=== PATIENT | female | born 1985 | race Caucasian/White ===

== ENCOUNTER 2017-04-23 15:32 | Emergency (ER) | payer MEDICAID, SELFPAY ==
[2017-04-23 15:42] VITALS: BMI 55.1
[2017-04-23 15:54] VITALS: BP 132/75; PULSE 82; RESP 18; TEMP 36.8; O2SAT 98; BMI 75.5
--- NOTE | 2017-04-23 15:54 | CT_ITS ---
CT abdomen pelvis wo con COMPARISON: CT scan abdomen pelvis 12/03/2016 HISTORY: Right lower quadrant pain with nausea TECHNIQUE: Multiaxial scans obtained from hemidiaphragms the pelvic floor and were performed without IV or oral contrast. Sagittal and coronal reformats were evaluated as well. FINDINGS: The lower lung weber are clear. The liver spleen and pancreas appear normal. There is fluid and some particles seen within the stomach. There has been a previous cholecystectomy. The adrenal glands are normal. The kidneys are normal size and there are no calculi and is no obstructive uropathy. There is a small umbilical hernia containing fat only measuring 2.6 cm in diameter and showing interval increase in size from the previous study November 2016. The small bowel appears normal. I do not definitely identify the appendix but there are no pericecal inflammatory changes. There is moderate scattered stool throughout the colon. The uterus is normal size and in the midline, the urinary bladder is partially decompressed. There is no free fluid in the pelvis. IMPRESSION: Interval increase in size of the umbilical hernia but still containing fat only otherwise grossly unremarkable CT scan abdomen pelvis, I agree with the [facility] report
--- NOTE | 2017-04-23 15:54 | HMH.EDABDPAI ---
ED Disposition Clinical Impression: Abdominal pain, right lower quadrant, Abdominal pain Disposition: Hospice - Medical Facility Condition on Discharge: Good Instructions: DI for Acute Abdomen Prescriptions: Dicyclomine HCl [Bentyl 10mg capsule] 10 mg PO BIDP PRN #10 cap PRN Reason: abdominal cramping - Critical Care Critical Care Time: No Attestation: On , the high probability of a clinically significant, sudden or life threatening deterioration of the following system(s) required my full and direct attention, intervention and personal management. The time I documented below is in addition to time spent performing reported procedures but includes the following listed in this critical care notation. Medical Decision Making Vital Signs: 04/23/17 15:54 Temperature 98.3 F Temperature Source Oral Pulse Rate [Right Brachial] 82 Respiratory Rate 18 Blood Pressure [Right Arm] 132/75 Blood Pressure Mean [Right Arm] 94 Blood Pressure Source [Right Arm] Automatic Cuff Blood Pressure Position [Right Arm] Sitting 02 Sat by Pulse Oximetry 98 Oxygen Delivery Method Room Air - Lab Data Lab results reviewed: Yes: I reviewed the patient's lab results. Lab Results 04/23/17 15:50: WBC 13.2 H, RBC 4.66, Hgb 12.8, Hct 40.9, MCV 87.7, MCH 27.5, MCHC 31.3 L, RDW 14.3, Plt Count 306, MPV 7.1 L, Neut % (Auto) 73.1, Lymph % (Auto) 20.3, [place]uckolls % (Auto) 3.1, Eos % (Auto) 3.2, Baso % (Auto) 0.2, Neut # (Auto) 9.7 H, Lymph # (Auto) 2.7, [place] # (Auto) 0.4, Eos # (Auto) 0.4, Baso # (Auto) 0.0 04/23/17 15:50: Sodium 141, Potassium 4.2, Chloride 103, Carbon Dioxide 31, Anion Gap 11.2, BUN 11, Creatinine 1.09 H, Estimated Creat Clear 55, Estimated GFR 58 L, Est GFR ( Amer) 70, Glucose 106, Calcium 8.9, Total Bilirubin 0.3, AST 11 L, ALT 33, Alkaline Phosphatase 99, Total Protein 8.4 H, Albumin 3.9, Globulin 4.5 H, Albumin/Globulin Ratio 0.9 L, Amylase 37, Lipase 161 04/23/17 16:30: Urine Color Yellow, Urine Appearance Sl cloudy, Urine pH 6.0, Ur Specific [place] 1.010, Urine Protein Negative, Urine Glucose (UA) Negative, Urine Ketones Negative, Urine Blood 3+, Urine Nitrate Negative, Urine Bilirubin Negative, Urine Urobilinogen 0.2, Ur Leukocyte Esterase Negative, Urine RBC 5-10, Urine WBC 5-10, Ur Squamous Epith Cells 5-10, Urine Bacteria 3+ 04/23/17 16:30: Urine HCG, Qual Negative Result diagrams: 04/23/17 15:50 04/23/17 15:50 Orders (Tests/Meds): ED MEDICATIONS Discontinued Medications Generic Name Dose Route Start Last Admin Trade Name Freq PRN Reason Stop Dose Admin Morphine Sulfate 4 mg 04/23/17 16:41 04/23/17 16:51 Morphine 4mg/Ml Syringe IV 04/23/17 16:42 4 mg ONCE ONE Administration Ondansetron HCl 4 mg 04/23/17 16:41 04/23/17 16:50 Zofran 4mg/2ml Vial IV 04/23/17 16:42 4 mg ONCE ONE Administration ORDERS Category Date Time Status CT abdomen pelvis wo con Stat Cat Scan 04/23/17 15:54 Taken Urine Culture Stat Micro 04/23/17 16:30 Received - Genaro Inquiry Pt receiving controlled substance: No Abdominal Pain HPI - General Chief Complaint: Abdominal Pain Stated Complaint: r side and back pain, nausea Time Seen by Provider: 04/23/17 16:00 Mode of Arrival: Ambulatory Source of Information: Patient - History of Present Illness MD complaint: abdominal pain, flank pain Onset (ago): day(s) Consistency: constant Location: RLQ, R flank Severity: moderate Quality: dull Radiation: R flank Relieving factors: nothing Exacerbating factors: eating Associated symptoms: denies other symptoms - Related Data Previous Rx's Medication Instructions Recorded Dicyclomine HCl [Bentyl 10mg 10 mg PO BIDP PRN #10 cap 04/23/17 capsule] Allergies Allergy/AdvReac Type Severity Reaction Status Date / Time amoxicillin [AMOXICILLIN] Allergy Unknown Verified 04/23/17 16:50 codeine [CODEINE] Allergy Unknown Verified 04/23/17 16:50 erythromycin base Allergy Unknown Verified
[2017-04-23 16:04] LABS: Basophils % 0.2 % (0.1-2.0); Eosinophils # 0.4 K/mm3 (0.0-0.4); Eosinophils % 3.2 % (0.1-12.0); Hematocrit 40.9 % (37.0-47.0); Hemoglobin 12.8 g/dL (12.2-16.2); Lymphocytes # 2.7 K/mm3 (0.7-4.5); Lymphocytes % 20.3 K/mm3 (10-50); Mean Corpuscular HGB Conc 31.3 g/dL (31.8-35.4); Mean Corpuscular Hemoglobin 27.5 pg (27.0-31.2); Mean Corpuscular Volume 87.7 fl (81-99); Mean Platelet Volume 7.1 fl (7.4-10.4); Monocytes # 0.4 K/mm3 (0.1-1.0); Monocytes % 3.1 % (1.7-9.3); Neutrophils # 9.7 K/mm3 (1.8-7.8); Neutrophils % 73.1 % (37.0-80.0); Platelet Count 306 K/mm3 (142-424); Red Blood Count 4.66 M/mm3 (4.20-5.40); Red Cell Distribution Width 14.3 % (11.5-17.5); White Blood Count 13.2 K/mm3 (4.8-10.8)
[2017-04-23 16:12] LABS: Alanine Aminotransferase 33 U/L (12-78); Albumin Level 3.9 gm/dL (3.4-5.0); Albumin/Globulin Ratio 0.9 (1.1-1.8); Alkaline Phosphatase 99 U/L (46-116); Amylase 37 U/L (25-125); Anion Gap 11.2 mEq/L (5-15); Aspartate Amino Transferase 11 U/L (15-37); Bilirubin,Total 0.3 mg/dL (0.2-1.0); Blood Urea Nitrogen 11 mg/dL (7-18); Calcium 8.9 mg/dL (8.5-10.1); Carbon Dioxide 31 mmol/L (21.0-32.0); Chloride 103 mmol/L (98-107); Creatinine Clearance Estimated 55 mL/min (0-300); Creatinine,Serum 1.09 mg/dL (0.55-1.02); Estimated Glomerular Filt Rate 58 ml/min (>60); GFR (African American) 70 ML/MIN (>60); Globulin 4.5 gm/dl (1.3-3.2); Glucose 106 mg/dL (74-106); Lipase 161 u/L (73-393); Potassium 4.2 mmoL/L (3.5-5.1); Sodium 141 mmol/L (136-145); Total Protein,Serum 8.4 gm/dL (6.4-8.2)
[2017-04-23 16:48] LABS: Appearance,Urine SL CLOUDY (Clear); Bilirubin,Urine Negative (Negative); Blood, Urine 3+ (Negative); Color,Urine YELLOW (Yellow); Glucose,Urine (UA) Negative (Negative); Ketones,Urine Negative (Negative); Leukocyte Esterase,Urine Negative (Negative); Microscopic, Urine URINE MICROSCOPIC (MICROSCOPIC); Nitrate,Urine Negative (Negative); Protein,Urine Negative (Negative); Urobilinogen,Urine 0.2 EU/dl (0.2)
[2017-04-23 16:52] LABS: Urine Pregnancy, HCG Qual. Negative (Negative)
[2017-04-23 16:56] LABS: Bacteria,Urine 3+ /lpf
[2017-04-23 18:11] VITALS: BP 110/57; PULSE 72; RESP 20; TEMP 37.3; O2SAT 98
== END 2017-04-23 18:21 | disposition home or self-care (01) ==
PROVIDERS: Emergency Provider Emergency Medicine; Family Provider Family Medicine
DX: R10.31 Right lower quadrant pain (principal)
CPT/HCPCS: 74176; 80053; 81001; 81025; 82150; 83690; 85025; 87086; 96374; 96375; 99282; J2405

== ENCOUNTER → 2017-10-07 11:03 | Outpatient (CLI) | payer MEDICAID, SELFPAY | PROVIDERS: PCP Family Medicine; Visit Provider Physician Assistant | DX: R07.9 Chest pain, unspecified (principal) | CPT/HCPCS: 93005 ==

== ENCOUNTER → 2017-10-12 10:39 | Outpatient (CLI) | payer MEDICAID, SELFPAY ==
--- NOTE | 2017-10-12 10:51 | CA_ITS ---
PROCEDURE: 2-D M-mode and color Doppler study INDICATIONS FOR THE TEST: Chest pain+ COPD Heart Murmur Tobacco Smoking+ Palpitations Fatigue Syncope Edema+ Hypertension Diabetes Mellitus Rheumatic Fever SOB LEAVITT Obesity+Hyperlipidemia Family History HD Additional History PATIENT INFORMATION HEIGHT: 62 WEIGHT:320 GENDER: Female B/P: 2-D/M-MODE INTERPRETATION: 2-D MEASUREMENTS OBSERVED VALUES IN CMS Right Ventricular Dimension (RVDd) 2.3 Interventricular Septum (Thickness)(IVsd) 1.1 Left Ventricular Internal Dimensions(LVIDd) 5.0 Left Ventricular Posterior Wall (Thickness)(LVPWd) 1.1 Aortic Root 3.0 Aortic Cusp Separation 2.0 Left Atrial Dimensions (LAD) 4.0 2D 1. Left atrium is normal size, left ventricle is normal size, there is no concentric left ventricular hypertrophy, visually estimated ejection fraction 55% with no obvious regional wall motion abnormality. 2. The right atrium and right ventricle are normal size and contractility. 3. The aortic, mitral and tricuspid valve are grossly normal. 4. The pulmonic valve is poorly visualized. 5. No significant pericardial effusion noted. DOPPLER INTERROGATION: Doppler interrogation of the aortic, mitral and tricuspid valvular presence of mild mitral and tricuspid regurgitation, tricuspid and jet velocity is insufficient for calculation of the right ventricular systolic pressure, diastolic parameters are within normal range. CONCLUSION: 1. Normal left ventricular size, preserved left ventricular systolic function, visually estimated ejection fraction 55% with no obvious regional wall motion abnormality, diastolic parameters are within normal range. 2. Mild mitral and tricuspid regurgitation 3. No significant pericardial effusion noted.
== END ==
PROVIDERS: Family Provider Family Medicine; PCP Family Medicine; Visit Provider Family Medicine
DX: R07.9 Chest pain, unspecified (principal)
CPT/HCPCS: 93306

== ENCOUNTER → 2017-11-07 11:48 | Outpatient (CLI) | payer MEDICAID, SELFPAY ==
[2017-11-07 12:12] LABS: Basophils % 0.4 % (0.1-2.0); Eosinophils # 0.4 K/mm3 (0.0-0.4); Eosinophils % 3.7 % (0.1-12.0); Hematocrit 37.2 % (37.0-47.0); Hemoglobin 11.9 g/dL (12.2-16.2); Lymphocytes # 2.3 K/mm3 (0.7-4.5); Lymphocytes % 21.2 K/mm3 (10-50); Mean Corpuscular Hemoglobin 28.4 pg (27.0-31.2); Mean Corpuscular Volume 88.6 fl (81-99); Monocytes # 0.3 K/mm3 (0.1-1.0); Monocytes % 3.1 % (1.7-9.3); Neutrophils # 7.8 K/mm3 (1.8-7.8); Neutrophils % 71.5 % (37.0-80.0); Platelet Count 255 K/mm3 (142-424); Red Cell Distribution Width 15.8 % (11.5-17.5)
[2017-11-07 13:49] LABS: Creatine Kinase MB < 0.5 ng/ml (0.0-3.6); Troponin I < 0.02 ng/ml (0.00-0.06)
[2017-11-07 14:01] LABS: Anion Gap 12.7 mEq/L (5-15); Blood Urea Nitrogen 9 mg/dL (7-18); CKMB Relative Index 0.7 U/L (0-4.0); Calcium 8.5 mg/dL (8.5-10.1); Carbon Dioxide 28 mmol/L (21.0-32.0); Chloride 106 mmol/L (98-107); Creatine Kinase 74 U/L (26-192); Estimated Glomerular Filt Rate 83 ml/min (>60); GFR (African American) 100 ML/MIN (>60); Glucose 115 mg/dL (74-106); Potassium 4.7 mmoL/L (3.5-5.1); Sodium 142 mmol/L (136-145)
== END ==
PROVIDERS: Family Provider Family Medicine; PCP Family Medicine; Visit Provider Physician Assistant
DX: E66.01 Morbid (severe) obesity due to excess calories (principal); F17.200 Nicotine dependence, unspecified, uncomplicated; R06.09 Other forms of dyspnea; R07.9 Chest pain, unspecified; R60.9 Edema, unspecified; Z68.43 Body mass index [BMI] 50.0-59.9, adult
CPT/HCPCS: 36415; 80048; 82550; 82553; 83880; 84484; 85025

== ENCOUNTER → 2017-11-11 11:45 | Outpatient (CLI) | payer MEDICAID, SELFPAY ==
--- NOTE | 2017-11-11 11:46 | CT_ITS ---
CT angio chest COMPARISON: CT angiogram of the chest 03/10/2013 HISTORY: Chest pain and bilateral arm tingling TECHNIQUE: Multiple axial scans obtained from the thoracic inlet the hemidiaphragms and were performed after rapid injection of IV contrast. Sagittal and coronary reformats were evaluated as well. FINDINGS: This is a very large patient and this is a fairly good inspiration and there is excellent vascular opacification. There is no CT evidence of pulmonary emboli. The lung weber are clear of active infiltrate. There is abundant fat in the superior mediastinum.. There are couple normal-sized nodes in the AP window. There is no abnormal hilar lymphadenopathy. There is mild to moderate generalized cardiomegaly however the is no vascular congestion. There is no pleural fluid. There is a [id number] sized sliding hiatal hernia. Scans in the upper abdomen show both adrenal glands appear normal. IMPRESSION: Generalized cardio megaly, no PE and no acute infiltrate seen
--- NOTE | 2017-11-11 12:35 | HMH.ITSHM ---
CHLORPOMAZINE 25 MG DICLOFENAC SODEC 75 MG CETIRAZINE HCL 10 MG FERROUS SULFATE 325 MG CVS VITAMIN D3 BENZTROPINE DULOYETINE ESOMEPRAZOLE ARIPIPRAZOLE CYCLOBENZAPRINE MECLIZINE ACETAMINOPHEN
--- NOTE | 2017-11-11 13:41 | HMH.ITSHM ---
DICLOFENAC,CHLORPOMAZINE,FERROUS SULFATE,BENZTROPINE,DULOETINE,ESOMEPRAZE,ARIPPRAZOLE,CYCLOBENDAPRINE,MECLIZINE,
== END ==
PROVIDERS: PCP Family Medicine; Visit Provider Internal Medicine Cardiovascular Disease
DX: R07.9 Chest pain, unspecified (principal); R06.00 Dyspnea, unspecified; R60.9 Edema, unspecified; R53.1 Weakness; E66.9 Obesity, unspecified
CPT/HCPCS: 71275; Q9967

== ENCOUNTER → 2017-11-18 14:14 | Outpatient (CLI) | payer MEDICAID, SELFPAY ==
--- NOTE | 2017-11-18 14:22 | XR_ITS ---
XR hip RT 2-3V w/pelvis HISTORY: ITS.REASON: RT HIP PAIN ORDERING PHYSICIAN: FRANCISCO JAVIER Mahmood PATIENT AGE: 32 years COMPARISON: None FINDINGS: No fracture or dislocation is evident. No significant degenerative change. No lytic or blastic change. Unremarkable soft tissues. There is an old avulsion fracture versus ligamentous calcification of the lesser trochanter superiorly. Similar finding is noted on the left. IMPRESSION: No acute finding, old bilateral avulsion fractures versus ligaments calcification along the superior aspect of the lesser trochanter
== END ==
PROVIDERS: PCP Family Medicine; Visit Provider Physician Assistant
DX: M25.551 Pain in right hip (principal)
CPT/HCPCS: 73502

== ENCOUNTER 2018-01-12 08:30 | Outpatient (RCR) | payer MEDICAID, SELFPAY ==
--- NOTE | 2017-12-27 15:21 | HMH.PTOPWND ---
Rehab Outpt Wound Evaluation Rehab OP Wound Evaluation Start: 12/27/17 14:59 Freq: Status: Active Protocol: Document 12/27/17 15:14 ALBERTINA (Rec: 12/27/17 15:21 PHORNE [id number]) Electronically Signed By Carlos Smith, PT 12/27/17 15:14 Subjective/History History History Pt is 32 yowf who presents with c/o bianca LE edema with open, weeping sores x ~ 2 mos. She presents today with ni open sores currently, but several areas of healing skin. She reports no c/o pain or tenderness to palpation now, but states My legs just burn and itch. SHe reports she has been taking oral antibiotics as prescribed which have helped her symptoms. She has hx of obesity. Subjective Subjective Only c/o burning and itching in bianca LE. Lymphedema Eval Classification of Lymphedema Secondary Lymphedema Yes Stage of Lymphedema Lymphedema stages Stage 0 (subjective c/o heaviness and aching) Skin Changes Dry Skin Yes Redness Yes Blisters Yes Wounds Yes Pain Scale Pain Scale (0-10) 0 Affected Extremities Areas Affected by Lymphedema/Edema Right Lower Extremity Left Lower Extremity Manual Lymphatic Drainage Treatment Area MLD Treatment Area Right Lower Extremity Left Lower Extremity Wound Problems/Impairments Impairments Problems/Impairmments Increased Edema Wound Care Needs Impaired Self Care/Self Management Prognosis Rehab Potential Good Clinical Impression Consistent with Diagnosis Yes Short Term Goals Number of Weeks 4 Patient to Understand Lymphedema Yes Treatment and Exercises Decrease Girth Measurments by (cm) Yes: by 5 cm Heel Seam Rubber Goals Number of Weeks 8 Patient to be Ind w/ HEP Yes Patient to Adhere Lymphedema Precautions Yes Decrease Girth Measurments by (cm) Yes: by 15 cm Outpatient Therapy Plan of Care Treatment Plan May Include Therapeutic Exercise Including Home Yes Exercise Program Manual Therapy Techniques Yes Neuromuscular Re-education Yes Orthotics/Bracing/Splinting Yes Massage Yes Lisa
== END 2018-01-12 08:35 | disposition home or self-care (01) ==
LOC: PT 08:30
PROVIDERS: Visit Provider Family Medicine
DX: L03.115 Cellulitis of right lower limb (principal); L03.116 Cellulitis of left lower limb
CPT/HCPCS: 97140; 97162; 97760

== ENCOUNTER → 2018-02-15 11:31 | Outpatient (CLI) | payer MEDICAID, SELFPAY ==
--- NOTE | 2018-02-15 11:32 | NM_ITS ---
CARDIOLITE SPECT MYOCARDIAL PERFUSION SCAN, REST AND STRESS: EXERCISE STRESS [facility] REVIEW QGS EF AND WALL MOTION EVALUATION: QPS - PERFUSION EVALUATION HISTORY: Chest pain, SOB, Tobacco use DOSE: 10.40 mCi technetium 99m mibi intravenously at rest followed by 31.4 mCi technetium 99m mibi following the intravenous ministration of 0.4 mg of Lexiscan. Resting blood pressure is 126/59. Stress blood pressure 137/66. FINDINGS: Ejection fraction is calculated to be 69%. Stress images reveal left ventricular dictation decreased activity in the anterior wall and inferior wall. Rest images reveal worsening activity in the anterior wall with little inferior wall change area and gated images calculated ejection fraction 60% with normal wall motion IMPRESSION: Left ventricular dilatation with anterior ischemia and fixed defect in the inferior wall. Normal ejection fraction just as
--- NOTE | 2018-02-15 12:01 | HMH.ITSHM ---
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 []CHLORPOMAZINE DICLOFENAC CETIRAZINE FERROUS SULFATE VITAMINS D3 BENZTROPINE DULOYETINE ESOMEPRAZOLE ARIPIPRAZOLE CYCLOBENZAPRINE MECLIZINE
== END ==
PROVIDERS: PCP Family Medicine; Visit Provider Internal Medicine
DX: R07.9 Chest pain, unspecified (principal); R06.09 Other forms of dyspnea; E66.01 Morbid (severe) obesity due to excess calories; F17.200 Nicotine dependence, unspecified, uncomplicated; K21.9 Gastro-esophageal reflux disease without esophagitis; K44.9 Diaphragmatic hernia without obstruction or gangrene; R20.0 Anesthesia of skin; R53.1 Weakness; R60.9 Edema, unspecified; Z68.43 Body mass index [BMI] 50.0-59.9, adult
CPT/HCPCS: 78452; 93017; A9502; J2785

== ENCOUNTER → 2018-03-30 11:14 | Outpatient (CLI) | payer MEDICAID, SELFPAY ==
[2018-03-30 13:39] LABS: Anion Gap 16.9 mEq/L (5-15); Blood Urea Nitrogen 20 mg/dL (7-18); Calcium 8.9 mg/dL (8.5-10.1); Carbon Dioxide 26 mmol/L (21.0-32.0); Chloride 100 mmol/L (98-107); Creatinine,Serum 1.18 mg/dL (0.55-1.02); Estimated Glomerular Filt Rate 52 ml/min (>60); GFR (African American) 63 ML/MIN (>60); Glucose 147 mg/dL (74-106); Potassium 4.9 mmoL/L (3.5-5.1); Sodium 138 mmol/L (136-145)
== END ==
PROVIDERS: Visit Provider Internal Medicine Cardiovascular Disease
DX: I10 Essential (primary) hypertension (principal); I20.9 Angina pectoris, unspecified; I51.9 Heart disease, unspecified; R00.2 Palpitations; R06.02 Shortness of breath
CPT/HCPCS: 36415; 80048; 83880

== ENCOUNTER → 2018-04-10 09:39 | Outpatient (CLI) | payer MEDICAID, SELFPAY ==
--- NOTE | 2018-04-10 09:41 | CA_ITS ---
PROCEDURE: 2-D M-mode and color Doppler study INDICATIONS FOR THE TEST: Chest pain+ COPD Heart Murmur Tobacco Smoking+ Palpitations+ Fatigue Syncope Edema Hypertension Diabetes Mellitus Rheumatic Fever SOB+LEAVITT Obesity+Hyperlipidemia Family History HD Additional History cad,rosibel PATIENT INFORMATION HEIGHT: 65 WEIGHT:354 54 GENDER: Female B/P:147/76 Limited windows r/t pt size 2-D/M-MODE INTERPRETATION: 2-D MEASUREMENTS OBSERVED VALUES IN CMS Right Ventricular Dimension (RVDd) 1.5 Interventricular Septum (Thickness)(IVsd) 1.0 Left Ventricular Internal Dimensions(LVIDd) 5.5 Left Ventricular Posterior Wall (Thickness)(LVPWd) 0.8 Aortic Root 2.2 Aortic Cusp Separation Left Atrial Dimensions (LAD) 4.1 2D 1. Technically difficult and very poor study, repeat study with definitely contrast is recommended, valvular structures are poorly visualized. 2. The left atrium is mildly enlarged, there is probably preserved left ventricular systolic function, visually estimated ejection fraction is probably 55% with no regional wall motion abnormality, endocardial surfaces are poorly visualized, a repeat study with definitely contrast is recommended. 3. The right-sided chambers are grossly normal size and contractility. 4. The aortic, mitral and tricuspid valve are poorly visualized. 5. The pulmonic valve is poorly visualized. 6. No significant pericardial effusion noted. DOPPLER INTERROGATION: Doppler interrogation of the aortic, mitral and tricuspid valvular presence of mild mitral and tricuspid regurgitation, tricuspid regurgitation jet velocity is inadequate for calculation of the right ventricular systolic pressure. Diastolic parameters are inconclusive. CONCLUSION: 1. Technically difficult and poor study, repeat study with Definity contrast is recommended. 2. Probably preserved left ventricular systolic function, visually estimated ejection fraction of 55%, repeat study with Definity contrast is recommended. 3. Mild mitral and tricuspid regurgitation 4. No significant pericardial effusion noted.
== END ==
PROVIDERS: PCP Family Medicine; Visit Provider Internal Medicine Cardiovascular Disease
DX: R06.02 Shortness of breath (principal); I25.118 Atherosclerotic heart disease of native coronary artery with other forms of angina pectoris; R07.89 Other chest pain; I51.9 Heart disease, unspecified; E66.01 Morbid (severe) obesity due to excess calories; G47.33 Obstructive sleep apnea (adult) (pediatric); Z68.43 Body mass index [BMI] 50.0-59.9, adult
CPT/HCPCS: 93306

== ENCOUNTER → 2018-04-20 12:25 | Outpatient (CLI) | payer MEDICAID, SELFPAY ==
--- NOTE | 2018-04-20 12:27 | CA_ITS ---
PROCEDURE: Limited definitely contrast study INDICATIONS FOR THE TEST: Chest pain+ COPD Heart Murmur Tobacco Smoking Palpitations Fatigue Syncope Edema Hypertension Diabetes Mellitus Rheumatic Fever SOB LEAVITT Obesity+Hyperlipidemia Family History HD Additional History DEFINITY PATIENT INFORMATION HEIGHT: 65 WEIGHT:350 GENDER: Female B/P:107/54 2-D/M-MODE INTERPRETATION: 2-D MEASUREMENTS OBSERVED VALUES IN CMS Right Ventricular Dimension (RVDd) Interventricular Septum (Thickness)(IVsd) Left Ventricular Internal Dimensions(LVIDd) Left Ventricular Posterior Wall (Thickness)(LVPWd) Aortic Root Aortic Cusp Separation Left Atrial Dimensions (LAD) 2D DOPPLER INTERROGATION: CONCLUSION: 1. Limited contrast study shows preserved left ventricular systolic function, with no regional wall motion abnormality.
== END ==
PROVIDERS: PCP Family Medicine; Visit Provider Nurse Practitioner Family
DX: I25.10 Atherosclerotic heart disease of native coronary artery without angina pectoris (principal); R06.02 Shortness of breath; R07.9 Chest pain, unspecified; R94.39 Abnormal result of other cardiovascular function study
CPT/HCPCS: 93306

== ENCOUNTER → 2018-07-07 10:53 | Outpatient (CLI) | payer MEDICAID, SELFPAY ==
[2018-07-07 11:09] LABS: Basophils % 0.3 % (0.1-2.0); Eosinophils # 0.3 K/mm3 (0.0-0.4); Eosinophils % 2.7 % (0.1-12.0); Hemoglobin 12.8 g/dL (12.2-16.2); Lymphocytes # 2.6 K/mm3 (0.7-4.5); Lymphocytes % 21.2 % (10-50); Mean Corpuscular HGB Conc 32.7 g/dL (31.8-35.4); Mean Corpuscular Hemoglobin 30.9 pg (27.0-31.2); Mean Corpuscular Volume 94.5 fl (81-99); Mean Platelet Volume 7.3 fl (7.4-10.4); Monocytes # 0.5 K/mm3 (0.1-1.0); Monocytes % 3.8 % (1.7-9.3); Neutrophils # 8.7 K/mm3 (1.8-7.8); Neutrophils % 71.9 % (37.0-80.0); Platelet Count 271 K/mm3 (142-424); Red Blood Count 4.13 M/mm3 (4.20-5.40); Red Cell Distribution Width 15.5 % (11.5-17.5); White Blood Count 12.2 K/mm3 (4.8-10.8)
[2018-07-07 12:03] LABS: Alanine Aminotransferase 29 U/L (12-78); Albumin Level 3.7 gm/dL (3.4-5.0); Albumin/Globulin Ratio 0.9 (1.1-1.8); Alkaline Phosphatase 121 U/L (46-116); Anion Gap 12.1 mEq/L (5-15); Aspartate Amino Transferase 12 U/L (15-37); Bilirubin,Total 0.3 mg/dL (0.2-1.0); Blood Urea Nitrogen 17 mg/dL (7-18); Carbon Dioxide 30 mmol/L (21.0-32.0); Chloride 103 mmol/L (98-107); Creatinine,Serum 1.37 mg/dL (0.55-1.02); Estimated Glomerular Filt Rate 44 ml/min (>60); GFR (African American) 53 ML/MIN (>60); Globulin 3.9 gm/dl (1.3-3.2); Glucose 138 mg/dL (74-106); Potassium 5.1 mmoL/L (3.5-5.1); Sodium 140 mmol/L (136-145); Total Protein,Serum 7.6 gm/dL (6.4-8.2)
== END ==
PROVIDERS: PCP Family Medicine; Visit Provider Nurse Practitioner
DX: R55 Syncope and collapse (principal)
CPT/HCPCS: 36415; 80053; 85025; 93225; 93226

== ENCOUNTER → 2018-09-21 09:41 | Outpatient (CLI) | payer MEDICAID, SELFPAY ==
--- NOTE | 2018-09-21 09:50 | MR_ITS ---
MR head/brain wo/w con HISTORY: ITS.REASON: SYNCOPE AND COLLAPSE ORDERING PHYSICIAN: FRANCISCO JAVIER Mahmood PATIENT AGE: 33 years Comparison: 07/10/2013 TECHNIQUE: Standard multiplanar multiecho sequences are performed without contrast. FINDINGS: There are no areas of restricted diffusion. There is no mass, hemorrhage or extra-axial fluid collection. Ventricles, sulci and cortical areas appear normal. There are a few punctate foci of increased FLAIR signal within the frontal and parietal superior deep white matter areas. Brain stem structures appear normal. Visualized portions of the optic pathway structures are normal. Visualized vessels are patent and area of the foramen magnum is normal. IMPRESSION: No acute intracranial process. White matter findings are mild and nonspecific although could be from mild chronic microvascular ischemic changes or could be related to migraine headaches.
--- NOTE | 2018-09-21 10:43 | HMH.ITSHM ---
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 []DICLOFENAC CHLORPOMAZINE CETIRAZINE FERROUS SULFATE BENZTROPINE DULOYETINE ESOMEPRAZOLE ARIPIPRAZOLE CYCLOBENZAPRINE MECLIZINE ACETAMINOPHEN
== END ==
PROVIDERS: PCP Physician Assistant; Visit Provider Physician Assistant
DX: R55 Syncope and collapse (principal)
CPT/HCPCS: 70553; A9576

== ENCOUNTER → 2019-04-20 11:55 | Outpatient (CLI) | payer OTHER, SELFPAY ==
--- NOTE | 2019-04-20 12:02 | XR_ITS ---
PROCEDURE: XR ABDOMEN MIN 2V CLINICAL INDICATION: RUQ PAIN COMPARISON: No exams were available for comparison FINDINGS: There are surgical clips in the right upper quadrant. Bilateral tubal ligation clips are present. There is a mild amount of retained colonic feces. No intestinal obstruction or free air. No abnormal calcifications or acute bony anomalies. IMPRESSION: No acute findings. Dictated by: Byron Jaimes MD 04/23/2019 16:04 Electronically signed by Byron Jaimes MD in [place] 04/23/2019 16:04
== END ==
PROVIDERS: PCP Nurse Practitioner; Visit Provider Physician Assistant
DX: R10.11 Right upper quadrant pain (principal)
CPT/HCPCS: 74019

== ENCOUNTER 2019-10-16 14:00 | Outpatient (RCR) | payer OTHER, SELFPAY ==
--- NOTE | 2019-08-22 10:43 | HMH.PTOPWND ---
Rehab Outpt Wound Evaluation Rehab OP Wound Evaluation Start: 08/22/19 10:33 Freq: Status: Active Protocol: Document 08/22/19 10:35 ALBERTINA (Rec: 08/22/19 10:42 PHOARCHIE [id number]) Electronically Signed By Carlos Smith, PT 08/22/19 10:35 Subjective/History History History Pt is 34 yowf who presents with c/o B LE edema and R LE cellulitis x ~ 2-3 mos with insidious onset of symptoms. She reports palpation tenderness to the R lower leg, worse in the zahraa-wound area. She reports increased drainage from anterior lower leg wounds. She has hx of Depression and morbid obesity. Subjective Subjective Pt reports pain 8/10 on anterior R lower leg. Wound Eval Wound Right Anterior Dillard Wound Type Stasis Ulcer Wound Length (cm) 4.0 Wound Width (cm) 3.0 Wound Bed Appearance Beefy Red Percentage Granulated (%) 100 Wound Margins Description Well Defined Surrounding Tissue Appearance [place],Dark Red Edema Type Pitting Edema Degree 3+ Query Text:1+ Trace, Barely Detectable, Rebound 15-30 seconds 2+ Moderate, Slight Indentation, Rebound 10-20 seconds 3+ Deep, Deeper Indentation, Rebound > 30 seconds 4+ Very Deep, Rebound > 60 seconds Edema Appearance Weeping Drainage Description Serous Drainage Amount Large Primary Dressing Unna Boot Wound Secondary Dressing Type Gauze Roll/Wrap,Adhering Gauze Roll Wound Debridement Method Gauze Wound Debridement Amount of Tissue None Removed Dressing Change Patient Tolerance Tolerated Well Lymphedema Eval Classification of Lymphedema Secondary Lymphedema Yes Stemmer's sign Stemmer's Sign no Stage of Lymphedema Lymphedema stages Stage II (Pitting edema, increased fibrosis w/ decreased pitting) Skin Changes Dry Skin Yes Skin Folds Yes Redness Yes Blisters Yes Wounds Yes Discoloration of Skin Yes Other Changes Yes Pain Scale Pain Scale (0-10) 8 Affected Extremities Areas Affected by Lymphedema/Edema Right Lower Extremity,Left
== END 2019-10-16 14:47 | disposition home or self-care (01) ==
LOC: PT 14:00
PROVIDERS: PCP Nurse Practitioner; Visit Provider Physician Assistant
DX: L03.115 Cellulitis of right lower limb (principal)
CPT/HCPCS: 97162; 97597

== ENCOUNTER 2020-01-04 13:08 | Emergency (ER) | payer OTHER, SELFPAY ==
[2020-01-04 13:25] VITALS: BP 115/62; PULSE 78; RESP 20; TEMP 36.8; O2SAT 96; BMI 57.0
--- NOTE | 2020-01-04 14:10 | HMH.EDUTC ---
[facility] [place] Disposition Clinical Impression: Viral syndrome Pharyngitis Qualifiers: Pharyngitis/tonsillitis etiology: unspecified etiology Qualified Code(s): J02.9 - Acute pharyngitis, unspecified Disposition: Home, Self-Care Condition on Discharge: Good Instructions: Sore Throat, DI for Pharyngitis/Tonsillopharyngitis -- Adult, Preventing the Spread of Coronavirus Discharge Instructions Additional Instructions: Drink plenty of fluids. Take tylenol for pain or fever. Take the medications as directed. Follow up with your regular doctor. GO TO THE ER FOR ANY WORSENING SYMPTOMS Prescriptions: Cefdinir [Omnicef 300mg Capsule] 300 mg PO BID #20 cap Transmission Status: Received by [facility]/pharmacy #[id number] Referrals: Severiano Lemus MD [Primary Care Provider] - Time of Disposition: 14:14 Medical Decision Making - Medical Records Medical records reviewed: No: I reviewed the patient's medical records. - Genaro Inquiry Pt receiving controlled substance: No Vital Signs: 01/04/20 13:25 01/04/20 14:12 Temperature 98.3 F 98.3 F Temperature Source Oral Oral Pulse Rate 78 Pulse Rate [Right Brachial] 78 Respiratory Rate 20 20 Blood Pressure 115/62 Blood Pressure [Right Arm] 115/62 Blood Pressure Mean [Right Arm] 79 Blood Pressure Source [Right Arm] Automatic Cuff Blood Pressure Position [Right Arm] Sitting 02 Sat by Pulse Oximetry 96 Oxygen Delivery Method Room Air - Lab Data Lab results reviewed: Yes: I reviewed the patient's lab results. Lab Results 01/04/20 13:57: Influenza Type A Ag Negative, Influenza Type B Ag Negative 01/04/20 13:57: Strep Scn Rapid Clinic Negative 01/04/20 13:57: Urine Color Yellow, Urine Appearance Cloudy, Urine pH 6.0, Ur Specific [place] 1.015, Urine Protein Negative, Urine Glucose (UA) 500, Urine Ketones Negative, Urine Blood Negative, Urine Nitrate Negative, Urine Bilirubin Negative, Urine Urobilinogen 0.2, Ur Leukocyte Esterase 1+ A Orders (Tests/Meds): ORDERS Category Date Time Status Covid-19 Nasal PCR Sendout [facility] Routine Lab 01/04/20 14:00 Received Covid-19 Nasal PCR Sendout [facility] Stat Lab 01/04/20 14:00 Received Strep Screen Confirmation Stat Micro 01/04/20 13:57 Received [facility] [place] HPI - General Stated complaint: fever, body aches, diarrhea, rt side pain Time Seen by Provider: 01/04/20 14:10 Mode of Arrival: Ambulatory Source of Information: Patient Limitations: No Limitations Description of Symptoms (Recalled from Triage Doc. by RN): PATIENT C/O RIGHT SIDE PAIN, FEVER, SORE THROAT, AND BODY ACHES X 4 DAYS. NO KNOWN SICK CONTACTS HEENT Symptoms (Recalled from RN notes): Yes Resp Symptoms (Recalled from RN notes): No Skin Symptoms (Recalled from RN notes): No MS Symptoms (Recalled from RN notes): No Functional Status (Recalled from RN notes): WNL - History of Present Illness Provider Complaint: She c/o sore throat, chilling, cough, and some intermitent lower abdomen pain for the past 3 days. - Related Data Home Medications Medication Instructions Recorded Confirmed acetaminophen 325 mg capsule 325 mg PO Q6H PRN 11/07/17 11/07/19 aripiprazole 5 mg tablet 5 mg PO DAILY 11/07/17 11/07/19 benztropine 1 mg tablet 1 mg PO DAILY 11/07/17 11/07/19 cetirizine 10 mg tablet 10 mg PO DAILY 11/07/17 11/07/19 cholecalciferol (vitamin D3) 125 5,000 unit PO DAILY 11/07/17 11/07/19 mcg (5,000 unit) capsule cyclobenzaprine 10 mg tablet 10 mg PO TID PRN 11/07/17 11/07/19 diclofenac sodium 75 mg 75 mg PO BID 11/07/17 11/07/19 tablet,delayed release ferrous sulfate 325 mg (65 mg 325 mg PO DAILY tab 11/07/17 11/07/19 iron) tablet levothyroxine 25 mcg tablet 25 mcg PO DAILY 11/07/17 11/07/19 meclizine 25 mg tablet 25 mg PO DAILY 11/07/17 11/07/19 aspirin 81 mg tablet,delayed 81 mg PO DAILY 03/14/18 11/07/19 release megestrol 40 mg tablet 40 mg PO BID tab 03/29/19 11/07/19 metformin 850 mg tablet 850 mg PO BID tab 11/07/19 11/07/19 silver
[2020-01-04 14:12] VITALS: BP 115/62; PULSE 78; RESP 20; TEMP 36.8; O2SAT 96
[2020-01-04 14:47] LABS: UTC Strep Screen (Rapid) Negative (Negative)
[2020-01-04 14:48] LABS: UTC Influenza A Antigen Negative (Negative); UTC Influenza B Antigen Negative (Negative)
[2020-01-04 14:49] LABS: Apearance,Urine Cloudy (Clear); Bilirubin,Urine Negative (Negative); Blood, Urine Negative (Negative); Color,Urine Yellow (Yellow); Glucose,Urine (UA) 500 (Negative); Ketones,Urine Negative (Negative); Protein,Urine Negative (Negative); Specific Gravity, Urine 1.015 (1.005-1.030); UTC Leukocyte Esterase,Urine 1+ (Negative); UTC Nitrate,Urine Negative (Negative); Urobilinogen,Urine 0.2 EU/dl (0.2)
[2020-01-05 16:26] LABS: Covid-19 Nasal PCR Sendout Lex Not Detected
--- NOTE | 2020-01-06 14:49 | PC.NURSE ---
01/06/20 0937 patient notified of neg COVID results
== END 2020-01-04 14:15 | disposition home or self-care (01) ==
PROVIDERS: Emergency Provider Nurse Practitioner Family; PCP Family Medicine
DX: J02.9 Acute pharyngitis, unspecified (principal); E11.9 Type 2 diabetes mellitus without complications; I10 Essential (primary) hypertension; K21.9 Gastro-esophageal reflux disease without esophagitis; F32.9 Major depressive disorder, single episode, unspecified; Z72.0 Tobacco use; Z88.6 Allergy status to analgesic agent; Z88.1 Allergy status to other antibiotic agents; Z88.2 Allergy status to sulfonamides; Z79.82 Long term (current) use of aspirin; Z79.84 Long term (current) use of oral hypoglycemic drugs; Z79.899 Other long term (current) drug therapy
CPT/HCPCS: 81003; 87804; 87880; 99202; U0004

== ENCOUNTER → 2020-03-03 15:35 | Outpatient (CLI) | payer OTHER, SELFPAY | PROVIDERS: PCP Family Medicine; Visit Provider Obstetrics & Gynecology Gynecology | DX: Z01.812 Encounter for preprocedural laboratory examination (principal); Z11.52 Encounter for screening for COVID-19 | CPT/HCPCS: U0003 ==

== ENCOUNTER → 2020-03-11 21:10 | Outpatient (CLI) | payer OTHER, SELFPAY ==
[2020-03-11 21:57] LABS: Basophils # 0.1 K/mm3 (0-0.2); Eosinophils # 0.2 K/mm3 (0.0-0.4); Eosinophils % 1.8 % (0.1-12.0); Hematocrit 45.7 % (37.0-47.0); Hemoglobin 15.2 g/dL (12.2-16.2); Lymphocytes # 1.9 K/mm3 (0.7-4.5); Lymphocytes % 23.1 % (10-50); Mean Corpuscular HGB Conc 33.3 g/dL (31.8-35.4); Mean Corpuscular Hemoglobin 31.8 pg (27.0-31.2); Mean Corpuscular Volume 95.6 fl (81-99); Mean Platelet Volume 7.4 fl (7.4-10.4); Monocytes # 0.3 K/mm3 (0.1-1.0); Neutrophils # 5.9 K/mm3 (1.8-7.8); Neutrophils % 71.1 % (37.0-80.0); Platelet Count 201 K/mm3 (142-424); Red Blood Count 4.78 M/mm3 (4.20-5.40); Red Cell Distribution Width 15.3 % (11.5-17.5); White Blood Count 8.3 K/mm3 (4.8-10.8)
[2020-03-11 22:51] LABS: Strep Scrn Group A (Rapid) Negative (Negative)
[2020-03-13 10:34] LABS: Covid-19 Nasal PCR Sendout P&C POSITIVE
== END ==
PROVIDERS: PCP Physician Assistant; Visit Provider Physician Assistant
DX: Z20.822 Contact with and (suspected) exposure to COVID-19 (principal); U07.1 COVID-19
CPT/HCPCS: 36415; 85025; 87430; U0004

== ENCOUNTER 2020-03-12 21:04 | Inpatient (IN) | payer OTHER, SELFPAY ==
[2020-03-12 21:23] VITALS: BP 160/85; PULSE 132; RESP 16; TEMP 37.7; O2SAT 94; BMI 54.9
[2020-03-12 21:26] VITALS: BMI 54.9
[2020-03-12 21:28] VITALS: BP 154/80; PULSE 118; RESP 22; O2SAT 95
--- NOTE | 2020-03-12 21:28 | CT_ITS ---
PROCEDURE: CT HEAD/BRAIN WO CON CLINICAL INDICATION: fall Head injury with headache/pain, contusion, abrasion or hematoma, vomiting, headache COMPARISON: CT HDWO CT HEAD W/O CONTRAST from 07/10/2013 TECHNIQUE: Axial images obtained. All CT scans at the facility use one or more dose reduction, viz: automated exposure control, ma/kV adjustment per patient size (including targeted exams where dose is matched to indication, i.e. head), or iterative reconstruction technique. FINDINGS: No midline shift, mass effect, intracranial hemorrhage, hydrocephalus, or extra-axial fluid collection is evident. The calvarium has an unremarkable appearance. No mastoid effusion. No sinus air-fluid level. IMPRESSION: No acute intracranial finding Dictated by: Byron Jaimes MD 03/13/2020 06:07 Byron Jaimes MD in [place] 03/13/2020 06:07
--- NOTE | 2020-03-12 21:28 | CT_ITS ---
PROCEDURE: CT CERVICAL SPINE WO CON CLINICAL INDICATION: fall Neck injury with pain, contusion/abrasion or hematoma, cervical sprain/strain the COMPARISON: No exams were available for comparison TECHNIQUE: Axial images obtained with sagittal and coronal reformats. All CT scans at the facility use one or more dose reduction, viz: automated exposure control, ma/kV adjustment per patient size (including targeted exams where dose is matched to indication, i.e. head), or iterative reconstruction technique. Axial spiral CT scanning performed of the cervical spine beginning at the base of the skull and continuing to the upper T-spine. 3-D multiplanar reconstruction with 3-D manipulation of volumetric data set in image rendering was completed by the radiologist and/or technologist with the supervision of the radiologist on independent workstation. FINDINGS: No fracture nor subluxation is evident. Normal prevertebral soft tissues. Facets, neural foramen and vertebral bodies intact and unremarkable. Normal C1/C2 relationships. Apices of lungs are clear with no acute findings. There is an azygos fissure. Mediastinal lipomatosis. Ill-defined opacities noted in the lung apices. Scattered small nodes are present in the IMPRESSION: 1. No acute fracture. 2. Biapical pneumonia. Please see chest CT report further description Dictated by: Byron Jaimes MD 03/13/2020 06:13 Byron Jaimes MD in [facility] 03/13/2020 06:13
--- NOTE | 2020-03-12 21:28 | XR_ITS ---
PROCEDURE: XR CHEST PORTABLE CLINICAL HISTORY: fall Posttraumatic pain COMPARISON: CR CXR CHEST(2 VIEWS-NOT PORTABLE) from 03/10/[address] angio chest from 11/11/2017 CR CXR2V XR chest 2V from 03/17/2018 FINDINGS: There is cardiomegaly. There is prominence of the mediastinum which may be due to mediastinal lipomatosis. There is an azygos fissure as a normal variant. There is increased fullness of the right paratracheal soft tissues possibly related to the portable technique. Upright PA and lateral chest or chest CT may confirm. There is mild pulmonary venous congestion suggesting mild CHF. There is some patchy density in the left perihilar region and may be due to an area of atelectasis or infiltrate. No acute bony abnormalities. IMPRESSION: Cardiomegaly with pulmonary venous congestion suggesting CHF. Increasing prominence of the mediastinum which may be due to progressive mediastinal lipomatosis and may be confirmed with CT. Possible left perihilar infiltrate. Consider follow-up for confirmation Dictated by: Byron Jaimes MD 03/13/2020 05:13 Byron Jaimes MD in [facility] 03/13/2020 05:13
--- NOTE | 2020-03-12 21:28 | XR_ITS ---
PROCEDURE: XR PELVIS 1-2V CLINICAL INDICATION: fall Posttraumatic pain COMPARISON: CR HIPCMRT XR hip RT 2-3V w/pelvis from 11/18/2017 TECHNIQUE: XR Pelvis AP View FINDINGS: No fracture or dislocation is evident. Tubal ligation clips are Old avulsion injuries versus ununited ossification center noted at the lesser trochanter on both sides not significantly changed IMPRESSION: No acute findings. Dictated by: Byron Jaimes MD 03/13/2020 05:09 Byron Jaimes MD in [facility] 03/13/2020 05:09
[2020-03-12 21:37] VITALS: BP 151/70; PULSE 105; RESP 21; O2SAT 95
[2020-03-12 21:45] LABS: Basophils # 0.1 K/mm3 (0-0.2); Basophils % 0.7 % (0.1-2.0); Chloride 102 mmol/L (98-107); Hematocrit 47.3 % (37.0-47.0); Hemoglobin 15.5 g/dL (12.2-16.2); Lymphocytes # 1.1 K/mm3 (0.7-4.5); Lymphocytes % 15.2 % (10-50); Mean Corpuscular HGB Conc 32.7 g/dL (31.8-35.4); Mean Corpuscular Hemoglobin 30.1 pg (27.0-31.2); Mean Corpuscular Volume 92.3 fl (81-99); Mean Platelet Volume 7.7 fl (7.4-10.4); Monocytes # 0.1 K/mm3 (0.1-1.0); Neutrophils # 5.8 K/mm3 (1.8-7.8); Neutrophils % 82.1 % (37.0-80.0); Platelet Count 228 K/mm3 (142-424); Red Blood Count 5.13 M/mm3 (4.20-5.40); Sodium 138 mmol/L (136-145); White Blood Count 7.1 K/mm3 (4.8-10.8)
[2020-03-12 21:46] LABS: Potassium 4.3 mmoL/L (3.5-5.1)
[2020-03-12 21:48] LABS: Alanine Aminotransferase 65 U/L (12-78); Albumin Level 4.9 g/dl (3.5-5.0); Albumin/Globulin Ratio 1.2 (1.1-1.8); Alkaline Phosphatase 126 U/L (38-126); Anion Gap 20.3 mEq/L (5-15); Aspartate Amino Transferase 61 U/L (14-36); Bilirubin,Total 0.6 mg/dl (0.2-1.3); Blood Urea Nitrogen 13 mg/dl (7-17); Calcium 9.4 mg/dl (8.4-10.2); Carbon Dioxide 20 mmol/L (22.0-30.0); Creatine Kinase 41 U/L (30-135); Creatinine Clearance Estimated 70 mL/min (50-200); Estimated Glomerular Filt Rate 63 ml/min (>60); GFR (African American) 76 ML/MIN (>60); Globulin 4.2 g/dL (1.3-3.2); Glucose 356 mg/dl (74-100); Total Protein,Serum 9.1 g/dl (6.3-8.2)
[2020-03-12 21:50] LABS: HCG Qualitative, Serum Negative (Negative)
[2020-03-12 21:54] LABS: C-Reactive Protein 120.3 mg/L (0-4)
[2020-03-12 22:07] VITALS: BP 153/79; PULSE 103; RESP 22; O2SAT 94
[2020-03-12 22:25] LABS: Erythrocyte Sedimentation Rate 12 mm/hr (0-20)
[2020-03-12 22:37] VITALS: BP 161/83; PULSE 101; RESP 19; O2SAT 95
[2020-03-12 22:57] LABS: Procalcitonin 0.206 ng/mL (0.0-2.0)
--- NOTE | 2020-03-12 23:03 | CT_ITS ---
PROCEDURE: CT ANGIO CHEST CLINCIAL INDICATION: fall soa Shortness of breath, Covid19, fall with injury and pain COMPARISON: CT [facility] CT angio chest from 11/11/2017 TECHNIQUE: IV Contrast: 70ML Isovue 370 Axial images obtained with sagittal and coronal reformats. All CT scans at the facility use one or more dose reduction, viz: automated exposure control, ma/kV adjustment per patient size (including targeted exams where dose is matched to indication, i.e. head), or iterative reconstruction technique. FINDINGS: There is mediastinal lipomatosis with scattered small lymph nodes in the mediastinum. No evidence of aortic aneurysm or dissection. No central pulmonary embolus. Peripheral pulmonary arteries are not well delineated due to respiratory motion. There is cardiomegaly. Multifocal small areas of consolidation are present throughout both lungs consistent with Covid19 pneumonia. No effusions. No acute bony findings. Degenerative changes are present in thoracic spine. Upper abdominal images show fatty liver. Small amount air is present in the distal esophagus nonspecific. IMPRESSION: 1. No evidence of pulmonary embolus. 2. Multifocal small areas of consolidation present consistent with Covid19 pneumonia 3. Mediastinal lipomatosis with mild mediastinal adenopathy Dictated by: Byron Jaimes MD 03/13/2020 05:53 Byron Jaimes MD in [facility] 03/13/2020 05:53
--- NOTE | 2020-03-12 23:11 | HMH.EDFALL ---
ED Disposition Clinical Impression: COVID-19 virus detected, Pneumonia due to COVID-19 virus Obesity Qualifiers: Obesity type: due to excess calories Obesity classification: adult class 3 (BMI >= 40) Serious obesity comorbidity presence: with serious comorbidity Body mass index: BMI 50.0-59.9 Qualified Code(s): E66.01 - Morbid (severe) obesity due to excess calories; Z68.43 - Body mass index [BMI] 50.0-59.9, adult Diabetes mellitus Qualifiers: Diabetes mellitus type: type 2 Diabetes mellitus production tester insulin use: unspecified production tester insulin use status Diabetes mellitus complication status: with other specified complication Qualified Code(s): E11.69 - Type 2 diabetes mellitus with other specified complication Disposition: Admitted As Inpatient Condition on Discharge: Good - Critical Care Critical Care Time: No Attestation: On 03/12/20, the high probability of a clinically significant, sudden or life threatening deterioration of the following system(s) required my full and direct attention, intervention and personal management. The time I documented below is in addition to time spent performing reported procedures but includes the following listed in this critical care notation. Medical Decision Making - Medical Records Medical records reviewed: Yes: I reviewed the patient's medical records. - [place] Inquiry Pt receiving controlled substance: No Vital Signs: 03/12/20 21:23 03/12/20 21:28 03/12/20 21:37 Temperature 99.8 F H Temperature Source Oral Pulse Rate [Right Brachial] 132 H 118 H 105 H Respiratory Rate 16 22 21 Blood Pressure [Right Arm] 160/85 H 154/80 H 151/70 H Blood Pressure Mean [Right Arm] 110 104 97 Blood Pressure Source [Right Arm] Automatic Cuff Automatic Cuff Automatic Cuff Blood Pressure Position [Right Arm] Sitting Sitting 02 Sat by Pulse Oximetry 94 L 95 95 Oxygen Delivery Method Room Air Room Air Room Air 03/12/20 22:07 03/12/20 22:37 03/13/20 00:04 Temperature Temperature Source Pulse Rate [Right Brachial] 103 H 101 H 111 H Respiratory Rate 22 19 22 Blood Pressure [Right Arm] 153/79 H 161/83 H 142/84 H Blood Pressure Mean [Right Arm] 103 109 103 Blood Pressure Source [Right Arm] Automatic Cuff Automatic Cuff Automatic Cuff Blood Pressure Position [Right Arm] Sitting Sitting 02 Sat by Pulse Oximetry 94 L 95 94 L Oxygen Delivery Method Room Air Room Air - Lab Data Lab results reviewed: Yes: I reviewed the patient's lab results. Lab Results 03/12/20 21:25: WBC 7.1, RBC 5.13, Hgb 15.5, Hct 47.3 H, MCV 92.3, MCH 30.1, MCHC 32.7, RDW 15.0, Plt Count 228, MPV 7.7, Neut % (Auto) 82.1 H, Lymph % (Auto) 15.2, Major % (Auto) 2.0, Eos % (Auto) 0.0 L, Baso % (Auto) 0.7, Neut # (Auto) 5.8, Lymph # (Auto) 1.1, Major # (Auto) 0.1, Eos # (Auto) 0.0, Baso # (Auto) 0.1, ESR 12 03/12/20 21:25: Sodium 138, Potassium 4.3, Chloride 102, Carbon Dioxide 20 L, Anion Gap 20.3 H, BUN 13, Creatinine 1.00, Estimated Creat Clear 70, Estimated GFR 63, Est GFR ( Amer) 76, Glucose 356 H, Calcium 9.4, Total Bilirubin 0.6, AST 61 H, ALT 65, Alkaline Phosphatase 126, Total Creatine Kinase 41, C-Reactive Protein 120.3 H, Total Protein 9.1 H, Albumin 4.9, Globulin 4.2 H, Albumin/Globulin Ratio 1.2, Procalcitonin 0.206 03/12/20 21:25: Serum HCG, Qual Negative 03/13/20 00:00: Urine Color Yellow, Urine Appearance Clear, Urine pH 6.0, Ur Specific Offerman >= 1.030, Urine Protein 2+, Urine Glucose (UA) 3+, Urine Ketones 2+, Urine Blood Negative, Urine Nitrate Negative, Urine Bilirubin Negative, Urine Urobilinogen 0.2, Ur Leukocyte Esterase Negative, Urine RBC 3-5, Urine WBC 3-5, Amorphous Sediment 1+, Urine Bacteria 1+, Urine Mucus 1+ 03/13/20 00:00: SARS-CoV-2 IgG Ab (Rapid) Negative, SARS-CoV-2 IgM Ab (Rapid) Negative 03/13/20 01:15: Chlamy pneumoniae PCR Not detected, Adenovirus (PCR) Not detected, B. pertussis DNA (PCR) Not detected, Coronavirus OC43 (PCR) Not detected, Coronavirus HKU1 (PCR) Not detected, Coronav
--- NOTE | 2020-03-12 23:49 | PC.NURSE ---
RETURN FROM CT. HORTA CATH 16 FR ANCHORED TO BSD USING STERILE TECHNIQUE.
[2020-03-13 00:04] VITALS: BP 142/84; PULSE 111; RESP 22; O2SAT 94
[2020-03-13 00:35] LABS: Microscopic, Urine URINE MICROSCOPIC (MICROSCOPIC)
[2020-03-13 00:42] LABS: Appearance,Urine CLEAR (Clear); Blood, Urine Negative (Negative); Color,Urine YELLOW (Yellow); Glucose,Urine (UA) 3+ (Negative); Ketones,Urine 2+ (Negative); Leukocyte Esterase,Urine Negative (Negative); Nitrate,Urine Negative (Negative); Protein,Urine 2+ (Negative); Specific Gravity, Urine >= 1.030 (1.005-1.030); Urobilinogen,Urine 0.2 EU/dl (0.2)
[2020-03-13 00:47] LABS: Bilirubin,Urine Negative (Negative)
[2020-03-13 00:54] LABS: Amorphous Sediment,Urine 1+ /lpf; Bacteria,Urine 1+ /lpf; Mucus,Urine 1+ /lpf
[2020-03-13 01:40] LABS: Coronavirus 19 IgG Antibody Negative (Negative); Coronavirus 19 IgM Antibody Negative (Negative)
[2020-03-13 02:50] LABS: Adenovirus,PCR Not Detected (NotDetected); Bordetella Pertussis Not Detected (NotDetected); Chlamydophila Pneumoniae, PCR Not Detected (NotDetected); Coronavirus 19, PCR Detected (NotDetected); Coronavirus 229E Not Detected (NotDetected); Coronavirus NL63 Not Detected (NotDetected); Coronavirus OC43 Not Detected (NotDetected); Coronovirus HKU1,PCR Not Detected (NotDetected); Human Metapneumovirus Not Detected (NotDetected); Influenza A, PCR Not Detected (NotDetected); Influenza AH1, 2009 Not Detected (NotDetected); Influenza AH1, PCR Not Detected (NotDetected); Influenza AH3,PCR Not Detected (NotDetected); Influenza B, PCR Not Detected (NotDetected); Mycoplasma Pneumoniae, PCR Not Detected (NotDetected); Parainfluenza 1, PCR Not Detected (NotDetected); Parainfluenza 2, PCR Not Detected (NotDetected); Parainfluenza 3, PCR Not Detected (NotDetected); Parainfluenza 4, PCR Not Detected (NotDetected); Respiratory Syncytial Virus Not Detected (NotDetected); Rhinovirus/Enterovirus Not Detected (NotDetected)
[2020-03-13 04:09] VITALS: BP 142/82; PULSE 111; RESP 20; TEMP 37.7; O2SAT 95
[2020-03-13 04:10] VITALS: BMI 56.5
--- NOTE | 2020-03-13 04:27 | PC.NURSE ---
patient up to floor via wheelchair.
[2020-03-13 06:04] LABS: POC Glucose,Bedside 358 (70-110)
--- NOTE | 2020-03-13 07:29 | P.CONPHA_ITS ---
[facility] Pharmacy VTE Monitoring - Patient Demographics Allergies/Adverse Reactions: Patient Allergies naproxen Allergy (Mild, Verified 03/13/20 04:30) amoxicillin [AMOXICILLIN] Allergy (Unknown, Verified 03/13/20 04:30) codeine [CODEINE] Allergy (Unknown, Verified 03/13/20 04:30) erythromycin base [ERYTHROMYCIN BASE] Allergy (Unknown, Verified 03/13/20 04:30) hydrocodone [HYDROCODONE] Allergy (Unknown, Verified 03/13/20 04:30) oxycodone [OXYCODONE] Allergy (Unknown, Verified 03/13/20 04:30) Sulfa (Sulfonamide Antibiotics) [SULFA (SULFONAMIDE ANTIBIOTICS)] Allergy (Unknown, Verified 03/13/20 04:30) Height: 1.65 m Weight: 153.768 kg Patient Problems: Current Active Problems COVID-19 virus detected (Acute) Pneumonia due to COVID-19 virus (Acute) Obesity (Acute) Diabetes mellitus (Acute) - VTE Risk Labs: VTE Related Lab Results Hgb 15.5 g/dL (12.2-16.2) 03/12/20 21:25 Hct 47.3 % (37.0-47.0) H 03/12/20 21:25 Plt Count 228 K/mm3 (142-424) 03/12/20 21:25 BUN 13 mg/dl (7-17) 03/12/20 21:25 Creatinine 1.00 mg/dl (0.52-1.04) 03/12/20 21:25 Estimated Creat Clear 70 mL/min (50-200) 03/12/20 21:25 Was VTE Risk Assessment Performed: Yes VTE Score: 2 VTE Risk Level: Very Low Risk Clinical Trial Participant: No - Prophylaxis VTE Prophylaxis Ordered?: Yes Types of VTE Prophylaxis: TEDS Knee High, Pharmacological Pharmacologic Type: Enoxaparin
[2020-03-13 07:35] VITALS: BP 123/73; PULSE 97; RESP 20; TEMP 36.9; O2SAT 91
--- NOTE | 2020-03-13 07:48 | HMH.PHAINT ---
clarified home med list using list from home pharmacy
--- NOTE | 2020-03-13 08:21 | HMH.HP ---
*Admission Date: 03/13/20 <JackChetna - 03/13/20 08:57> *Chief complaint: fell, weakness, cough <DiegoobieChetna - 03/13/20 08:57> *History of present illness: Yumiko is a 35-year-old female with a history of mental retardation, seizure disorder, diabetes, depression/anxiety, and anemia who began feeling poorly around 03/03/2020. She completed a telehealth on 03/05/2020 with complaints of a sore throat, headache, body aches, and fatigue. At that time she did not know if she had been exposed to anyone with Covid. A CBC, strep screen, and Covid test were all ordered. The patient did not have these completed until just recently as her whole family is now positive for Covid including her mother who has been hospitalized. Yesterday the patient began having shortness of breath along with some chest pain and a cough. She was notified of her positive Covid test. She had a fall at home and hit the back of her head. She was brought to the ER for evaluation. Her CBC was relatively unremarkable. Her C-reactive protein and glucose were both elevated. She had an upper respiratory panel with Covid and her Covid test was positive. Antibodies were both negative. She had a cervical spine CT showing no acute fracture but biapical pneumonia. She had a chest x-ray showing cardiomegaly with pulmonary venous congestion suggesting CHF along with a possible left perihilar infiltrate. She had a head CT showing no intracranial findings. She had a pelvic x-ray showing nothing acute. She had a chest CTA showing no evidence of PE but there was multifocal small areas of consolidation consistent with COVID-19 pneumonia. She was admitted and started on Covid protocol along with Zithromax and Rocephin. This a.m. she states she feels terrible. She states aching all over and feels short of breath. She states her chest hurts and she has a cough. She also complains of a headache and some abdominal pain along with vomiting and diarrhea. <Chetna Santiago - 03/13/20 08:57> [facility] History I have reviewed the patient's past medical history: Yes <Chetna Santiago 03/13/20 08:57> Medical History: Reports:: Anxiety, Depression, Diabetes Mellitus Type 2, Gastroesophageal Reflux Disease(GERD), Hypertension, Seizures Denies:: Cancer, Diabetes Mellitus Type 1, Internal Pacemaker, MRSA <Chetna Santiago 03/13/20 08:57> *Have you ever received a pneumonia vaccine?: No <Chetna Santiago 03/13/20 08:57> *Have you received a flu vaccine this season?: No <Chetna Santiago 03/13/20 08:57> Other Medical History: Reports: Thyroid Disease, Other (Mental retardation) <Chetna Santiago 03/13/20 08:57> Other Surgeries: Yes: Cardiac Catheterization, Cholecystectomy, Colonoscopy, Hernia Repair. No: Pacemaker <Chetna Santiago 03/13/20 08:57> Amputation: No <Chetna Santiago 03/13/20 08:57> Fractures: No <Chetna Santiago 03/13/20 08:57> - *Social History Last grade of school completed: High school graduate <Chetna Santiago 03/13/20 08:57> Smoking Status: Current every day smoker <Chetna Santiago 03/13/20 08:57> Tobacco Type: cigarettes <Chetna Santiago 03/13/20 08:57> # Packs/Day (cigarettes): 1 <Chetna Santiago 03/13/20 08:57> #Yrs smoked (if former smoker): 15 <Chetna Santiago 03/13/20 08:57> Alcohol Intake: never <Chetna Santiago 03/13/20 08:57> Alcohol Intake Frequency:: other <Chetna Santiago 03/13/20 08:57> Substance Use Type: denies use <Chetna Santiago 03/13/20 08:57> *Occupational Status:: disabled <Chetna Santiago 03/13/20 08:57> Housing: house <Chetna Santiago 03/13/20 08:57> Household Members: family <Chetna Santiago 03/13/20 08:57> *Travel in the last 8 weeks: None <Chetna Santiago 03/13/20 08:57> - Psychiatric History Pschychiatric History:: Reports:: Depression <Cehtna Santiago 03/13/20 08:57> Family Hx:: Coronary Artery Disease, Diabetes <Chetna Santiago - 03/13/20 08:57> Review of Systems - Constitutional Reports chills, Reports fever(s), Reports weakness
--- NOTE | 2020-03-13 08:34 | CA_ITS ---
APPROVED REPORT EXAM: Comprehensive 2D, Doppler, and color-flow Echocardiogram Technical Report Writer: Dalia Cottrell CRT Ht: 5 ft 4 in Wt: 339lbs BSA: 2.45 BP: 123/73 mmHg Indications: Shortness of Breath, Diabetes, Hypertension/HDD, Pneumonia, Covid +, GERD Echo Enhancing Agent Indication: Endocardial border delineation Agent(s) / Amount(s) Used: Definity 2 cc 2D Dimensions LVOT 2.10 cm (M/F) 1.5-2.5 M-Mode Dimensions RVDd 1.77 cm (0.9-2.6) LA Diam 3.28 cm (1.9-4.0) LVDd 5.96 cm (3.5-5.7) Ao Diam 3.84 cm (2.0-3.7) LVDs 3.78 cm (3.5-5.7) IVSd 1.33 cm (0.6-1.1) PWd 0.80 cm (0.6-1.1) EF (Teich) 65.50% FS 36.60% EDV (Teich) 177.30 mL ESV (Teich) 61.20 mL LV Diastology E Decel Time 150.00 (160-240 msec) E/A Ratio 1.18 Mitral Valve MV E Max Pablo. 88.00 (40-130 cm/s) MV A Velocity 75.00 (40-130 cm/s) E/A Ratio 1.18 MV Decel. Time 150.00 (160-240 ms) MV PHT 44.00 ms Pulmonary Valve PV Peak Velocity 72.00 (50-150 cm/s) Tricuspid Valve TR P. Velocity 129.00 cm/s RAP Estimate 10.00 mmHg RVSP 16.60 mmHg Left Ventricle Technically very difficult study, Definity contrast was utilized to delineate the endocardial surfaces. Left atrium is mildly enlarged, left ventricle is normal size, preserved left ventricular systolic function visually estimated ejection fraction 55% with no obvious regional wall motion abnormality. Diastolic parameters are inconclusive. Despite Definity contrast use endocardial surfaces are poorly visualized. Right Ventricle Right atrium and right ventricle appears to be normal size and contractility. Aortic Valve Aortic valve is grossly normal, there is no aortic stenosis or aortic insufficiency. Mitral Valve Mitral valve is grossly normal, there is trace mitral regurgitation. Tricuspid Valve Tricuspid valve is poorly visualized, there is no significant tricuspid regurgitation seen. Pulmonic Valve Pulmonic valve is poorly visualized. Great Vessels Aortic root is normal size. Pericardium No significant pericardial effusion noted. Conclusion 1. Technically extremely difficult study because of the patient factors and poor acoustic windows. Probably preserved left ventricular systolic function with no obvious regional wall motion abnormality, Definity contrast was utilized to delineate the endocardial surfaces. Diastolic parameters are inconclusive. 2. No significant pericardial effusion noted. Electronically signed by : Jonny Miller, 03/13/2020 16:03:41
[2020-03-13 09:39] LABS: Basophils % 0.4 % (0.1-2.0); Eosinophils % 0.1 % (0.1-12.0); Hematocrit 41.5 % (37.0-47.0); Lymphocytes # 1.3 K/mm3 (0.7-4.5); Mean Corpuscular HGB Conc 32.9 g/dL (31.8-35.4); Mean Corpuscular Hemoglobin 30.7 pg (27.0-31.2); Mean Corpuscular Volume 93.2 fl (81-99); Mean Platelet Volume 8.2 fl (7.4-10.4); Monocytes # 0.2 K/mm3 (0.1-1.0); Monocytes % 3.5 % (1.7-9.3); Neutrophils # 4.8 K/mm3 (1.8-7.8); Neutrophils % 74.9 % (37.0-80.0); Platelet Count 205 K/mm3 (142-424); Red Blood Count 4.45 M/mm3 (4.20-5.40); Red Cell Distribution Width 14.8 % (11.5-17.5); White Blood Count 6.4 K/mm3 (4.8-10.8)
[2020-03-13 09:40] LABS: Hemoglobin 13.6 g/dL (12.2-16.2)
[2020-03-13 09:59] LABS: Chloride 104 mmol/L (98-107); Sodium 137 mmol/L (136-145)
[2020-03-13 10:00] LABS: Potassium 4.4 mmoL/L (3.5-5.1)
[2020-03-13 10:03] LABS: Anion Gap 17.4 mEq/L (5-15); Calcium 8.5 mg/dl (8.4-10.2); Carbon Dioxide 20 mmol/L (22.0-30.0); Glucose 346 mg/dl (74-100); Magnesium 1.3 mg/dl (1.6-2.3)
[2020-03-13 10:08] LABS: Blood Urea Nitrogen 19 mg/dl (7-17); Creatinine Clearance Estimated 75 mL/min (50-200); Estimated Glomerular Filt Rate 71 ml/min (>60); GFR (African American) 86 ML/MIN (>60)
[2020-03-13 12:34] LABS: POC Glucose,Bedside 329 (70-110)
[2020-03-13 15:50] VITALS: BP 134/76; PULSE 92; RESP 22; TEMP 36.7; O2SAT 92
[2020-03-13 17:17] LABS: POC Glucose,Bedside 296 (70-110)
[2020-03-13 20:00] VITALS: BP 129/69; PULSE 84; RESP 20; TEMP 36.9; O2SAT 92
[2020-03-13 20:33] LABS: POC Glucose,Bedside 276 (70-110)
--- NOTE | 2020-03-13 21:37 | PC.NURSE ---
PATIENT IS A&O X4, LUNGS ARE CLEAR, PULSES ARE EQUAL. PATIENT HAS +2 PITTING EDEMA IN BLE. PATIENT HAS CALLED FOR THIS RN SEVERAL TIMES DURING THIS RN SHIFT. WITH EACH ASSESSMENT, THIS RN FOUND PATIENT CRYING COMPLAINING OF A HEADACHE, LUNGS HURTING, CATHETER HURTING OR SOMETHING DOESN'T FEEL RIGHT. THIS RN PHONED MD OFFICE. REPORTED INFORMATION TO MARCELINA MCINTYRE, MARCELINA HAYES ORDERED PATIENT'S ANXIETY MEDICATION AND STATED THAT SHE WOULD INFORM DR. MCLEAN OF REPORT. MD ORDERED 1X DOSE OF HALDOL. HALDOL DID NOT EFFECT PATIENT'S BEHAVIOR OR FEELING OF DOOM. THIS RN WOULD CONTINUE TO EDUCATED PATIENT ON BREATHING EXERCISES TO HELP RELAX HER. PATIENT WOULD COMPLY AND WOULD STATE THAT SHE FELT BETTER. THIS RN CONTINUED TO REASSURE PATIENT THAT SHE IS FINE AND WE ARE TAKING GOOD CARE OF HER. PATIENT VERBALIZED AN UNDERSTANDING EACH TIME.
--- NOTE | 2020-03-13 21:57 | PC.WOUNDNOTE ---
Wound Location: RIGHT LATERAL PERALTA Length:3.5 IN Width:2.5 IN Depth: Undermining Y/N: N Inflammation/swelling Y/N:Y Pain and/or tenderness Y/N:Y Color: Humble Red Brown Consistency: Thick Amount: None Odor Y/N:N LARGE SCABBED AREA WITH RED TISSUE SURROUNDING.
[2020-03-14] VITALS: BP 131/86; PULSE 97; RESP 20; TEMP 37.2; O2SAT 92
[2020-03-14 04:00] VITALS: BP 136/73; PULSE 100; RESP 20; TEMP 37.2; O2SAT 91
--- NOTE | 2020-03-14 04:42 | PC.NURSE ---
Pt has been pleasant and cooperative this shift, although extremely anxious. A&O X4. Pt requires frequent reassurance that she is not alone and cries because she is scared . Pt has complained of a headache and nausea, both of which were treated per MAR with favorable results. Pt is on room air with sats. >90%. Lungs CTA. Skin is C/D/I. No edema noted. Pt ambulates with stand-by assistance. F/C is patent and draining clear, yellow urine without issue. No BM thus far this shift. FSBS result at 2100 noted to be 276 and required 6 units of insulin per sliding scale. 18 G peripheral IV in the LT AC is patent and infusing NS @ 100 ML/HR. VSS. Call light within reach. Will continue to monitor.
[2020-03-14 05:24] VITALS: BMI 55.3
[2020-03-14 06:57] LABS: POC Glucose,Bedside 222 (70-110)
[2020-03-14 07:09] LABS: Alanine Aminotransferase 43 U/L (12-78); Albumin/Globulin Ratio 1.1 (1.1-1.8); Alkaline Phosphatase 90 U/L (38-126); Anion Gap 14.2 mEq/L (5-15); Aspartate Amino Transferase 44 U/L (14-36); Bilirubin,Total 0.4 mg/dl (0.2-1.3); Blood Urea Nitrogen 20 mg/dl (7-17); Calcium 8.3 mg/dl (8.4-10.2); Carbon Dioxide 26 mmol/L (22.0-30.0); Chloride 104 mmol/L (98-107); Creatinine Clearance Estimated 67 mL/min (50-200); Estimated Glomerular Filt Rate 63 ml/min (>60); GFR (African American) 76 ML/MIN (>60); Globulin 3.7 g/dL (1.3-3.2); Glucose 249 mg/dl (74-100); Potassium 4.2 mmoL/L (3.5-5.1); Sodium 140 mmol/L (136-145); Total Protein,Serum 7.7 g/dl (6.3-8.2)
[2020-03-14 07:48] VITALS: BP 132/77; PULSE 108; RESP 20; TEMP 37.3; O2SAT 91
--- NOTE | 2020-03-14 08:22 | HMH.ACPN2 ---
<Chetna Santiago - Last Filed: 03/14/20 08:22> Internal Medicine - PN: Subj *Date: 03/14/20 *Time: 08:22 Interval history: Patient states she is scared today. She states she has chest pain or shortness of breath and feels like she cannot get a deep breath. She does have a cough. She has body aches. She complains of nausea today and requesting nausea medication. She does not feel like eating. According to her nurse, she has had Haldol but it has not seemed to calm her down. Exam Vital signs and Labs for Last 24 Hours: Temp Pulse Resp BP Pulse Ox 99.2 F 108 H 20 132/77 91 L 03/14/20 07:48 03/14/20 07:48 03/14/20 07:48 03/14/20 07:48 03/14/20 07:48 Laboratory Results - last 24 hr 03/13/20 09:22: WBC 6.4, RBC 4.45, Hgb 13.6 D, Hct 41.5, MCV 93.2, MCH 30.7, MCHC 32.9, RDW 14.8, Plt Count 205, MPV 8.2, Neut % (Auto) 74.9, Lymph % (Auto) 21.0, [place] % (Auto) 3.5, Eos % (Auto) 0.1, Baso % (Auto) 0.4, Neut # (Auto) 4.8, Lymph # (Auto) 1.3, [place] # (Auto) 0.2, Eos # (Auto) 0.0, Baso # (Auto) 0.0 03/13/20 09:22: Sodium 137, Potassium 4.4, Chloride 104, Carbon Dioxide 20 L, Anion Gap 17.4 H, BUN 19 H D, Creatinine 0.90, Estimated Creat Clear 75, Estimated GFR 71, Est GFR ( Amer) 86, Glucose 346 H, Calcium 8.5, Magnesium 1.3 L 03/13/20 09:22: Hemoglobin A1c 10.0 H 03/13/20 12:17: POC Glucose 329 H* 03/13/20 16:28: POC Glucose 296 H 03/13/20 20:20: POC Glucose 276 H 03/14/20 06:28: POC Glucose 222 H 03/14/20 06:40: Sodium 140, Potassium 4.2, Chloride 104, Carbon Dioxide 26 D, Anion Gap 14.2, BUN 20 H, Creatinine 1.00, Estimated Creat Clear 67, Estimated GFR 63, Est GFR ( Amer) 76, Glucose 249 H D, Calcium 8.3 L, Total Bilirubin 0.4, AST 44 H D, ALT 43 D, Alkaline Phosphatase 90, Total Protein 7.7, Albumin 4.0 D, Globulin 3.7 H, Albumin/Globulin Ratio 1.1 I & O for Last 24 hours: Intake & Output 03/11/20 03/12/20 03/13/20 03/14/20 11:59 11:59 11:59 11:59 Intake Total 1420 / 1420 2775 / 2775 Output Total 1250 / 1250 Balance 1420 / 1420 1525 / 1525 Weight 339 lb 332 lb - Constitutional no acute distress, agitated - *Routine Respiratory Exam Present: decreased breath sounds - *Routine Cardiovascular Exam Present: RRR - *Routine Abdominal Exam Present: soft, normoactive bowel sounds, tenderness (diffuse) - *Routine Extremities Exam Present: edema (1+ pretibial). Absent: cyanosis, clubbing - *Routine Skin Exam Present: warm. Absent: rash - *Routine Neurological Exam Present: alert, oriented X3 Assessment and Plan (1) Pneumonia due to COVID-19 virus Status: Acute Category: Medical Code(s): U07.1 - COVID-19; J12.82 - Pneumonia due to coronavirus disease 2019 (2) COVID-19 virus detected Status: Acute Category: Medical Code(s): U07.1 - COVID-19 (3) Nausea vomiting and diarrhea Status: Acute Category: Medical Code(s): R11.2 - Nausea with vomiting, unspecified; R19.7 - Diarrhea, unspecified (4) Abdominal pain Status: Acute Category: Medical Code(s): R10.9 - Unspecified abdominal pain (5) HTN (hypertension) Status: Chronic Qualifiers: Hypertension type: essential hypertension Qualified Code(s): I10 - Essential (primary) hypertension Category: Medical Code(s): I10 - Essential (primary) hypertension (6) Morbid obesity with body mass index (BMI) of 50.0 to 59.9 in adult Status: Chronic Category: Medical Code(s): E66.01 - Morbid (severe) obesity due to excess calories; Z68.43 - Body mass index [BMI] 50.0-59.9, adult (7) SANG (obstructive sleep apnea) Status: Chronic Category: Medical Code(s): G47.33 - Obstructive sleep apnea (adult) (pediatric) (8) Seizure disorder Problem details: Resolved. Status: Inactive Category: Medical Code(s): G40.909 - Epilepsy, unspecified, not intractable, without status epilepticus (9) Diabetes mellitus Status: Chronic Qualifiers: Diabetes mellitus type: type 2 Diabetes mellitu
[2020-03-14 10:54] LABS: POC Glucose,Bedside 263 (70-110)
[2020-03-14 12:00] VITALS: BP 136/70; PULSE 100; RESP 18; TEMP 36.9; O2SAT 95
[2020-03-14 13:46] VITALS: BMI 55.4
--- NOTE | 2020-03-14 14:59 | PC.NURSE ---
pt given cup and instructed to if she coughs up sputum to put it cup and call out.
[2020-03-14 16:00] VITALS: BP 128/67; PULSE 78; RESP 17; TEMP 36.7; O2SAT 93
[2020-03-14 16:48] LABS: POC Glucose,Bedside 317 (70-110)
[2020-03-14 20:00] VITALS: BP 126/73; PULSE 18; PULSE 78; RESP 18; RESP 20; TEMP 37.2; O2SAT 92; O2SAT 94
[2020-03-14 22:22] LABS: POC Glucose,Bedside 254 (70-110)
[2020-03-15] VITALS: BP 140/83; PULSE 73; RESP 18; TEMP 37.4; O2SAT 94
[2020-03-15 04:00] VITALS: BP 115/65; PULSE 82; RESP 20; TEMP 36.9; O2SAT 95
--- NOTE | 2020-03-15 04:22 | PC.NURSE ---
Pt has been pleasant and cooperative this shift. A&O X4. Pt has slept the majority of the shift. Pt has complained of a headache and nausea, both of which were treated per MAR with favorable results. Pt is receiving O2 via NC @ 2 LPM with sats. >90%. Lungs CTA. Skin is C/D/I. No edema noted. Pt ambulates with stand-by assistance. F/C is patent and draining cloudy, yellow urine without issue. No BM thus far this shift. FSBS result at 2100 noted to be 254 and required 6 units of insulin per sliding scale. 18 G peripheral IV in the LT AC is patent and infusing NS @ 100 ML/HR. VSS. Call light within reach. Will continue to monitor.
[2020-03-15 05:00] VITALS: BMI 54.3
[2020-03-15 05:11] LABS: POC Glucose,Bedside 210 (70-110)
[2020-03-15 05:17] LABS: Chloride 103 mmol/L (98-107); Sodium 139 mmol/L (136-145)
[2020-03-15 05:18] LABS: Potassium 3.9 mmoL/L (3.5-5.1)
[2020-03-15 05:20] LABS: Alanine Aminotransferase 33 U/L (12-78); Alkaline Phosphatase 76 U/L (38-126); Anion Gap 12.9 mEq/L (5-15); Aspartate Amino Transferase 33 U/L (14-36); Bilirubin,Total 0.3 mg/dl (0.2-1.3); Blood Urea Nitrogen 20 mg/dl (7-17); Carbon Dioxide 27 mmol/L (22.0-30.0); Creatinine Clearance Estimated 75 mL/min (50-200); Estimated Glomerular Filt Rate 71 ml/min (>60); GFR (African American) 86 ML/MIN (>60); Glucose 220 mg/dl (74-100)
[2020-03-15 05:21] LABS: Albumin Level 3.9 g/dl (3.5-5.0); Albumin/Globulin Ratio 1.1 (1.1-1.8); Globulin 3.6 g/dL (1.3-3.2); Total Protein,Serum 7.5 g/dl (6.3-8.2)
[2020-03-15 08:00] VITALS: BP 149/74; PULSE 77; RESP 20; TEMP 36.8; O2SAT 91
--- NOTE | 2020-03-15 09:13 | HMH.ACPN2 ---
Internal Medicine - PN: Subj *Date: 03/15/20 *Time: 09:19 Interval history: No respiratory problems overnight. She rested well through the night and seems more calm this morning. Still feels nauseated and appetite is diminished. Still feels achy all over. Exam Vital signs and Labs for Last 24 Hours: Temp Pulse Resp BP Pulse Ox 98.2 F 77 20 149/74 H 91 L 03/15/20 08:00 03/15/20 08:00 03/15/20 08:00 03/15/20 08:00 03/15/20 08:00 Laboratory Results - last 24 hr 03/14/20 10:47: POC Glucose 263 H 03/14/20 16:36: POC Glucose 317 H* 03/14/20 21:16: POC Glucose 254 H 03/15/20 05:00: Sodium 139, Potassium 3.9, Chloride 103, Carbon Dioxide 27, Anion Gap 12.9, BUN 20 H, Creatinine 0.90, Estimated Creat Clear 75, Estimated GFR 71, Est GFR ( Amer) 86, Glucose 220 H, Calcium 8.0 L, Total Bilirubin 0.3, AST 33, ALT 33, Alkaline Phosphatase 76, Total Protein 7.5, Albumin 3.9, Globulin 3.6 H, Albumin/Globulin Ratio 1.1 03/15/20 05:00: POC Glucose 210 H I & O for Last 24 hours: Intake & Output 03/12/20 03/13/20 03/14/20 03/15/20 11:59 11:59 11:59 11:59 Intake Total 1420 / 1420 2775 / 2775 2521 / 2521 Output Total 1250 / 1250 2850 / 2850 Balance 1420 / 1420 1525 / 1525 -329 / -329 Weight 339 lb 332 lb 326 lb 6 oz Narrative: She is resting comfortably this morning. No respiratory distress. Color is normal. Lungs are clear anteriorly. Heart is distant but regular. Extremities with trace edema. Assessment and Plan (1) Pneumonia due to COVID-19 virus Status: Acute Category: Medical Code(s): U07.1 - COVID-19; J12.82 - Pneumonia due to coronavirus disease 2019 (2) COVID-19 virus detected Status: Acute Category: Medical Code(s): U07.1 - COVID-19 (3) Nausea vomiting and diarrhea Status: Acute Category: Medical Code(s): R11.2 - Nausea with vomiting, unspecified; R19.7 - Diarrhea, unspecified (4) Abdominal pain Status: Acute Category: Medical Code(s): R10.9 - Unspecified abdominal pain (5) HTN (hypertension) Status: Chronic Qualifiers: Hypertension type: essential hypertension Qualified Code(s): I10 - Essential (primary) hypertension Category: Medical Code(s): I10 - Essential (primary) hypertension (6) Morbid obesity with body mass index (BMI) of 50.0 to 59.9 in adult Status: Chronic Category: Medical Code(s): E66.01 - Morbid (severe) obesity due to excess calories; Z68.43 - Body mass index [BMI] 50.0-59.9, adult (7) SANG (obstructive sleep apnea) Status: Chronic Category: Medical Code(s): G47.33 - Obstructive sleep apnea (adult) (pediatric) (8) Diabetes mellitus Status: Chronic Qualifiers: Diabetes mellitus type: type 2 Diabetes 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 insulin use: unspecified senior living insulin use status Diabetes mellitus complication status: with other specified complication Qualified Code(s): E11.69 - Type 2 diabetes mellitus with other specified complication Category: Medical Code(s): E11.9 - Type 2 diabetes mellitus without complications (9) Psychogenic nonepileptic seizure Status: Acute Category: Medical Code(s): 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 O2 sats are ranging in the mid 90s on 2 L of nasal oxygen. Affect is more calm. She only required 2 doses of Ativan yesterday. We will discontinue [place] catheter. Encourage out of bed activity.
[2020-03-15 11:57] LABS: POC Glucose,Bedside 196 (70-110)
[2020-03-15 12:00] VITALS: BP 134/83; PULSE 77; RESP 20; TEMP 36.9; O2SAT 94
[2020-03-15 17:13] LABS: POC Glucose,Bedside 341 (70-110)
--- NOTE | 2020-03-15 19:59 | PC.NURSE ---
Addendum entered by Edmond Amaral RN 03/15/20 20:03: chair Original Note: Pt alert and oriented and able to make needs known. RR even and unlabored. CB in reach. Has been on RA intermittently and did ok, with sats being 90%. 2 L reapplied, prn ativan given r/t pt being upset in re to mom being in hosp in [place], as she was told by her family. Pt did sit up in chaite this shift and ambulate with assist to bathroom. Bs x 4. VSS at this time. Report given.
[2020-03-15 20:00] VITALS: BP 133/78; PULSE 74; RESP 19; TEMP 36.6; O2SAT 94
[2020-03-15 21:07] VITALS: RESP 19
[2020-03-15 23:36] LABS: POC Glucose,Bedside 268 (70-110)
[2020-03-16] VITALS (7 sets, daily range): BP systolic 123–162; BP diastolic 77–93; PULSE 62–85; RESP 18–20; TEMP 36.4–36.8; O2SAT 90–94; BMI 55.1
--- NOTE | 2020-03-16 05:49 | PC.NURSE ---
Pt A&O x4 and slept well through the night. Pt had one episode of nausea, phernergan was administered per APR and pt has no other c/o of pain or discomfort. Pt on 2L NC with sats low 90s. Lungs were clear on auscultation. Pt was able to have a BM. pt ambulated to the bathroom and tolerated well. No c/o of diffculty breathing. VSS, call light in reach, no concerns at this time.
[2020-03-16 07:56] LABS: POC Glucose,Bedside 199 (70-110)
[2020-03-16 08:03] LABS: Alanine Aminotransferase 28 U/L (12-78); Albumin Level 3.7 g/dl (3.5-5.0); Albumin/Globulin Ratio 1.1 (1.1-1.8); Alkaline Phosphatase 76 U/L (38-126); Anion Gap 12.6 mEq/L (5-15); Aspartate Amino Transferase 37 U/L (14-36); Bilirubin,Total 0.4 mg/dl (0.2-1.3); Blood Urea Nitrogen 20 mg/dl (7-17); Calcium 8.1 mg/dl (8.4-10.2); Carbon Dioxide 25 mmol/L (22.0-30.0); Chloride 105 mmol/L (98-107); Creatinine Clearance Estimated 84 mL/min (50-200); Estimated Glomerular Filt Rate 81 ml/min (>60); GFR (African American) 98 ML/MIN (>60); Globulin 3.4 g/dL (1.3-3.2); Glucose 203 mg/dl (74-100); Potassium 3.6 mmoL/L (3.5-5.1); Sodium 139 mmol/L (136-145); Total Protein,Serum 7.1 g/dl (6.3-8.2)
--- NOTE | 2020-03-16 08:49 | XR_ITS ---
PROCEDURE: XR CHEST PORTABLE Referring Doctor: Severiano Lemus Patient Age:35Y CLINICAL HISTORY: COVID infection Pneumonia COMPARISON: CR CXR CHEST(2 VIEWS-NOT PORTABLE) from 03/10/2013 CR CXR2V XR chest 2V from 03/17/2018 CR XR CHEST PORTABLE from 03/12/[address] ANGIO CHEST from 03/12/2020 FINDINGS: AP portable upright chest.. Less optimal technique but there does appear to be progression of disease bilaterally when compared to 03/12/2020.. Bilateral infiltrates with slight progression since 03/12/2020 Right lung.: Patchy low-density infiltrate is seen at the right upper lobe and right suprahilar region slightly more evident More evident patchy infiltrate at the right lung base seen today; and question of subtle patchy infiltrate right mid lung today. Left chest: Patchy infiltrate at the left suprahilar region present before but perhaps slightly more evident today. Left perihilar infiltrate again seen also very slightly more evident. Only scant if any infiltrate at the left infrahilar region towards left base No pleural effusion but no pneumothorax Generous cardiac silhouette suggesting mild cardiomegaly-however heart size may be exaggerated on this AP portable study with today's less than optimal inspiration in this of generous sized patient also noting generous pericardial adipose seen on recent CT IMPRESSION: Bilateral infiltrates with slight progression since 03/12/2020 P CXR. . Generous slightly more prominent cardiac silhouette most likely reflecting technique and features described above Dictated by: Rell Streeter MD 03/16/2020 11:27 Rell Streeter MD in [facility] 03/16/2020 11:27
--- NOTE | 2020-03-16 09:02 | HMH.ACPN2 ---
Internal Medicine - PN: Subj *Date: 03/16/20 *Time: 09:02 Interval history: She feels a little better this morning. She denies shortness of breath. Cough has improved. Nausea is a little better but still has no appetite. She is taking liquids well. No chest pain. She tolerated light activity in the room yesterday. She would like to go home. She is concerned about her mother who is on a ventilator at with Covid pneumonia. Exam Vital signs and Labs for Last 24 Hours: Temp Pulse Resp BP Pulse Ox 97.6 F 78 20 135/78 90 L 03/16/20 04:00 03/16/20 04:00 03/16/20 04:00 03/16/20 04:00 03/16/20 04:00 Laboratory Results - last 24 hr 03/15/20 11:44: POC Glucose 196 H 03/15/20 17:03: POC Glucose 341 H* 03/15/20 20:55: POC Glucose 268 H 03/16/20 06:46: POC Glucose 199 H 03/16/20 07:30: Sodium 139, Potassium 3.6, Chloride 105, Carbon Dioxide 25, Anion Gap 12.6, BUN 20 H, Creatinine 0.80, Estimated Creat Clear 84, Estimated GFR 81, Est GFR ( Amer) 98, Glucose 203 H, Calcium 8.1 L, Total Bilirubin 0.4, AST 37 H, ALT 28, Alkaline Phosphatase 76, Total Protein 7.1, Albumin 3.7, Globulin 3.4 H, Albumin/Globulin Ratio 1.1 I & O for Last 24 hours: Intake & Output 03/13/20 03/14/20 03/15/20 03/16/20 11:59 11:59 11:59 11:59 Intake Total 1420 / 1420 2775 / 2775 2641 / 2641 1520 / 1520 Output Total 1250 / 1250 3150 / 3150 Balance 1420 / 1420 1525 / 1525 -509 / -509 1520 / 1520 Weight 339 lb 332 lb 326 lb 6 oz 331 lb 2 oz Microbiology Reports for the Last 24 Hours: Microbiology 03/15/20 Unknown Sputum - Expectorated Sputum Gram Stain - Final 03/15/20 Unknown Sputum - Expectorated Sputum Sputum Culture - Preliminary Narrative: Affect is calm this morning. She appears in no distress. Lungs are clear. Heart is distant but regular. Extremities with trace edema. Assessment and Plan (1) Pneumonia due to COVID-19 virus Status: Acute Category: Medical Code(s): U07.1 - COVID-19; J12.82 - Pneumonia due to coronavirus disease 2019 (2) COVID-19 virus detected Status: Acute Category: Medical Code(s): U07.1 - COVID-19 (3) Nausea vomiting and diarrhea Status: Acute Category: Medical Code(s): R11.2 - Nausea with vomiting, unspecified; R19.7 - Diarrhea, unspecified (4) Abdominal pain Status: Acute Category: Medical Code(s): R10.9 - Unspecified abdominal pain (5) HTN (hypertension) Status: Chronic Qualifiers: Hypertension type: essential hypertension Qualified Code(s): I10 - Essential (primary) hypertension Category: Medical Code(s): I10 - Essential (primary) hypertension (6) Morbid obesity with body mass index (BMI) of 50.0 to 59.9 in adult Status: Chronic Category: Medical Code(s): E66.01 - Morbid (severe) obesity due to excess calories; Z68.43 - Body mass index [BMI] 50.0-59.9, adult (7) SANG (obstructive sleep apnea) Status: Chronic Category: Medical Code(s): G47.33 - Obstructive sleep apnea (adult) (pediatric) (8) Diabetes mellitus Status: Chronic Qualifiers: Diabetes mellitus type: type 2 Diabetes mellitus care home insulin use: unspecified care home insulin use status Diabetes mellitus complication status: with other specified complication Qualified Code(s): E11.69 - Type 2 diabetes mellitus with other specified complication Category: Medical Code(s): E11.9 - Type 2 diabetes mellitus without complications (9) Psychogenic nonepileptic seizure Status: Acute Category: Medical Code(s): 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 Weaned to room air as tolerated. If her chest x-ray is clear and O2 sats are stable on room air, she could possibly discharge later today.
[2020-03-16 11:36] LABS: POC Glucose,Bedside 213 (70-110)
--- NOTE | 2020-03-16 15:08 | PC.NURSE ---
Pt alert and oriented x 4. RR even and unlabored. Remains on RA at this time. Dr. Lemus wants 02 90% or greater. Will cont to mx. Lungs cta/diminished. Has had BM this shift and loose. Has been incont of B&B. NAD. BS x4. Pharm VTE. VSS. S1,S2 heart sounds.
--- NOTE | 2020-03-16 15:26 | HMH.ACPN ---
Internal Medicine - PN: Subj *Date: 03/16/20 *Time: 15:26 Exam Vital signs and Labs for Last 24 Hours: Temp Pulse Resp BP Pulse Ox 98.2 F 80 18 123/79 91 L 03/16/20 15:04 03/16/20 15:04 03/16/20 15:04 03/16/20 15:04 03/16/20 15:04 Laboratory Results - last 24 hr 03/15/20 17:03: POC Glucose 341 H* 03/15/20 20:55: POC Glucose 268 H 03/16/20 06:46: POC Glucose 199 H 03/16/20 07:30: Sodium 139, Potassium 3.6, Chloride 105, Carbon Dioxide 25, Anion Gap 12.6, BUN 20 H, Creatinine 0.80, Estimated Creat Clear 84, Estimated GFR 81, Est GFR ( Amer) 98, Glucose 203 H, Calcium 8.1 L, Total Bilirubin 0.4, AST 37 H, ALT 28, Alkaline Phosphatase 76, Total Protein 7.1, Albumin 3.7, Globulin 3.4 H, Albumin/Globulin Ratio 1.1 03/16/20 11:14: POC Glucose 213 H I & O for Last 24 hours: Intake & Output 03/13/20 03/14/20 03/15/20 03/16/20 23:59 23:59 23:59 23:59 Intake Total 2019 2415 / 2415 3601 / 3921 320 / 320 Output Total 850 / 850 2700 / 3250 850 / 850 Balance 1170 / 1170 -285 / -835 2751 / 3071 320 / 320 Weight 153.768 kg 151 kg 148.041 kg 150.196 kg Microbiology Reports for the Last 24 Hours: Microbiology 03/15/20 Unknown Sputum - Expectorated Sputum Gram Stain - Final 03/15/20 Unknown Sputum - Expectorated Sputum Sputum Culture - Preliminary Assessment and Plan (1) Pneumonia due to COVID-19 virus Status: Acute Category: Medical Code(s): U07.1 - COVID-19; J12.82 - Pneumonia due to coronavirus disease 2019 (2) COVID-19 virus detected Status: Acute Category: Medical Code(s): U07.1 - COVID-19 (3) Nausea vomiting and diarrhea Status: Acute Category: Medical Code(s): R11.2 - Nausea with vomiting, unspecified; R19.7 - Diarrhea, unspecified (4) Abdominal pain Status: Acute Category: Medical Code(s): R10.9 - Unspecified abdominal pain (5) HTN (hypertension) Status: Chronic Qualifiers: Hypertension type: essential hypertension Qualified Code(s): I10 - Essential (primary) hypertension Category: Medical Code(s): I10 - Essential (primary) hypertension (6) Morbid obesity with body mass index (BMI) of 50.0 to 59.9 in adult Status: Chronic Category: Medical Code(s): E66.01 - Morbid (severe) obesity due to excess calories; Z68.43 - Body mass index [BMI] 50.0-59.9, adult (7) SANG (obstructive sleep apnea) Status: Chronic Category: Medical Code(s): G47.33 - Obstructive sleep apnea (adult) (pediatric) (8) Diabetes mellitus Status: Chronic Qualifiers: Diabetes mellitus type: type 2 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 insulin use: unspecified [place] insulin use status Diabetes mellitus complication status: with other specified complication Qualified Code(s): E11.69 - Type 2 diabetes mellitus with other specified complication Category: Medical Code(s): E11.9 - Type 2 diabetes mellitus without complications (9) Psychogenic nonepileptic seizure Status: Acute Category: Medical Code(s): 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
[2020-03-16 15:29] LABS: POC Glucose,Bedside 292 (70-110)
--- NOTE | 2020-03-16 16:28 | PC.NURSE ---
Pt continues to be incont of urine. Did notice very scant amt of bleeding from vaginal area upon changing brief.
[2020-03-17] VITALS: BP 129/84; PULSE 64; RESP 20; TEMP 36.8; O2SAT 93
[2020-03-17 00:18] LABS: POC Glucose,Bedside 210 (70-110)
[2020-03-17 04:00] VITALS: BP 129/83; PULSE 65; RESP 18; TEMP 36.8; O2SAT 92
[2020-03-17 05:00] VITALS: BMI 54.7
--- NOTE | 2020-03-17 05:10 | PC.NURSE ---
pt has remained on RA throughout the night with no issues. pt did report nausea and prn med given with relief. iv patent and infusing per order. pt has been incontinent all night. vss. call light in reach. will continue to monitor pt condition
[2020-03-17 06:37] LABS: Alanine Aminotransferase 27 U/L (12-78); Albumin Level 3.7 g/dl (3.5-5.0); Albumin/Globulin Ratio 1.1 (1.1-1.8); Alkaline Phosphatase 69 U/L (38-126); Anion Gap 11.4 mEq/L (5-15); Aspartate Amino Transferase 35 U/L (14-36); Bilirubin,Total 0.4 mg/dl (0.2-1.3); Blood Urea Nitrogen 21 mg/dl (7-17); Calcium 8.4 mg/dl (8.4-10.2); Carbon Dioxide 26 mmol/L (22.0-30.0); Chloride 106 mmol/L (98-107); Creatinine Clearance Estimated 84 mL/min (50-200); Estimated Glomerular Filt Rate 81 ml/min (>60); GFR (African American) 98 ML/MIN (>60); Globulin 3.3 g/dL (1.3-3.2); Glucose 165 mg/dl (74-100); Potassium 3.4 mmoL/L (3.5-5.1); Sodium 140 mmol/L (136-145)
[2020-03-17 07:12] LABS: POC Glucose,Bedside 140 (70-110)
[2020-03-17 08:00] VITALS: BP 158/84; PULSE 65; RESP 18; TEMP 36.7; O2SAT 93; O2SAT 96
--- NOTE | 2020-03-17 08:42 | HMH.ACPN2 ---
<Digna Meyer - Last Filed: 03/17/20 08:54> Internal Medicine - PN: Subj *Date: 03/17/20 *Time: 08:54 Interval history: Patient feels better today. She states her breathing is better. She denies cough and chest pain. O2 sats have been satisfactory without oxygen throughout the night. She thinks she might go home today. Her sister may be able to help her at home. She has not been eating. She states she just does not feel like eating. She does deny nausea, abdominal pain but has had diarrhea. She states she is constantly incontinent of urine which started a few months ago. Laboratory data show a sodium of 141 potassium 3.4. BUN is 21 and creatinine is 0.8. Blood sugars are better controlled. Liver function studies are normal. Chest x-ray yesterday showed bilateral infiltrates with slight progression with a generous slightly more prominent cardiac silhouette most likely reflecting technique. Exam Vital signs and Labs for Last 24 Hours: Temp Pulse Resp BP Pulse Ox 98.3 F 65 18 129/83 92 L 03/17/20 04:00 03/17/20 04:00 03/17/20 04:00 03/17/20 04:00 03/17/20 04:00 Laboratory Results - last 24 hr 03/16/20 11:14: POC Glucose 213 H 03/16/20 15:04: POC Glucose 292 H 03/16/20 21:13: POC Glucose 210 H 03/17/20 06:10: Sodium 140, Potassium 3.4 L, Chloride 106, Carbon Dioxide 26, Anion Gap 11.4, BUN 21 H, Creatinine 0.80, Estimated Creat Clear 84, Estimated GFR 81, Est GFR ( Amer) 98, Glucose 165 H, Calcium 8.4, Total Bilirubin 0.4, AST 35, ALT 27, Alkaline Phosphatase 69, Total Protein 7.0, Albumin 3.7, Globulin 3.3 H, Albumin/Globulin Ratio 1.1 03/17/20 06:43: POC Glucose 140 H I & O for Last 24 hours: Intake & Output 03/14/20 03/15/20 03/16/20 03/17/20 11:59 11:59 11:59 11:59 Intake Total 2775 / 2775 2641 / 2641 1520 / 1520 2560 / 2560 Output Total 1250 / 1250 3150 / 3150 Balance 1525 / 1525 -509 / -509 1520 / 1520 2560 / 2560 Weight 332 lb 326 lb 6 oz 331 lb 2 oz 328 lb 5 oz Microbiology Reports for the Last 24 Hours: Microbiology 03/15/20 Unknown Sputum - Expectorated Sputum Gram Stain - Final 03/15/20 Unknown Sputum - Expectorated Sputum Sputum Culture - Preliminary - Constitutional no acute distress Comments: Sitting up in the bed and appears comfortable. - *Routine Respiratory Exam Present: wheezes (Few scattered wheezes bilaterally) - *Routine Cardiovascular Exam Present: RRR - *Routine Extremities Exam Absent: edema, calf tenderness - *Routine Neurological Exam Present: alert, oriented X3 - Routine Psychiatric Exam Present: anxious Assessment and Plan (1) Pneumonia due to COVID-19 virus Status: Acute Category: Medical Code(s): U07.1 - COVID-19; J12.82 - Pneumonia due to coronavirus disease 2019 (2) COVID-19 virus detected Status: Acute Category: Medical Code(s): U07.1 - COVID-19 (3) Nausea vomiting and diarrhea Status: Acute Category: Medical Code(s): R11.2 - Nausea with vomiting, unspecified; R19.7 - Diarrhea, unspecified (4) Abdominal pain Status: Acute Category: Medical Code(s): R10.9 - Unspecified abdominal pain (5) HTN (hypertension) Status: Chronic Qualifiers: Hypertension type: essential hypertension Qualified Code(s): I10 - Essential (primary) hypertension Category: Medical Code(s): I10 - Essential (primary) hypertension (6) Morbid obesity with body mass index (BMI) of 50.0 to 59.9 in adult Status: Chronic Category: Medical Code(s): E66.01 - Morbid (severe) obesity due to excess calories; Z68.43 - Body mass index [BMI] 50.0-59.9, adult (7) SANG (obstructive sleep apnea) Status: Chronic Category: Medical Code(s): G47.33 - Obstructive sleep apnea (adult) (pediatric) (8) Diabetes mellitus Status: Chronic Qualifiers: Diabetes mellitus type: type 2 Diabetes mellitus fdc insulin use: 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
--- NOTE | 2020-03-17 10:01 | SW/DCPLANNER ---
This patient will discharge home today: patient has no needs per MD prior to discharge. Patient will not need home O2 at this time.
[2020-03-17 11:48] LABS: POC Glucose,Bedside 255 (70-110)
[2020-03-17 12:00] VITALS: BP 130/76; PULSE 78; RESP 20; TEMP 36.6; O2SAT 96
--- NOTE | 2020-03-17 15:08 | HMH.DCSUM ---
General - General Admission date:: 03/13/20 <Severiano Lemus - 03/31/20 16:28> 03/13/20 <MeyerDigna mendoza - 03/17/20 15:44> Discharge date: 03/17/20 <Meyer,Digna - 03/17/20 15:44> HPI HPI: Yumiko is a 35-year-old female with a history of mental retardation, seizure disorder, diabetes, depression/anxiety, and anemia who began feeling poorly around 03/03/2020. She completed a telehealth on 03/05/2020 with complaints of a sore throat, headache, body aches, and fatigue. At that time she did not know if she had been exposed to anyone with Covid. A CBC, strep screen, and Covid test were all ordered. The patient did not initially have these completed until her whole family was positive for Covid including her mother who had been hospitalized. The day prior to admission the patient began having shortness of breath along with some chest pain and a cough. She was notified of her positive Covid test. She had a fall at home and hit the back of her head. She was brought to the ER for evaluation. Her CBC was relatively unremarkable. Her C-reactive protein and glucose were both elevated. She had an upper respiratory panel with Covid and her Covid test was positive. Antibodies were both negative. She had a cervical spine CT which showed no acute fracture but biapical pneumonia. She had a chest x-ray showing cardiomegaly with pulmonary venous congestion suggesting CHF along with a possible left perihilar infiltrate. She had a head CT showing no intracranial findings. She had a pelvic x-ray showing nothing acute. She had a chest CTA showing no evidence of PE but there were multifocal small areas of consolidation consistent with COVID-19 pneumonia. She was admitted and started on Covid protocol along with Zithromax and Rocephin. AM after admission she stated she felt terrible. She was aching all over and felt short of breath. She stated her chest hurt and she had a cough. She also complained of a headache and some abdominal pain along with vomiting and diarrhea. <BetsyMaryDigna - 03/17/20 15:44> Hospital Course Hospital Course: Patient was started on Covid protocol along with Zithromax and Rocephin antibiotics. She was also started on sliding scale insulin along with Lasix. She had some anxiety issues and was given Haldol and then changed to Ativan which did help.. Her symptoms did gradually improve. She received Zofran and Phenergan for nausea. She never did eat very well and stated that her appetite was just not there. She had no vomiting although she did have periodic diarrhea stools. On 03/17/2020 patient continued to feel better with no respiratory problems. O2 sats were satisfactory on room air. She continued not to eat but was drinking fluids. She denied nausea although she continued with periodic diarrhea. Patient was also noted to be concerned about her mother who had been transferred to the [facility] with Covid pneumonia and ventilator support. On this date she was felt to be stable to be discharged home. She was discharged home in stable condition. Meds as per medication reconciliation sheet. She was to follow-up with Dr. Lemus on 03/24/2020. <Digna Meyer - 03/17/20 15:44> Objective Vital signs: Temp Pulse Resp BP Pulse Ox 97.9 F 78 20 130/76 96 03/17/20 12:00 03/17/20 12:00 03/17/20 12:00 03/17/20 12:00 03/17/20 12:00 <Severiano Lemus - 03/31/20 16:28> Temp Pulse Resp BP Pulse Ox 97.9 F 78 20 130/76 96 03/17/20 12:00 03/17/20 12:00 03/17/20 12:00 03/17/20 12:00 03/17/20 12:00 <Digna Meyer - 03/17/20 15:44> Narrative: Exam Vital signs and Labs for Last 24 Hours: Temp Pulse Resp BP Pulse Ox 98.3 F 65 18 129/83 92 L 03/17/20 04:00 03/17/20 04:00 03/17/20 04:00 03/17/20 04:00 03/17/20 04:00 Laboratory Results - last 24 hr 03/16/20 11:14: POC Glucose 213 H 03/16/20 15:04: POC Glucose 292 H 03/16/20 2
== END 2020-03-17 12:28 | disposition home or self-care (01) | DRG 177 ==
LOC: ER 21:44 → 2ND 03-13 03:18
PROVIDERS: Physician Assistant; Admitting Provider Family Medicine; Emergency Provider Emergency Medicine; PCP Family Medicine; Visit Provider Family Medicine
DX: U07.1 COVID-19 (principal); J12.82 Pneumonia due to coronavirus disease 2019; Z68.43 Body mass index [BMI] 50.0-59.9, adult; E66.01 Morbid (severe) obesity due to excess calories; I10 Essential (primary) hypertension; E11.9 Type 2 diabetes mellitus without complications; F44.5 Conversion disorder with seizures or convulsions; D64.9 Anemia, unspecified; Z88.0 Allergy status to penicillin; Z88.5 Allergy status to narcotic agent; Z88.2 Allergy status to sulfonamides; Z88.1 Allergy status to other antibiotic agents; Z72.0 Tobacco use; Z79.84 Long term (current) use of oral hypoglycemic drugs; Z79.82 Long term (current) use of aspirin; Z79.899 Other long term (current) drug therapy; F79 Unspecified intellectual disabilities
CPT/HCPCS: 36415; 70450; 71045; 71275; 72125; 72170; 80048; 80053; 81001; 82550; 82962; 83036; 83735; 84145; 84703; 85025; 85651; 86140; 86328; 87070; 87077; 87186; 87205; 87581; 87633; 87798; 93306; 96365; 96367; 96375; 99285; J0456; J2405; Q9957; Q9967; U0003

== ENCOUNTER → 2020-05-08 10:20 | Outpatient (CLI) | payer OTHER, SELFPAY ==
--- NOTE | 2020-05-08 10:25 | XR_ITS ---
PROCEDURE: XR CHEST PORTABLE CLINICAL HISTORY: COVID OUTPATIENT Cough COMPARISON: CR CXR2V XR chest 2V from 03/17/2018 CR XR CHEST PORTABLE from 03/12/[address] ANGIO CHEST from 03/12/2020 CR XR CHEST PORTABLE from 03/16/2020 FINDINGS: Mild cardiomegaly with mild prominence of the mediastinum similar to previous exams. Azygos fissure is present as a normal variant. Previously noted pneumonia has cleared in the upper lobes. There may be some residual infiltrate in the right lower lobe. No acute bony abnormalities. IMPRESSION: Improvement in upper lobe pneumonia with minimal residual atelectasis or infiltrate in the right lower lobe Dictated by: Byron Jaimes MD 05/08/2020 12:08 Byron Jaimes MD in [facility] 05/08/2020 12:08
[2020-05-08 11:33] LABS: Basophils # 0.1 K/mm3 (0-0.2); Basophils % 0.7 % (0.1-2.0); Eosinophils # 0.3 K/mm3 (0.0-0.4); Eosinophils % 3.7 % (0.1-12.0); Hematocrit 44.2 % (37.0-47.0); Hemoglobin 13.7 g/dL (12.2-16.2); Lymphocytes # 2.6 K/mm3 (0.7-4.5); Lymphocytes % 28.1 % (10-50); Mean Corpuscular HGB Conc 31.1 g/dL (31.8-35.4); Mean Corpuscular Hemoglobin 29.9 pg (27.0-31.2); Mean Platelet Volume 7.7 fl (7.4-10.4); Monocytes # 0.4 K/mm3 (0.1-1.0); Monocytes % 3.9 % (1.7-9.3); Neutrophils # 5.9 K/mm3 (1.8-7.8); Neutrophils % 63.6 % (37.0-80.0); Platelet Count 278 K/mm3 (142-424); Red Cell Distribution Width 14.1 % (11.5-17.5); White Blood Count 9.3 K/mm3 (4.8-10.8)
[2020-05-08 13:30] LABS: Strep Scrn Group A (Rapid) Negative (Negative)
== END ==
PROVIDERS: PCP Family Medicine; Visit Provider Physician Assistant
DX: Z20.822 Contact with and (suspected) exposure to COVID-19 (principal)
CPT/HCPCS: 36415; 71045; 85025; 87430; U0003

== ENCOUNTER 2020-11-17 21:14 | Emergency (ER) | payer OTHER, SELFPAY ==
[2020-11-17 21:15] VITALS: BP 119/72; PULSE 110; RESP 20; TEMP 36.9; O2SAT 97; BMI 40.4
[2020-11-17 21:24] VITALS: BP 119/72; PULSE 109; O2SAT 95
[2020-11-17 21:27] VITALS: BMI 40.4
[2020-11-17 21:30] VITALS: BP 115/57; PULSE 93; O2SAT 93
--- NOTE | 2020-11-17 21:51 | HMH.EDNVD ---
ED Disposition Clinical Impression: SIRS (systemic inflammatory response syndrome) UTI (urinary tract infection) Qualifiers: Urinary tract infection type: site unspecified Hematuria presence: without hematuria Qualified Code(s): N39.0 - Urinary tract infection, site not specified Disposition: Home, Self-Care Condition on Discharge: Good Instructions: DI for Urinary Tract Infection (UTI) Additional Instructions: fluids and see pcp for follow up and urine culture results Prescriptions: levoFLOXacin [Levaquin 500mg tab] 500 mg PO DAILY #7 tab Transmission Status: Pending to [id number] Phenazopyridine HCl [Pyridium 200mg Tablet] 200 pow PO TID #6 tab Transmission Status: Pending to [id number] Referrals: Severiano Lemus MD [Primary Care Provider] - - Critical Care Critical Care Time: No Attestation: On 11/17/20, the high probability of a clinically significant, sudden or life threatening deterioration of the following system(s) required my full and direct attention, intervention and personal management. The time I documented below is in addition to time spent performing reported procedures but includes the following listed in this critical care notation. Medical Decision Making - Medical Records Medical records reviewed: Yes: I reviewed the patient's medical records. - Genaro Inquiry Pt receiving controlled substance: No Vital Signs: 11/17/20 21:15 11/17/20 21:24 11/17/20 21:30 Temperature 98.5 F Temperature Source Oral Pulse Rate 109 H 93 H Pulse Rate [Right Radial] 110 H Respiratory Rate 20 Blood Pressure 119/72 115/57 L Blood Pressure [Right Arm] 119/72 Blood Pressure Mean [Right Arm] 87 Blood Pressure Source [Right Arm] Automatic Cuff Blood Pressure Position [Right Arm] Sitting 02 Sat by Pulse Oximetry 97 95 93 L Oxygen Delivery Method Room Air 11/17/20 22:23 11/17/20 23:00 11/17/20 23:30 Temperature Temperature Source Pulse Rate 84 78 75 Pulse Rate [Right Radial] Respiratory Rate Blood Pressure 113/56 L 113/53 L 109/51 L Blood Pressure [Right Arm] Blood Pressure Mean [Right Arm] Blood Pressure Source [Right Arm] Blood Pressure Position [Right Arm] 02 Sat by Pulse Oximetry 93 L 96 96 Oxygen Delivery Method - Lab Data Lab results reviewed: Yes: I reviewed the patient's lab results. Lab Results 11/17/20 21:54: WBC 12.2 H, RBC 4.51, Hgb 12.9, Hct 39.0, MCV 86.4, MCH 28.6, MCHC 33.1, RDW 14.4, Plt Count 240, MPV 8.8, Neut % (Auto) 76.1, Lymph % (Auto) 17.4, [place] % (Auto) 6.0, Eos % (Auto) 0.1, Baso % (Auto) 0.5, Neut # (Auto) 9.3 H, Lymph # (Auto) 2.1, [place] # (Auto) 0.7, Eos # (Auto) 0.0, Baso # (Auto) 0.1 11/17/20 21:54: Sodium 138, Potassium 3.5, Chloride 100, Carbon Dioxide 25, Anion Gap 16.5 H, BUN 12, Creatinine 1.00, Estimated Creat Clear 135, Estimated GFR 63, Est GFR ( Amer) 76, Glucose 122 H, Calcium 8.8, Total Bilirubin 1.2, AST 24, ALT 15, Alkaline Phosphatase 116, Total Protein 7.9, Albumin 4.2, Globulin 3.7 H, Albumin/Globulin Ratio 1.1 11/17/20 21:54: C-Reactive Protein 189.9 H, Lipase 56 11/17/20 21:54: ESR 64 H 11/17/20 21:54: Amylase 43, Procalcitonin 0.284 11/18/20 00:05: SARS-CoV-2 (PCR) Not detected, Influenza A Untype (PCR) Not detected, Influenza Type B (PCR) Not detected 11/18/20 00:40: Urine Color Dark yellow, Urine Appearance Cloudy, Urine pH 6.0, Ur Specific [place] 1.020, Urine Protein 2+, Urine Glucose (UA) Negative, Urine Ketones 1+, Urine Blood 3+, Urine Nitrate Positive, Urine Bilirubin Negative, Urine Urobilinogen 0.2, Ur Leukocyte Esterase 2+ A, Urine RBC 5-10, Urine WBC 20-50, Ur Squamous Epith Cells 3-5, Urine Bacteria 1+, Urine Mucus 1+ 11/18/20 00:40: Urine HCG, Qual Negative Result diagrams: 11/17/20 21:54 11/17/20 21:54 Orders (Tests/Meds): ED MEDICATIONS Generic Name Dose Route Start Last Admin Trade Name Freq PRN Reason Stop Dose Admin Sodium Chloride 1,0
[2020-11-17 22:11] LABS: Basophils # 0.1 K/mm3 (0-0.2); Basophils % 0.5 % (0.1-2.0); Eosinophils % 0.1 % (0.1-12.0); Hemoglobin 12.9 g/dL (12.2-16.2); Lymphocytes # 2.1 K/mm3 (0.7-4.5); Lymphocytes % 17.4 % (10-50); Mean Corpuscular HGB Conc 33.1 g/dL (31.8-35.4); Mean Corpuscular Hemoglobin 28.6 pg (27.0-31.2); Mean Corpuscular Volume 86.4 fl (81-99); Mean Platelet Volume 8.8 fl (7.4-10.4); Monocytes # 0.7 K/mm3 (0.1-1.0); Neutrophils # 9.3 K/mm3 (1.8-7.8); Neutrophils % 76.1 % (37.0-80.0); Platelet Count 240 K/mm3 (142-424); Red Blood Count 4.51 M/mm3 (4.20-5.40); Red Cell Distribution Width 14.4 % (11.5-17.5); White Blood Count 12.2 K/mm3 (4.8-10.8)
[2020-11-17 22:12] LABS: Chloride 100 mmol/L (98-107); Potassium 3.5 mmoL/L (3.5-5.1); Sodium 138 mmol/L (136-145)
[2020-11-17 22:14] LABS: Blood Urea Nitrogen 12 mg/dl (7-17); Creatinine Clearance Estimated 135 mL/min (50-200); Estimated Glomerular Filt Rate 63 ml/min (>60); GFR (African American) 76 ML/MIN (>60); Lipase 56 U/L (23-300)
[2020-11-17 22:15] LABS: Alanine Aminotransferase 15 U/L (12-78); Albumin Level 4.2 g/dl (3.5-5.0); Albumin/Globulin Ratio 1.1 (1.1-1.8); Alkaline Phosphatase 116 U/L (38-126); Anion Gap 16.5 mEq/L (5-15); Aspartate Amino Transferase 24 U/L (14-36); Bilirubin,Total 1.2 mg/dl (0.2-1.3); Calcium 8.8 mg/dl (8.4-10.2); Carbon Dioxide 25 mmol/L (22.0-30.0); Globulin 3.7 g/dL (1.3-3.2); Glucose 122 mg/dl (74-100); Total Protein,Serum 7.9 g/dl (6.3-8.2)
[2020-11-17 22:20] LABS: C-Reactive Protein 189.9 mg/L (0-4)
[2020-11-17 22:23] VITALS: BP 113/56; PULSE 84; O2SAT 93
[2020-11-17 22:27] LABS: Amylase 43 U/L (30-110)
[2020-11-17 22:45] LABS: Procalcitonin 0.284 ng/mL (0.0-2.0)
[2020-11-17 22:47] LABS: Erythrocyte Sedimentation Rate 64 mm/hr (0-20)
[2020-11-17 23:00] VITALS: BP 113/53; PULSE 78; O2SAT 96
[2020-11-17 23:30] VITALS: BP 109/51; PULSE 75; O2SAT 96
[2020-11-18 00:10] LABS: Coronavirus 19, PCR Not Detected (NotDetected); Influenza A, PCR Not Detected (NotDetected); Influenza B, PCR Not Detected (NotDetected)
[2020-11-18 00:44] LABS: Microscopic, Urine URINE MICROSCOPIC (MICROSCOPIC)
[2020-11-18 00:48] LABS: Urine Pregnancy, HCG Qual. Negative (Negative)
[2020-11-18 00:49] LABS: Bilirubin,Urine Negative (Negative); Blood, Urine 3+ (Negative); Glucose,Urine (UA) Negative (Negative); Ketones,Urine 1+ (Negative); Leukocyte Esterase,Urine 2+ (Negative); Nitrate,Urine POSITIVE (Negative); Protein,Urine 2+ (Negative); Urobilinogen,Urine 0.2 EU/dl (0.2)
[2020-11-18 01:04] LABS: Appearance,Urine Cloudy (Clear); Color,Urine Dark Yellow (Yellow); WBC,Urine 20-50 #/hpf (0-3)
[2020-11-18 01:05] LABS: Bacteria,Urine 1+ /lpf; Mucus,Urine 1+ /lpf
[2020-11-18 01:40] VITALS: BP 116/71; PULSE 79; RESP 16; TEMP 36.9; O2SAT 96
== END 2020-11-18 01:42 | disposition home or self-care (01) ==
PROVIDERS: Emergency Provider Emergency Medicine; PCP Family Medicine
DX: N39.0 Urinary tract infection, site not specified (principal); Z20.822 Contact with and (suspected) exposure to COVID-19; F41.8 Other specified anxiety disorders; E11.9 Type 2 diabetes mellitus without complications; K21.9 Gastro-esophageal reflux disease without esophagitis; I10 Essential (primary) hypertension; R65.10 Systemic inflammatory response syndrome (SIRS) of non-infectious origin without acute organ dysfunction; F17.210 Nicotine dependence, cigarettes, uncomplicated
CPT/HCPCS: 80053; 81001; 81025; 82150; 83690; 84145; 85025; 85651; 86140; 87086; 87088; 87186; 96365; 96366; 96375; 99283; C9803; J2405; U0003; U0005

== ENCOUNTER → 2021-02-18 14:28 | Outpatient (CLI) | payer OTHER, SELFPAY ==
[2021-02-18 15:00] LABS: Chloride 104 mmol/L (98-107); Potassium 4.4 mmoL/L (3.5-5.1); Sodium 142 mmol/L (136-145)
[2021-02-18 15:02] LABS: Alanine Aminotransferase 17 U/L (12-78); Alkaline Phosphatase 112 U/L (38-126); Aspartate Amino Transferase 31 U/L (14-36); Bilirubin,Total 0.6 mg/dl (0.2-1.3); Blood Urea Nitrogen 7 mg/dl (7-17); Estimated Glomerular Filt Rate 81 ml/min (>60); GFR (African American) 98 ML/MIN (>60)
[2021-02-18 15:03] LABS: Albumin Level 4.7 g/dl (3.5-5.0); Albumin/Globulin Ratio 1.3 (1.1-1.8); Anion Gap 11.4 mEq/L (5-15); Calcium 9.6 mg/dl (8.4-10.2); Carbon Dioxide 31 mmol/L (22.0-30.0); Creatine Kinase 52 U/L (30-135); Globulin 3.5 g/dL (1.3-3.2); Glucose 98 mg/dl (74-100); Iron 65 ug/dL (37-170); Total Protein,Serum 8.2 g/dl (6.3-8.2)
--- NOTE | 2021-02-18 15:09 | ECG_ITS ---
APPROVED REPORT Exam: Resting ECG HR:59 bpm ECG Measurements Heart Rate 59 AXES CA 146 P 0 QRSd 88 QRS -7 QT 428 T -2 QTc 423 Conclusion Sinus bradycardia Otherwise normal ECG Electronically signed by : Tigre Tariq MD 02/18/2021 20:31:40
[2021-02-18 15:12] LABS: CKMB Relative Index 0.6 U/L (0-4.0); Creatine Kinase MB 0.3 ng/ml (0.0-2.03); Total Iron Binding Capacity 296 ug/dL (265-497)
[2021-02-18 15:36] LABS: Thyroid Stimulating Hormone 2.53 uIU/mL (0.465-4.68)
[2021-02-18 15:38] LABS: Ferritin 158 ng/ml (6.24-137)
[2021-02-18 15:47] LABS: 25-OH Vitamin D, Total 45.7 ng/mL (30-100); Free T4 (Free Thyroxine) 0.93 ng/dl (0.78-2.19)
[2021-02-18 15:54] LABS: Troponin I < 0.01 ng/ml (0.00-0.034)
[2021-02-18 16:35] LABS: Vitamin B12 412 pg/mL (239-931)
== END ==
PROVIDERS: PCP Physician Assistant; Visit Provider Physician Assistant
DX: R07.9 Chest pain, unspecified (principal); E11.9 Type 2 diabetes mellitus without complications; D50.9 Iron deficiency anemia, unspecified; R20.2 Paresthesia of skin; E53.8 Deficiency of other specified B group vitamins; E55.9 Vitamin D deficiency, unspecified; E03.9 Hypothyroidism, unspecified; Z79.4 Long term (current) use of insulin
CPT/HCPCS: 36415; 80053; 82306; 82550; 82553; 82607; 82728; 82746; 83036; 83540; 83550; 84439; 84443; 84484; 93005

== ENCOUNTER → 2021-04-21 10:12 | Outpatient (CLI) | payer OTHER, SELFPAY ==
--- NOTE | 2021-04-21 10:20 | MM_ITS ---
PROCEDURE INFORMATION: Exam: US Left Breast, Complete MG Bilateral Screening 3D Mammography Exam date and time: 04/21/2021 10:20 AM Age: 36 years old Clinical indication: Breast pain; Left; Encounter for screening mammogram for malignant neoplasm of breast; Additional info: Screening, pain lt breast TECHNIQUE: Imaging protocol: Complete ultrasound of all four quadrants of the Left breast and the retroareolar regions, including ultrasound of the axilla when performed. Bilateral Screening tomosynthesis and 2D mammography including computer-aided detection (CAD) when performed. COMPARISON: No relevant prior studies available. FINDINGS: MAMMOGRAPHY: Breast density: There are scattered areas of fibroglandular density. Mass: No suspicious masses. Architectural distortion: No suspicious distortion. Calcifications: No suspicious calcifications. Asymmetric density: None. Skin thickening: None. Axillary adenopathy: None. Benign-appearing reniform shaped lymph node with fatty hilum in the right axilla. ULTRASOUND: Left solid masses: None. Left cystic masses: None. Left architectural distortion: None. Left acoustical shadowing: None. Left skin thickening: None. Left axillary adenopathy: None. Benign-appearing axillary lymph nodes with prominent fatty sinan noted, largest measuring up to 1.6 cm in length. IMPRESSION: No mammographic or sonographic evidence of malignancy in the left breast. No suspicious findings to correlate with the patient's left breast pain. Suggest close clinical follow-up clinical breast exam if symptoms persist. No mammographic evidence of malignancy in the right breast. Annual screening is recommended starting at age 40 unless otherwise clinically indicated. ASSESSMENT: BI-RADS Category 2: Benign
== END ==
PROVIDERS: PCP Physician Assistant; Visit Provider Nurse Practitioner Family
DX: N64.4 Mastodynia (principal); Z12.31 Encounter for screening mammogram for malignant neoplasm of breast
CPT/HCPCS: 76641; 77063; 77067

== ENCOUNTER 2021-09-30 10:51 | Outpatient (CLI) | payer OTHER, SELFPAY ==
[2021-09-30 11:48] LABS: Basophils # 0.2 K/mm3 (0-0.2); Basophils % 1.5 % (0.1-2.0); Eosinophils # 0.4 K/mm3 (0.0-0.4); Eosinophils % 3.3 % (0.1-12.0); Hematocrit 42.7 % (37.0-47.0); Lymphocytes # 3.1 K/mm3 (0.7-4.5); Lymphocytes % 24.4 % (10-50); Mean Corpuscular HGB Conc 32.8 g/dL (31.8-35.4); Mean Corpuscular Hemoglobin 29.7 pg (27.0-31.2); Mean Corpuscular Volume 90.6 fl (81-99); Mean Platelet Volume 7.7 fl (7.4-10.4); Monocytes # 0.6 K/mm3 (0.1-1.0); Monocytes % 4.3 % (1.7-9.3); Neutrophils # 8.5 K/mm3 (1.8-7.8); Neutrophils % 66.5 % (37.0-80.0); Platelet Count 342 K/mm3 (142-424); Red Blood Count 4.71 M/mm3 (4.20-5.40); Red Cell Distribution Width 13.9 % (11.5-17.5); White Blood Count 12.8 K/mm3 (4.8-10.8)
[2021-09-30 12:44] LABS: Erythrocyte Sedimentation Rate 39 mm/hr (0-20)
[2021-09-30 12:48] LABS: Chloride 104 mmol/L (98-107); Potassium 4.5 mmoL/L (3.5-5.1); Sodium 140 mmol/L (136-145)
[2021-09-30 12:51] LABS: Alanine Aminotransferase 25 U/L (12-78); Albumin Level 4.5 g/dl (3.5-5.0); Albumin/Globulin Ratio 1.5 (1.1-1.8); Alkaline Phosphatase 160 U/L (38-126); Anion Gap 13.5 mEq/L (5-15); Aspartate Amino Transferase 29 U/L (14-36); Blood Urea Nitrogen 17 mg/dl (7-17); Carbon Dioxide 27 mmol/L (22.0-30.0); Estimated Glomerular Filt Rate 81 ml/min (>60); GFR (African American) 98 ML/MIN (>60); Total Protein,Serum 7.5 g/dl (6.3-8.2)
[2021-09-30 12:52] LABS: Calcium 9.1 mg/dl (8.4-10.2); Glucose 140 mg/dl (74-100)
[2021-09-30 13:03] LABS: Bilirubin,Total < 0.1 mg/dl (0.2-1.3)
[2021-09-30 13:20] VITALS: BP 124/67; PULSE 76; RESP 18; TEMP 36.3; O2SAT 98
[2021-09-30 13:22] LABS: Thyroid Stimulating Hormone 3.39 uIU/mL (0.465-4.68)
[2021-09-30 13:55] VITALS: BP 122/62; PULSE 71; RESP 18; O2SAT 98
[2021-10-01 11:32] LABS: Rapid Plasma Reagin Ab Titer Non Reactive (NonRea<1:1)
[2021-10-01 14:11] LABS: Anti-Centromere B Antibodies <0.2 AI (0.0-0.9); Anti-DNA (DS) Ab Qn <1 IU/mL (0-9); Anti-Jo-1 <0.2 AI (0.0-0.9); Antichromatin Antibodies <0.2 AI (0.0-0.9); Antiscleroderma-70 Antibodies 0.3 AI (0.0-0.9); RNP Antibodies 1.3 AI (0.0-0.9); Sjogren's Anti-SS-A 2.3 AI (0.0-0.9); Sjogren's Anti-SS-B <0.2 AI (0.0-0.9)
[2021-10-02 22:57] LABS: Anti-Centromere B Abs Charge YES; Anti-DNA (DS) Ab Charge YES; Anti-Jo-1 Charge YES; Antichromatin Abs Charge YES; Antinuclear Antibodies (ANA) Positive; Antiscleroderma-70 Abs Charge YES; RNP Antibodies Charge YES; Sjogren's Anti-SS-A Ab Charge YES; Sjogren's Anti-SS-B Ab Charge YES; Smith Antibodies Charge YES
== END 2021-09-30 14:00 | disposition home or self-care (01) ==
PROVIDERS: PCP Family Medicine; Visit Provider Specialist
DX: H46.9 Unspecified optic neuritis (principal); H47.10 Unspecified papilledema; R51.9 Headache, unspecified; G31.84 Mild cognitive impairment of uncertain or unknown etiology; F44.5 Conversion disorder with seizures or convulsions
CPT/HCPCS: 36415; 80053; 84443; 85025; 85651; 86038; 86225; 86235; 86592; 96365

== ENCOUNTER 2021-10-01 12:56 | Outpatient (CLI) | payer OTHER, SELFPAY ==
[2021-10-01 13:19] VITALS: BP 143/81; PULSE 100; RESP 18; TEMP 36.7; O2SAT 98
[2021-10-01 14:05] VITALS: BP 120/66; PULSE 105; RESP 18; O2SAT 97
== END 2021-10-01 14:10 | disposition home or self-care (01) ==
LOC: INF 12:57
PROVIDERS: PCP Family Medicine; Visit Provider Specialist
DX: H46.9 Unspecified optic neuritis (principal); H47.10 Unspecified papilledema
CPT/HCPCS: 96365

== ENCOUNTER 2021-10-02 13:04 | Outpatient (CLI) | payer OTHER, SELFPAY ==
[2021-10-02 13:33] VITALS: BP 138/72; PULSE 78; RESP 18; O2SAT 100
[2021-10-02 14:10] VITALS: BP 141/65; PULSE 82; RESP 18; O2SAT 100
== END 2021-10-02 14:10 | disposition home or self-care (01) ==
LOC: INF 13:05
PROVIDERS: PCP Family Medicine; Visit Provider Specialist
DX: H46.9 Unspecified optic neuritis (principal); R51.9 Headache, unspecified; H47.10 Unspecified papilledema
CPT/HCPCS: 96365

== ENCOUNTER → 2021-10-07 09:29 | Outpatient (CLI) | payer OTHER, SELFPAY ==
--- NOTE | 2021-10-07 09:29 | MR_ITS ---
FINAL REPORT CLINICAL HISTORY: optic neuritis 20 ml prohance given COMPARISON: 09/21/2018 FINDINGS: Multiplanar MR imaging of the orbits was performed without and with contrast. There are multiple foci of increased T2 signal in the cerebral white matter which have progressed somewhat since previous. The appearance is worrisome for demyelination. The globes are intact without evidence of hemorrhage or mass. The extraocular muscles are intact. The optic nerves have an unremarkable appearance. There is no evidence of intraorbital mass or abnormal fluid collection. No abnormal contrast enhancement is identified. The optic chiasm has an unremarkable appearance. IMPRESSION: Findings worrisome for demyelination. Reviewed, Interpreted and Dictated by Murray Smallwood III, MD Transcribed by Digna Barksdale Authenticated and [facility]
== END ==
PROVIDERS: PCP Family Medicine; Visit Provider Specialist
DX: H46.9 Unspecified optic neuritis (principal); H47.10 Unspecified papilledema
CPT/HCPCS: 70543; 70553; A9576

== ENCOUNTER → 2021-10-08 15:03 | Outpatient (CLI) | payer OTHER, SELFPAY ==
[2021-10-08 16:57] LABS: C-Reactive Protein 8.3 mg/L (0-4)
[2021-10-08 19:03] LABS: Erythrocyte Sedimentation Rate 7 mm/hr (0-20)
== END ==
PROVIDERS: PCP Family Medicine; Visit Provider Specialist
DX: H46.9 Unspecified optic neuritis (principal); H47.10 Unspecified papilledema; G89.29 Other chronic pain; R51.9 Headache, unspecified
CPT/HCPCS: 36415; 85651; 86140

== ENCOUNTER → 2021-10-15 13:06 | Outpatient (CLI) | payer OTHER, SELFPAY ==
--- NOTE | 2021-10-15 13:06 | MR_ITS ---
FINAL REPORT CLINICAL HISTORY: Headache, optic neuritis FINDINGS: Multiple projection images of the brain arterial vasculature were obtained without contrast. The raw data images were also reviewed. The distal internal carotid, distal vertebral and basilar arteries have an unremarkable appearance without evidence of significant stenosis or occlusion. The proximal anterior, middle and posterior cerebral arteries have an unremarkable appearance. There is no evidence of significant stenosis or major branch occlusion. No aneurysm or vascular malformation is identified. IMPRESSION: Unremarkable MR angiogram of the head. Reviewed, Interpreted and Dictated by Murray Smallwood III, MD Transcribed by Rob Lewis Authenticated and [facility][1]
== END ==
PROVIDERS: PCP Family Medicine; Visit Provider Specialist
DX: R51.9 Headache, unspecified (principal); G89.29 Other chronic pain; H46.9 Unspecified optic neuritis; H47.10 Unspecified papilledema
CPT/HCPCS: 70544

== ENCOUNTER 2021-10-20 10:33 | Day surgery (SDC) | payer OTHER, SELFPAY ==
[2021-10-20 10:45] VITALS: BP 146/80; PULSE 88; RESP 20; TEMP 36.5; O2SAT 95; BMI 41.5
--- NOTE | 2021-10-20 11:25 | P.PCN_ITS ---
- Procedure Date: 10/20/21 Time: 11:25 Anesthesiologist:: Edgardo Gamino MD Complications:: None Pre-procedure Diagnosis:: Visual disturbances with suspected optic neuritis status post history of herpes encephalitis and previous atypical seizures Post-procedure Diagnosis:: Same Indications for Procedure:: This patient is a pleasant 36-year-old white female who was referred to us by Dr. Trejo to obtain spinal fluid to get opening and closing pressures and send for indicated studies. She has a history of herpes encephalitis with atypical seizures. She does have visual disturbances with suspected optic neuritis. Procedure Details:: Lumbar puncture diagnostic under fluoroscopy Informed consent was obtained and the risk and benefits of the procedure were e xplained to the patient. Patient was taken the procedure room. The patient was placed in left lateral decubitus position. The back was prepped using ChloraPrep. The skin and subcutaneous tissues were anesthetized using lidocaine. A 20-gauge spinal needle was inserted and advanced into the L4-L5 interspace until clear CSF was obtained. After this opening pressures were taken and found to be 10 cm of water. We then obtained approximately 3 mL of clear CSF placed into each of 4 tubes. We withdrew approximately 12 to 15 mL in total. Closing pressures were found to be 8 cm of water. The needle was withdrawn a Band-Aid was placed. The patient was taken recovery in stable condition. Plan and Disposition:: This patient will follow-up with Dr. Trejo. Again opening pressures were 10 cm of water. Closing pressures were 8 cm of water. We did obtain approximately 15 mL of clear CSF placed into a total of 4 tubes and sent for indicated studies. We will follow-up with this patient as needed. We did give her conservative recommendations in case she does start to have a post dural puncture headache.
[2021-10-20 11:26] VITALS: BP 119/74; PULSE 82; RESP 18; O2SAT 97
[2021-10-20 12:43] LABS: Appearance,CSF Clear (Clear); White Blood Cell,CSF 3 cells/uL (0-5)
[2021-10-20 12:44] LABS: Appearance,CSF Clear (Clear); Red Blood Cell,CSF 393 cells/uL (0)
[2021-10-20 12:45] LABS: Red Blood Cell,CSF 159 cells/uL (0); White Blood Cell,CSF 3 cells/uL (0-5)
[2021-10-20 12:46] LABS: Volume,CSF 2.5 mL
[2021-10-20 12:47] LABS: Glucose,CSF 84 mg/dl (40-70); Volume,CSF 3 mL
[2021-10-20 14:31] LABS: Mononuclear WBCs,CSF 90 %; Polynuclear WBCs,CSF 10 %
[2021-10-20 14:51] LABS: Mononuclear WBCs,CSF 80 %; Polynuclear WBCs,CSF 20 %
[2021-10-23 17:20] LABS: Albumin 4.2 g/dL (3.8-4.8); Albumin, CSF 24 mg/dL (7-29); CSF IgG Index 1.3 (0.0-0.7); CSF/Serum Alb. Index 6 (0-8); IgG, Quant, CSF 5.6 mg/dL (0.0-6.7); IgG, Syn Rate, CSF 15.9 mg/day (-9.9 TO +3.3); IgG/Albumin Ratio, CSF 0.23 (0.00-0.25); Immunoglobulin G, Qn, Serum 731 mg/dL (586-1602)
[2021-11-28 18:43] LABS: Cryptococcus Antigen, CSF Negative
[2021-11-28 18:44] LABS: CSF Lyme (B. burgdorferi) PCR Negative; VDRL, Cerebrospinal Fluid Non Reactive
== END 2021-10-20 11:37 | disposition home or self-care (01) ==
LOC: SC.PAINP 10:34
PROVIDERS: Specialist; PCP Family Medicine; Visit Provider Anesthesiology
DX: H53.9 Unspecified visual disturbance (principal); Z86.61 Personal history of infections of the central nervous system; R56.9 Unspecified convulsions
CPT/HCPCS: 36415; 62328; 82040; 82042; 82784; 82945; 83916; 84155; 86592; 87070; 87102; 87116; 87186; 87205; 87206; 87476; 87899; 89051

== ENCOUNTER → 2021-10-26 12:48 | Outpatient (POV) | payer OTHER, SELFPAY ==
[2021-10-26 13:16] VITALS: BP 136/84; PULSE 91; RESP 20; TEMP 36.7; O2SAT 96; BMI 41.3
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
== END | disposition home or self-care (01) ==
PROVIDERS: PCP Family Medicine; Visit Provider Nurse Practitioner Family
DX: M54.50 Low back pain, unspecified (principal); M79.605 Pain in left leg; M79.604 Pain in right leg
CPT/HCPCS: 99212; G0463

== ENCOUNTER 2021-10-28 11:12 | Day surgery (SDC) | payer OTHER, SELFPAY ==
[2021-10-28 11:25] VITALS: BMI 41.3
[2021-10-28 11:26] VITALS: BP 135/78; PULSE 91; RESP 18; TEMP 36.4; O2SAT 95
--- NOTE | 2021-10-28 11:33 | P.PN_ITS ---
[facility] Medical History Abnormal stress test Angina, class III HTN (hypertension) Palpitations SOB (shortness of breath) Surgical History (Updated 10/28/21 @ 11:35 by Betsey Engle RN) History of cholecystectomy History of hernia surgery History of hysterectomy Social History (Updated 10/26/21 @ 13:54 by Nicole Fernandez APRN) Smoking Status: Former smoker pack-years: 15 second hand exposure: No alcohol intake: never substance use type: denies use current occupational status: other household members: none housing: apartment current occupational exposures/hazards: No caffeine: Yes [facility] Anesthesia Checklist Patient Identification Patient Identification: Arm Band and Verbal (Name & ) Structural Data Admitted From: Home Planned Operative Procedure/s: Epidural blood patch Consent for Planned Operative Procedure(s) Verified: Yes NPO Status Verified Time NPO: 10:00 Airway Assessment C-Spine Mobility Assessed: Yes TMJ Mobility Assessed: Yes Dentition: Poor Dentition Neurological Assessment Level of Consciousness: Awake Hx Seizures: Yes Numbness or tingling in extremities: No Anesthesia Plan Anesthesia Risk discussed: Yes Anesthesia Plan: Verified ASA Class: III Anesthesia Type: Epidural (Epidural blood patch)
[2021-10-28 11:50] LABS: POC Glucose,Bedside 121 (70-110)
[2021-10-28 12:28] VITALS: BP 125/78; PULSE 81; RESP 20; O2SAT 95
--- NOTE | 2021-10-28 12:28 | PC.NURSE ---
Pt very anxious, crying out. [employer] BALLET DANCER, Vick Collins BALLET DANCER, Gwen Rhodes BALLET DANCER at bedside assisting and calming pt to supine position. Lower back puncture with no bleeding at this time. Pt C/O back pain 12/07. Retrieved family to bedside and sweet tea per pt request. 125/78, 81, 95% RA.
[2021-10-28 12:43] VITALS: BP 120/67; PULSE 89; RESP 18; O2SAT 95
--- NOTE | 2021-10-28 12:46 | PC.NURSE ---
Pt's pain is improving- 10/07. Still lying supine. Gwen Dickeys SENIOR APPLICATIONS DEVELOPER at bedside. Pt talking to friend on phone, pleasant without any distress. VSS.
--- NOTE | 2021-10-28 12:55 | PC.NURSE ---
Pt without distress. CURTIS 09/06, back pain 10/07. Supine.
[2021-10-28 12:56] VITALS: BP 132/76; PULSE 91; RESP 18; O2SAT 96
--- NOTE | 2021-10-28 13:09 | PC.NURSE ---
Pt stable, VSS.
[2021-10-28 13:10] VITALS: BP 123/69; PULSE 93; RESP 18; O2SAT 93
[2021-10-28 13:27] VITALS: BP 110/61; PULSE 82; RESP 18; O2SAT 95
--- NOTE | 2021-10-28 13:28 | PC.NURSE ---
Pt sat up in bed per order from Gwen Collins CRNA for 10 minutes and then stood and is walking in room without difficulty. pt smiling and talkative. Says pain is 5/10. stable. discharge instructions reviewed and copies provided.
== END 2021-10-28 13:32 | disposition home or self-care (01) ==
PROVIDERS: PCP Family Medicine; Visit Provider Anesthesiology
DX: H46.9 Unspecified optic neuritis (principal)
CPT/HCPCS: 82962

== ENCOUNTER 2021-10-28 22:01 | Emergency (ER) | payer OTHER, SELFPAY ==
[2021-10-28 22:01] VITALS: BP 131/75; PULSE 98; RESP 18; TEMP 36.6; O2SAT 97; BMI 41.3
--- NOTE | 2021-10-28 22:12 | CT_ITS ---
PROCEDURE INFORMATION: Exam: CT Thoracic Spine With Contrast Exam date and time: 10/28/2021 10:56 PM Age: 36 years old Clinical indication: Injury or trauma; Fall; Blunt trauma (contusions or hematomas); Prior surgery; Surgery date: Post-operative (0-2 days); Surgery type: Lumbar spine TECHNIQUE: Imaging protocol: Computed tomography of the thoracic spine with contrast. Radiation optimization: All CT scans at this facility use at least one of these dose optimization techniques: automated exposure control; mA and/or kV adjustment per patient size (includes targeted exams where dose is matched to clinical indication); or iterative reconstruction. Contrast material: ISOVUE; Contrast volume: 75 ml; Contrast route: IV; COMPARISON: CT CERVICAL SPINE WO CON 10/28/2021 10:53 PM FINDINGS: Bones/joints: Mild levoconvex curvature. Vertebral body height and AP alignment is preserved. Mild degenerative endplate irregularity. Mild prevertebral osteophytosis. There are low-level facet joint degenerative changes. No acute thoracic spine fracture. No osseous destruction. No definite significant central canal stenosis within limitations of technique. Soft tissues: See Bones/joints finding. Pleural spaces: No visible pneumothorax. IMPRESSION: No acute thoracic spine fracture.
--- NOTE | 2021-10-28 22:12 | CT_ITS ---
PROCEDURE INFORMATION: Exam: CT Lumbar Spine With Contrast Exam date and time: 10/28/2021 11:01 PM Age: 36 years old Clinical indication: Injury or trauma; Fall; Blunt trauma (contusions or hematomas); Prior surgery; Surgery date: Post-operative (0-2 days); Patient HX: Surgery to lumbar spine 10/28/21 TECHNIQUE: Imaging protocol: Computed tomography of the lumbar spine with contrast. Radiation optimization: All CT scans at this facility use at least one of these dose optimization techniques: automated exposure control; mA and/or kV adjustment per patient size (includes targeted exams where dose is matched to clinical indication); or iterative reconstruction. Contrast material: ISOVUE; Contrast volume: 75 ml; Contrast route: IV; COMPARISON: [facility]/O MRI-L-SPINE W/O 04/20/2016 2:13 PM FINDINGS: Bones/joints: Mild dextroconvex curvature. Grade 1 anterolisthesis of L5 on S1 secondary to bilateral L5 spondylolysis. Mild prevertebral osteophytosis. No acute lumbar spine fracture. Central canal is poorly evaluated secondary to technique. Small amount of gas within the central canal is likely postoperative. Gallbladder and bile ducts: Previous cholecystectomy. Soft tissues: There is posterior soft tissue gas, presumed postoperative. IMPRESSION: No acute lumbar spine fracture.
--- NOTE | 2021-10-28 22:12 | XR_ITS ---
PROCEDURE INFORMATION: Exam: XR Pelvis Exam date and time: 10/28/2021 11:22 PM Age: 36 years old Clinical indication: Injury or trauma; Fall; Blunt trauma (contusions or hematomas); Bilateral; Pelvic region; Prior surgery; Surgery date: Post-operative (0-2 days); Surgery type: Blood patch 10/28/21; Patient HX: C/O numbness TECHNIQUE: Imaging protocol: Radiologic exam of the pelvis. Views: 1 or 2 view. COMPARISON: CR XR PELVIS 1-2V 03/12/2020 9:50 PM FINDINGS: Bones/joints: No definite acute fracture or dislocation. Soft tissues: Unremarkable. Gastrointestinal tract: Gaseous distention of the stomach. Organs: Contrast material within both ureters and the urinary bladder. IMPRESSION: No definite acute osseous abnormality.
--- NOTE | 2021-10-28 22:16 | CT_ITS ---
PROCEDURE INFORMATION: Exam: CT Cervical Spine Without Contrast Exam date and time: 10/28/2021 10:53 PM Age: 36 years old Clinical indication: Injury or trauma; Fall; Blunt trauma TECHNIQUE: Imaging protocol: Computed tomography of the cervical spine without contrast. Radiation optimization: All CT scans at this facility use at least one of these dose optimization techniques: automated exposure control; mA and/or kV adjustment per patient size (includes targeted exams where dose is matched to clinical indication); or iterative reconstruction. COMPARISON: CT CERVICAL SPINE WO CON 03/12/2020 9:39 PM FINDINGS: Bones/joints: Nonspecific straightening. Vertebral body height and AP alignment is preserved. No acute cervical spine fracture. No significant central canal stenosis within limitations of technique. Lungs: Lung apices are normal. Pleural spaces: No visible pneumothorax. Soft tissues: Unremarkable. IMPRESSION: No acute cervical spine fracture.
[2021-10-28 22:29] LABS: Basophils # 0.2 K/mm3 (0-0.2); Basophils % 1.2 % (0.1-2.0); Eosinophils # 0.3 K/mm3 (0.0-0.4); Eosinophils % 2.4 % (0.1-12.0); Hematocrit 41.7 % (37.0-47.0); Hemoglobin 13.4 g/dL (12.2-16.2); Lymphocytes # 4.6 K/mm3 (0.7-4.5); Lymphocytes % 34.1 % (10-50); Mean Corpuscular HGB Conc 32.2 g/dL (31.8-35.4); Mean Corpuscular Hemoglobin 29.2 pg (27.0-31.2); Mean Corpuscular Volume 90.9 fl (81-99); Mean Platelet Volume 7.1 fl (7.4-10.4); Monocytes # 0.7 K/mm3 (0.1-1.0); Neutrophils # 7.7 K/mm3 (1.8-7.8); Neutrophils % 57.3 % (37.0-80.0); Platelet Count 287 K/mm3 (142-424); Red Blood Count 4.59 M/mm3 (4.20-5.40); Red Cell Distribution Width 14.7 % (11.5-17.5); White Blood Count 13.5 K/mm3 (4.8-10.8)
[2021-10-28 22:37] LABS: Alanine Aminotransferase 33 U/L (12-78); Albumin Level 4.2 g/dl (3.5-5.0); Albumin/Globulin Ratio 1.4 (1.1-1.8); Alkaline Phosphatase 141 U/L (38-126); Anion Gap 10.7 mEq/L (5-15); Aspartate Amino Transferase 32 U/L (14-36); Blood Urea Nitrogen 6 mg/dl (7-17); Calcium 8.8 mg/dl (8.4-10.2); Carbon Dioxide 28 mmol/L (22.0-30.0); Chloride 105 mmol/L (98-107); Creatinine Clearance Estimated 76 mL/min (50-200); Estimated Glomerular Filt Rate 81 ml/min (>60); GFR (African American) 98 ML/MIN (>60); Globulin 2.9 g/dL (1.3-3.2); Glucose 116 mg/dl (74-100); Potassium 3.7 mmoL/L (3.5-5.1); Sodium 140 mmol/L (136-145); Total Protein,Serum 7.1 g/dl (6.3-8.2)
[2021-10-28 22:39] LABS: Bilirubin,Total < 0.1 mg/dl (0.2-1.3)
[2021-10-28 22:42] LABS: C-Reactive Protein 17.5 mg/L (0-4)
--- NOTE | 2021-10-28 22:45 | HMH.EDFALL ---
Discharge Plan Disposition Patient Disposition: [facility]fer [facility] Chief Complaint: Fall Prescriptions Prescriptions: No Action aripiprazole 10 mg tablet 10 mg PO DAILY cyclobenzaprine 10 mg tablet 10 mg PO TID PRN (Reason: MUSCLE SPASMS) cetirizine [Zyrtec] 10 mg tablet 10 mg PO DAILY acetaminophen [Tylenol] 325 mg capsule 325 - 650 mg PO Q6H PRN (Reason: pain) meclizine 25 mg tablet 25 mg PO BID PRN (Reason: dizziness) cyanocobalamin (vitamin B-12) [B-12 DOTS] 500 mcg tablet 1,000 mcg PO DAILY levothyroxine 25 mcg tablet 25 mcg PO DAILY cholecalciferol (vitamin D3) 50 mcg (2,000 unit) tablet 2,000 unit PO DAILY metformin 500 mg tablet extended release 24 hr 500 mg PO DAILY pantoprazole 40 mg tablet,delayed release (DR/EC) 40 mg PO DAILY Qty: 30 3RF venlafaxine 75 MG tablet 75 mg PO BID Label Comments: TAKE 1 TABLET BY MOUTH TWICE A DAY lidocaine 5 % adhesive patch,medicated 1 patch topical DAILY Rx Instructions: leave on most painful area for up to 12 hrs Referrals Follow up/Referrals: Severiano Lemus MD [Primary Care Provider] - See instructions Clinical Impressions Clinical Impression: SCIWORA (spinal cord injury without radiographic abnormality), Bilateral leg paresthesia Discharge ED Provider: Miguelito Almodovar Fall HPI General Chief Complaint: Fall Stated Complaint: Fall Time Seen by Provider: 10/28/21 22:45 Mode of Arrival: EMS Source of Information: Patient Limitations: No Limitations Description of Symptoms (Recalled from ER Triage Doc. by RN): Pt states she had a spinal procedure this morning at [facility] and was discharged home. Pt states that when she got home she was washing her hands and got dizzy and fell in her bathroom, hitting her back on her bathtub. States that this happened at 1500, and afterwards she took a nap and when she woke up both of her legs were numb. Denies losing consciousness, denies any vomiting. C/O pain at the site of her procedure. 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 - was seen by opth for rt eye sx and concern for optic neuritis and seen by neuro and has neg mra of brain but abn mri of orbits and face and neck - possible demyelination - optic n ok and on 10/20 had lp for fluid with nl opening and closing pressures -pt denied sev pain to back and no stool or urinary incont -no neck pain and no weakness or numbness to upper ext MD complaint: fall Onset (ago): hour(s) Fall from: standing Fall witnessed: no Place fall occurred: home Loss of consciousness: none Prolonged down time: no Symptoms prior to fall: lightheadedness Location of injury: other Severity: moderate Associated symptoms (after fall): numbness, weakness and unable to walk Related Data Home Medications Medication Instructions Recorded Confirmed acetaminophen 325 mg capsule 325 - 650 mg PO Q6H PRN pain 11/07/17 10/28/21 (Tylenol) cetirizine 10 mg tablet (Zyrtec) 10 mg PO DAILY allergies 11/07/17 10/28/21 cyclobenzaprine 10 mg tablet 10 mg PO TID PRN MUSCLE SPASMS 11/07/17 10/28/21 venlafaxine 75 mg tablet 75 mg PO BID Depression 03/13/20 10/28/21 aripiprazole 10 mg tablet 10 mg PO DAILY mood 03/30/21 10/28/21 cholecalciferol (vitamin D3) 50 2,000 unit PO DAILY Supplement 10/08/21 10/28/21 mcg (2,000 unit) tablet cyanocobalamin (vitamin B-12) 500 1,000 mcg PO DAILY Supplement 10/08/21 10/28/21 mcg tablet (B-12 DOTS) levothyroxine 25 mcg tablet 25 mcg PO DAILY Thyroid 10/08/21 10/28/21 meclizine 25 mg tablet 25 mg PO BID PRN dizziness 10/08/21 10/28/21 metformin 500 mg tablet,extended 500 mg PO DAILY Di
--- NOTE | 2021-10-28 22:50 | PC.NURSE ---
Patient is currently resting in bed with sister at bedside. Pt is c/o headache. Notified MD. Toradol 30mg IV given. 4mg ondansetron IV ordered and given. Pt tolerated both well
[2021-10-28 22:55] LABS: Procalcitonin 0.116 ng/mL (0.0-2.0)
[2021-10-28 23:03] LABS: Erythrocyte Sedimentation Rate 23 mm/hr (0-20)
[2021-10-28 23:53] VITALS: BP 120/71; PULSE 101; O2SAT 94
[2021-10-29] VITALS: BP 124/71; PULSE 104; O2SAT 95
[2021-10-29 00:31] VITALS: BP 134/78; PULSE 111; O2SAT 97
[2021-10-29 00:47] LABS: Microscopic, Urine URINE MICROSCOPIC (MICROSCOPIC)
[2021-10-29 00:51] LABS: Appearance,Urine CLEAR (Clear); Blood, Urine Negative (Negative); Color,Urine YELLOW (Yellow); Glucose,Urine (UA) Negative (Negative); Ketones,Urine Negative (Negative); Leukocyte Esterase,Urine Negative (Negative); Nitrate,Urine Negative (Negative); PH,Urine 5.5 (5.0-8.5); Protein,Urine Negative (Negative); Specific Gravity, Urine >= 1.030 (1.005-1.030); Urobilinogen,Urine 0.2 EU/dl (0.2)
[2021-10-29 01:00] VITALS: BP 115/69; PULSE 93; O2SAT 95
[2021-10-29 01:13] LABS: Bilirubin,Urine Negative (Negative)
[2021-10-29 01:14] LABS: Bacteria,Urine 2+ /lpf
--- NOTE | 2021-10-29 01:40 | PC.NURSE ---
Dr. Almodovar s/w [facility] but they are on divert. Dr. Almodovar s/w family and pt regarding transfer and admission.
--- NOTE | 2021-10-29 01:50 | PC.NURSE ---
Dr. Almodovar s/w [facility] regarding pt
--- NOTE | 2021-10-29 01:50 | PC.NURSE ---
Patient is resting in bed. Pt is awake and speaking with her sister is at the bedside. Pt states that she feels about the same as she did a little while ago. Reports that her pain is better and that it is only severe whenever she moves.
--- NOTE | 2021-10-29 02:07 | PC.NURSE ---
Called [facility] for possible transfer, Neurology- Dr. Bruno will call back
[2021-10-29 02:11] LABS: Coronavirus 19, PCR Not Detected (NotDetected); Influenza A, PCR Not Detected (NotDetected); Influenza B, PCR Not Detected (NotDetected)
--- NOTE | 2021-10-29 02:16 | PC.NURSE ---
is currently speaking with at [facility]
[2021-10-29 02:54] LABS: Urine Pregnancy, HCG Qual. Negative (Negative)
--- NOTE | 2021-10-29 03:40 | PC.NURSE ---
Dr. Almodovar s/w [facility]
--- NOTE | 2021-10-29 03:55 | PC.NURSE ---
[id number] on phone with [facility], Dr. Cordero who agrees to accept the patient .
--- NOTE | 2021-10-29 03:59 | PC.NURSE ---
Called [facility] informing she is being transferred to [facility]
--- NOTE | 2021-10-29 04:03 | PC.NURSE ---
Spoke with [employer] who states that due to predicted fog forecasted for later this morning, they will not be able to fly the patient to the [facility].
--- NOTE | 2021-10-29 04:13 | PC.NURSE ---
[facility] is here for patient transport to [facility]. Updated patient on transfer. Patient is willing to go. Family updated.
[2021-10-29 04:39] VITALS: BP 138/78; PULSE 99; RESP 18; TEMP 36.6; O2SAT 99
== END 2021-10-29 04:42 | disposition critical access hospital (66) ==
PROVIDERS: Emergency Provider Emergency Medicine; PCP Family Medicine
DX: R20.2 Paresthesia of skin (principal); M54.9 Dorsalgia, unspecified; R42 Dizziness and giddiness; Z98.890 Other specified postprocedural states; W01.198A Fall on same level from slipping, tripping and stumbling with subsequent striking against other object, initial encounter; Y92.012 Bathroom of single-family (private) house as the place of occurrence of the external cause
CPT/HCPCS: 51702; 72125; 72129; 72132; 72170; 80053; 81001; 81025; 84145; 85025; 85651; 86140; 87086; 96361; 96374; 96375; 99291; C9803; J2405; Q9967; U0003; U0005

== ENCOUNTER → 2022-07-08 10:29 | Outpatient (CLI) | payer MEDICAID, SELFPAY ==
--- NOTE | 2022-07-08 10:32 | MM_ITS ---
PROCEDURE INFORMATION: Exam: MG Right Diagnostic Breast Tomosynthesis Exam date and time: 07/08/2022 10:29 AM Age: 37 years old Clinical indication: Palpable RT breast thickness with pain TECHNIQUE: Imaging protocol: Right Diagnostic tomosynthesis and 2D mammography including computer-aided detection (CAD) when performed. Unilateral or bilateral exam. COMPARISON: MG MM DIG SCREENING MAMM BI W/CAD 04/21/2021 10:20 AM FINDINGS: MAMMOGRAPHY: The breast tissue is composed of scattered areas of fibroglandular density. There is no stellate mass, architectural distortion or suspicious microcalcifications in either breast to suggest malignancy. Additional spot compression views of the right breast do not demonstrate any suspicious findings. No skin thickening or axillary adenopathy. IMPRESSION: Patient to return for right breast ultrasound for full evaluation of the patient's complaint of a palpable abnormality and pain ASSESSMENT: BI-RADS Category 0: Incomplete- Need Additional Imaging Evaluation and/or Prior Mammograms for Comparison
== END ==
PROVIDERS: PCP Family Medicine; Visit Provider Family Medicine
DX: Z12.31 Encounter for screening mammogram for malignant neoplasm of breast (principal)
CPT/HCPCS: 77062; 77066; G0279

== ENCOUNTER 2022-07-19 15:17 | Emergency (ER) | payer MEDICAID, SELFPAY ==
[2022-07-19 15:25] VITALS: BP 140/70; PULSE 91; RESP 18; TEMP 37.1; O2SAT 98; BMI 53.2
--- NOTE | 2022-07-19 16:11 | EXP.UTC ---
Discharge Plan Disposition Patient Disposition: Home, Self-Care Condition: Good Prescriptions Prescriptions: New azithromycin [Zithromax Z-Jhon] 250 mg tablet See Rx Instructions .ROUTE .COMPLEX 5 Days Qty: 6 0RF Rx Instructions: For 250 mg dose pack: take 500 mg today (day 1), then 250 mg for 4 days (days 2-5) guaifenesin [Mucinex] 600 mg tablet extended release 12hr 600 mg PO BID PRN (Reason: cough) Qty: 20 0RF No Action estradiol 0.01 % (0.1 mg/gram) cream 1 g vaginal .COMPLEX PRN Label Comments: Insert 1 gram into the vagina 3x/week Rx Instructions: 1 g vaginally 3x week PRN; cyclobenzaprine 10 mg tablet 10 mg PO TID PRN (Reason: MUSCLE SPASMS) cetirizine [Zyrtec] 10 mg tablet 10 mg PO DAILY acetaminophen [Tylenol] 325 mg capsule 325 - 650 mg PO Q6H PRN (Reason: pain) meclizine 25 mg tablet 25 mg PO BID PRN (Reason: dizziness) levothyroxine 25 mcg tablet 25 mcg PO DAILY cholecalciferol (vitamin D3) 50 mcg (2,000 unit) tablet 2,000 unit PO DAILY metformin 500 mg tablet extended release 24 hr 500 mg PO DAILY cyanocobalamin (vitamin B-12) 1,000 mcg tablet 1,000 mcg PO DAILY atorvastatin 10 mg tablet 10 mg PO HS Label Comments: TAKE ONE TABLET BY MOUTH ONCE DAILY ondansetron 4 mg tablet,disintegrating 4 mg PO PRN Label Comments: DISSOLVE ONE TABLET ON THE TONGUE THREE TIMES DAILY NEEDED Kesimpta Pen 20 mg/0.4 mL pen injector 20 mg SQ QMONTH Rx Instructions: begin at Week 4 of therapy Nurtec ODT 75 mg tablet,disintegrating 75 mg PO .COMPLEX PRN Rx Instructions: 75 mg orally PRN; Ajovy Autoinjector 225 mg/1.5 mL auto-injector 225 mg SQ QMONTH Qty: 1.5 4RF Rx Instructions: Inject monthly as prescribed desvenlafaxine succinate [Pristiq] 25 mg tablet extended release 24 hr 25 mg PO DAILY Qty: 30 2RF pantoprazole 40 mg tablet,delayed release (DR/EC) 40 mg PO DAILY Qty: 30 3RF lidocaine 5 % adhesive patch,medicated 1 patch topical DAILY PRN (Reason: Pain) Rx Instructions: leave on most painful area for up to 12 hrs Referrals Follow up/Referrals: Severiano Lemus MD [Primary Care Provider] - See instructions Activity Restrictions/Add. Instructions Additional Instructions/Restrictions: *Monitor Temp, Over the counter Motrin or Tylenol as directed/as needed Tylenol every 4 hours and Motrin every 6 hours (as long as your family doctor has told you that you can take it) for fever or pain. and straight to ER if unable to lower temp less than 101.0 after medication given *Warm salt water gargles may help to soothe the throat *Throat Lozenges? *Warm fluids like tea with honey may help to soothe the throat? *Sleep elevated *Humidifier/Vaporizer Follow up IMMEDIATELY for new or worsening symptoms or no Noticeable improvement over the next 48-72 hours. 911 for difficulty breathing or swallowing Clinical Impressions Clinical Impression: Sinusitis Qualifiers: Sinusitis location: unspecified location Chronicity: unspecified Qualified Code(s): J32.9 - Chronic sinusitis, unspecified Instructions Patient Instructions: Sinusitis, DI for Sinusitis Discharge ED Provider: Vashti Vazquez [facility] [place] General Stated complaint: SOA, Covid+ last tuesday Mode of Arrival: Ambulatory Source of Information: Patient Limitations: No Limitations Time Seen by Provider: 07/19/22 16:11 Description of Symptoms (Recalled from Triage Doc. by RN): PATIENT C/O LUNG PAIN, REPORTS TESTING POSITIVE FOR COVID LAST TUESDAY HEENT Symptoms (Recalled from RN notes): No Resp Symptoms (Recalled from RN notes): Yes Skin Symptoms (Recalled from RN notes): No MS Symptoms (Recalled from RN notes): No Functional Status (Recalled from RN notes): WNL History of Present Illness Provider Complaint: Patient states that she had COVID last week States th
[2022-07-19 16:28] VITALS: BP 140/70; PULSE 91; RESP 18; TEMP 37.1; O2SAT 98
== END 2022-07-19 16:30 | disposition home or self-care (01) ==
PROVIDERS: Emergency Provider Nurse Practitioner; PCP Family Medicine
DX: J01.90 Acute sinusitis, unspecified (principal); R07.1 Chest pain on breathing; E11.9 Type 2 diabetes mellitus without complications; I10 Essential (primary) hypertension; F41.9 Anxiety disorder, unspecified; F32.9 Major depressive disorder, single episode, unspecified; Z79.84 Long term (current) use of oral hypoglycemic drugs; Z86.16 Personal history of COVID-19
CPT/HCPCS: 99212; 99214; G0463

== ENCOUNTER → 2022-08-09 12:47 | Outpatient (CLI) | payer MEDICAID, SELFPAY ==
--- NOTE | 2022-08-09 12:54 | US_ITS ---
PROCEDURE INFORMATION: Exam: US Right Breast, Complete Exam date and time: 08/09/2022 1:13 PM Age: 37 years old Clinical indication: Breast pain; Right TECHNIQUE: Imaging protocol: Complete ultrasound of all four quadrants of the right breast and the retroareolar regions, including ultrasound of the axilla when performed. COMPARISON: MG MM DIG MAMM BI DX W/CAD 07/08/2022 10:29 AM FINDINGS: Breast: Sonographic images of the right breast including the retroareolar region, all 4 quadrants and the axilla do not demonstrate any solid or cystic masses. No architectural distortion or acoustical shadowing. No skin thickening or axillary adenopathy. IMPRESSION: No sonographic evidence of malignancy. Annual bilateral mammographic screening is recommended to commence at the age of 40 unless otherwise clinically indicated. ASSESSMENT: BI-RADS Category 1: Negative
== END ==
PROVIDERS: PCP Family Medicine; Visit Provider Physician Assistant
DX: R92.8 Other abnormal and inconclusive findings on diagnostic imaging of breast (principal)
CPT/HCPCS: 76641

== ENCOUNTER 2022-09-16 12:31 | Emergency (ER) | payer MEDICAID, SELFPAY ==
[2022-09-16] VITALS (11 sets, daily range): BP systolic 110–137; BP diastolic 46–78; PULSE 60–77; RESP 16–18; TEMP 36.6–36.7; O2SAT 94–99; BMI 34.7
--- NOTE | 2022-09-16 13:09 | HMH.EDGENADL ---
Discharge Plan Disposition Chief Complaint: Headache Prescriptions Prescriptions: No Action estradiol 0.01 % (0.1 mg/gram) cream 1 g vaginal .COMPLEX PRN Patient Comments: Insert 1 gram into the vagina 3x/week Rx Instructions: 1 g vaginally 3x week PRN; Ajovy Autoinjector 225 mg/1.5 mL auto-injector 225 mg SQ QMONTH Qty: 1.5 4RF Rx Instructions: Inject monthly as prescribed promethazine 25 mg tablet 25 mg PO BID PRN (Reason: nausea and vomiting, migraine) Qty: 30 3RF Rx Instructions: 1 tab po bid as needed for headache, nausea cyclobenzaprine 10 mg tablet 10 mg PO TID PRN (Reason: MUSCLE SPASMS) cetirizine [Zyrtec] 10 mg tablet 10 mg PO DAILY acetaminophen [Tylenol] 325 mg capsule 325 - 650 mg PO Q6H PRN (Reason: pain) meclizine 25 mg tablet 25 mg PO BID PRN (Reason: dizziness) levothyroxine 25 mcg tablet 25 mcg PO DAILY cholecalciferol (vitamin D3) 50 mcg (2,000 unit) tablet 2,000 unit PO DAILY metformin 500 mg tablet extended release 24 hr 500 mg PO DAILY cyanocobalamin (vitamin B-12) 1,000 mcg tablet 1,000 mcg PO DAILY atorvastatin 10 mg tablet 10 mg PO HS Patient Comments: TAKE ONE TABLET BY MOUTH ONCE DAILY ondansetron 4 mg tablet,disintegrating 4 mg PO PRN Patient Comments: DISSOLVE ONE TABLET ON THE TONGUE THREE TIMES DAILY NEEDED Kesimpta Pen 20 mg/0.4 mL pen injector 20 mg SQ QMONTH Rx Instructions: begin at Week 4 of therapy Nurtec ODT 75 mg tablet,disintegrating 75 mg PO .COMPLEX PRN Rx Instructions: 75 mg orally PRN; pantoprazole 40 mg tablet,delayed release (DR/EC) 40 mg PO DAILY Qty: 30 3RF desvenlafaxine succinate [Pristiq] 25 mg tablet extended release 24 hr 25 mg PO DAILY Qty: 30 2RF azithromycin [Zithromax Z-Jhon] 250 mg tablet See Rx Instructions .ROUTE .COMPLEX 5 Days Qty: 6 0RF Rx Instructions: For 250 mg dose pack: take 500 mg today (day 1), then 250 mg for 4 days (days 2-5) guaifenesin [Mucinex] 600 mg tablet extended release 12hr 600 mg PO BID PRN (Reason: cough) Qty: 20 0RF lidocaine 5 % adhesive patch,medicated 1 patch topical DAILY PRN (Reason: Pain) Rx Instructions: leave on most painful area for up to 12 hrs Referrals Follow up/Referrals: Severiano Lemus MD [Primary Care Provider] - See instructions Clinical Impressions Clinical Impression: Headache Discharge ED Provider: Piter Alejandro General Adult HPI General Chief complaint: Headache Stated complaint: Persistant headache, RT arm pain, vomiting Time Seen by Provider: 09/16/22 12:50 Mode of Arrival: Ambulatory Source of Information: Patient and Relative Limitations: No Limitations Description of Symptoms (Recalled from ER Triage Doc. by RN): 37 yo F presents to ED with c/o migraine ongoing for 4-5 months. pt reports that she does follow with a neurologist @ and here at [facility]. pt reports that she was seen by dr christianson on 09/13 and given an injection but did not have any relief. pt reports migraine occurs everyday and otc medications have not been helping. History of Present Illness HPI narrative: Patient is a 37-year-old female with a complicated neurologic history who presents emergency department for evaluation of headache. 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 It is left-sided, retro-ocular, daily, persistent, unrelenting, unchanged in quality over the last 5 months. Due to its persistence she presents here for continued evaluation. She also states that she has right forearm pain, unknown trauma for the last 24 hours. Denies other acute complaints at this time and is at her neurologic baseline. Related Data Home Medications Medication Instructions Recorded Confirmed acetaminop
--- NOTE | 2022-09-16 13:10 | XR_ITS ---
FINAL REPORT CLINICAL HISTORY: pain FINDINGS: AP and lateral views of the right forearm are obtained. There is no prior exam for comparison. There is no acute osseous abnormality of the right forearm. The wrist and elbow are intact. The soft tissues appear normal. IMPRESSION: No acute osseous abnormality of the right forearm. Reviewed, Interpreted and Dictated by Kary Asher MD Transcribed by Digna Barksdale Authenticated and . [facility]
--- NOTE | 2022-09-16 13:14 | PC.NURSE ---
XR AT BEDSIDE
--- NOTE | 2022-09-16 13:57 | ECG_ITS ---
APPROVED REPORT Exam: Resting ECG HR:65 bpm ECG Measurements Heart Rate 65 AXES FL 148 P 68 QRSd 93 QRS -10 QT 416 T 19 QTc 427 Conclusion SINUS RHYTHM LOW QRS VOLTAGE IN PRECORDIAL LEADS [QRS DEFLECTION < 1.0 mV IN CHEST LEADS] BORDERLINE ECG UNCONFIRMED REPORT Electronically signed by : Tigre Tariq MD 09/16/2022 21:22:10
--- NOTE | 2022-09-16 14:09 | PC.NURSE ---
patient moved to room 2, given pillow and blanket visitor at bedside, call light within reach
--- NOTE | 2022-09-16 17:08 | CT_ITS ---
PROCEDURE INFORMATION: Exam: CT Head Without Contrast Exam date and time: 09/16/2022 5:44 PM Age: 37 years old Clinical indication: Headache, persistent TECHNIQUE: Imaging protocol: Computed tomography of the head without contrast. Radiation optimization: All CT scans at this facility use at least one of these dose optimization techniques: automated exposure control; mA and/or kV adjustment per patient size (includes targeted exams where dose is matched to clinical indication); or iterative reconstruction. REPORTING DATA: Count of CT and Cardiac NM exams in prior 12 months: This patient has received 3 known CTs and 0 known cardiac nuclear medicine studies in the 12 months prior to the current study. COMPARISON: MR ANGIO HEAD WO CON 10/15/2021 1:41 PM FINDINGS: Brain: No evidence for acute transcortical infarct. No mass effect or midline shift. No extra-axial collection. No acute intracranial hemorrhage. Basal cisterns are patent. Cerebral ventricles: No ventriculomegaly. Paranasal sinuses: Visualized sinuses are unremarkable. No fluid levels. Mastoid air cells: Visualized mastoid air cells are well aerated. Bones/joints: Unremarkable. No acute fracture. Soft tissues: Unremarkable. IMPRESSION: No hydrocephalus, acute intracranial hemorrhage, or mass effect.
[2022-09-16 17:23] LABS: Anion Gap 11.2 mEq/L (5-15); Blood Urea Nitrogen 9 mg/dl (7-17); Calcium 8.9 mg/dl (8.4-10.2); Carbon Dioxide 27 mmol/L (22.0-30.0); Chloride 105 mmol/L (98-107); Creatinine Clearance Estimated 183 mL/min (50-200); Estimated Glomerular Filt Rate 94 ml/min (>60); GFR (African American) 113 ML/MIN (>60); Glucose 100 mg/dl (74-100); Potassium 4.2 mmoL/L (3.5-5.1); Sodium 139 mmol/L (136-145)
--- NOTE | 2022-09-17 13:51 | PC.NURSE ---
pt requesting information on what medicine was given for her migraine.
== END 2022-09-16 18:52 | disposition home or self-care (01) ==
PROVIDERS: Emergency Provider Emergency Medicine; PCP Family Medicine
DX: G43.919 Migraine, unspecified, intractable, without status migrainosus (principal); M79.631 Pain in right forearm; R11.10 Vomiting, unspecified; G35 Multiple sclerosis; E10.9 Type 1 diabetes mellitus without complications; I20.9 Angina pectoris, unspecified; F41.1 Generalized anxiety disorder; I10 Essential (primary) hypertension; F32.9 Major depressive disorder, single episode, unspecified
CPT/HCPCS: 70450; 73090; 80048; 93005; 96361; 96374; 96375; 99285; J1790; J3475

== ENCOUNTER → 2022-09-23 10:16 | Outpatient (CLI) | payer MEDICAID, SELFPAY ==
[2022-09-23 10:31] LABS: MANUAL DIFFERENTIAL MANUAL DIFFERENTIAL (MANUAL DIFF)
--- NOTE | 2022-09-23 10:39 | MR_ITS ---
FINAL REPORT TECHNIQUE: Multiplanar MR, without and with gadolinium enhancement CLINICAL HISTORY: MS, severe headache pain behind eyes 21ml prohance given COMPARISON: 10/07/2021 FINDINGS: Diffusion sequences show no signal abnormality to indicate acute infarct. There are patchy periventricular white matter signal changes which are stable. These are relatively symmetric within the hemispheres. There is no brainstem or cerebellar involvement. No mass, hemorrhage or edema is seen. Ventricles are normal. Major vascular flow voids are intact. Following contrast administration, no mass or abnormal enhancement is seen. IMPRESSION: Stable white matter disease presumably related to reported history of multiple sclerosis. Reviewed, Interpreted and Dictated by Ruthie Waterman MD Transcribed by Shahnaz Aggarwal Authenticated and [facility]
[2022-09-23 10:51] LABS: Basophils % 0.3 % (0.1-2.0); Eosinophils # 0.6 K/mm3 (0.0-0.4); Eosinophils % 4.7 % (0.1-12.0); Hematocrit 39.2 % (37.0-47.0); Hemoglobin 12.7 g/dL (12.2-16.2); Lymphocytes # 2.3 K/mm3 (0.7-4.5); Lymphocytes % 19.6 % (10-50); Mean Corpuscular HGB Conc 32.4 g/dL (31.8-35.4); Mean Corpuscular Hemoglobin 27.9 pg (27.0-31.2); Mean Corpuscular Volume 85.9 fl (81-99); Mean Platelet Volume 7.2 fl (7.4-10.4); Monocytes # 0.4 K/mm3 (0.1-1.0); Monocytes % 3.1 % (1.7-9.3); Neutrophils # 8.6 K/mm3 (1.8-7.8); Neutrophils % 72.4 % (37.0-80.0); Platelet Count 257 K/mm3 (142-424); Red Blood Count 4.56 M/mm3 (4.20-5.40); Red Cell Distribution Width 15.3 % (11.5-17.5); White Blood Count 11.9 K/mm3 (4.8-10.8)
[2022-09-23 12:41] LABS: Eosinophils % 5 % (0-3); Hypochromasia 1+; Lymphocytes % 19 % (10-50); Monocytes % 5 % (2-9); Neutrophils % 71 % (42-76); Platelet Estimate Normal; Total Cells Counted 100
== END ==
PROVIDERS: PCP Family Medicine; Visit Provider Specialist
DX: G35 Multiple sclerosis (principal); R51.9 Headache, unspecified
CPT/HCPCS: 36415; 70553; 85007; 85014; 85018; 85048; 85049; A9576

== ENCOUNTER → 2022-10-08 10:03 | Outpatient (CLI) | payer MEDICAID, SELFPAY ==
[2022-10-08 10:41] LABS: Coronavirus 19, PCR Not Detected (NotDetected); Influenza A, PCR Not Detected (NotDetected); Influenza B, PCR Not Detected (NotDetected)
[2022-10-08 11:05] LABS: Basophils # 0.1 K/mm3 (0-0.2); Basophils % 0.5 % (0.1-2.0); Eosinophils # 0.5 K/mm3 (0.0-0.4); Eosinophils % 5.3 % (0.1-12.0); Hematocrit 39.9 % (37.0-47.0); Hemoglobin 12.9 g/dL (12.2-16.2); Lymphocytes # 2.1 K/mm3 (0.7-4.5); Lymphocytes % 20.2 % (10-50); Mean Corpuscular HGB Conc 32.2 g/dL (31.8-35.4); Mean Corpuscular Volume 86.9 fl (81-99); Monocytes # 0.5 K/mm3 (0.1-1.0); Monocytes % 4.4 % (1.7-9.3); Neutrophils # 7.1 K/mm3 (1.8-7.8); Neutrophils % 69.7 % (37.0-80.0); Platelet Count 389 K/mm3 (142-424); Red Blood Count 4.59 M/mm3 (4.20-5.40); Red Cell Distribution Width 15.4 % (11.5-17.5); White Blood Count 10.2 K/mm3 (4.8-10.8)
[2022-10-08 12:01] LABS: Strep Scrn Group A (Rapid) Negative (Negative)
== END ==
PROVIDERS: PCP Family Medicine; Visit Provider Physician Assistant
DX: Z20.822 Contact with and (suspected) exposure to COVID-19 (principal); J02.9 Acute pharyngitis, unspecified
CPT/HCPCS: 36415; 85025; 87430; 87636

== ENCOUNTER → 2023-02-15 11:45 | Outpatient (CLI) | payer MEDICAID, SELFPAY ==
--- OUTSIDE RECORDS SUMMARY | 2023-02-15 11:50 | XMS_ITS | Patient Health Record ---
Author Name Unknown Organization [facility] Address [address] [place] [address] Care Team Providers Care Meat Manager Name Role Phone Rosa Hutchison Unavailable [phone] Lashell Caba Unavailable [phone] Allergies Allergen (clinical drug ingredient) Drug/Non Drug Allergy documented on EMR Reaction Allergy Type Onset Date Status erythromycin Erythromycin Unknown Drug Allergy A ctive naproxen Naproxen Unknown Drug Allergy Active amoxicillin Amoxicillin Unknown Drug Allergy Act reagan Substance with sulfonamide structure and antibacterial mechanism of action (substance) Sulfa Antibiotics Unknown Drug Allergy Active Results Component Value Reference Range Notes Marie/Bacterial Vaginosis, ELISABETH (Aptima) Reviewed date:10/28/2022 05:30:18 PM Interpretation:Negative Performing Lab:[facility] - [facility] CLIA ID [id number], [address], [address], [place] [address], Director - Fernanda Martinez MD Notes/Report: Bacterial Vaginosis Negative Negative The Aptima BV assay is a real time NAAT TMA assay developed for use on the automated [place] system that detects and discriminates RNA markers from the Lactobacillus species group (L. gasseri, L. crispatus and L. jensenii), Gardnerella vaginalis, and Atopobium vaginae. The Aptima BV assay uses an algorithm for bacterial vaginosis based on detection of target organisms. Marie species Negative Negative The CV Assay is a real time TMA assay developed for use on the automated [place] system that detects following Marie species organisms (C. albicans, C. tropicalis, C. paraps
--- NOTE | 2023-02-15 11:56 | XR_ITS ---
FINAL REPORT CLINICAL HISTORY: RIGHT ELBOW PAIN COMPARISON: None FINDINGS: AP, oblique, and lateral views of the right elbow were obtained. There is no prior exam for comparison. There is no acute fracture or dislocation. Joint space is preserved. There is no joint effusion or other soft tissue abnormality. IMPRESSION: No acute osseous abnormality of the right elbow. Reviewed, Interpreted and Dictated by Gino Cleary MD Transcribed by Cat Lornezo Authenticated and [facility]
== END ==
PROVIDERS: PCP Family Medicine; Visit Provider Nurse Practitioner Family
DX: M25.521 Pain in right elbow (principal)
CPT/HCPCS: 73080

== ENCOUNTER 2023-05-27 10:50 | Outpatient (CLI) | payer MEDICAID, SELFPAY ==
--- NOTE | 2023-05-27 10:56 | XR_ITS ---
FINAL REPORT TECHNIQUE: 5 views CLINICAL HISTORY: Acute back pain, recent FALL --- H/O ms COMPARISON: None FINDINGS: CERVICAL SPINE: 5 views of the cervical spine were obtained. There is no fracture present. There is no malalignment. There are no significant degenerative changes. THORACIC SPINE: 3 views of the thoracic spine were obtained. There is no acute fracture. There is kyphosis of the lower thoracic spine. There is minimal S-shaped scoliosis. Levocurvature measures 11 degrees. LUMBAR SPINE: 5 views of the lumbar spine were obtained. There is minimal endplate spurring. There is scoliosis at the thoracolumbar junction. There is no acute fracture. IMPRESSION: Scoliosis as above. No acute bony abnormality. Reviewed, Interpreted and Dictated by Ruthie Waterman MD Transcribed by FRANCISCO JAVIER Oropeza Authenticated and [facility]
== END 2023-05-27 23:59 ==
LOC: RAD 10:51
PROVIDERS: PCP Family Medicine; Visit Provider Physician Assistant
DX: M54.2 Cervicalgia (principal); M54.50 Low back pain, unspecified; M54.9 Dorsalgia, unspecified
CPT/HCPCS: 72084

== ENCOUNTER 2023-07-14 09:59 | Outpatient (CLI) | payer MEDICAID, SELFPAY ==
--- OUTSIDE RECORDS SUMMARY | 2023-07-14 10:02 | XMS_ITS | Patient Health Record ---
Author Name Unknown Organization [facility] ([facility] Address [address] [address] [place] [address] Care Team Providers Care Triage Technician Name Role Phone Rosa Hutchison Unavailable [phone] Lashell Caba Unavailable [phone] Allergies Allergen (clinical drug ingredient) Drug/Non Drug [...] date:10/28/2022 05:30:18 PM Interpretation:Negative Performing Lab:[facility] - [place] CLIA ID [id number], [address], [address], [place] [address], Director - Fernanda Martinez MD Notes/Report: Bacterial Vaginosis Negative Negative The Aptima BV assay is a real time NAAT TMA assay developed for use on the automated Rosenberg system that detects and discriminates RNA markers from the Lactobacillus species group (L. gasseri, L. crispatus and L. jensenii), Gardnerella vaginalis, and Atopobium vaginae. The Aptima BV assay uses an algorithm for bacterial vaginosis based on detection of target organisms. Marie species Negative Negative The CV Assay is a real time TMA assay developed for use on the automated Rosenberg system that detects following Marie species organisms (C. albicans, C. tropicalis, C. parapsilosis, C. dubliniensis), but the assay does not differentiate among C spp. Nucleic acid amplification testing performed on the [employer] Rosenberg. Marie glabrata Negative Negative Reason For Referral Reason Pelvic PT Diagnosis 1 Vaginal pain (R10.2) Referral Organization [facility] Referring Provider First Name Lashell Referring Provider Last Name Rosalse Referring Provider Speciality OB - Gynec ology General Notes Amanda Hawk 11/02 10:11:32 AM >Faxed order to [facility] pt - once received they will call pt to scheduled, faxed ot [phone] Referral Priority Routine Medications Medication SIG (Take, Route, Frequency, Duration) Notes Start Date End Date Status Ondansetron HCl 4 MG 1 tablet Orally Onc e a day Active metFORMIN HCl ER 500 MG TAKE ONE TABLET BY MOUTH ONCE DAILY Oral for 30 Days Active Meclizine HCl 25 MG 1 tablet as needed Orally every 12 hrs Active Fluconazole 150 MG 1 tablet Orally ever y 3 day for 3 days 10/27/2022 Active Levothyroxine Sodium 25 MCG take 1 tab(s ) by mouth once a day 30 day(s) Oral for 30 Days Active Vitamin D3 50 MCG (2000 UT) take 1 tab(s ) by mouth once a day 30 day(s) Oral for 30 Days Active Senna 8.6 MG 2 tablets at bedtime as needed Orally Once a day Active Pantoprazole Sodium 40 MG Oral for 30 Days Active B-12 1000 MCG 1 tablet Orally Once a day Active Fluconazole 150 MG 1 tablet Orally once , may repeat in 24-48 hours if needed for 10 days 09/06/2022 Active Cetirizine HCl 10 MG take 1 tab(s) by mo uth once a day Oral for 30 Days Active Social History Tobacco Use: Social History Observation Description Date Details (start date - stop date) Never Smoker NA - NA Sex Assigned At : Social History Observation Description Sex Assigned At Female Tobacco Use/Smoking Question Answer Notes Are you a nonsmoker Alcohol Screen Question Answer Notes Did you have a drink containing alcohol in the p ast year? No Points 0 Interpretation Negative Vital Signs Blood pressure diastolic 82 mm Hg 10/27/2022 Height 62 in 10/27/2022 Blood pressure systolic 124 mm Hg 10/27/2022 Weight 287 lbs 10/27/2022 BMI 52.49 kg/m2 10/27/2022 Encounters Encounter Location Date Provider Diagnosis [facility] [address] [place] [address] 09/04/2022 Rosa Hutchison [facility] [address] [place] [address] 10/27/2022 Lashell Rosales Yeast vaginitis B37.31 and Vaginal pain R10.2 [facility] [address] [facility] [place] [address] 09/06/2022 Rosa Aaronrosalie 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 Likely related to used infection. Will empirically treat based on appearance. Prescription for Diflucan sent. Significantly better tenderness to palpation, recommend physical therapy. Will place referral. 10/27/2022 Yeast vaginitis (ICD-10 - B37.31) Plan Of Treatment Next Appt Details Provider Name:Nina Desir , 09/09/2023 09:00:00 AM, [address], [place], [address], Insurance Providers Payer Name Payer Address Payer Phone Subscriber Number Group Number Insured Name Patient Relationship to Insured Coverage Start Date Coverage End Date Medicaid [place] [address] [place] [address] [id number] Yumiko Bravo Self - patient is the insured Medical (General) History Medical History History ICD Code MS Gerd Diabetes Anxiety/ Depression Blind in left eye Surgical History Surgery Date(Month/Year) Hysterectomy robotic Cholecystectomy Oral Lap BTL Endometrial Ablation Hospitalization History Reason Date(Month/Year) For MS
--- NOTE | 2023-07-14 10:14 | XR_ITS ---
FINAL REPORT CLINICAL HISTORY: NECK PAIN; states she is having neck pain that does not radiate COMPARISON: None FINDINGS: AP, lateral and odontoid views of the cervical spine were obtained. There is straightening of the normal curvature of the cervical spine. There is no prior exam for comparison. There is no acute fracture or malalignment. Vertebral body height is preserved. The precervical soft tissues are normal. IMPRESSION: Straightening of the normal curvature of the cervical spine, which may be due to positioning or muscle spasm. No acute bony abnormality identified. Reviewed, Interpreted and Dictated by Murray Smallwood III, MD Transcribed by Cat Lorenzo Authenticated and [facility]
== END 2023-07-14 23:59 | disposition home or self-care (01) ==
LOC: RAD 10:00
PROVIDERS: PCP Family Medicine; Visit Provider Physician Assistant
DX: M54.2 Cervicalgia (principal)
CPT/HCPCS: 72040

== ENCOUNTER 2023-08-19 10:25 | Outpatient (CLI) | payer MEDICAID, SELFPAY ==
--- NOTE | 2023-08-19 10:28 | MM_ITS ---
PROCEDURE INFORMATION: Exam: MG Bilateral Screening 3D Mammography Exam date and time: 08/19/2023 10:13 AM Age: 38 years old Clinical indication: Screening examination TECHNIQUE: Imaging protocol: Bilateral Screening tomosynthesis and 2D mammography including computer-aided detection (CAD) when performed. COMPARISON: 1. MG MM DIG MAMM BI DX W/CAD 07/08/2022 10:29 AM 2. MG MM DIG SCREENING MAMM BI W/CAD 04/21/2021 10:20 AM FINDINGS: MAMMOGRAPHY: Breast composition: There are scattered areas of fibroglandular density. Mass: None. Architectural distortion: None. Calcifications: No suspicious calcifications. Asymmetric density: None. Skin thickening: None. Axillary adenopathy: Limited evaluation due to the patient's inability to fully cooperate with the examination. IMPRESSION: Patient to return for targeted right breast ultrasound for full evaluation of a persistent palpable abnormality in the right medial breast. ASSESSMENT: BI-RADS Category 0: Incomplete- Need Additional Imaging Evaluation and/or Prior Mammograms for Comparison.
== END 2023-08-19 23:59 | disposition home or self-care (01) ==
LOC: RAD 10:25
PROVIDERS: PCP Physician Assistant; Visit Provider Physician Assistant
DX: Z12.31 Encounter for screening mammogram for malignant neoplasm of breast (principal)
CPT/HCPCS: 77063; 77067

== ENCOUNTER 2023-08-31 10:16 | Outpatient (CLI) | payer MEDICAID, SELFPAY ==
--- NOTE | 2023-08-31 10:19 | US_ITS ---
PROCEDURE INFORMATION: Exam: US Right Breast, Complete Exam date and time: 08/31/2023 10:36 AM Age: 38 years old Clinical indication: Breast pain; Right TECHNIQUE: Imaging protocol: Complete ultrasound of all four quadrants of the right breast and the retroareolar regions, including ultrasound of the axilla when performed. COMPARISON: US BREAST RT COMPLETE 08/09/2022 1:13 PM FINDINGS: ULTRASOUND: Breast ultrasound findings: Sonographic images of the right breast including the retroareolar region, all 4 quadrants and the axilla do not demonstrate any solid or cystic masses. No architectural distortion or acoustical shadowing. No skin thickening or axillary adenopathy. IMPRESSION: No sonographic evidence of malignancy. Annual mammographic screening is recommended unless otherwise clinically indicated. ASSESSMENT: BI-RADS Category 1: Negative.
== END 2023-08-31 23:59 | disposition home or self-care (01) ==
LOC: RAD 10:17
PROVIDERS: PCP Family Medicine; Visit Provider Physician Assistant
DX: R92.8 Other abnormal and inconclusive findings on diagnostic imaging of breast (principal)
CPT/HCPCS: 76641

== ENCOUNTER 2023-10-14 10:56 | Outpatient (CLI) | payer MEDICAID, SELFPAY ==
[2023-10-14 11:41] LABS: Basophils # 0.1 K/mm3 (0-0.2); Basophils % 0.7 % (0.1-2.0); Eosinophils # 0.3 K/mm3 (0.0-0.4); Eosinophils % 3.2 % (0.1-12.0); Hematocrit 40.9 % (37.0-47.0); Hemoglobin 12.7 g/dL (12.2-16.2); Lymphocytes # 2.6 K/mm3 (0.7-4.5); Lymphocytes % 24.2 % (10-50); Mean Corpuscular HGB Conc 31.1 g/dL (31.8-35.4); Mean Corpuscular Hemoglobin 29.5 pg (27.0-31.2); Mean Corpuscular Volume 94.8 fl (81-99); Mean Platelet Volume 7.6 fl (7.4-10.4); Monocytes # 0.4 K/mm3 (0.1-1.0); Monocytes % 3.9 % (1.7-9.3); Neutrophils # 7.4 K/mm3 (1.8-7.8); Neutrophils % 68.1 % (37.0-80.0); Platelet Count 309 K/mm3 (142-424); Red Blood Count 4.31 M/mm3 (4.20-5.40); Red Cell Distribution Width 15.1 % (11.5-17.5); White Blood Count 10.9 K/mm3 (4.8-10.8)
[2023-10-14 12:26] LABS: Alanine Aminotransferase 24 U/L (12-78); Albumin Level 4.1 g/dl (3.5-5.0); Albumin/Globulin Ratio 1.5 (1.1-1.8); Alkaline Phosphatase 100 U/L (38-126); Anion Gap 11.3 mEq/L (5-15); Aspartate Amino Transferase 30 U/L (14-36); Bilirubin,Total 0.5 mg/dl (0.2-1.3); Blood Urea Nitrogen 12 mg/dl (7-17); Calcium 8.8 mg/dl (8.4-10.2); Carbon Dioxide 27 mmol/L (22.0-30.0); Chloride 106 mmol/L (98-107); Estimated Glomerular Filt Rate 93 ml/min (>60); GFR (African American) 113 ML/MIN (>60); Globulin 2.7 g/dL (1.3-3.2); Glucose 108 mg/dl (74-100); Potassium 4.3 mmoL/L (3.5-5.1); Sodium 140 mmol/L (136-145); Total Protein,Serum 6.8 g/dl (6.3-8.2)
[2023-10-14 12:44] LABS: Free T4 (Free Thyroxine) 0.97 ng/dl (0.78-2.19)
[2023-10-14 12:47] LABS: 25-OH Vitamin D, Total 38.6 ng/mL (30-100)
[2023-10-14 13:38] LABS: Folate > 20.00 ng/mL; Vitamin B12 > 1000 pg/mL (239-931)
[2023-10-14 13:41] LABS: Ferritin 81.7 ng/ml (6.24-137)
[2023-10-14 14:42] LABS: Iron 58 ug/dL (37-170)
== END 2023-10-14 23:59 | disposition home or self-care (01) ==
LOC: LAB 10:57
PROVIDERS: PCP Family Medicine; Visit Provider Physician Assistant
DX: E55.9 Vitamin D deficiency, unspecified (principal); R42 Dizziness and giddiness; R55 Syncope and collapse; E61.1 Iron deficiency; E53.8 Deficiency of other specified B group vitamins; E03.9 Hypothyroidism, unspecified; Z68.41 Body mass index [BMI] 40.0-44.9, adult
CPT/HCPCS: 36415; 80050; 80053; 82306; 82607; 82728; 82746; 83540; 84439; 84443; 85025

== ENCOUNTER 2023-10-20 12:50 | Outpatient (CLI) | payer MEDICAID, SELFPAY ==
--- NOTE | 2023-10-20 12:55 | CT_ITS ---
FINAL REPORT TECHNIQUE: Axial CT images were performed through the head. Coronal reformatted images were submitted. This study was performed with techniques to keep radiation doses as low as reasonably achievable (ALARA). Individualized dose reduction techniques using automated exposure control or adjustment of mA and/or kV according to the patient's size were employed. CLINICAL HISTORY: CONCUSSION COMPARISON: 09/16/2022 FINDINGS: The ventricles are normal in size. There is no evidence of hemorrhage. There is no mass or edema identified. There is hyperostosis frontalis interna which is slightly greater than expected for age. There is no abnormal extra-axial fluid seen. The sinuses are well aerated. IMPRESSION: No acute intracranial process. Reviewed, Interpreted and Dictated by Gino Cleary MD Transcribed by Digna Barksdale Authenticated and [facility]
== END 2023-10-20 23:59 | disposition home or self-care (01) ==
LOC: RAD 12:51
PROVIDERS: PCP Physician Assistant; Visit Provider Physician Assistant
DX: S06.0X0A Concussion without loss of consciousness, initial encounter (principal)
CPT/HCPCS: 70450

== ENCOUNTER 2023-11-03 10:34 | Outpatient (CLI) | payer MEDICAID, SELFPAY ==
--- NOTE | 2023-11-03 10:39 | XR_ITS ---
FINAL REPORT CLINICAL HISTORY: Pain in right shoulder COMPARISON: None FINDINGS: RIGHT SHOULDER 3 views demonstrate no acute fracture or dislocation. There are mild acromioclavicular joint degenerative changes. The visualized bony structures are well aligned. No soft tissue abnormality is seen. IMPRESSION: Degenerative changes without acute process. Reviewed, Interpreted and Dictated by Murray Smallwood III, MD Transcribed by Argelia Carrion Authenticated and [facility]
== END 2023-11-03 23:59 | disposition home or self-care (01) ==
PROVIDERS: PCP Family Medicine; Visit Provider Physician Assistant
DX: M25.511 Pain in right shoulder (principal)
CPT/HCPCS: 73030

== ENCOUNTER 2023-12-15 14:32 | Outpatient (CLI) | payer MEDICAID, SELFPAY ==
--- NOTE | 2023-12-15 14:37 | XR_ITS ---
FINAL REPORT CLINICAL HISTORY: FATIGUE COMPARISON: 03/16/2020 FINDINGS: 2 views of the chest were obtained . The heart is normal in size. The mediastinum is within normal limits. The lungs are underinflated but clear. There is no pneumothorax. Osseous structures are unremarkable. IMPRESSION: No acute cardiopulmonary process. Reviewed, Interpreted and Dictated by Gino Cleary MD Transcribed by Shahnaz Aggarwal Authenticated and [facility]
== END 2023-12-15 23:59 | disposition home or self-care (01) ==
LOC: RAD 14:33
PROVIDERS: PCP Family Medicine; Visit Provider Physician Assistant
DX: R53.83 Other fatigue (principal)
CPT/HCPCS: 71046

== ENCOUNTER 2024-06-07 10:00 | Outpatient (CLI) | payer MEDICAID, SELFPAY ==
--- NOTE | 2024-06-07 10:03 | MM_ITS ---
PROCEDURE INFORMATION: Exam: US Right Breast, Complete MG Right Diagnostic Breast Tomosynthesis Exam date and time: 06/07/2024 10:05 AM Age: 39 years old Clinical indication: Pain in the right breast. TECHNIQUE: Imaging protocol: Complete ultrasound of all four quadrants of the right breast and the retroareolar regions, including ultrasound of the axilla when performed. Right Diagnostic tomosynthesis and 2D mammography including computer-aided detection (CAD) when performed. Unilateral or bilateral exam. COMPARISON: 1. US BREAST RT COMPLETE 08/31/2023 10:36 AM 2. MG MM DIG SCREENING MAMM BI W/CAD 08/19/2023 10:13 AM 3. MG MM DIG MAMM BI DX W/CAD 07/08/2022 10:29 AM FINDINGS: MAMMOGRAPHY: Breast composition: There are scattered areas of fibroglandular density. Breast mammogram findings: There is no mammographic mass, distortion, calcifications, or other abnormality visualized in the right breast. ULTRASOUND: Breast ultrasound findings: Ultrasound the right breast is performed. In the painful area of concern, 1 o'clock axis, 11 cm from the nipple, there is an underlying complicated cyst that may represent fat necrosis measuring 0.2 x 0.2 x 0.2 cm. There is no shadowing or distortion. A similar appearing cyst is seen at the 12 o'clock axis, 9 cm from the nipple measuring 0.2 x 0.2 x 0.3 cm. A hyperechoic region within the right breast lower inner quadrant, 3 o'clock axis, 8 cm from the nipple measures 0.9 x 0.5 x 0.8 cm and may represent a small lipoma. A similar finding in the right breast 11 o'clock axis, 7 cm from the nipple measures 0.3 x 0.4 x 0.6 cm. No suspicious masses seen. No axillary adenopathy. IMPRESSION: Probably benign findings in the right breast on ultrasound, at the 12 o'clock, 1 o'clock, 3 o'clock, and 11 o'clock axes, as above. Six-month follow-up ultrasound is recommended. ASSESSMENT: BI-RADS Category 3: Probably benign.
--- OUTSIDE RECORDS SUMMARY | 2024-06-07 23:09 | XMS_ITS | Data Portability ---
Author Organization [place] - [facility] - [facility] ADMIN Address [address] [place] [id number] Care Team Providers Care Clinical Laboratory Director Name Role Phone [place] Primary Care Provider Assessment Encounter Date Assessment Date Assessment LastModified by Organization Details LastModified Time 06/23/2023 06/23/2023 38-year-old female with daily nausea/vomiting/ diarrhea/and abdominal pain that radiates to the RLQ. EGD/colonoscopy on 11/29/22 normal, gastric biopsy showed reactive gastropathy, duodenal and RCB negative. Stool studies negative. CT in the ED 12/20/22 negative. Colestipol and Xifaxan did not improve her diarrhea. She did not tolerate amitriptyline due to dyspepsia. Bentyl provides mild relief, but her symptoms are worsening. GES was normal. KUB indicated moderate stool load but miralax did not help much. -Will order CT abdomen and pelvis for further evaluation -Continue Dicyclomine. I have asked the she hold the colestipol and avoid Imodium for now. Unclear if overflow is contributing as she did not benefit much from the miralax. -Start Creon per below. If not helpful, will need to consider bowel purge plus a prescription laxative. f/u 4 weeks [email or web address] Not available 06/23/2023 17:12:27 07/05/2023 07/05/2023 38-year-old female with daily nausea/vomiting/ diarrhea/and abdominal pain that radiates to the RLQ. EGD/colonoscopy on 11/29/22 normal, gastric biopsy showed reactive gastropathy, duodenal and RCB negative. Stool studies negative. CT in the ED 12/20/22 negative. Colestipol, Xifaxan and Creon did not improve her diarrhea. She did not tolerate amitriptyline due to dyspepsia. Bentyl provides mild relief, but her symptoms are worsening. GES was normal. KUB indicated moderate stool load but miralax did not help much. - CT abdomen pelvis with contrast revealed small umbilical hernia. No other acute process found. - Will refer back to gynecology for for further evaluation given extensive history and partial hysterectomy. - Will refer back to General surgery who previously did her hernia repairs with mesh for further evaluation. New small umbilical hernia present on CT scan. Patient could also have lysis and adhesions due to multiple abdominal surgeries. - Continue Dicyclomine - Imodium as needed F/u with Jacob already scheduled [email or web address] Not available 07/05/2023 11:08:29 07/21/2023 07/21/2023 38-year-old female withfrequent nausea/vomiting/ diarrhea/and abdominal pain that radiates to the RLQ. EGD/colonoscopy on 11/29/22 normal, gastric biopsy showed reactive gastropathy, duodenal and RCB negative. Stool studies negative. CT in the ED 12/20/22 negative. Colestipol, Xifaxan and Creon did not improve her diarrhea. She did not tolerate amitriptyline due to dyspepsia. Bentyl provides mild relief, but her symptoms are worsening. GES was normal. KUB indicated moderate stool load but miralax made diarrhea worse. - CT abdomen pelvis with contrast revealed small umbilical hernia. No other acute process found. She is requesting general surgeon referral for concern over possible abdominal adhesions due to history of multiple prior surgeries. Her prior hernia surgeon is no longer practicing in the area. Will refer to general surgery here in [place] to see if they share her concerns. - She was previously referred back to gynecology for for further evaluation given extensive history and partial hysterectomy and pain in the lower abdomen possible from trust administrator source. - Continue Dicyclomine - Start Lomotil as needed for diarrhea, discussed with Dr. Almonte, he will prescribe. [email or web address] Not available 07/22/2023 14:14:50 08/22/2023 08/22/2023 38-year-old female with frequent nausea/vomiting/ diarrhea/and abdominal pain/distension that radiates to the RLQ. EGD/colonoscopy on 11/29/22 normal, gastric biopsy showed reactive gastropathy, duodenal and RCB negative. Stool studies negative. CT in the ED 12/20/22 negative. Colestipol, Xifaxan and Creon did not improve her diarrhea. She did not tolerate amitriptyline due to dyspepsia. Bentyl provides mild relief. Lomotil was ineffective. GES was normal. KUB indicated moderate stool load but miralax made diarrhea worse. - CT abdomen pelvis with contrast revealed small umbilical hernia. No other acute process found. She has consultation with General Surgery on 09/06/23 due to concern over possible abdominal adhesions due to history of multiple prior surgeries. - She was previously referred back to gynecology for for further evaluation given extensive history and partial hysterectomy and pain in the lower abdomen possible from trust administrator source. - Continue Dicyclomine -She will f/u here as needed. [email or web address] Not available 08/22/2023 22:30:07 Plan of Treatment Reminders Order Date Submit Date Provider Last Modified By Organization Details Last Modified Time Details Appointments None recorded. Lab None recorded. Referral None recorded. Procedures None recorded. Surgeries None recorded. Imaging CT, abdomen + pelvis, w/ contrast 2023 024 [facility] (Centralized Scheduling), [address], [place], [address], 4 16:17:05 Medication Orders Creon 36,000 unit-114,0 00 unit-180,0 00 unit capsule,de layed release 2023 024 [facility], [address] [place] [address], [id number], 4 17:37:29 Patient TargetsNo targets recorded. Patient InstructionsNo instructions recorded. Reason for Referral None Reported. Problems Name Problem SNOMED Code Status Onset Date Resolution Date Notes Provider Name and Address Organization Details Recorded Time Diarrhea 99565544 Active 2022 Jacob Lorenzo PA-C [address], [place], [address] , [facility] - [place] & [place] 3 11:02:32 Upper abdominal pain 05472564 Active 2022 Jacob Lorenzo PA-C [address], [place], [address] , [place] - [facility] - [place] & [place] 3 11:03:18 Right lower quadrant pain 196140415 Active [address], [place], [address] , [place] - [facility] - [place] & [place] 3 11:03:25 Epigastric pain 41416975 Active 2022 Jacob Lorenzo PA-C [address], [place], [address] , [place] - [facility] - [place] & [place] 3 11:03:32 Nausea and vomiting 43367716 Active [address], [place], [address] , [place] - [facility] - [place] & [place] 3 11:03:37 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 Jacob Lorenzo PA-C [address], [place], [address] , [place] - [facility] - [place] & [place] 3 09:10:06 Reactive gastropathy 282645728 Active 2022 Jacob Lorenzo PA-C [address], [place], [address] , [place] - [facility] [place] & [place] 3 11:57:47 Irritable bowel syndrome 89442279 Active 2022 Jacob Lorenzo PA-C [address], [place], [address] , [place] - [facility] - [place] & [place] 3 12:00:03 Irritable bowel syndrome with diarrhea 774144387 Active 2022 Jacob Lorenzo PA-C [address], [place], [address] , [place] - [facility] - [place] & [place] 3 16:23:53 Constipation 45232055 Active 2023 Jacob Lorenzo PA-C [address] , [place], [address] [place] [address] , [facility] & [place] 11:34:47 Problem Notes None recorded. Procedures Surgical History Date Name Laterality Status Provider Name and Address Organization Details Recorded Time 08/22/19 Procedure Note completed Jacob Lorenzo PA-C [address], [place], [address] [place] [address], [facility] & [place] 08/22/2023 22:19:42 07/21/19 Procedure Note completed Jacob Lorenzo PA-C [address] , [place], [address] [place] [address], [facility] & [place] 07/21/2023 14:16:01 07/05/19 Procedure Note completed CHAYO VASQUEZ MSN, PRINT WASHER, CENTERLESS GRINDER-C [address], [place], [address] [place] [address], [facility] & [place] 07/05/2023 10:26:14 cholecystectomy completed Anali Ventura [facility] & [place] 10/20/2022 10:40:12 Imaging Results None recorded. Procedure Notes None recorded. Medical Equipment None Reported. Allergies Allergen ID Allergen Name Allergen Category Reaction Reaction Severity Criticality Documentation Date Start Date Code Code System Note Provider Name and Address Organization Details Recorded Time 87533 Substance with sulfonami de structure and antibacte rial mechanism of action (substanc e) medicatio n Not available Not available Not available 10/20/2022 71245 8003 SNOMED Anali Ventura null, [place] - [facility] & [place] 10:38:14 28944 codeine medicatio n Not available Not available Not available 10/20/2022 2670 RxNorm Anali Ventura null, [place] - [facility] & [place] 10:38:41 62362 azithromy dinh medicatio n Not available Not available Not available 10/20/2022 78610 RxNorm VINNY Sánchez [facility] & [place] 3 10:38:48 54509 hydrocodo ne Not available Not available Not available Not available 10/20/2022 5489 RxNorm VINNY Sánchez [facility] & [place] 3 10:38:56 21333 naproxen medicatio n Not available Not available Not available 10/20/2022 7258 RxNorm VINNY Sánchez [facility] & [place] 3 10:39:04 11563 oxycodone medicatio n Not available Not available Not available 10/20/2022 7804 RxNorm VINNY Sánchez [facility] & [place] 3 10:39:11 Medications Name Sig Start Date Stop Date Status Note LastModified by Organization Details LastModified Time cyclobenzap rine 10 mg tablet take 1 tablet Orally three times a day as needed 30 day(s) active Not Available Not Available No t Available Anti-Diarrh eal (loperamide ) 2 mg tablet TAKE ONE TABLET BY MOUTH ONE TIME AFTER FIRST LOOSE STOOL AND TAKE ONE TABLET AFTER EACH SUBSEQUEN T BOWEL MOVEMENT DO NOT EXCEED EIGHT TABS IN 24 HOURS 06/22 completed Not Available Not Available Not Available fluconazole 100 mg tablet Take 1 tablet (100 mg) by mouth 1 (one) time each day for 7 days. 06/22 completed Not Available Not Available Not Available promethazin e-DM 6.25 mg-15 mg/5 mL oral syrup take 5 mL by mouth as needed every 6 hrs 12/21 completed Not Available Not Available Not Available nystatin 100,000 unit/mL oral suspension SWISH AND SWALLOW FIVE ML (ONE teaspoonf ul) FOUR TIMES DAILY 12/21 completed Not Available Not Available Not Available acetaminoph en 325 mg tablet TAKE 1-2 tabs orally every 6 hours as needed 13 active Not Available Not Available No t Available venlafaxine ER 75 mg capsule,ext ended release 24 hr TAKE TWO CAPSULES BY MOUTH FOR ONE WEEK, THEN ONE CAPSULE FOR ONE WEEK THEN STOP 11/06 /2023 completed Not Available Not Available Not Available polyethylen e glycol 3350 17 gram oral powder packet Take 5 packets 3 times a day by oral route. 12/21 completed Not Available Not Available Not Available cetirizine 10 mg tablet TAKE ONE TABLET BY MOUTH ONCE DAILY active Not Available Not Available No t Available atorvastati n 10 mg tablet take 1 tab(s) orally once a day for 30 day(s) active Not Available Not Available No t Available azithromyci n 250 mg tablet TAKE 2 TABLETS BY MOUTH ON DAY 1, THEN TAKE 1 TABLET DAILY ON DAYS 2-5 12/21 completed Not Available Not Available Not Available fluconazole 150 mg tablet take 1 tablet Orally every 3 days for 3 days 12/21 completed Not Available Not Available Not Available cyanocobala min (vit B-12) 1,000 mcg tablet take 1 tab(s) by mouth once a day for 30 day(s) active Not Available Not Available No t Available diphenoxyla te-atropine 2.5 mg-0.025 mg tablet Take 1 tablet by mouth 4 times a day for 30 days. active Not Available Not Available No t Available metronidazo le 500 mg tablet Take 1 tablet (500 mg total) by mouth 1 (one) time each day for 7 days. 12/21 completed Not Available Not Available Not Available fexofenadin e 180 mg tablet take 1 tablet daily swallow whole with water; do not take with fruit juices active Not Available Not Available No t Available prochlorper azine maleate 10 mg tablet TAKE ONE TABLET BY MOUTH EVERY EIGHT HOURS NEEDED 06/22 completed Not Available Not Available Not Available doxycycline monohydrate 100 mg tablet TAKE ONE TABLET BY MOUTH TWICE DAILY FOR SEVEN DAYS active Not Available Not Available No t Available levothyroxi ne 25 mcg tablet TAKE ONE TABLET BY MOUTH ONCE DAILY active Not Available Not Available No t Available zinc sulfate 50 mg zinc (220 mg) tablet take 1 tab(s) orally once a day 30 day(s) 12/21 completed Not Available Not Available Not Available ascorbic acid (vitamin C) 500 mg tablet take 1 tablet Orally twice a day 30 days active Not Available Not Available No t Available Lidoderm 5 % topical patch apply 1 patch topically daily leave on most painful area for up to 12 hrs 12/21 completed Not Available Not Available Not Available dicyclomine 20 mg tablet Take 1 tablet 4 times a day by oral route for 30 days. active Not Available Not Available No t Available amitriptyli ne 10 mg tablet Take 1 tablet every day by oral route at bedtime for 30 days. active Not Available Not Available No t Available meclizine 25 mg tablet TAKE ONE TABLET BY MOUTH THREE TIMES DAILY active Not Available Not Available No t Available pantoprazol e 40 mg tablet,aleisha yed release TAKE ONE TABLET BY MOUTH ONCE DAILY active Not Available Not Available No t Available hyoscyamine 0.125 mg sublingual tablet take 1 tab(s) sublingua lly every 4 hours, as needed for diarrhea and abdominal cramping 12/21 completed Not Available Not Available Not Available promethazin e 25 mg tablet take 1 tablet by mouth twice a day As Needed for nausea and vomiting, migraine active Not Available Not Available No t Available lorazepam 1 mg tablet Take 2 tablets (2 mg total) by mouth 1 (one) time for 1 dose. 12/21 completed Not Available Not Available Not Available cefuroxime axetil 500 mg tablet TAKE ONE TABLET BY MOUTH EVERY 12 HOURS FOR SEVEN DAYS 06/22 completed Not Available Not Available Not Available polyethylen e glycol 3350 17 gram/dose oral powder Dissolve 1 capful in 8 oz of liquid and drink twice daily for three days, then reduce to once daily, 30 days 2023 active Not Available Not Available Not Avai lable estradiol 0.01% (0.1 mg/gram) vaginal cream Insert 1 gram into the vagina 3x/week 12/21 completed Not Available Not Available Not Available methylpredn isolone 4 mg tablets in a dose pack TAKE DIRECTED DAILY ON package FOR SIX DAYS active Not Available Not Available No t Available bromphenira mine-pseudo ephedrine-D M 2 mg-30 mg-10 mg/5 mL oral syrup take 5-10 ML (ONE TO TWO teaspoonf uls) BY MOUTH FOUR TIMES DAILY NEEDED active Not Available Not Available No t Available ondansetron 4 mg disintegrat ing tablet DISSOLVE ONE TABLET BY MOUTH EVERY 6-8 hours NEEDED active Not Available Not Available No t Available fluticasone propionate 50 mcg/actuati on nasal spray,suspe nsion use 1 spray in each nostril Once a day active Not Available Not Available No t Available metformin ER 500 mg tablet,exte nded release 24 hr TAKE ONE TABLET BY MOUTH ONCE DAILY active Not Available Not Available No t Available colestipol 1 gram tablet Take 2 tablets twice a day by oral route for 30 days. 2023 active Not Available Not Available Not Avai labphilipp metronidazo le 0.75 % topical gel Apply a thin layer to face daily. active Not Available Not Available No t Available diazepam 5 mg tablet take 1 tablet by mouth at bedtime nightly As Needed for anxiety, Max Daily Dose 5 mg 01/03 completed Not Available Not Available Not Available Ventolin HFA 90 mcg/actuati on aerosol inhaler INHALE 2 PUFFS BY MOUTH EVERY 6 HOURS NEEDED 12/21 completed Not Available Not Available Not Available azithromyci n 500 mg tablet TAKE ONE TABLET BY MOUTH DAILY FOR FIVE DAYS 06/22 completed Not Available Not Available Not Available ciprofloxac in 0.3 %-dexametha sone 0.1 % ear drops,suspe nsion PLACE 4 drops into affected ear Otic Twice a day 7 day(s) 06/22 completed Not Available Not Available Not Available zinc sulfate 50 mg zinc (220 mg) capsule TAKE ONE CAPSULE BY MOUTH ONCE DAILY active Not Available Not Available No t Available FeroSul 325 mg (65 mg iron) tablet TAKE 1 tab(s) by mouth once daily active Not Available Not Available No t Available desvenlafax ine succinate ER 50 mg tablet,exte nded release 24 hr TAKE ONE TABLET BY MOUTH ONCE DAILY active Not Available Not Available No t Available desvenlafax ine succinate ER 100 mg tablet,exte nded release 24 hr take 1 tablet(10 0 mg) orally daily active Not Available Not Available No t Available cholecalcif addison (vitamin D3) 50 mcg (2,000 unit) tablet take 1 tab(s) orally once a day for 30 days active Not Available Not Available No t Available venlafaxine ER 225 mg tablet,exte nded release 24 hr TAKE ONE TABLET BY MOUTH ONCE DAILY 01/03 completed Not Available Not Available Not Available Mucus Relief ER 600 mg tablet, extended release take 1 tablet orally twice a day As Needed for cough 12/21 completed Not Available Not Available Not Available Xifaxan 550 mg tablet Take 1 tablet 3 times a day by oral route for 14 days. 06/22 completed Not Available Not Available Not Available Cretamera 36,000 unit-114,00 0 unit-180,00 0 unit capsule,del ayed release Take 2 capsule by mouth with meals, 1 capsule by mouth with snacks (up to 8 capsules daily), 30 days active Not Available Not Available No t Available desvenlafax ine succinate ER 25 mg tablet,exte nded release 24 hr TAKE ONE TABLET BY MOUTH DAILY 12/21 completed Not Available Not Available Not Available Vraylar 1.5 mg capsule take 1 capsule by mouth once a day 12/21 completed Not Available Not Available Not Available Ajovy 225 mg/1.5 mL subcutaneou s auto-inject or INJECT 225 mg (1.5 mL) subcutane ously every month for Migraine Headache; Inject monthly as prescribe d 12/21 completed Not Available Not Available Not Available QuickVue At-Home COVID-19 Test kit USE DIRECTED active Not Available Not Available No t Available Lagevrio 200 mg capsule (EUA) TAKE 4 CAPSULES BY MOUTH EVERY 12 HOURS FOR 5 DAYS 12/21 completed Not Available Not Available Not Available Veozah 45 mg tablet Take 1 tablet(45 mg) by mouth 1 (one) time each day. active Not Available Not Available No t Available Vitals Date Recorded Body height Body mass index (BMI) Body weight Body temperature Oxygen saturation Oxygen saturation in Arterial blood by Pulse oximetry Heart rate Heart rate Systolic blood pressure Diastolic blood pressure Provider Name and Address Organization Details Last Updated DateTime 4 160.02 cm 52.8 kg/m2 397073. 53 g 97.8 [degF] 95 % 95 % 88 /min 90 /min 144 mm[Hg] 88 mm[Hg] Isabel East BRAYAN [facility] & [place] 4 09:57:09 Social History Question Answer Notes LastModified by Organizat ion Details LastModified Time Tobacco Smoking Status Never Smoker Anali rondon, VINNY MINA [facility] & [place] 10/20/2022 10:37:10 What Is Your Level Of Alcohol Consumption? None Information not available 10/20/2022 What Is Your Level Of Caffeine Consumption? Occasional Information not available 03/17/2023 Do You Use Any Illicit Or Recreational Drugs? No Information not available 10/20/2022 Do You Or Have You Ever Used Any Other Forms Of Tobacco Or Nicotine? No Information not available 03/17/2023 Sex: Unknown Functional Status None recorded. Mental Status None recorded. Family History Nothing Reported. Medical History No medical history recorded. Gynecological HistoryNo gynecological history recorded. Obstetrics History GPAL:G 0 P 0 0 0 0 Past Encounters Encounter ID Performer Location Encounter Start Date Encounter Closed Date Diagnosis/Indication Diagnosis SNOMED-CT Code Diagnosis ICD10 Code Diagnosis Note [id number] Jacob Lorenzo PA-C [facility] [place] [address] 10/20/2022 10:16:22 10/20/2022 11:31:39 Diarrhea 12299195 R19.7 Right lowe r quadrant pain 463225746 R10.31 Epigastric pain 74916072 R10.13 Nausea and vomiting 1691999 R11.2 Family his tory of Crohn's disease 737746668 Z83.79 History of splenomegaly 651502819 Z86.2 [id number] Jacob Lorenzo PA-C [facility] [place] [address] 12/21/2022 08:39:59 12/21/2022 09:24:35 Bile acid malabsorption syndrome 94286712 E78.70 Diarrhea 93358088 R19.7 Right lowe r quadrant pain 207516730 R10.31 Epigastric pain 19164162 R10.13 Nausea and vomiting 1693 1999 R11.2 Family his tory of Crohn's disease 365987638 Z83.79 History of splenomegaly 387622499 Z86.2 Reactive gastropathy 399 181903 K31.9 [id number] Jacob Lorenzo PA-C [facility] [place] [address] 01/03/2023 11:35:08 01/03/2023 12:12:13 Bile acid malabsorption syndrome 19551937 E78.70 Diarrhea 16436195 R19.7 Right lowe r quadrant pain 959941135 R10.31 Epigastric pain 30257946 R10.13 Nausea and vomiting 1693 1999 R11.2 Family his tory of Crohn's disease 235355824 Z83.79 History of splenomegaly 534091816 Z86.2 Reactive gastropathy 399 771513 K31.9 Irritable bowel syndrome 96737211 K58.0 [id number] Jacob Lorenzo PA-C [facility] [place] [id number] 2 02/14/2023 14:56:17 02/14/2023 16:30:30 Diarrhea 64086002 R19.7 Right lowe r quadrant pain 608645377 R10.31 Epigastric pain 87428886 R10.13 Nausea and vomiting 1693 1999 R11.2 Family his tory of Crohn's disease 252732675 Z83.79 History of splenomegaly 447262693 Z86.2 Reactive gastropathy 399 684966 K31.9 Irritable bowel syndrome with diarrhea 830291446 K58.0 [id number] Jacob Lorenzo PA-C [facility] [place] [id number] 03/17/2023 13:01:23 03/17/2023 13:11:55 Bile acid malabsorption syndrome 32111208 E78.70 Diarrhea 43019010 R19.7 Right lowe r quadrant pain 950032192 R10.31 Epigastric pain 56424444 R10.13 Nausea and vomiting 1693 1999 R11.2 Family his tory of Crohn's disease 082121605 Z83.79 History of splenomegaly 034224295 Z86.2 Reactive gastropathy 399 643310 K31.9 Irritable bowel syndrome 20719683 K58.0 Irritable bowel syndrome with diarrhea 514604316 K58.0 [id number] Jacob Lorenzo PA-C [facility] [place] [id number] 06/23/2023 15:33:15 06/23/2023 15:55:27 Bile acid malabsorption syndrome 02272914 E78.70 Diarrhea 57983498 R19.7 Right lowe r quadrant pain 213917357 R10.31 Epigastric pain 37846754 R10.13 Nausea and vomiting 1693 1999 R11.2 Family his tory of Crohn's disease 828970603 Z83.79 History of splenomegaly 613270857 Z86.2 Reactive gastropathy 399 054425 K31.9 Irritable bowel syndrome 89555087 K58.0 Irritable bowel syndrome with diarrhea 648923731 K58.0 [id number] CHAYO VASQUEZ MSN, PRINT WASHER, CENTERLESS GRINDER-C [facility] [address] [id number] 07/05/2023 09:44:00 07/05/2023 11:02:40 Bile acid malabsorption syndrome 30528657 E78.70 Diarrhea 36001162 R19.7 Right lowe r quadrant pain 397520163 R10.31 Epigastric pain 38683606 R10.13 Nausea and vomiting 1693 1999 R11.2 Family his tory of Crohn's disease 036028713 Z83.79 History of splenomegaly 494171657 Z86.2 Reactive gastropathy 399 597832 K31.9 Irritable bowel syndrome 36111960 K58.0 Irritable bowel syndrome with diarrhea 951054921 K58.0 [id number] Jacob Lorenzo PA-C [facility] [address] [id number] 07/21/2023 13:53:49 07/21/2023 14:28:49 Bile acid malabsorption syndrome 90829130 E78.70 Diarrhea 40751374 R19.7 Right lowe r quadrant pain 927579816 R10.31 Epigastric pain 89447705 R10.13 Nausea and vomiting 1693 1999 R11.2 Family his tory of Crohn's disease 924806846 Z83.79 History of splenomegaly 206772589 Z86.2 Reactive gastropathy 399 730711 K31.9 Irritable bowel syndrome 33572033 K58.0 Irritable bowel syndrome with diarrhea 086123445 K58.0 [id number] Jacob Lorenzo PA-C [facility] [address] [id number] 08/22/2023 13:39:58 08/22/2023 14:34:54 Bile acid malabsorption syndrome 48949302 E78.70 Diarrhea 64849502 R19.7 Right lowe r quadrant pain 245087389 R10.31 Epigastric pain 35116614 R10.13 Nausea and vomiting 1693 2000 R11.2 Family his tory of Crohn's disease 018468893 Z83.79 History of splenomegaly 764823705 Z86.2 Reactive gastropathy [id number] K31.9 Irritable bowel syndrome [id number] K58.0 Irritable bowel syndrome with diarrhea [id number] K58.0 Health Concerns Section Related Observation LastModified by Organization Detai ls LastModified Time None Recorded Concern Status LastModified by Organization Details LastModified Time None Recorded Advance Directives Directive None Recorded Payers Encounter Date Sequence Insurance Name Policy Number Policy Enciso Covered Member ID Enciso Member ID Guarantor Name 06/23/2023 1 [place] [employer] [place]IT[place] NAL [place] [id number] Yumiko [place] 07/05/2023 1 [place] [place] [id number] Yumiko [place] 07/21/2023 1 [place] [place] Y[place]iko [place] [id number] Yumiko [place] 08/22/2023 1 [place] [place]iko [place] [id number] Yumiko Lawrence Notes Date Note Type Note Provider Name and Address Organization Details Recorded Time 06/23/2023 text/html PREVIOUS ( 3): Ms. Bravo is a very pleasant 37-year-old female with history of multiple sclerosis who was referred by Chetna Santiago for evaluation of nausea, vomiting, diarrhea, and abdominal pain. Her symptoms have been present for several months. She underwent CT abdomen 06/07/22 that showed splenomegaly without acute process otherwise. She notes mid upper abdominal pain that radiates to the right lower quadrant. She is having 2-3 loose BMs daily without melena or hematochezia. She is taking Zofran as needed for nausea, which is helpful. She reports family history of Crohn's disease in her sister. She denies heartburn or dysphagia. PREVIOUS (12/21/22): Ms. Bravo returns to the office today for follow-up regarding nausea, diarrhea, and abdominal pain. She underwent EGD and colonoscopy earlier this month with no abnormal findings. Gastric biopsies showed reactive gastropathy with normal duodenal and random colon biopsies. She has continued to experience frequent symptoms. She was seen in the ED yesterday for this and underwent CT abd/pelvis that was unremarkable. Labs and stool studies have been essentially normal. PREVIOUS (01/03/23): Ms. Bravo presents via telephonic encounter today for follow-up regarding abdominal pain and suspected IBS-D. I recently prescribed Colestipol for possible bile acid diarrhea. She has not noted any improvement with diarrhea with this. She continues to experience frequent RLQ discomfort. Dicyclomine has been helpful with abdominal cramping, but has not seemed to change much with the pain she experiences in the RLQ. PREVIOUS (02/14/23): Ms. Bravo presents via telephonic encounter today for follow-up regarding right sided abdominal pain, IBS, diarrhea, and nausea. She was previously started on low dose amitriptyline at bedtime, but states this causes upset stomach and she wishes to stop it. She continues to experience frequent diarrhea, up to 8 episodes daily. She also reports continued issues with nausea. PREVIOUS (03/17/23): Ms. Bravo presents via telephonic encounter today for follow-up regarding abdominal pain, diarrhea, and nausea. She was recently prescribed Xifaxan for the diarrhea, but this did not provide relief. I ordered a KUB and gastric emptying scan, however these are not scheduled until next month on the . Her symptoms are unchanged at this time. She states she is having a lot of body pain today related to MS. CURRENT (06/23/23): Ms. Bravo presents via telephonic encounter today for follow-up regarding abdominal pain, diarrhea, and nausea. She has continued to struggle with near daily abdominal pain. She describes this as intense pain near the umbilicus that radiates to the right lower quadrant. She continues to experience intermittent diarrhea. Gastric emptying study was recently unremarkable. KUB indicated moderate colonic stool. I prescribed MiraLax following that finding, however she has not found it to be particularly helpful. She is also using the colestipol without much improvement. She is taking promethazine at bedtime and Zofran as needed during the daytime, which manages her nausea well. I spent a total of 23 minutes during this real-time clinical encounter that was initiated by the patient which started at 1537 and ended at 1600. Consent was obtained to engage in telephonic service. Greater than 50% of the time spent was devoted to counseling and coordinating care including review of patient record, patient lab data and studies as well as discussing diagnostic evaluation and workup, planned therapeutic intervention and further disposition of care. Jacob Lorenzo PA-C [address], [place], [phone], [facility] - [facility] - [place] & [place] 06/23/2023 17:12:40 07/05/2023 text/html PREVIOUS ( 3): Ms. Bravo is a very pleasant 37-year-old female with history of multiple sclerosis who was referred by Chetna Santiago for evaluation of nausea, vomiting, diarrhea, and abdominal pain. Her symptoms have been present for several months. She underwent CT abdomen 06/07/22 that showed splenomegaly without acute process otherwise. She notes mid upper abdominal pain that radiates to the right lower quadrant. She is having 2-3 loose BMs daily without melena or hematochezia. She is taking Zofran as needed for nausea, which is helpful. She reports family history of Crohn's disease in her sister. She denies heartburn or dysphagia. PREVIOUS (12/21/22): Ms. Bravo returns to the office today for follow-up regarding nausea, diarrhea, and abdominal pain. She underwent EGD and colonoscopy earlier this month with no abnormal findings. Gastric biopsies showed reactive gastropathy with normal duodenal and random colon biopsies. She has continued to experience frequent symptoms. She was seen in the ED yesterday for this and underwent CT abd/pelvis that was unremarkable. Labs and stool studies have been essentially normal. PREVIOUS (01/03/23): Ms. Bravo presents via telephonic encounter today for follow-up regarding abdominal pain and suspected IBS-D. I recently prescribed Colestipol for possible bile acid diarrhea. She has not noted any improvement with diarrhea with this. She continues to experience frequent RLQ discomfort. Dicyclomine has been helpful with abdominal cramping, but has not seemed to change much with the pain she experiences in the RLQ. PREVIOUS (02/14/23): Ms. Bravo presents via telephonic encounter today for follow-up regarding right sided abdominal pain, IBS, diarrhea, and nausea. She was previously started on low dose amitriptyline at bedtime, but states this causes upset stomach and she wishes to stop it. She continues to experience frequent diarrhea, up to 8 episodes daily. She also reports continued issues with nausea. PREVIOUS (03/17/23): Ms. Bravo presents via telephonic encounter today for follow-up regarding abdominal pain, diarrhea, and nausea. She was recently prescribed Xifaxan for the diarrhea, but this did not provide relief. I ordered a KUB and gastric emptying scan, however these are not scheduled until next month on the . Her symptoms are unchanged at this time. She states she is having a lot of body pain today related to MS. PREVIOUS (06/23/23): Ms. Bravo presents via telephonic encounter today for follow-up regarding abdominal pain, diarrhea, and nausea. She has continued to struggle with near daily abdominal pain. She describes this as intense pain near the umbilicus that radiates to the right lower quadrant. She continues to experience intermittent diarrhea. Gastric emptying study was recently unremarkable. KUB indicated moderate colonic stool. I prescribed MiraLax following that finding, however she has not found it to be particularly helpful. She is also using the colestipol without much improvement. She is taking promethazine at bedtime and Zofran as needed during the daytime, which manages her nausea well. CURRENT (07/05/23 Dallas Vasquez): Ms. Bravo presents to the clinic today for hospital follow-up. She was seen in [facility] emergency department recently with abdominal pain. CT scan revealed small umbilical hernia but was otherwise unremarkable. White count was 15. She was discharged on doxycycline and dicyclomine. She reports taking dicyclomine 4 times daily which has not been helpful. she completed her antibiotic as well with no reported improvement with pain. She continues to complain of diarrhea. She has a history of partial hysterectomy due to abnormal uterine bleeding. She also has history of hernia repair x2 with mesh at [facility]. She denies any hormone replacement therapy but is on medication for hot flashes. She denies any nausea, vomiting, early satiety, unintentional weight loss, hematemesis, hematochezia or melena. CHAYO VASQUEZ MSN, PRINT W[employer]ER, [employer]-C [address], [place], [phone], [facility] & [place] 07/05/2023 11:08:59 07/21/2023 text/html CURRENT (07/22/23 ): Ms. Bravo presents via telephonic encounter today for follow-up regarding chronic RLQ abdominal pain and diarrhea. She was previously referred back to the general surgeon who had performed her ventral hernia surgery due to concern over possible abdominal adhesions as a source of her abdominal pain. She states the surgeon no longer practices in the area. She is requesting to see a different surgeon for the issue. She has continued to experience daily abdominal discomfort and loose stools. She has trialed several treatments for this without much success, including Creon most recently. She has continue Bentyl 2-3 times daily. A trial of laxative therapy for possible overflow constipation made her diarrhea worse. She also complains of intermittent nausea and vomiting. Recent CT and gastric emptying study were performed with no source for her symptoms identified. EGD and colonoscopy in November were normal. Stool studies have been normal. She is scheduled to see her core paster on July 25. I spent a total of 13 minutes during this real-time clinical encounter that was initiated by the patient which started at 1346 and ended at 1359. Consent was obtained to engage in telephonic service. Greater than 50% of the time spent was devoted to counseling and coordinating care including review of patient record, patient lab data and studies as well as discussing diagnostic evaluation and workup, planned therapeutic intervention and further disposition of care. Jacob Lorenzo PA-C [address], [place], [phone], [facility] & [place] 07/22/2023 14:15:47 08/22/2023 text/html PREVIOUS ( 4): Ms. Bravo presents via telephonic encounter today for follow-up regarding chronic RLQ abdominal pain and diarrhea. She was previously referred back to the general surgeon who had performed her ventral hernia surgery due to concern over possible abdominal adhesions as a source of her abdominal pain. She states the surgeon no longer practices in the area. She is requesting to see a different surgeon for the issue. She has continued to experience daily abdominal discomfort and loose stools. She has trialed several treatments for this without much success, including Creon most recently. She has continue Bentyl 2-3 times daily. A trial of laxative therapy for possible overflow constipation made her diarrhea worse. She also complains of intermittent nausea and vomiting. Recent CT and gastric emptying study were performed with no source for her symptoms identified. EGD and colonoscopy in November were normal. Stool studies have been normal. She is scheduled to see her core paster on July 25. CURRENT (08/22/23): Ms. Bravo presents via telephonic encounter today for follow-up regarding abdominal pain, distension, and diarrhea. Lomotil was previously prescribed but she did not feel that it improved her symptoms so she stopped it. She has continued to experience bothersome abdominal pain and bloating. Her stools remain intermittently loose. She is scheduled to have a consultation with General Surgery regarding possible abdominal adhesions. She has a history of multiple abdominal surgeries. I spent a total of 6 minutes during this real-time clinical encounter that was initiated by the patient which started at 1413 and ended at 1419. Consent was obtained to engage in telephonic service. Greater than 50% of the time spent was devoted to counseling and coordinating care including review of patient record, patient lab data and studies as well as discussing diagnostic evaluation and workup, planned therapeutic intervention and further disposition of care. (Patient requested telephonic encounter due to difficulty making it in to the office today and limited capability for televideo conferencing) Jacob Lorenzo PA-C [address], [place], [phone], [facility] - [facility] - [place] & [place] 08/22/2023 22:30:49 OBGyn Episode No OBEpisode recorded.
--- OUTSIDE RECORDS SUMMARY | 2024-06-07 23:09 | XMS_ITS | Continuity of Care Document ---
Author Organization [facility] & [place], [facility] [address] Address [address] [place] [address] Assessment No assessment recorded. Plan of Treatment Reminders Order Date Submit Date Provider Last Modified By Organization Details Last Modified Time Details Appointments VNG 2024 09:30A M FLORES MCKEON Not available Not available Not available Establish ed Visit 30 min 2024 10:30A M VIDA GALLARDO NP Not available Not available Not available Lab None recorded. Referral None recorded. Procedures None recorded. Surgeries None recorded. Imaging None recorded. Medication Orders None recorded. Patient TargetsNo targets recorded. Patient InstructionsNo instructions recorded. Reason for Referral None Reported. Results Created Date Observation Date Name Description Value Unit Range Abnormal Flag Note LastModifiedBy Organization Detail LastModifiedTime 06/06/19 25 audio gram No observ ation record ed. [email or web address] Not Available 12:57:19 Result Notes None recorded. Problems Name Problem SNOMED Code Status Onset Date Resolution Date Notes Provider Name and Address Organization Details Recorded Time Dizziness and giddiness 394614213 Active 025 FLORES MCKEON [address], [place], [address] , [facility] & [place] 11:22:01 Problem Notes None recorded. Procedures Surgical History Date Name Laterality Status Provider Name and Address Organization Details Recorded Time 025 Cerumen removal with microscope completed VIDA GALLARDO NP [address], [place], [address], [facility] & [place] 06/05/2024 11:10:48 cholecystectomy completed Teresa CASILLAS - LPNT [facility] & [place] 06/05/2024 10:46:56 Imaging Results None recorded. Procedure Notes None recorded. Medical Equipment None Reported. Allergies Allergen ID Allergen Name Allergen Category Reaction Reaction Severity Criticality Documentation Date Start Date Code Code System Note Provider Name and Address Organization Details Recorded Time 477920 Substance with sulfonami de structure and antibacte rial mechanism of action (substanc e) medicatio n Not available Not available Not available 06/05/2024 96792 8003 SNOMED Teresa Isaaco n null, VINNY - LPNT [facility] & [place] 5 10:24:33 494671 amoxicill in medicatio n Not available Not available Not available 06/05/2024 723 RxNorm Teresarosalie Grayo n null, VINNY - LPNT [facility] & [place] 5 10:24:39 947604 erythromy dinh medicatio n Not available Not available Not available 06/05/2024 4053 RxNorm Teresa Isaaco n null, [place] - LPNT [facility] & [place] 5 10:42:19 885664 codeine medicatio n Not available Not available Not available 06/05/2024 2670 RxNorm Teresa Williamso n null, [place] - LPNT [facility] & [place] 5 10:42:23 568689 naproxen medicatio n Not available Not available Not available 06/05/2024 7258 RxNorm Teresa Williamso n null, [place] - LPNT [facility] & [place] 5 10:42:29 370489 oxycodone medicatio n Not available Not available Not available 06/05/2024 7804 RxNorm Teresa Williamso n null, [place] - LPNT [facility] & [place] 5 10:43:19 562116 hydrocodo ne Not available Not available Not available Not available 06/05/2024 5489 RxNorm Teresa Isaaco n null, [place] - LPNT [facility] & [place] 10:43:25 Medications Name Sig Start Date Stop Date Status Note LastModified by Organization Details LastModified Time cyclobenzap rine 10 mg tablet take 1 tablet Orally three times a day as needed 30 day(s) active Not Available Not Available No t Available acetaminoph en 325 mg tablet TAKE 1-2 tabs orally every 6 hours as needed 13 active Not Available Not Available No t Available cetirizine 10 mg tablet TAKE ONE TABLET BY MOUTH ONCE DAILY active Not Available Not Available No t Available atorvastati n 10 mg tablet TAKE ONE TABLET BY MOUTH ONCE DAILY active Not Available Not Available No t Available azithromyci n 250 mg tablet TAKE 2 TABLETS BY MOUTH ON DAY 1, THEN TAKE 1 TABLET DAILY ON DAYS 2-5 06/05 completed Not Available Not Available Not Available ondansetron HCl 4 mg tablet Take 1 tablet (4 mg) by mouth every 8 (eight) hours if needed for nausea or vomiting. active Not Available Not Available No t Available cyanocobala min (vit B-12) 1,000 mcg tablet take 1 tab(s) by mouth once a day for 30 day(s) 06/05 completed Not Available Not Available Not Available diphenoxyla te-atropine 2.5 mg-0.025 mg tablet Take 1 tablet by mouth 4 times a day for 30 days. 06/05 completed Not Available Not Available Not Available fexofenadin e 180 mg tablet take 1 tablet daily swallow whole with water; do not take with fruit juices 06/05 completed Not Available Not Available Not Available doxycycline monohydrate 100 mg tablet TAKE ONE TABLET BY MOUTH TWICE DAILY FOR SEVEN DAYS 06/05 completed Not Available Not Available Not Available levothyroxi ne 25 mcg tablet TAKE 1 tab(s) orally once a day 30 days active Not Available Not Available No t Available ketorolac 0.5 % eye drops PLACE ONE DROP IN THE RIGHT EYE THREE TIMES DAILY FOR ONE WEEK DIRECTED 06/05 completed Not Available Not Available Not Available methocarbam ol 750 mg tablet take 1 tablet Orally Three times a day 06/05 completed Not Available Not Available Not Available ascorbic acid (vitamin C) 500 mg tablet TAKE ONE TABLET BY MOUTH TWICE DAILY 30 06/05 completed Not Available Not Available Not Available dicyclomine 20 mg tablet TAKE ONE TABLET BY MOUTH FOUR TIMES DAILY NEEDED FOR abdominal pain 06/05 completed Not Available Not Available Not Available amitriptyli ne 10 mg tablet Take 1 tablet every day by oral route at bedtime for 30 days. active Not Available Not Available No t Available meclizine 25 mg tablet Take 1 and 1/2 tablets (37.5mg) by mouth in the morning then 1 tablet (25mg) midday then take 1 and 1/2 tablets (37.5mg) at night as needed. active Not Available Not Available No t Available pantoprazol e 40 mg tablet,aleisha yed release TAKE ONE TABLET BY MOUTH ONCE DAILY active Not Available Not Available No t Available neomycin-po lymyxin-dex ameth 3.5 mg/mL-10,00 0 unit/mL-0.1 % eye drops place 1 drop into affected eye 4x/day for 4-7 days 06/05 completed Not Available Not Available Not Available dexamethaso ne 4 mg tablet take 1 tablet ORAL route 2 times per day 06/05 completed Not Available Not Available Not Available lorazepam 1 mg tablet Take 45 min prior to MRI 06/05 completed Not Available Not Available Not Available polyethylen e glycol 3350 17 gram/dose oral powder DISSOLVE ONE capful in EIGHT ounces of liquid amd drink TWICE DAILY FOR THREE DAYS, THEN reduce TO ONCE daily 06/05 completed Not Available Not Available Not Available estradiol 0.01% (0.1 mg/gram) vaginal cream Insert 1 gram into the vagina 2 (two) times a week. 06/05 completed Not Available Not Available Not Available methylpredn isolone 4 mg tablets in a dose pack TAKE DIRECTED ON PACKAGE FOR SIX DAYS 06/05 completed Not Available Not Available Not Available bromphenira mine-pseudo ephedrine-D M 2 mg-30 mg-10 mg/5 mL oral syrup take 5-10 mls BY MOUTH FOUR TIMES DAILY NEEDED 06/05 completed Not Available Not Available Not Available ondansetron 4 mg disintegrat ing tablet DISSOLVE ONE TABLET BY MOUTH EVERY 6-8 hours NEEDED 06/05 completed Not Available Not Available Not Available cefdinir 300 mg capsule TAKE ONE CAPSULE BY MOUTH TWICE DAILY FOR SEVEN DAYS 06/05 completed Not Available Not Available Not Available fluticasone propionate 50 mcg/actuati on nasal spray,suspe nsion use 1 spray in each nostril Once a day 30 active Not Available Not Available No t Available metformin ER 500 mg tablet,exte nded release 24 hr TAKE ONE TABLET BY MOUTH ONCE DAILY 30 days active Not Available Not Available No t Available colestipol 1 gram tablet Take 2 tablets twice a day by oral route for 30 days. 06/05 completed Not Available Not Available Not Available metronidazo le 0.75 % topical gel Apply a thin layer to face daily. 06/05 completed Not Available Not Available Not Available zinc sulfate 50 mg zinc (220 mg) capsule TAKE ONE CAPSULE BY MOUTH ONCE DAILY 30 active Not Available Not Available No t Available FeroSul 325 mg (65 mg iron) tablet TAKE 1 tab(s) by mouth once daily active Not Available Not Available No t Available desvenlafax ine succinate ER 50 mg tablet,exte nded release 24 hr TAKE ONE TABLET BY MOUTH ONCE DAILY 06/05 completed Not Available Not Available Not Available desvenlafax ine succinate ER 100 mg tablet,exte nded release 24 hr TAKE 1 TABLET(10 0 mg) orally daily active Not Available Not Available No t Available cholecalcif addison (vitamin D3) 50 mcg (2,000 unit) tablet take 1 tab(s) orally once a day for 30 days 06/05 completed Not Available Not Available Not Available Creon 36,000 unit-114,00 0 unit-180,00 0 unit capsule,del ayed release Take 2 capsule by mouth with meals, 1 capsule by mouth with snacks (up to 8 capsules daily), 30 days 06/05 completed Not Available Not Available Not Available Nurtec ODT 75 mg disintegrat ing tablet take 1 tablet on the tongue and allow to dissolve Orally once daily, NEEDED for migraine active Not Available Not Available No t Available vitamin D3 1,250 mcg (50,000 unit)-vitam in K2 200 mcg capsule Take by oral route. active Not Available Not Available No t Available Veozah 45 mg tablet Take 1 tab by mouth daily. active Not Available Not Available No t Available Vitals Date Recorded Body weight Body temperature Systolic blood pressure Diastolic blood pressure Provider Name and Address Organization Details Last Updated DateTime 06/05/2024 805084.5 3 g 97.8 [degF] 132 mm[Hg] 89 mm[Hg] Teresa Bartlett [place] - LPNT [facility] & [place] 10:41:10 Social History None recorded. Functional Status None recorded. Mental Status None recorded. Family History Nothing Reported. Medical History Condition Response Allergies/Hayfever Y Heart Problems N None N Heart Conditions N Emphysema N Migraines N Thyroid Problems Y Glaucoma N Depression N Developmental Delay N Anemia N Immune System Disorder Y Anesthesia Complications N Heart Attack ([place]) N Anxiety Disorder N Diabetes N Bleeding Disorder N Arthritis N Hearing Loss N Tuberculosis N Acid Reflux (GERD) N Hyperlipidemia N Cancer N Stroke N Asthma N Sleep Disorder N GERD/Reflux N Heart Disease N Headaches N Fibromyalgia N Hypertension N Speech Delay N Kidney Disease N Gynecological HistoryNo gynecological history recorded. Obstetrics History GPAL:G 0 P 0 0 0 0 Past Encounters Encounter ID Performer Location Encounter Start Date Encounter Closed Date Diagnosis/Indication Diagnosis SNOMED-CT Code Diagnosis ICD10 Code Diagnosis Note [id number] VIDA GALLARDO NP [facility] [address] [address] 06/05/2024 10:14:47 06/05/2024 11:22:58 Impacted cerumen in right ear 5854178923 332716 H61.21 Removed obstructiv e cerumen using curettage. Patient tolerated well. Spontaneous nystagmus 27 6220936 H55.09 Constant vertigo 7787344 06 R42 Audiometri c testing revealed normal hearing thresholds with good word rec scores bilaterall y. Will work her up with VNG here in the office which she can schedule at her [facility]. She will need to stop taking meclizine at least 24 hours prior to this test and bring a uke driver with her. Her neurologis t at ordered a MRI of the brain w/ and w/o contrast which is scheduled for 06/12 in [place]. Will be on the lookout for the results of this. Multiple sclerosis 02410 007 G35 Dizziness and giddiness 536990841 R42 [id number] FLORES MCKEON [facility] [address] [address] 06/05/2024 11:05:29 06/05/2024 11:17:49 Dizziness and giddiness 020149185 R42 Health Concerns Section Related Observation LastModified by Organization Detai ls LastModified Time None Recorded Concern Status LastModified by Organization Details LastModified Time None Recorded Payers Encounter Date Sequence Insurance Name Policy Number Policy Enciso Covered Member ID Enciso Member ID Guarantor Name 06/05/2024 1 [place] [employer] [place] FFS/TRADITIO NAL Yumiko Bravo [id number] Yumiko Bravo Notes Date Note Type Note Provider Name and Address Organization Details Recorded Time 06/05/2024 text/html 06/05/24 - 39 year old female in office for dizziness. Patient says she started having dizzy spells in 2006 and has gotten worse in the last few months. Patient says she can get dizzy at any time nothing seems to trigger this. Patient does take meclizine as needed and is unsure if this helps. Patient does have nystagmus. Patient does have a neurologist that she sees for multiple sclerosis. Patient says she is scheduled for an MRI of the brain soon. Patient denies aural pain, fullness, and drainage. Patient describes her dizziness as the room spinning or as if she was on a roller coaster. Patient does have a lot of nausea with these episodes. VIDA GALLARDO, LUZ MARIA [address] [facility] [facility], [place], [address], [facility] & [place] 06/06/2024 11:18:56 06/05/2024 text/html Ms. Bravo was seen today for an audiologic evaluation due to long-standing dizziness/vertigo per Vida Gallardo APRN. 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 She reports that her dizziness and nystagmus have been ongoing since 2006. Her medical hx includes a multiple sclerosis diagnosis. She denies hearing loss, tinnitus, aural fullness/pressure, and excessive noise exposure. Otoscopic inspection was unremarkable bilaterally. Audiometric testing revealed normal hearing thresholds with good word rec scores bilaterally. 1-Discussed findings with Ms. Bravo and Vida Gallardo APRN. 2-F/u with Vida this date. 3-F/u for VNG as planned. FLORES MCKEON [address] [facility], [place], [address], [facility] [place] & [place] 06/05/2024 11:22:16 OBGyn Episode No OBEpisode recorded.
--- OUTSIDE RECORDS SUMMARY | 2024-06-07 23:09 | XMS_ITS | Continuity of Care Document ---
Author Organization [facility] & [place], [facility] [place] Address [address] [place] [address] Assessment No assessment recorded. Plan of Treatment [...] audio gram No observ ation record ed. [email or web address] Not Available 12:57:19 Result Notes None recorded. Problems Name Problem SNOMED Code Status Onset Date Resolution Date Notes Provider Name and Address Organization Details Recorded Time Dizziness and giddiness 710483378 Active 025 FLORES MCKEON [address], [place], [address] , [facility] & [place] 11:22:01 Problem Notes None recorded. Procedures Surgical History Date Name Laterality Status Provider Name and Address Organization Details Recorded Time 025 Cerumen removal with microscope completed VIDA GALLARDO NP [address], [place], [address], [facility] & [place] 06/05/2024 11:10:48 cholecystectomy completed Teresa CASILLAS - LPNT [facility] & [place] 06/05/2024 10:46:56 Imaging Results None recorded. Procedure Notes None recorded. Medical Equipment None Reported. Allergies Allergen ID Allergen Name Allergen Category Reaction Reaction Severity Criticality Documentation Date Start Date Code Code System Note Provider Name and Address Organization Details Recorded Time 892705 Substance with sulfonami de structure and antibacte rial mechanism of action (substanc e) medicatio n Not available Not available Not available 06/05/2024 29840 8003 SNOMED Teresa Isaaco n null, VINNY - LPNT [facility] & [place] 5 10:24:33 161354 amoxicill in medicatio n Not available Not available Not available 06/05/2024 723 RxNorm Teresarosalie Grayo n null, VINNY - LPNT [facility] & [place] 5 10:24:39 908944 erythromy dinh medicatio n Not available Not available Not available 06/05/2024 4053 RxNorm Teresa Isaaco n null, [place] - LPNT [facility] & [place] 5 10:42:19 812317 codeine medicatio n Not available Not available Not available 06/05/2024 2670 RxNorm Teresa Williamso n null, [place] - LPNT [facility] & [place] 5 10:42:23 140710 naproxen medicatio n Not available Not available Not available 06/05/2024 7258 RxNorm Teresa Williamso n null, [place] - LPNT [facility] & [place] 5 10:42:29 126737 oxycodone medicatio n Not available Not available Not available 06/05/2024 7804 RxNorm Teresa Williamso n null, [place] - LPNT [facility] & [place] 5 10:43:19 972863 hydrocodo ne Not available Not available Not available Not available 06/05/2024 5489 RxNorm Teresa Isaaco n null, [place] - LPNT [facility] & [place] 10:43:25 Medications Name Sig Start Date Stop [...] Address Organization Details Last Updated DateTime 06/05/2024 898336.5 3 g 97.8 [degF] 132 mm[Hg] 89 mm[Hg] Teresa Bartlett [place] - LPNT [facility] & [place] 10:41:10 Social History None recorded. Functional Status None recorded. Mental Status None recorded. Family History Nothing Reported. Medical History Condition Response Allergies/Hayfever Y Heart Problems N None N Heart Conditions N Emphysema N Migraines N Thyroid Problems Y Glaucoma N Developmental Delay N Depression N Anemia N Immune System Disorder Y Anesthesia Complications N Heart Attack ([place]) N Diabetes N Anxiety Disorder N Bleeding Disorder N Hearing Loss N Arthritis N Tuberculosis N Hyperlipidemia N Acid Reflux (GERD) N Cancer N Stroke N Asthma N Sleep Disorder N GERD/Reflux N Heart Disease N Headaches N Fibromyalgia N Hypertension N Speech Delay N Kidney Disease N Gynecological HistoryNo gynecological history recorded. Obstetrics History GPAL:G 0 P 0 0 0 0 Past Encounters Encounter ID Performer Location Encounter Start Date Encounter Closed Date Diagnosis/Indication Diagnosis SNOMED-CT Code Diagnosis ICD10 Code Diagnosis Note [id number] VIDA GALLARDO NP [facility] [address] [address] 06/05/2024 10:14:47 06/05/2024 11:22:58 Impacted cerumen in right ear 5904599432 082176 H61.21 Removed obstructiv e cerumen using curettage. Patient tolerated well. Spontaneous nystagmus 27 3879484 H55.09 Constant vertigo 1619156 06 R42 Audiometri c testing revealed normal hearing thresholds with good word rec scores bilaterall y. Will work her up with VNG here in the office which she can schedule at her [facility]. She will need to stop taking meclizine at least 24 hours prior to this test and bring a electric truck driver with her. Her neurologis t at ordered a MRI of the brain w/ and w/o contrast which is scheduled for 06/12 in [place]. Will be on the lookout for the results of this. Multiple sclerosis 41277 007 G35 Dizziness and giddiness 049160397 R42 [id number] FLORES MCKEON [facility] [address] [address] 06/05/2024 11:05:29 06/05/2024 11:17:49 Dizziness and giddiness 966754679 R42 Health Concerns Section Related Observation LastModified by Organization Detai ls LastModified Time None Recorded Concern Status LastModified by Organization Details LastModified Time None Recorded Payers Encounter Date Sequence Insurance Name Policy Number Policy Enciso Covered Member ID Enciso Member ID Guarantor Name 06/05/2024 1 [place] [employer] F[place]/TRADITIO NAL Yumiko Bravo [id number] Yumiko Bravo Notes Date Note Type Note [...] with these episodes. VIDA GALLARDO, LUZ MARIA [address] [facility], [place], [address], [facility] & [place] 06/06/2024 11:18:56 06/05/2024 text/html Ms. Bravo was [...] for VNG as planned. FLORES MCKEON [address] [facility], [place], [address], [facility] [place] & [place] 06/05/2024 11:22:16 OBGyn Episode No OBEpisode recorded.
--- OUTSIDE RECORDS SUMMARY | 2024-06-07 23:09 | XMS_ITS | Data Portability ---
Author Organization [facility] & [facility] ADMIN Address [address] [place] [address] Assessment No assessment recorded. Plan of Treatment [...] audio gram No observ ation record ed. [email or web address] Not Available 12:57:19 Result Notes None recorded. Problems Name Problem SNOMED Code Status Onset Date Resolution Date Notes Provider Name and Address Organization Details Recorded Time Dizziness and giddiness 705802130 Active 025 FLORES MCKEON [address], [place], [address] , [facility] - NT [facility] & [place] 11:22:01 Problem Notes None recorded. Procedures Surgical History Date Name Laterality Status Provider Name and Address Organization Details Recorded Time 025 Cerumen removal with microscope completed VIDA GALLARDO NP [address], [place], [address], [facility] - LPNT [facility] & [place] 06/05/2024 11:10:48 cholecystectomy completed Teresa Bartlett [place] - LPNT [facility] & [place] 06/05/2024 10:46:56 Imaging Results Imaging Date Name Status LastModified by Organiz ation Details LastModified Time 06/05/2024 audiogram completed sonia Information not available 06/05/2024 12:57:19 Procedure Notes None recorded. Medical Equipment None Reported. Allergies Allergen ID Allergen Name Allergen Category Reaction Reaction Severity Criticality Documentation Date Start Date Code Code System Note Provider Name and Address Organization Details Recorded Time 992630 Substance with sulfonami de structure and antibacte rial mechanism of action (substanc e) medicatio n Not available Not available Not available 06/05/2024 10619 8003 SNOMED Teresa Isaaco n null, [place] - [place] [facility] & [place] 5 10:24:33 018092 amoxicill in medicatio n Not available Not available Not available 06/05/2024 723 RxNorm Teresa Isaaco n [place], [place] - LPNT [facility] & [place] 5 10:24:39 748440 erythromy dinh medicatio n Not available Not available Not available 06/05/2024 4053 RxNorm Teresa Isaaco n [place] - [place] [facility] & [place] 5 10:42:19 238349 codeine medicatio n Not available Not available Not available 06/05/2024 2670 RxNorm Teresa Williamso n null, [place] - [facility] & [place] 5 10:42:23 400713 naproxen medicatio n Not available Not available Not available 06/05/2024 7258 RxNorm Teresa Williamso n null, [place] - LPNT [facility] & [place] 5 10:42:29 346625 oxycodone medicatio n Not available Not available Not available 06/05/2024 7804 RxNorm Teresa Williamso n null, [place] - LPNT [facility] & [place] 5 10:43:19 710026 hydrocodo ne Not available Not available Not available Not available 06/05/2024 5489 RxNorm Teresa Williamso n [facility], [place] - LPNT - [place] & [place] 10:43:25 Medications Name Sig Start Date Stop [...] Address Organization Details Last Updated DateTime 06/05/2024 733450.5 3 g 97.8 [degF] 132 mm[Hg] 89 mm[Hg] Teresa Bartlett [place] - LPNT [facility] & [place] 10:41:10 Social History None recorded. Functional Status None recorded. Mental Status None recorded. Family History Nothing Reported. Medical History Condition Response Allergies/Hayfever Y Heart Problems N None N Heart Conditions N Emphysema N Migraines N Thyroid Problems Y Developmental Delay N Depression N Glaucoma N Anemia N Immune System Disorder Y Anesthesia Complications N Heart Attack ([place]) N Diabetes N Anxiety Disorder N Bleeding [...] SNOMED-CT Code Diagnosis ICD10 Code Diagnosis Note [id number] VIDA GALLARDO NP [facility] [address] [place] [address] 06/05/2024 10:14:47 06/05/2024 11:22:58 Impacted cerumen in right ear 4710637054 078271 H61.21 Removed obstructiv e cerumen using curettage. Patient tolerated well. Spontaneous nystagmus 27 1225627 H55.09 Constant vertigo 0037781 06 R42 Audiometri c testing revealed normal hearing thresholds with good word rec scores bilaterall y. Will work her up with VNG here in the office which she can schedule [facility]. She will need to stop taking meclizine at least 24 hours prior to this test and bring a local flatbed driver with her. Her neurologis t at ordered a MRI of the brain w/ and w/o contrast which is scheduled for 06/12 in [place]. Will be on the lookout for the results of this. Multiple sclerosis 14261 007 G35 Dizziness and giddiness 100752151 R42 [id number] FLORES MCKEON [facility] [address] [place] [address] 06/05/2024 11:05:29 06/05/2024 11:17:49 Dizziness and giddiness 501319567 R42 Health Concerns Section Related Observation LastModified by Organization Detai ls LastModified Time None Recorded Concern Status LastModified by Organization Details LastModified Time None Recorded Advance Directives Directive None Recorded Payers Encounter Date Sequence Insurance Name Policy Number Policy Enciso Covered Member ID Enciso Member ID Guarantor Name 06/05/2024 1 MEDICAID-[facility] HEALTH CHOICES - FFS/TRADITIO NAL Yumiko Rubio [place] [id number] Yumikoanjelica Norrischie 06/05/2024 1 MEDICAID-[facility] HEALTH CHOICES - FFS/TRADITIO NAL Yumiko Ramiro [place] [id number] Yumiko Norrischie Notes Date Note Type Note Provider Name [...] with these episodes. VIDA GALLARDO, LUZ MARIA [address] [facility], [place], [address], [place] - LPNT - [place] & [place] 06/06/2024 11:18:56 06/05/2024 text/html Ms. Bravo was [...] 1-Discussed findings with Ms. Bravo and Vida Gallardo, [employer] DOWEL MACHINE OPERATOR. 2-F/u with Vida this date. 3-F/u for VNG as planned. MADISYN MO, AUD [address] [facility], [place], [address], [facility] - [place] & [place] 06/05/2024 11:22:16 OBGyn Episode No OBEpisode recorded.
== END 2024-06-07 23:59 | disposition home or self-care (01) ==
LOC: RAD 10:01
PROVIDERS: PCP Family Medicine; Visit Provider Nurse Practitioner Family
DX: Q83.9 Congenital malformation of breast, unspecified (principal)
CPT/HCPCS: 76641; 77061; 77065; G0279

== ENCOUNTER 2024-07-10 10:37 | Outpatient (CLI) | payer MEDICAID, SELFPAY ==
--- OUTSIDE RECORDS SUMMARY | 2024-07-10 10:39 | XMS_ITS | Data Portability ---
Author Organization [facility] & [facility] ADMIN Address [address] [place] [address] Assessment No assessment recorded. Plan of Treatment Reminders Order Date Submit Date Provider Last Modified By Organization Details Last Modified Time Details Appointments None recorded. Lab None recorded. Referral otolaryngo logist referral - referring for second opinion. 2024 [employer], [address], [place], [address], 14:23:57 Procedures None recorded. Surgeries None recorded. Imaging None recorded. Medication Orders None recorded. Patient TargetsNo targets recorded. Patient InstructionsNo instructions recorded. Reason for Referral Retort Operator Referral fo r Constant vertigo referring for second opinion. Referring Physician: Vida Gallardo Otolaryngology, Encounter Date: 07/03/2024 Results Created Date Observation Date Name Description Value Unit Range Abnormal Flag Note LastModifiedBy Organization Detail LastModifiedTime 06/06/19 25 audio gram No observ ation record ed. [email or web address] Not Available 12:57:19 Result Notes None recorded. Problems Name Problem SNOMED Code Status Onset Date Resolution Date Notes Provider Name and Address Organization Details Recorded Time Dizziness and giddiness 658994984 Active 025 FLORES MCKEON [address] , [place], [address] , [facility] & [place] 11:22:01 Problem Notes None recorded. Procedures Surgical History Date Name Laterality Status Provider Name and Address Organization Details Recorded Time 025 Cerumen removal with microscope completed VIDA GALLARDO, LUZ MARIA [address] [facility], [place], [address], [place] - [facility] - [place] & [place] 06/05/2024 11:10:48 cholecystectomy completed Teresa Bartlett [place] - LPNT - [place] & [place] 06/05/2024 10:46:56 Imaging Results Imaging Date Name Status LastModified by Organiz ation Details LastModified Time 06/05/2024 audiogram completed [email or web address] Information not available 06/05/2024 12:57:19 Procedure Notes None recorded. Medical Equipment None Reported. Allergies Allergen ID Allergen Name Allergen Category Reaction Reaction Severity Criticality Documentation Date Start Date Code Code System Note Provider Name and Address Organization Details Recorded Time 848962 Substance with sulfonami de structure and antibacte rial mechanism of action (substanc e) medicatio n Not available Not available Not available 06/05/2024 28383 8003 SNOMED Myriam Richardso n null, [place] - LPNT [facility] & [place] 5 10:38:35 925484 amoxicill in medicatio n Not available Not available Not available 06/05/2024 723 RxNorm Myriam Richardso n null, [place] - LPNT [facility] & [place] 5 10:38:51 916640 erythromy dinh medicatio n Not available Not available Not available 06/05/2024 4053 RxNorm Myriam Richardso n null, [place] - LP[facility] & [place] 5 10:37:05 031218 codeine medicatio n Not available Not available Not available 06/05/2024 2670 RxNorm Myriam Richardso n null, [place] - LP[facility] & [place] 5 10:38:20 246860 naproxen medicatio n Not available Not available Not available 06/05/2024 7258 RxNorm Myriam Richardso n null, [place] - [facility] & [place] 5 10:37:57 550233 oxycodone medicatio n Not available Not available Not available 06/05/2024 7804 RxNorm Myriam Richardso n null, [place] - [facility] & [place] 5 10:33:58 454533 hydrocodo ne Not available Not available Not available Not available 06/05/2024 5489 RxNorm VINNY Abel [facility] & [place] 5 10:33:44 488460 meclizine medicatio n Not available Not available Not available 07/03/2024 6676 RxNorm Myriam Bautista n VINNY rondon [facility] & [place] 5 10:34:57 Medications Name Sig Start Date Stop Date [...] No t Available cetirizine 10 mg tablet take 1 tablet Orally Once a day 30 days active Not Available [...] Not Available methocarbam ol 750 mg tablet TAKE ONE TABLET BY MOUTH THREE TIMES DAILY active Not Available Not Available No t Available ascorbic acid (vitamin C) 500 mg tablet TAKE ONE TABLET BY MOUTH TWICE DAILY 30 active Not Available Not Available No t Available dicyclomine 20 mg tablet TAKE ONE [...] Not Available promethazin e 25 mg tablet TAKE ONE TABLET BY MOUTH NEEDED EVERY 6 HOURS active Not Available Not Available No t Available lorazepam 1 mg tablet Take 45 min prior to MRI 06/05 completed Not Available Not Available Not Available polyethylen e glycol 3350 17 gram/dose oral powder DISSOLVE ONE capful in EIGHT ounces of liquid amd drink TWICE DAILY FOR THREE DAYS, THEN reduce TO ONCE daily active Not Available Not Available No t Available estradiol 0.01% (0.1 mg/gram) vaginal cream [...] Not Available Not Available No t Available Creon 36,000 unit-114,00 0 unit-180,00 0 [...] Address Organization Details Last Updated DateTime 06/05/2024 764932.5 3 g 97.8 [degF] 132 mm[Hg] 89 mm[Hg] Teresa Bartlett [facility] & [place] 10:41:10 Date Recorded Body temperature Body weight Systolic blood pressure Diastolic blood pressure Provider Name and Address Organization Details Last Updated DateTime 07/03/2024 97.9 [degF] 520101.7 9 g 124 mm[Hg] 63 mm[Hg] Myriam Cowan [facility] & [place] 10:32:58 Social History None recorded. Functional Status None recorded. Mental Status None recorded. Family History Nothing Reported. Medical History Condition Response Allergies/Hayfever Y Heart Problems N None N Heart Conditions N Emphysema N Migraines N Thyroid Problems Y Developmental Delay N Depression N Glaucoma N Anemia N Immune System Disorder Y Anesthesia Complications N Heart Attack ([place]) N Anxiety Disorder N Diabetes N Bleeding Disorder N Arthritis N Hearing Loss N Tuberculosis N Acid Reflux (GERD) N Hyperlipidemia N Cancer N Stroke N Asthma N Sleep Disorder N GERD/Reflux N Heart Disease N Fibromyalgia N Headaches N Hypertension N Speech Delay N Kidney Disease N Gynecological HistoryNo gynecological history recorded. Obstetrics History GPAL:G 0 P 0 0 0 0 Past Encounters Encounter ID Performer Location Encounter Start Date Encounter Closed Date Diagnosis/Indication Diagnosis SNOMED-CT Code Diagnosis ICD10 Code Diagnosis Note [id number] VIDA GALLARDO NP [facility] [place] [address] [place] [address] 06/05/2024 10:14:47 06/05/2024 11:22:58 Impacted cerumen in right ear 4831241940 251269 H61.21 Removed obstructiv e cerumen using curettage. Patient tolerated well. Spontaneous nystagmus 27 1454408 H55.09 Constant vertigo 5176896 06 R42 Audiometri c testing revealed normal hearing thresholds with good word rec scores bilaterall y. Will work her up with VNG here in the office which she can schedule at her [facility]. She will need to stop taking meclizine at least 24 hours prior to this test and bring a clark driver with her. Her neurologis t at ordered a MRI of the brain w/ and w/o contrast which is scheduled for 06/12 in [place]. Will be on the lookout for the results of this. Multiple sclerosis 35488 007 G35 Dizziness and giddiness 652219959 R42 [id number] FLORES MCKEON [facility] [place] [address] 06/05/2024 11:05:29 06/05/2024 11:17:49 Dizziness and giddiness 334418798 R42 [id number] VIDA GALLARDO NP [facility] [place] [id number] 07/03/2024 09:58:22 07/03/2024 10:52:37 Constant vertigo 515773441 R42 Audiometri c testing revealed normal hearing thresholds with good word rec scores bilaterall y. VNG testing today otherwise normal, our audiologis t was able to calibrate it to accommodat e baseline spontaneou s nystagmus. Caloric responses were noted to be negative (he uses hot and cold air to test calorics). Her neurologis t at ordered a MRI of the brain w/ and w/o contrast which is scheduled for 08/14 in [place]. Will be on the lookout for the results of this. In the meantime I recommende d to patient we refer her to [facility] for second opinion- evelio is agreeable to this. Spontaneous nystagmus 27 4842789 H55.09 Multiple sclerosis 11044 007 G35 Dizziness and giddiness 043807613 R42 [id number] FLORES MCKEON [facility] [address] [address] 07/03/2024 10:03:39 07/03/2024 10:31:51 Dizziness and giddiness 114759214 R42 Health Concerns Section Related Observation LastModified by Organization Detai ls LastModified Time None Recorded Concern Status LastModified by Organization Details LastModified Time None Recorded Advance Directives Directive None Recorded Payers Insurance Date Sequence Insurance Name Policy Number Policy Enciso Covered Member ID Enciso Member ID Guarantor Name 03/12/2019 1 [employer] (MEDICAID REPLACEMENT - HMO) [id number] Yumiko Norrischie [id number] Yumiko Norrischie 07/09/2024 1 [facility] Yumiko Norrischie [id number] Yumiko Norrischie 07/09/2024 1 [facility]ICA[facility] HEALTH CHOICES - FFS/TRADITIONA L Yumiko Norrischie [id number] Yumiko Norrischie Notes Date Note Type Note [...] these episodes. VIDA GALLARDO, LUZ MARIA [address] [facility], [place], [address], [facility] - [place] & [place] 06/06/2024 11:18:56 06/05/2024 text/html Ms. Bravo was [...] 1-Discussed findings with Ms. Bravo and Vida VALENTINA Gallardo. 2-F/u with Vida this date. 3-F/u for VNG as planned. MADISYN CHELY, AUD [address] [facility], [place], [address], [facility] & [place] 06/05/2024 11:22:16 07/03/2024 text/html Ms. Bravo was seen today for a vestibular evaluation due to long-standing dizziness/vertigo per Vida Gallardo APRN. 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 She reports that her dizziness and nystagmus have been ongoing since 2006. Her medical hx includes a multiple sclerosis diagnosis. She denies hearing loss, tinnitus, aural fullness/pressure, and excessive noise exposure. Otoscopic inspection was unremarkable bilaterally. Audiometric testing revealed normal hearing thresholds with good word rec scores bilaterally. Vestibular Exam: Spontaneous nystagmus throughout Cerebellar Signs: No signs of cerebellar deficits. Gait: Normal gait, without assistance from a walker/wheel chair. Tremors: No present tremors. Head Shake: Normal responses to vertical and horizontal headshake testing. Hallpike: Negative Hallpike for Benign Positional Paroxysmal Vertigo bilaterally. Eyes: Normal OPK (Optokinetics), Normal saccades, Normal smooth pursuit; no evident visual deficits at this time. Positionals: No nystagmus present during positionals head R/L, body R/L. Gaze: No nystagmus present during gaze.. Fixation: Fixation was present 1-Discussed findings with Ms. Bravo and Vida VALENTINA Gallardo. 2-F/u with Vida this . 3-F/u balance and audiologic testing as directed. MADISYNDeangelo MO, AUD [address] [facility], [place], [address], [facility] & [place] 07/03/2024 10:39:09 07/03/2024 text/html 4/8/25 - 39 year old female in office [...] a lot of nausea with these episodes. 07/03/24-Patient is here for a F/U for vertigo. Is scheduled August 14 for MRI. Still feeling real dizzy when she walks. Also is getting VNG testing today. VIDA GALLARDO, PICCOLOIST [address] [facility], [place], [address], [facility] - NT - [place] & [place] 07/09/2024 14:08:48 OBGyn Episode No OBEpisode recorded.
--- OUTSIDE RECORDS SUMMARY | 2024-07-10 10:39 | XMS_ITS | Data Portability ---
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 f/u 4 weeks [email or web address] Not available 06/23/2023 17:12:27 07/05/2023 07/05/2023 38-year-old [...] as needed F/u with Jacob already scheduled Not available 07/05/2023 11:08:29 07/21/2023 07/21/2023 38-year-old [...] Will refer to general surgery here in [place] to see if they share her concerns. 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 - Continue Dicyclomine - Start Lomotil as needed for diarrhea, discussed with Dr. Almonte, he will prescribe. 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 - Continue Dicyclomine -She will f/u here as needed. [email or web address] Not available 08/22/2023 22:30:07 Plan of Treatment Reminders Order Date Submit Date Provider Last Modified By Organization Details Last Modified Time Details Appointments None recorded. Lab None recorded. Referral None recorded. Procedures None recorded. Surgeries None recorded. Imaging CT, abdomen + pelvis, w/ contrast 2023 024 formerly [facility] (Centralized Scheduling), [address], [place], [address], 4 16:17:05 Medication Orders Creon 36,000 unit-114,0 00 unit-180,0 00 unit capsule,de layed release 2023 024 [facility], [address] [place] [address], [id number], 4 17:37:29 Patient TargetsNo targets recorded. Patient InstructionsNo instructions recorded. Reason for Referral None Reported. Problems Name Problem SNOMED Code Status Onset Date Resolution Date Notes Provider Name and Address Organization Details Recorded Time Diarrhea 84324352 Active 2022 Jacob Lorenzo PA-C [address], [place], [address] , [facility] - [place] - [place] & [place] 3 11:02:32 Upper abdominal pain 26602452 Active 2022 Jacob Lorenzo PA-C [address], [place], [address] , [place] - [facility] - [place] & [place] 3 11:03:18 Right lower quadrant pain 694619985 Active [address], [place], [address] , [place] - [facility] [place] 3 11:03:25 Epigastric pain 73052072 Active 2022 Jacob Lorenzo PA-C [address], [place], [address] , [place] [facility] [place] 3 11:03:32 Nausea and vomiting 17118212 Active [address], [place], [address] , [place] [facility] [place] 3 11:03:37 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 Jacob Lorenzo PA-C [address], [place], [address] , [place] [facility] [place] 3 09:10:06 Reactive gastropathy 396522926 Active 2022 Jacob Lorenzo PA-C [address], [place], [address] , [place] [facility] [place] 3 11:57:47 Irritable bowel syndrome 62033042 Active 2022 Jacob Lorenzo PA-C [address], [place], [address] , [place] [facility] [place] 3 12:00:03 Irritable bowel syndrome with diarrhea 589589289 Active 2022 Jacob Lorenzo PA-C [address], [place], [address] , [place] [facility] [place] 3 16:23:53 Constipation 49117998 Active 2023 Jacob Lorenzo PA-C [address] , [place], [address] [place] [address] , [facility] & [place] 11:34:47 Problem Notes None recorded. Procedures Surgical History Date Name Laterality Status Provider Name and Address Organization Details Recorded Time 08/22/19 Procedure Note completed Jacob Lorenzo PA-C [address], [place], [place], [address] [place] [address], [facility] & [place] 08/22/2023 22:19:42 07/21/19 Procedure Note completed Jacob Lorenzo PA-C [address] , [place], [address] [place] [address], [facility] & [place] 07/21/2023 14:16:01 07/05/19 Procedure Note completed CHAYO VASQUEZ MSN, MEDICAL LAB DIRECTOR, FUR REMODELER-C [address], [place], [address] [place] [address], [facility] & [place] 07/05/2023 10:26:14 cholecystectomy completed Anali Ventura [facility] & [place] 10/20/2022 10:40:12 Imaging Results None recorded. Procedure Notes None recorded. Medical Equipment None Reported. Allergies Allergen ID Allergen Name Allergen Category Reaction Reaction Severity Criticality Documentation Date Start Date Code Code System Note Provider Name and Address Organization Details Recorded Time 38602 Substance with sulfonami de structure and antibacte rial mechanism of action (substanc e) medicatio n Not available Not available Not available 10/20/2022 46294 8003 SNOMED Anali Ventura null, [place] [facility] & [place] 10:38:14 93807 codeine medicatio n Not available Not available Not available 10/20/2022 2670 RxNorm Anali Ventura null, [place] [facility] & [place] 10:38:41 82061 azithromy dinh medicatio n Not available Not available Not available 10/20/2022 79838 RxNorm VINNY Sánchez [facility] & [place] 3 10:38:48 10512 hydrocodo ne Not available Not available Not available Not available 10/20/2022 5489 RxNorm VINNY Sánchez [facility] & [place] 3 10:38:56 04595 naproxen medicatio n Not available Not available Not available 10/20/2022 7258 RxNorm VINNY Sánchez [facility] & [place] 3 10:39:04 70626 oxycodone medicatio n Not available Not available Not available 10/20/2022 7804 RxNorm VINNY Sánchez [facility] & [place] 3 10:39:11 Medications Name Sig Start Date [...] Updated DateTime 4 160.02 cm 52.8 kg/m2 868458. 53 g 97.8 [degF] 95 % 95 % 88 /min 90 /min 144 mm[Hg] 88 mm[Hg] Isabel MINA [facility] & [place] 4 09:57:09 Social History Question Answer Notes LastModified by Organizat ion Details LastModified Time Tobacco Smoking Status Never Smoker Anali rondon, VINNY MINA [facility] & [place] 10/20/2022 10:37:10 What Is Your Level Of Caffeine Consumption? Occasional Information not available 03/17/2023 Sex: Unknown Functional Status Question Answer Note LastModified by Organizat ion Details LastModified Time Do you use any illicit or recreational drugs? No [email or web address] Information not available 10/20/2022 Do you or have you ever used any other forms of tobacco or nicotine? No Information not available 03/17/2023 What is your level of alcohol consumption? None [email or web address] Information not available 10/20/2022 Mental Status None recorded. Family History Nothing Reported. Medical History No medical history recorded. Gynecological HistoryNo gynecological history recorded. Obstetrics History GPAL:G 0 P 0 0 0 0 Past Encounters Encounter ID Performer Location Encounter Start Date Encounter Closed Date Diagnosis/Indication Diagnosis SNOMED-CT Code Diagnosis ICD10 Code Diagnosis Note [id number] Jacob Lorenzo PA-C [facility] [place] 9236224-967 2 10/20/2022 10:16:22 10/20/2022 11:31:39 Diarrhea 37532185 R19.7 Right lowe r quadrant pain 869999039 R10.31 Epigastric pain 80113408 R10.13 Nausea and vomiting 1691999 R11.2 Family his tory of Crohn's disease 222586937 Z83.79 History of splenomegaly 664340393 Z86.2 [id number] Jacob Lorenzo PA-C [facility] [place] 9236224-967 2 12/21/2022 08:39:59 12/21/2022 09:24:35 Bile acid malabsorption syndrome 42218304 E78.70 Diarrhea 39859629 R19.7 Right lowe r quadrant pain 529451174 R10.31 Epigastric pain 66872528 R10.13 Nausea and vomiting 1693 1999 R11.2 Family his tory of Crohn's disease 890764717 Z83.79 History of splenomegaly 556101205 Z86.2 Reactive gastropathy 399 453008 K31.9 [id number] Jacob Lorenzo PA-C [facility] [place] 9236224-967 2 01/03/2023 11:35:08 01/03/2023 12:12:13 Bile acid malabsorption syndrome 58861596 E78.70 Diarrhea 98466127 R19.7 Right lowe r quadrant pain 878359305 R10.31 Epigastric pain 62453409 R10.13 Nausea and vomiting 1693 1999 R11.2 Family his tory of Crohn's disease 218704580 Z83.79 History of splenomegaly 473587860 Z86.2 Reactive gastropathy 399 069703 K31.9 Irritable bowel syndrome 63138130 K58.0 [id number] Jacob Lorenzo PA-C [facility] [place] 9236224-967 2 02/14/2023 14:56:17 02/14/2023 16:30:30 Diarrhea 20044244 R19.7 Right lowe r quadrant pain 272596489 R10.31 Epigastric pain 15932530 R10.13 Nausea and vomiting 1693 1999 R11.2 Family his tory of Crohn's disease 580836005 Z83.79 History of splenomegaly 955335451 Z86.2 Reactive gastropathy 399 352215 K31.9 Irritable bowel syndrome with diarrhea 028452282 K58.0 [id number] Jacob Lorenzo PA-C [facility] [address] [address] 03/17/2023 13:01:23 03/17/2023 13:11:55 Bile acid malabsorption syndrome 59168080 E78.70 Diarrhea 29337605 R19.7 Right lowe r quadrant pain 017317610 R10.31 Epigastric pain 85902841 R10.13 Nausea and vomiting 1693 1999 R11.2 Family his tory of Crohn's disease 565605926 Z83.79 History of splenomegaly 999174934 Z86.2 Reactive gastropathy 399 779694 K31.9 Irritable bowel syndrome 43743902 K58.0 Irritable bowel syndrome with diarrhea 101692506 K58.0 [id number] Jacob Lorenzo PA-C [facility] [address] [address] 06/23/2023 15:33:15 06/23/2023 15:55:27 Bile acid malabsorption syndrome 67247332 E78.70 Diarrhea 77424777 R19.7 Right lowe r quadrant pain 666984665 R10.31 Epigastric pain 32606041 R10.13 Nausea and vomiting 1693 1999 R11.2 Family his tory of Crohn's disease 486621120 Z83.79 History of splenomegaly 895490846 Z86.2 Reactive gastropathy 399 403615 K31.9 Irritable bowel syndrome 68923557 K58.0 Irritable bowel syndrome with diarrhea 287415197 K58.0 [id number] Satnam Almonte MD [facility] [address] [address] 07/05/2023 09:44:00 07/05/2023 11:02:40 Bile acid malabsorption syndrome 10079487 E78.70 Diarrhea 36821072 R19.7 Right lowe r quadrant pain 747815425 R10.31 Epigastric pain 30423632 R10.13 Nausea and vomiting 1693 1999 R11.2 Family his tory of Crohn's disease 812347438 Z83.79 History of splenomegaly 169298291 Z86.2 Reactive gastropathy 399 638743 K31.9 Irritable bowel syndrome 63854589 K58.0 Irritable bowel syndrome with diarrhea 709638307 K58.0 [id number] Jacob Lorenzo PA-C [facility] [address] [address] 07/21/2023 13:53:49 07/21/2023 14:28:49 Bile acid malabsorption syndrome 23948524 E78.70 Diarrhea 62451281 R19.7 Right lowe r quadrant pain 874330022 R10.31 Epigastric pain 82276498 R10.13 Nausea and vomiting 1693 1999 R11.2 Family his tory of Crohn's disease 362522472 Z83.79 History of splenomegaly 132538210 Z86.2 Reactive gastropathy 399 495570 K31.9 Irritable bowel syndrome 17058824 K58.0 Irritable bowel syndrome with diarrhea 139242476 K58.0 [id number] Jacob Lorenzo PA-C [facility] [address] [address] 08/22/2023 13:39:58 08/22/2023 14:34:54 Bile acid malabsorption syndrome 06986625 E78.70 Diarrhea 16345473 R19.7 Right lowe r quadrant pain 951551880 R10.31 Epigastric pain 30806676 R10.13 Nausea and vomiting 1693 2000 R11.2 Family his tory of Crohn's disease 389785105 Z83.79 History of splenomegaly 219159113 Z86.2 Reactive gastropathy 399 467416 K31.9 Irritable bowel syndrome 05661330 K58.0 Irritable bowel syndrome with diarrhea 954252274 K58.0 Health Concerns Section Related Observation LastModified by Organization Detai ls LastModified Time None Recorded Concern Status LastModified by Organization Details LastModified Time None Recorded Advance Directives Directive None Recorded Payers Insurance Date Sequence Insurance Name Policy Number Policy Enciso Covered Member ID Enciso Member ID Guarantor Name 10/04/2023 1 [facility]ICA[facility] - FFS/TRADITIONA L Yumiko Bravo [id number] Yumiko Bravo 09/29/2023 2 [facility] (MEDICAID HMO) Yumiko Norrischie [id number] Yumiko Lawrence 08/26/2023 3 [place]BS-[place] [facility] (MEDICAID REPLACEMENT - HMO) Yumiko Norrischie [id number] Yumiko Norrischie 09/29/2023 2 [place] Yumiko Bravo [id number] Yumiko Bravo Notes Date Note Type Note [...] experiences in the [place]. PREVIOUS (02/14/23): Ms. rBavo presents via telephonic encounter today for follow-up [...] further disposition of care. Jacob Lorenzo PA-C [address] [facility], [place], [address], [facility] - [place] - [place] & [place] 06/23/2023 17:12:40 07/05/2023 text/html PREVIOUS ( 3): [...] for hospital follow-up. She was seen in [facility] emergency department recently with abdominal pain. CT [...] of hernia repair x2 with mesh at [facility]. She denies any hormone replacement therapy but is on medication for hot flashes. She denies any nausea, vomiting, early satiety, unintentional weight loss, hematemesis, hematochezia or melena. CHAYO VASQUEZ MSN, MEDICAL LAB DIRECTOR, FUR REMODELER-C [address], [place], [address], [facility] & [place] 07/05/2023 11:08:59 07/21/2023 text/html CURRENT (07/22/23 ): [...] normal. 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 I spent a total [...] further disposition of care. Jacob Lorenzo PA-C [address], [place], [address], [facility] - [facility] & [place] 07/22/2023 14:15:47 08/22/2023 text/html PREVIOUS ( 4): [...] normal. 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 CURRENT (08/22/23): Ms. Bravo [...] capability for televideo conferencing) Jacob Lorenzo PA-C [address] , [place], [address], [facility] - [place] - [place] & [place] 08/22/2023 22:30:49 OBGyn Episode No OBEpisode recorded.
--- OUTSIDE RECORDS SUMMARY | 2024-07-10 10:39 | XMS_ITS | Continuity of Care Document ---
Author Organization [facility] & [place], [facility] [place] Address [address] [place] [address] Assessment No assessment recorded. Plan of Treatment Reminders Order Date Submit Date Provider Last Modified By Organization Details Last Modified Time Details Appointments None record ed. Lab None record ed. Referral None record ed. Procedures None record ed. Surgeries None record ed. Imaging None record ed. Medication Orders None record ed. Patient TargetsNo targets recorded. Patient InstructionsNo instructions recorded. Reason for Referral None Reported. Results Created Date Observation Date Name Description Value Unit Range Abnormal Flag Note LastModifiedBy Organization Detail LastModifiedTime 06/06/19 25 audio gram No observ ation record ed. [email or web address] Not Available 12:57:19 Result Notes None recorded. Problems Name Problem SNOMED Code Status Onset Date Resolution Date Notes Provider Name and Address Organization Details Recorded Time Dizziness and giddiness 195943042 Active 025 FLORES MCKEON [address] , [place], [address] , [facility] & [place] 11:22:01 Problem Notes None recorded. Procedures Surgical History Date Name Laterality Status Provider Name and Address Organization Details Recorded Time 025 Cerumen removal with microscope completed VIDA GALLARDO NP [address] , [place], [address], [facility] & [place] 06/05/2024 11:10:48 cholecystectomy completed Teresa Bartlett [facility] & [place] 06/05/2024 10:46:56 Imaging Results None recorded. Procedure Notes None recorded. Medical Equipment None Reported. Allergies Allergen ID Allergen Name Allergen Category Reaction Reaction Severity Criticality Documentation Date Start Date Code Code System Note Provider Name and Address Organization Details Recorded Time 677175 Substance with sulfonami de structure and antibacte rial mechanism of action (substanc e) medicatio n Not available Not available Not available 06/05/2024 53620 8003 SNOMED Myriam Richardso n null, [facility] & [place] 5 10:38:35 589062 amoxicill in medicatio n Not available Not available Not available 06/05/2024 723 RxNorm Myriam Richardso n null, [facility] & [place] 5 10:38:51 898701 erythromy dinh medicatio n Not available Not available Not available 06/05/2024 4053 RxNorm Myriam Richardso n null, [facility] & [place] 5 10:37:05 645225 codeine medicatio n Not available Not available Not available 06/05/2024 2670 RxNorm Myriam Richardso n null, [facility] & [place] 5 10:38:20 142893 naproxen medicatio n Not available Not available Not available 06/05/2024 7258 RxNorm Myriam Richardso n null, [facility] & [place] 5 10:37:57 998920 oxycodone medicatio n Not available Not available Not available 06/05/2024 7804 RxNorm Myriam Richardso n null, [facility] & [place] 5 10:33:58 328355 hydrocodo ne Not available Not available Not available Not available 06/05/2024 5489 RxNorm [facility]am Richardso n null, [facility] & [place] 5 10:33:44 426501 meclizine medicatio n Not available Not available Not available 07/03/2024 6676 RxNorm Myriam Richardso n null, [facility] & [place] 5 10:34:57 Medications Name Sig Start Date [...] completed Not Available Not Available Not Available [facility] 75 mg disintegrat ing tablet take [...] Address Organization Details Last Updated DateTime 06/05/2024 167029.5 3 g 97.8 [degF] 132 mm[Hg] 89 mm[Hg] Teresa CASILLAS - DAVEYNT [facility] & [place] 10:41:10 Social History None recorded. Functional Status None recorded. Mental Status None recorded. Family History Nothing Reported. Medical History Condition Response Allergies/Hayfever Y Heart Problems N None N Heart Conditions N Emphysema N Migraines N Thyroid Problems Y Developmental Delay N Depression N Glaucoma N Anemia N Immune System Disorder Y Anesthesia Complications N Heart Attack ([place]) N Anxiety Disorder N Diabetes N Bleeding [...] SNOMED-CT Code Diagnosis ICD10 Code Diagnosis Note [id number] VIDA GALLARDO NP [facility] [address] [address] 06/05/2024 10:14:47 06/05/2024 11:22:58 Impacted cerumen in right ear 1714458216 656904 H61.21 Removed obstructiv e cerumen using curettage. Patient tolerated well. Spontaneous nystagmus 27 5407162 H55.09 Constant vertigo 3406941 06 R42 Audiometri c testing revealed normal hearing thresholds with good word rec scores bilaterall y. Will work her up with VNG here in the office which she can schedule at her [facility]. She will need to stop taking meclizine at least 24 hours prior to this test and bring a limousine driver with her. Her neurologis t at ordered a MRI of the brain w/ and w/o contrast which is scheduled for 06/12 in [place]. Will be on the lookout for the results of this. Multiple sclerosis 26728 007 G35 Dizziness and giddiness 713194102 R42 [id number] FLORES MCKEON [facility] [address] [place] [address] 06/05/2024 11:05:29 06/05/2024 11:17:49 Dizziness and giddiness 524652244 R42 Health Concerns Section Related Observation LastModified by Organization Detai ls LastModified Time None Recorded Concern Status LastModified by Organization Details LastModified Time None Recorded Payers Encounter Date Sequence Insurance Name Policy Number Policy Enciso Covered Member ID Enciso Member ID Guarantor Name 06/05/2024 1 [place] [employer] [facility] - FFS/TRADITIO NAL Yumiko Bravo [id number] Yumiko Bravo Notes Date Note Type Note [...] these episodes. VIDA GALLARDO, LUZ MARIA [address] , [place], [address], [facility] & [place] 06/06/2024 11:18:56 06/05/2024 text/html Ms. Bravo was [...] 3-F/u for VNG as planned. MADISYN MO, FLORES [address], [place], [address], [place] - [facility] - [place] & [place] 06/05/2024 11:22:16 OBGyn Episode No OBEpisode recorded.
--- NOTE | 2024-07-10 10:40 | US_ITS ---
PROCEDURE INFORMATION: Exam: US Right Breast, Complete Exam date and time: 07/10/2024 10:57 AM Age: 39 years old Clinical indication: Right breast mass and right breast pain. TECHNIQUE: Imaging protocol: Complete ultrasound of all four quadrants of the right breast and the retroareolar regions, including ultrasound of the axilla when performed. COMPARISON: US BREAST RT COMPLETE 06/07/2024 10:10 AM FINDINGS: ULTRASOUND: Breast ultrasound findings: Probable lipomas, which present as ovoid hyperechoic masses within the subcutaneous fat, are seen in the right breast at the 3 o'clock axis, 8 cm from the nipple measuring 0.9 cm and 0.5 cm, at the 11 o'clock axis, 7 cm from the nipple measuring 1.1 cm, and at the 10 o'clock axis, 11 cm from nipple measuring 0.3 cm. There are no dominant or morphologically suspicious masses. No shadowing or distortion. Oil cysts are seen in the subcutaneous fat of the right breast at the 12 o'clock axis and upper inner quadrant region. IMPRESSION: 1. 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 Note that similar findings were seen on ultrasound dated 06/07/2024. 2. A follow-up right breast ultrasound for the findings on this study and on the 06/07/2024 study is recommended in November 2024 for short-term surveillance. 3. Further evaluation of a palpable abnormality should be based on clinical grounds regardless of radiographic findings or lack thereof. 4. A screening mammogram for screening of both breasts would be due in July of 2024 per our records. ASSESSMENT: BI-RADS Category 3: Probably benign.
--- OUTSIDE RECORDS SUMMARY | 2024-07-10 10:40 | XMS_ITS | Continuity of Care Document ---
Author Organization [facility] & [place], [facility] Address [address] [place] [address] Assessment No assessment recorded. Plan of Treatment [...] audio gram No observ ation record ed. [email or web address] Not Available 12:57:19 Result Notes None recorded. Problems Name Problem SNOMED Code Status Onset Date Resolution Date Notes Provider Name and Address Organization Details Recorded Time Dizziness and giddiness 510754243 Active 025 FLORES MCKEON [address] , [place], [address] , [facility] & [place] 11:22:01 Problem Notes None recorded. Procedures Surgical History Date Name Laterality Status Provider Name and Address Organization Details Recorded Time 025 Cerumen removal with microscope completed VIDA GALLARDO NP [address] , [place], [address], [facility] & [place] 06/05/2024 11:10:48 cholecystectomy completed Teresa Bartlett [facility] & [place] 06/05/2024 10:46:56 Imaging Results None recorded. Procedure Notes None recorded. Medical Equipment None Reported. Allergies Allergen ID Allergen Name Allergen Category Reaction Reaction Severity Criticality Documentation Date Start Date Code Code System Note Provider Name and Address Organization Details Recorded Time 754963 Substance with sulfonami de structure and antibacte rial mechanism of action (substanc e) medicatio n Not available Not available Not available 06/05/2024 45556 8003 SNOMED Myriam Richardso n null, [facility] & [place] 5 10:38:35 665076 amoxicill in medicatio n Not available Not available Not available 06/05/2024 723 RxNorm Myriam Richardso n null, [facility] & [place] 5 10:38:51 972365 erythromy dinh medicatio n Not available Not available Not available 06/05/2024 4053 RxNorm Myriam Richardso n null, [facility] & [place] 5 10:37:05 488271 codeine medicatio n Not available Not available Not available 06/05/2024 2670 RxNorm Myriam Richardso n null, [facility] & [place] 5 10:38:20 333420 naproxen medicatio n Not available Not available Not available 06/05/2024 7258 RxNorm Myriam Richardso n null, [facility] & [place] 5 10:37:57 586291 oxycodone medicatio n Not available Not available Not available 06/05/2024 7804 RxNorm Myriam Richardso n null, [facility] & [place] 5 10:33:58 337953 hydrocodo ne Not available Not available Not available Not available 06/05/2024 5489 RxNorm Myriam Richardso n null, [facility] [place] 5 10:33:44 663508 meclizine medicatio n Not available Not available Not available 07/03/2024 6676 RxNorm Myriam Richardso n null, [facility] & [place] 5 10:34:57 Medications Name Sig Start Date [...] completed Not Available Not Available Not Available [facility] 75 mg disintegrat ing tablet take [...] Address Organization Details Last Updated DateTime 06/05/2024 849297.5 3 g 97.8 [degF] 132 mm[Hg] 89 mm[Hg] Teresa CASILLAS - DAVEYNT [facility] & [place] 10:41:10 Social History None recorded. Functional Status None recorded. Mental Status None recorded. Family History Nothing Reported. Medical History Condition Response Allergies/Hayfever Y Heart Problems N None N Heart Conditions N Emphysema N Migraines N Thyroid Problems Y Developmental Delay N Depression N Glaucoma N Anemia N Immune System Disorder Y Anesthesia Complications N Heart Attack ([place]) N Anxiety Disorder N Diabetes N Bleeding [...] SNOMED-CT Code Diagnosis ICD10 Code Diagnosis Note [id number] VIDA GALLARDO NP [facility] [address] [address] 06/05/2024 10:14:47 06/05/2024 11:22:58 Impacted cerumen in right ear [id number] 137405 H61.21 Removed obstructiv e cerumen using curettage. Patient tolerated well. Spontaneous nystagmus 27 1834620 H55.09 Constant vertigo 9210901 06 R42 Audiometri c testing revealed normal hearing thresholds with good word rec scores bilaterall y. Will work her up with VNG here in the office which she can schedule at her [facility]. She will need to stop taking meclizine at least 24 hours prior to this test and bring a vending route driver with her. Her neurologis t at ordered a MRI of the brain w/ and w/o contrast which is scheduled for 06/12 in [place]. Will be on the lookout for the results of this. Multiple sclerosis 50941 007 G35 Dizziness and giddiness 528564132 R42 [id number] FLORES MCKEON [facility] [address] [place] [address] 06/05/2024 11:05:29 06/05/2024 11:17:49 Dizziness and giddiness 752938114 R42 Health Concerns Section Related Observation LastModified by Organization Detai ls LastModified Time None Recorded Concern Status LastModified by Organization Details LastModified Time None Recorded Payers Encounter Date Sequence Insurance Name Policy Number Policy Enciso Covered Member ID Enciso Member ID Guarantor Name 06/05/2024 1 [place] [employer] [place] [employer] - FFS/TRADITIO NAL Yumiko Bravo [id number] Yumiko Bravo Notes Date Note Type Note [...] VIDA GALLARDO, LUZ MARIA [address] , [place], [address], [facility] & [place] 06/06/2024 11:18:56 06/05/2024 text/html Ms. Bravo was [...] planned. MADISYN MO, FLORES [address], [place], [address], [place] - [facility] - [place] & [place] 06/05/2024 11:22:16 OBGyn Episode No OBEpisode recorded.
== END 2024-07-10 23:59 | disposition home or self-care (01) ==
LOC: RAD 10:38
PROVIDERS: PCP Family Medicine; Visit Provider Physician Assistant
DX: D17.72 Benign lipomatous neoplasm of other genitourinary organ
CPT/HCPCS: 76641

== ENCOUNTER 2024-10-10 14:50 | Outpatient (CLI) | payer MEDICAID, SELFPAY ==
--- OUTSIDE RECORDS SUMMARY | 2024-08-22 10:20 | XMS_ITS | Encounter Summary ---
Author Organization Healthcare Address [address] [place] [address] Care Team Providers Care Critical Care Rn Name Role Phone Severiano Lemus MD Primary Care Provider [phone] Rosa Hutchison MD Unavailable [phone] Tyrell Monroe MD Unavailable [phone] Reason for Visit * Reason Comments Vertigo * Consultation (Routine) - Closed Specialty Diagnoses / Procedures Referred By Bridgett otoole Referred To Contact Otolaryngology Diagnoses Dizziness and giddiness Constant vertigo Other forms of nystagmus Impacted cerumen, right ear Multiple sclerosis (CMS/HCC) Genie Lomas F, DIRECTOR OF ACADEMIC SUPPORT [address] [place] [address] Phone: tel:[phone] fax: [facility] Otolaryngology [address] [address] Phone: tel: fax: Referral ID Status Reason Start Date Expiration Date V isits Requested Visits Authorized [id number] Closed Specialty Services Required 07/12/2024 01/11/2026 1 1 Encounter Details Date Type Department Care Team (Late st Contact Info) Description 08/22/2024 10:20 AM EDT Consult [facility] Otolaryngology [address] [address] Delvis Plaza MD [address] [place] [address] MS (multiple sclerosis) ([facility]) (Primary Dx); Dizziness of unknown etiology Social History Tobacco Use Types Packs/Day Years Used Date Smoking Tobacco: Former Cigarettes 0.5 20 0 03/14/2000 - 03/14/2020 Smokeless Tobacco: Never Tobacco Cessation:Counseling Given: Not Answered Alcohol Use Standard Drinks/Week Comments No 0 (1 standard drink = 0.6 oz pur e alcohol) PHQ-2 Answer Date Recorded Patient Health Questionnaire-2 Score 0 04/17/2024 PHQ-9 Answer Date Recorded Patient Health Questionnaire-9 Score 4 02/16/2024 PHQ-2A Answer Date Recorded Patient Health Questionnaire-2 Score 3 02/01/2023 Comments No Sex and Gender Information Value Date Recorded Sex Assigned at Not on file Legal Sex Female 7:53 PM EDT Gender Identity Not on file Sexual Orientation Not on file documented as of this encounter Last Filed Vital Signs Vital Sign Reading Time Taken Comments Blood Pressure 147/70 08/22/2024 10:38 AM EDT Pulse 76 08/22/2024 10:38 AM EDT Temperature - - Respiratory Rate - - Oxygen Saturation - - Inhaled Oxygen Concentration - - Weight 134 kg (296 lb) 08/22/2024 10:38 AM EDT Height 160 cm (5' 3 ) 08/22/2024 10:38 AM EDT Body Mass Index 52.43 08/22/2024 10:38 AM EDT documented in this encounter Miscellaneous Notes * Progress Notes - Delvis Plaza MD - 08/22/2024 10:20 AM EDT This 39-year-old female is here to see me for another opinion regarding her dizziness. She has had some problems with dizziness for over 10 years but over the last 3 or 4 years it has gotten much worse. She has grinds dizziness the changes in character. Sometimes she is just feeling off balance forother times she will have a true spinning sensation and other times she feels more like she has tumbling. It occasionally associated with nausea. She has not really identified any provoking event. She has not had trouble with her hearing. She has had an extensive workup and I was able to review that today prior to the visit. She has a known diagnosis of MS. An MRI scan done here in 2021 showed findings consistent with MS but no other abnormalities were noted. She has had a hearing test done just a couple of months ago that showed completely normal hearing in both ears. She also had a VNG done and I was able to review those results. She was noted to have spontaneous nystagmus but the rest of the VNG was completely normal when thespontaneous nystagmus was accounted for. On exam today her external canals and tympanic membranes are normal. She is very overweight. Her gait is wide-based. She can not do a tandem walk. When I used the Frenzel glasses she has very interesting I am movements. She has a baseline right beating nystagmus but has some up beating component aswell as down beating components as well. I believe that her dizziness has directly related to her MS I do not think there is a peripheral vestibular problem here. She is cared for by Neurology and has an appointment coming up with her neurologist. I am wondering if her medication might be adjusted or changed to help with these symptoms. She says the other symptoms that she has with her MSR doing somewhat better since she has been on treatment but her dizziness has been bad for the past several years. If anything should change in her condition, I am happy to see her again. documented in this encounter Plan of Treatment Upcoming Encounters Date Type Department Care Team (Late st Contact Info) Description 11/14/2024 1:30 PM EDT Office Visit [place] [facility] [address] [place] [address] Tyrell Monroe MD [address] [place] [address] 12/05/2024 10:00 AM EDT Office Visit Medical Office Building Obstetrics and Gynecology [address] [facility], [address] [place] [address] Anne-Marie Spears R, DIRECTOR OF ACADEMIC SUPPORT [address] [place] [address] 04/17/2025 12:30 PM EST Ancillary Procedure [facility] [address] [place] [address] 04/17/2025 1:00 PM EST Office Visit [facility] [address] [address] Lise Charles S, DIRECTOR OF ACADEMIC SUPPORT [address] [place] [address] documented as of this encounter Visit Diagnoses Diagnosis MS (multiple sclerosis) ([facility])- Primary Multiple sclerosis Dizziness of unknown etiology documented in this encounter Additional Health Concerns Assessment Noted Time PHQ-9 Depression Total Score: 4 02/16/20 24 10:52 AM EST A fall risk assessment has been complete d for the patient 05/17/2024 11:03 AM EDT A Body Mass Index follow-up plan has been documented for the patient 08/22/2024 10:58 AM EDT documented as of this encounter Care Teams Critical Care Rn Relationship Specialty Start Date End Date Severiano Lemus MD [address] [place] [address] PCP - General 07/11/20 Rosa Hutchison MD [address] [place] [phone] Referring Physician Obstetrics and Gynecology 11/06/20 Tyrell Monroe MD [address] [place] [address] Service Attending Neurology 12/16/21 documented as of this encounter
--- OUTSIDE RECORDS SUMMARY | 2024-08-29 10:30 | XMS_ITS | Encounter Summary ---
Author Organization [facility] Address [address] [place] [address] Care Team Providers Care Customer Relations Advisor Name Role Phone Severiano Lemus MD Primary Care Provider [phone] Rosa Hutchison MD Unavailable [phone] Tyrell Monroe MD Unavailable [phone] Reason for Visit * Reason Comments Urinary Urgency Urinary Frequency Urinary Incontinence Encounter Details Date Type Department Care Team ([facility] st Contact Info) Description 08/29/2024 10:30 AM EDT Office Visit Medical Office Building Obstetrics and Gynecology [address] [facility], [address] [place] [address] Anne-Marie Spears R, WARP TYING MACHINE KNOTTER [address] [facility] [address] [place] [address] Urge incontinence (Primary Dx); MARTA (stress urinary incontinence, female); Recurrent UTI Social History Tobacco Use Types Packs/Day Years Used Date Smoking Tobacco: Former Cigarettes 0.5 20 0 03/14/2000 - 03/14/2020 Passive Smoke Exposure: Past Smokeless Tobacco: Never Tobacco Cessation:Counseling Given: Not Answered Alcohol Use Standard Drinks/Week Comments No 0 (1 standard drink = 0.6 oz pur e alcohol) PHQ-2 Answer Date Recorded Patient Health Questionnaire-2 Score 0 08/29/2024 PHQ-9 Answer Date Recorded Patient Health Questionnaire-9 Score 0 08/29/2024 PHQ-2A Answer Date Recorded Patient Health Questionnaire-2 Score 3 02/01/2023 Comments No Sex and Gender Information Value Date Recorded Sex Assigned at Not on file Legal Sex Female 7:53 PM EDT Gender Identity Not on file Sexual Orientation Not on file documented as of this encounter Last Filed Vital Signs Vital Sign Reading Time Taken Comments Blood Pressure 113/77 08/29/2024 10:33 AM EDT Pulse 80 08/29/2024 10:33 AM EDT Temperature 36.3 C (97.3 F) 08/29/2024 10:33 AM EDT Respiratory Rate 18 08/29/2024 10:33 AM EDT Oxygen Saturation - - Inhaled Oxygen Concentration - - Weight 133 kg (293 lb 3.4 oz) 08/29/2024 10:33 A M EDT Height 160 cm (5' 3 ) 08/29/2024 10:33 AM EDT Body Mass Index 51.94 08/29/2024 10:33 AM EDT documented in this encounter Functional Status * Over the past 2 weeks, how often have you been bothered by any of the following problems? Question Answer Date of Assessment Author Little interest or pleasure in doing things Not at all 08/29/2024 10:34 AM EDT Belle Paul Feeling down, depressed, or hopeless Not at all 08/29/2024 10:34 AM EDT Belle Paul Patient Health Questionnaire -2 Score 0 08/29/2024 10:34 AM EDT Belle Paul * Question Answer Date of Assessment Author Trouble falling or staying asleep, or sleeping too much Not at all 08/29/2024 10:34 AM EDT Belle Pineda Feeling tired or having cuco le energy Not at all 08/29/2024 10:34 AM EDT Belle Paul Poor appetite or overeating Not at all 08/29/2024 10 :34 AM EDT Belle Paul Feeling bad about yourself - or that you are a failure or have let yourself or your family down Not at all 08/29/2024 10:34 AM EDT Belle Paul Trouble concentrating on things, such as reading the newspaper or watching television Not at all 08/29/2024 10:34 AM EDT Belle Paul Moving or speaking so slowly that other people could have noticed? Or the opposite - being so fidgety or restless that you have been moving around a lot more than usual. Not at all 08/29/2024 10:34 AM EDT Belle Jansen Thoughts that you would be better off or hurting yourself in some way Not at all 08/29/2024 10:34 AM EDT Yuliya Paul Patient Health Questionnaire -9 Score 0 08/29/2024 10:34 AM EDT Belle Paul * If you checked off any problems on this questionnaire so far, Question Answer Date of Assessment Author How difficult have these problems made it for you to do your work, take care of things at home, or get along with other people? Not difficult at all 08/29/2024 10:34 AM EDT Yuliya Paul documented as of this encounter Miscellaneous Notes * Assessment & Plan Note - Anne-Marie Spears APRN - 08/29/2024 10:30 AM EDT Associated Problem(s): Recurrent UTI - Continue cranberry supplement * Assessment & Plan Note - Anne-Marie Spears APRN - 08/29/2024 10:30 AM EDT Associated Problem(s): Urge incontinence - - We discussed contributing factors. Reviewed all options including expectant management, behavioral modifications, bladder irritants, pelvic floor physical therapy, medications, Botox injections, PTNS, and SNM. * Progress Notes - Anne-Marie Spears APRN - 08/29/2024 10:30 AM EDT Urogynecology Note Subjective Chief Complaint Patient presents with Urinary Urgency Urinary Frequency Urinary Incontinence Yumiko Bravo is a 39 y.o. female here for a new gynecologic visit. She presents for evaluation of mixed urinary incontinence. PMH: Morbid obesity, Blindness left eye,Depression, mental handicap, DM. PSH: Lap ccy, BTL, wisdom teeth, hysteroscopy with endometrial ablation, lap umbilical hernia repair (10x15 cm mesh), Hysteroscopy/D&C/Mirena, TLH/BS performed 07/15/2021. Robotic TLH/BS performed 07/15/2021 for AUB refractory to conservative therapies, benign path. She is on Veozah for hot flashes. She is here today with her caregiver Ngozi. She has mixed urinary incontinence, previously saw Urology. Has vaginal pain likely due to pelvic floor dysfunction. Has h/o recurrent UTIs. She also reports being diagnosed with MS in 2021 after diffuse numbness per MRI, managed by Neurology. Urology recommended conservative measures for PFD, begin robaxin, CT stone, and begin vaginal estrogen cream. Today she reports urgency, frequency, and urge urinary incontinence for 4 months at least. Intermittently bothersome, worse at night. She is wearing Depends to bed, wakes wet at night, not every night. She endorses urgency and urge urinary incontinence. Has stress urinary incontinence. Denies use of pads or depends during the day. Wears one depends nightly. Denies hesitancy. Reports intermittency. Feels she empties completely. Endorses postvoid dribbling. Denies double voiding. Denies gross hematuria. Reports daytime frequency of a lot. Denies nephroilithiasis. Reports h/o recurrent UTIs, states she has been having less lately. She is using cranberry gummies. Reports a bowel movement almost every day, easy. Denies straining or digitation. Denies fecal incontinence. She is not sexually active. Has been to pelvic floor physical therapy in the past. Past Medical History She has a past medical history of Abnormal uterine and vaginal bleeding, unspecified, Adverse effect of anesthesia, Anxiety, Blindness, one eye, unspecified eye, Breathing difficulty, Depression, Dysphagia, Headache, Migraine, Morbid (severe) obesity due to excess calories (CMS/[facility]), MS (multiple sclerosis) ([facility]), Numbness, Personal history of other mental and behavioral disorders, Personal history of other mental and behavioral disorders, Shingles (I was6 years old), and Type 2 diabetes mellitus without complications. She has no past medical history of Hyperlipidemia, Hypertension, or Malignant hyperthermia. Past Surgical History She has a past surgical history that includes Tubal ligation (N/A); Endometrial ablation (N/A); oral surgery (N/A); Other surgical history (N/A); Cholecystectomy (N/A); Hernia repair (N/A); and Hysteroscopy (07/11/2020). Social History She reports that she quit smoking about 4 years ago. Her smoking use included cigarettes. She started smoking about 24 years ago. She has a 10 pack-year smoking history. She has been exposed to tobacco smoke. She has never used smokeless tobacco. She reports that she does not drink alcohol and doesnot use drugs. Family History Her family history includes Bone cancer in some other family members; Breast cancer in some other family members; Cervical cancer in an other family member; Conversions - Other in her father; Lung cancer in her maternal grandmother and another family member; Lymphoma in her father and another family member; Uterine cancer in her sister. Current Medications She has a current medication list which includes the following prescription(s): acetaminophen, ascorbic acid, atorvastatin, cetirizine, cholecalciferol, cyanocobalamin, desvenlafaxine succinate er, diphenhydramine, estradiol, ferosul, veozah, levothyroxine, lorazepam, meclizine, metformin xr, methoc arbamol, nurtec, kesimpta, ondansetron, pantoprazole, promethazine, vitamin d3, zinc sulfate, zoster vaccine-recombinant adjuvanted, and cyclobenzaprine. Allergies Allergies[1] Review of Systems Constitutional: Negative. Gastrointestinal: Negative. Genitourinary: Positive for enuresis, frequency and urgency. Musculoskeletal: Negative. Neurological: Negative. Psychiatric/Behavioral: Negative. Objective Visit Vitals BP 113/77 Pulse 80 Temp 36.3 ??C (97.3 ??F) (Tympanic) Resp 18 Body mass index is 51.94 kg/m??. Physical Exam Constitutional: Appearance: Normal appearance. Genitourinary: Genitourinary Comments: Declined today Pulmonary: Effort: Pulmonary effort is normal. Neurological: Mental Status: She is alert and oriented to person, place, and time. Skin: General: Skin is warm and dry. Psychiatric: Mood and Affect: Mood normal. Behavior: Behavior normal. Behavior is cooperative. Vitals reviewed. Post void residual volume 3 minute(s) after voiding was 0 ml via bladder scanner, obtained by Lashay Amaral MA. Assessment/Plan Assessment & Plan Urge incontinence - - We discussed contributing factors. Reviewed all options including expectant management, behavioral modifications, bladder irritants, pelvic floor physical therapy, medications, Botox injections, PTNS, and SNM. MARTA (stress urinary incontinence, female) - I discussed treatment options for stress urinary incontinence including conservative and surgicalapproaches: Behavioral modification, pessary, pelvic floor strengthening, pelvic floor PT, slings, and urethral bulking agents. - We discussed urethral bulking. I explained that urethral bulking is an outpatient procedure. I explained the benefits of urethral bulking. Urethral bulking with the current product has been found to be effective for at least 7 years. We reviewed that approximately 30% of patients require a top off procedure. We reviewed the risk for urinary retention and general risks including: UTI, discomfort, and hesitancy/intermittency. Recurrent UTI - Continue cranberry supplement At the end of our conversation she was interested in considering her options and returning for further discussion. She would like to consider examination at her next visit. All questions were answered to her indicated satisfaction. Continue to monitor. Encounter Time: A total of 33 minutes was spent on this visit reviewing the patient's history, counseling the patient, and documenting this visit. [1] Allergies Allergen Reactions Amoxicillin Hives Codeine Hives Hydrocodone Hives Oxycodone Hives Penicillins Hives Clindamycin Other - please document in the comment field Erythromycin Unknown - Patient states they do not know rxn details Hydrochlorothiazide Unknown - Patient states they do not know rxn details Naproxen Unknown - Patient states they do not know rxn details Sulfacetamide Rash documented in this encounter Plan of Treatment Upcoming Encounters Date Type Department Care Team (Late st Contact Info) Description 11/14/2024 1:30 PM EDT Office Visit [place] [facility] [address] [place] [address] Tyrell Monroe MD [address] [place] [address] 12/05/2024 10:00 AM EDT Office Visit Medical Office Building Obstetrics and Gynecology [address] [facility], [address] [place] [address] Anne-Marie Spears, WARP TYING MACHINE KNOTTER [address] [facility] [address] [place] [address] 04/17/2025 12:30 PM EST Ancillary Procedure [facility] [address] [place] [address] 04/17/2025 1:00 PM EST Office Visit [facility] [address] [facility] [address] [place] [address] Lise Charles, WARP TYING MACHINE KNOTTER [address] [facility] [address] [facility] [address] [place] [address] documented as of this encounter Visit Diagnoses Diagnosis Urge incontinence- Primary MARTA (stress urinary incontinence, female) Recurrent UTI Urinary tract infection, site not specified documented in this encounter Additional Health Concerns Assessment Noted Time PHQ-9 Depression Total Score: 0 08/30/19 25 10:34 AM EDT A fall risk assessment has been complete d for the patient 05/17/2024 11:03 AM EDT A Body Mass Index follow-up plan has been documented for the patient 08/29/2024 3:53 PM EDT documented as of this encounter Care Teams Customer Relations Advisor Relationship Specialty Start Date End Date Severiano Lemus MD [address] [place] [address] PCP - General 07/11/20 Rosa Hutchison MD [address] [place] [address] Referring Physician Obstetrics and Gynecology 11/06/20 Tyrell Monroe MD [address] [place] [address] Service Attending Neurology 12/16/21 documented as of this encounter
--- OUTSIDE RECORDS SUMMARY | 2024-09-12 10:31 | XMS_ITS | Encounter Summary ---
Author Organization [facility] Address [address] [place] [address] Care Team Providers Care Filterer Name Role Phone Severiano Lemus MD Primary Care Provider [phone] Rosa Hutchison MD Unavailable [phone] Tyrell Monroe MD Unavailable [phone] Reason for Referral * Imaging (Routine) - Closed Specialty Diagnoses / Procedures Referred By Bridgett otoole Referred To Contact Diagnoses MS (multiple sclerosis) (CMS/HCC) Procedures MR Head w and wo IV Contrast Tyrell Monroe MD [address] [address] Phone: tel: fax: [facility] Facility [address] [id number] Referral ID Status Reason Start Date Expiration Date Visits Re quested Visits Authorized [id number] Closed 05/17/2024 11/16/2025 1 1 Reason for Visit * Imaging (Routine) - Closed Specialty Diagnoses / Procedures Referred By Bridgett otoole Referred To Contact Diagnoses MS (multiple sclerosis) (CMS/HCC) Procedures MR Head w and wo IV Contrast Tyrell Monroe MD [address] [address] Phone: tel: fax: [facility] [address] [place] [address] Referral ID Status Reason Start Date Expiration Date Visits Re quested Visits Authorized [id number] Closed 05/17/2024 11/16/2025 1 1 Encounter Details Date Type Department Care Team (Latest Contact Info) Description 09/12/2024 10:31 AM EDT - 09/12/2024 11:59 PM EDT Hospital Encounter [facility] Radiology [address] [place] [address] MS (multiple sclerosis) ([facility]) Discharge Disposition: Home or Self Care Social History Tobacco Use Types Packs/Day Years Used Date Smoking Tobacco: Former Cigarettes 0.5 20 0 03/14/2000 - 03/14/2020 Passive Smoke Exposure: Past Smokeless Tobacco: Never Alcohol Use Standard Drinks/Week Comments No 0 [...] on file documented as of this encounter Medications at Time of Discharge acetaminophen (Tylenol) 325 MG tablet Take 500 mg by mouth every 6 (six) hours if needed. ascorbic acid (Vitamin C) 500 MG tablet TAKE 1 tab(s) orally twice a day FOR 30 day(s) 08/12/2022 atorvastatin (Lipitor) 10 MG tablet Take 1 tablet (10 mg) by mouth daily. 03/22/2022 cetirizine (ZyrTEC) 10 MG tablet Take 1 tablet (10 mg) by mouth daily. 04/11/2015 cholecalciferol (Vitamin D-3) 50 MCG (2000 UT) capsule Take by mouth. cyanocobalamin 1000 MCG tablet Take 1 tablet (1,000 mcg) by mouth daily. 11/05/2021 desvenlafaxine succinate er (Pristiq) 25 MG 24 hr tablet 2 tablets (50 mg). 06/08/2022 diphenhydrAMINE (Benadryl) 25 MG tablet Take 2 tablets (50 mg) by mouth. estradiol (Estrace) 0.1 MG/GM vaginal creamIndications:Vag inal pain Insert 1 g into the vagina 2 (two) times a week. 42.5 g 1 04/19/2024 FeroSul 325 (65 Fe) MG tablet Take 1 tablet (325 mg) by mouth 1 (one) time each day. 03/02/2023 Fezolinetant (Veozah) 45 MG tabletIndications:Pe rimenopausal vasomotor symptoms Take 45 mg by mouth daily. 30 tablet 11 04/17/2024 levothyroxine (Synthroid, Levoxyl) 25 MCG tablet Take 1 tablet (25 mcg) by mouth daily. 11/05/2021 LORazepam (Ativan) 1 MG tabletIndications:MS (multiple sclerosis) (CMS/HCC) Take 45 min prior to MRI 1 tablet 05/18/2024 metFORMIN XR (Glucophage-XR) 500 MG 24 hr tablet Take 1 tablet (500 mg) by mouth daily. 11/05/2021 methocarbamol (Robaxin) 750 MG tablet take 1 tablet Orally Three times a day 12/22/2023 Nurtec 75 MG orally disintegrating tablet if needed. 11/01/2023 Ofatumumab (Kesimpta) 20 MG/0.4ML solution auto-injectorIndicat ions:MS (multiple sclerosis) (CMS/HCC) Inject 1 pen. under the skin every 28 (twenty-eight ) days. 1.2 mL 05/09/2024 ondansetron (Zofran) 4 MG tablet Take 1 tablet (4 mg) by mouth every 8 hours as needed. 03/20/2021 pantoprazole (Protonix) 40 MG EC tablet Take 1 tablet (40 mg) by mouth daily. 11/05/2021 promethazine (Phenergan) 25 MG tablet if needed. 09/14/2022 Vitamin D3 50 MCG (2000 UT) tablet Take 1 tablet (2,000 Units) by mouth daily. 11/05/2021 Zinc Sulfate 220 (50 Zn) MG tablet take 1 tab(s) orally once a day 30 day(s) 07/14/2022 zoster vaccine-recombinant adjuvanted (Shingrix) 50 MCG/0.5ML vaccine Inject 0.5 mL (50 mcg) into the muscle. 1 each 1 04/14/2023 meclizine (Antivert) 25 MG tablet Take 1 and 1/2 tablets (37.5mg) by mouth in the morning then 1 tablet (25mg) midday then take 1 and 1/2 tablets (37.5mg) at night as needed. 120 tablet 5 01/09/2024 documented as of this encounter Plan of Treatment Upcoming Encounters Date Type Department Care Team (Late st Contact Info) Description 11/14/2024 1:30 PM EDT [facility] [address] [place] [address] Tyrell Monroe MD [address] [facility] [address] [place] [address] 12/05/2024 10:00 AM EDT Office Visit Medical Office Building Obstetrics and Gynecology [address] [facility], [address] [place] [address] Anne-Marie Spears, ADVERTISING MATERIAL DISTRIBUTOR [address] [facility] [address] [place] [phone] 04/17/2025 12:30 PM EST Ancillary Procedure [facility] [address] [place] [phone] 04/17/2025 1:00 PM EST Office Visit [facility] [address] [place] [address] Lise Charles, ADVERTISING MATERIAL DISTRIBUTOR [address] [facility] [address] [place] [phone] documented as of this encounter Procedures Procedure Name Priority Date/Time Associated Diagnosis Comments MR HEAD W AND WO IV CONTRAST Routine 09/12/2024 11:47 AM EDT MS (multiple sclerosis) ([facility]) documented in this encounter Results * MR Head w and wo IV Contrast (09/12/2024 11:47 AM EDT) Anatomical Region Laterality Modality Head Magnetic Resonan ce Impressions 09/13/2024 6:57 AM EDT IMPRESSION: Overall, stable exam. Periventricular and subcortical T2/FLAIR hyperintense foci throughout the supratentorial brain, similar in size and number since prior study. No new lesions. No abnormal postcontrast enhancement to suggest areas of active inflammation/demyelination. No acute intracranial process. Lei Hurd M.D. This report has been electronically signed and verified by the Radiologist whose name is printed above. This report contains privileged and confidential information and is intended solely for the use of the individual or entity to which it is addressed. If you are not the intended recipient of this report, you are hereby notified that any copying, distribution, dissemination or action taken in relation to the contents of this report is strictly prohibited and may be unlawful. If you have received this report in error, please notify the sender immediately at [phone] and permanently delete the original report and destroy any copies or printouts. Narrative 09/13/2024 6:57 AM EDT [facility] - Phone Outpatient NAME: Yumiko Bravo DATE OF EXAM: 09/12/2024 Patient No: [id number] Physician: Mabel^Ivana Date of : 1985 Past Medical/Surgical History (entered by technologist): Symptoms/Reason For Exam (entered by technologist): Multiple sclerosis (MS) Tech Notes (entered by technologist): with contrast, Gadopiclenol (Elucirem) injection 13.2 mL; She has had some problems with dizziness for over 10 years but over the last 3 or 4 years it has gotten much worse. She has grinds dizziness the changes in character. Sometimes she is just feeling off balance for other times she will have a true spinning sensation and other times she feels more like she has tumbling. It occasionally associated with nausea Indication: Multiple sclerosis. Technique: Abdominal dizziness MRI of the brain with and without administration of intravenous contrast. Comparison: Brain MRI from 12/03/2021. Findings: Periventricular and subcortical T2/FLAIR hyperintense foci throughout the supratentorial brain, similar in size and number since prior study. No new lesions. No abnormal postcontrast enhancement to suggest areas of active inflammation/demyelination. No evidence of restricted diffusion to suggest acute territory infarct. No evidence of mass effect, midline shift, lesion, hydrocephalus. No evidence of acute appearing intracranial manage. No evidence of extra-axial fluid collections. Stable ventricular size and configuration, with mild global parenchymal volume loss. Basal cisterns are patent. Major cranial flow-voids are preserved. Paranasal sinuses and mastoid air cells are clear. Stable orbits. Calvarium and overlying soft tissues appear remarkable. Procedure Note Lei Hurd MD - 09/13/2024 [facility] - Phone Outpatient NAME: Yumiko Bravo DATE OF EXAM: 09/12/2024 Patient No: [id number] Physician: Mabel^Ivana Date of : 1985 Past Medical/Surgical History (entered by technologist): Symptoms/Reason For Exam (entered by technologist): Multiple sclerosis(MS) Tech Notes (entered by technologist): with contrast, Gadopiclenol(Elucirem) injection 13.2 mL; She has had some problems with dizziness forover 10 years but over the last 3 or 4 years it has gotten much worse.She has grinds dizziness the changes in character. Sometimes she is justfeeling off balance for other times she will have a true spinningsensation and other times she feels more like she has tumbling. Itoccasionally associated with nausea Indication: Multiple sclerosis. Technique: Abdominal dizziness MRI of the brain with and withoutadministration of intravenous contrast. Comparison: Brain MRI from 12/03/2021. Findings: Periventricular and subcortical T2/FLAIR hyperintense foci throughout thesupratentorial brain, similar in size and number since prior study. Nonew lesions. No abnormal postcontrast enhancement to suggest areas ofactive inflammation/demyelination. No evidence of restricted diffusion to suggest acute territory infarct.No evidence of mass effect, midline shift, lesion, hydrocephalus. No evidence of acute appearing intracranial manage. No evidence ofextra-axial fluid collections. Stable ventricular size and configuration, with mild global parenchymalvolume loss. Basal cisterns are patent. Major cranial flow-voids arepreserved. Paranasal sinuses and mastoid air cells are clear. Stable orbits. Calvarium and overlying soft tissues appear remarkable. IMPRESSION: IMPRESSION: Overall, stable exam. Periventricular and subcortical T2/FLAIR hyperintense foci throughout thesupratentorial brain, similar in size and number since prior study. Nonew lesions. No abnormal postcontrast enhancement to suggest areas ofactive inflammation/demyelination. No acute intracranial process. Lei Hurd M.D. This report has been electronically signed and verified by the Radiologistwhose name is printed above. This report contains privileged and confidential information and isintended solely for the use of the individual or entity to which it isaddressed. If you are not the intended recipient of this report, you arehereby notified that any copying, distribution, dissemination or actiontaken in relation to the contents of this report is strictly prohibitedand may be unlawful. If you have received this report in error, pleasenotify the sender immediately at [phone] and permanently delete theoriginal report and destroy any copies or printouts. Tyrell Monroe MD IMG MRI PROCEDURES Fin al Result documented in this encounter Visit Diagnoses Diagnosis MS (multiple sclerosis) (CMS/[facility]) Multiple sclerosis documented in this encounter Administered Medications Inactive Administered Medications - up to 3 most recent administrations Medication Order MAR Action Action Date Dose Rate Site Gadopiclenol (Elucirem) injection 13.2 mL 13.2 mL (0.1 mL/kg 132 kg), Intravenous, Once in imaging, 1 dose, Starting on Tue09/12/24 at 1107, Until Tue09/12/24 at 1135, Routine, Imaging Protocol Orders Given 09/12/2024 11:35 AM EDT 13.2 mL Left Antecubital documented in this encounter Additional Health Concerns Assessment Noted Time PHQ-9 Depression Total Score: 0 08/30/19 10:34 AM EDT A fall risk assessment has been complete d for the patient 05/17/2024 11:03 AM EDT A Body Mass Index follow-up plan has been documented for the patient 08/29/2024 3:53 PM EDT documented as of this encounter Care Teams Filterer Relationship Specialty Start Date End Date Severiano Lemus MD [address] [place] [address] PCP - General 07/11/20 Rosa Hutchison MD [address] [place] [address] Referring Physician Obstetrics and Gynecology 11/06/20 Tyrell Monroe MD [address] [facility] [address] [place] [address] Service Attending Neurology 12/16/21 documented as of this encounter
--- OUTSIDE RECORDS SUMMARY | 2024-09-26 06:45 | XMS_ITS ---
Author Organization [facility] Address [address] [place], [place] [phone] Care Team Providers Care Charge Master Analyst Name Role Phone Hanna Lemus Primary Care Provider [phone] Aaron Broussard [phone] REASON FOR VISIT infected leg Encounters Encounter Location Date Provider Diagnosis [facility] [address] [place], [place] [phone] 09/26/2024 Aaron Broussard Plan Of Treatment Next Appt Details Provider Name:Chetna fischer, 10/10/2024 02:15:00 PM, [address], [address], [place], [place], [phone], Provider Name:Chetna Briggs Diegodarnell fischer, 03/27/2025 09:00:00 AM, [address], [address], [place], [place], [phone], Progress Notes * MARJORIE, JESSEDWINDOB:[birth year] (39 yo F)Acc No.[id number]:09/26/2024 Progress Notes Patient: SUSANNE GIL Provider: Tamra Broussard M.D. :1985 A ge:39 Y S ex:Female Date:09/26/2024 Address:[address] [place] JAVIER [id number] Pcp:Hanna Lemus Subjective: * Chief Complaints: * 1 . Infected leg. * Medical History: Objective: * Vitals: Assessment: Plan: * Treatment: * Images: Billing Information: * Visit Code: * Procedure Codes: * Electronic signature of Merlene Broussard MD on 10/10/2024 at 02:54 PM EDT Sign off status: Pending * Provider: Tamra Broussard M.D. Date: 0 09/26/2024 Generated for Young pruitt/Marshal/Belkis on: 0 10/10/2024 02:54 PM EDT
--- OUTSIDE RECORDS SUMMARY | 2024-10-03 07:00 | XMS_ITS ---
Author Organization [facility] Address 1210 [facility] [address] [id number] Care Team Providers Care Casing Crew Name Role Phone Hanna Lemus Primary Care Provider [phone] Chetna Santiago Unavailable [phone] Allergies Allergen (clinical drug ingredient) Drug/Non Drug [...] review and pick correct strength-formulat ion from [email or web address] options. If intended option is not shown, discontinue and re-order from Quick Search* 06/12/2020 Active Lancets 1 LANCET(S) FINGERSTICK TEST 2 TIMES A DAY; Duration: 30 DAYS *Please review and pick correct strength-formulat ion from [employer] options. If intended option is not shown, [...] day; Duration: 10 days Active Vital Signs Weight 292.2 lbs 10/03/2024 Blood pressure systolic 133 mm Hg 10/04/19 25 Blood pressure diastolic 80 mm Hg 025 Heart Rate 79 /min 10/03/2024 Height 63 in 10/03/2024 BMI 51.76 kg/m2 10/03/2024 Encounters Encounter Location Date Provider Diagnosis [facility] [address] [place] [id number] 10/03/2024 Chetna Cortezobie Wound cellulitis L03 .90 and Yeast infection [...] Follow Up: prn, Reason: Provider Name:Chetna fischer, 10/10/2024 02:15:00 PM, 1210 [facility] 36 [facility], [address], [place], [phone], Provider Name:Chetna Briggs Shawn fischer, 03/27/2025 09:00:00 AM, [address] [place] [address] [address], [place], [phone], Progress Notes * DOMINIK AMADOR:[birth year] (39 yo F)Acc No.[id number]:10/03/2024 Progress Notes Patient: SUSANNE GIL Provider: FRANCISCO JAVIER Grider :1985 A ge:39 Y S ex:Female Date:10/03/2024 Address:[address] [place], [id number] Pcp:Hanna Lemus Subjective: * Chief Complaints: * [...] [place]/ 10/05/2012, Umbilical Hernia Repair - Dr. uYsuf/ 01/2014. * Hospitalization/Major Diagno stic Procedure: E ye Problem 2001, Viral Encephalitis/Meningitis - [facility] 03/2008 - 04/2008, Seizure- [place] 01/13-, Fall- [facility] 02/01/2010, UTI- [facility] 06/23/2010, Headache- [place] [facility] 06/2010, Back Pain- [place] [facility] 08/31/2010, Neck Pain- [place] [facility] 10/19/2010, [place] Palsy- [facility] 09/30/2010, Stomach Pain- [place] [facility] 11/14/1120, Back Pain- [place] [facility] 12/24/2010, Lung Pain- [facility] 01/27/2011, Chest Pain- [facility] 02/17/2011, Seizure- [facility] 09/14/2011, UTI- [place] [facility] 08/20/2012, UTI- [facility] 08/24/2012, Stomach Pain, Vomiting- [facility] 09/17-, Pnuemonia- [place] [facility] 03/05/2013, Rib Pain- [facility] 03/11/2013, Headache- [facility] 08/06/2013, Back Pain- [facility] 06/22/2014, Kidney Infection- [facility] 10/06/2014, Stomach Pain- [facility] 01/05/2015, Hit Head, Fall- [place] [facility] 12/2016, RT Side, Intestine Infection- [facility] 04/23/2017, LT Ankle Rash- [facility] 08/09/2017, Covid- [facility] 02/2020, [facility] ER - GI Issues, RLQ Pain 06/29/2023. [...] Procedure Codes: 3 6416 CAPILLARY BLOOD DRAW, 09582 CBC WITH AUTO DIFF * Follow Up: p rn * Images: Billing Information: * Visit Code: 10628 Office Visit, Est Pt., Level 3. * Procedure Codes: 68288 CAPILLARY BLOOD DRAW. 71648 CBC WITH AUTO DIFF. * Electronic signature of FRANCISCO JAVIER Michel on 10/10/2024 at 02:56 PM EDT Sign off status: Pending * Provider: FRANCISCO JAVIER Grider Date: 10/03/2024 Generated for Printi ng/Fajose eliasg/eTransmitting on: 10/10/2024 02:56 PM EDT History and Physical Notes * HPI (History [...]
--- OUTSIDE RECORDS SUMMARY | 2024-10-10 14:53 | XMS_ITS | Clinical Summary ---
Author Organization [facility] Address [address] [place] [address] Care Team Providers Care [employer] Supervisor Name Role Phone Severiano Lemus MD Primary Care Provider [phone] Rosa Hutchison MD Unavailable [phone] Tyrell Monroe MD Unavailable [phone] Allergies Active Allergy Reactions Criticality Noted Date Comments Amoxicillin Hives Medium 10/05/2012 Clindamycin Other - please docum ent in the comment field Low 12/15/2023 Codeine Hives Medium 10/05/2012 Erythromycin Unknown - Patient st ates they do not know rxn details Low 10/05/2012 Hydrochlorothiazide Unknown - Patient st ates they do not know rxn details Low 12/19/2013 Hydrocodone Hives Medium 10/05/2012 Naproxen Unknown - Patient st ates they do not know rxn details Low 10/05/2012 Oxycodone Hives Medium 10/05/2012 Penicillins Hives Medium 01/25/2016 Sulfacetamide Rash Low 10/05/2012 Medications acetaminophen (Tylenol) 325 MG tablet Take 500 mg by mouth every 6 (six) hours if needed. Active cetirizine (ZyrTEC) 10 MG tablet Take 1 tablet (10 mg) by mouth daily. 04/11/19 16 Active ondansetron (Zofran) 4 MG tablet Take 1 tablet (4 mg) by mouth every 8 hours as needed. 01/21/20 22 Active Vitamin D3 50 MCG (2000 UT) tablet Take 1 tablet (2,000 Units) by mouth daily. 11/06/19 Active cyanocobalamin 1000 MCG tablet Take 1 tablet (1,000 mcg) by mouth daily. 11/06/19 Active levothyroxine (Synthroid, Levoxyl) 25 MCG tablet Take 1 tablet (25 mcg) by mouth daily. 11/06/19 Active metFORMIN XR (Glucophage-XR) 500 MG 24 hr tablet Take 1 tablet (500 mg) by mouth daily. 11/06/19 Active pantoprazole (Protonix) 40 MG EC tablet Take 1 tablet (40 mg) by mouth daily. 11/06/19 Active atorvastatin (Lipitor) 10 MG tablet Take 1 tablet (10 mg) by mouth daily. 03/22/19 23 Active cyclobenzaprine (Flexeril) 10 MG tablet Take 0.5 tablets (5 mg total) by mouth 3 (three) times a day. 45 tablet 11 04/26/19 23 Active Additional Information Patient not taking.Reported on 08/29/2024 desvenlafaxine succinate er (Pristiq) 25 MG 24 hr tablet 2 tablets (50 mg). 06/09/19 23 Active ascorbic acid (Vitamin C) 500 MG tablet TAKE 1 tab(s) orally twice a day FOR 30 day(s) 08/13/19 23 Active Zinc Sulfate 220 (50 Zn) MG tablet take 1 tab(s) orally once a day 30 day(s) 07/15/19 23 Active promethazine (Phenergan) 25 MG tablet if needed. 09/15/19 23 Active FeroSul 325 (65 Fe) MG tablet Take 1 tablet (325 mg) by mouth 1 (one) time each day. 03/02/19 24 Active zoster vaccine-recombinan t adjuvanted (Shingrix) 50 MCG/0.5ML vaccine Inject 0.5 mL (50 mcg) into the muscle. 1 each 1 04/14/19 24 Active methocarbamol (Robaxin) 750 MG tablet take 1 tablet Orally Three times a day 12/22/19 24 Active Nurtec 75 MG orally disintegrating tablet if needed. 11/01/19 24 Active diphenhydrAMINE (Benadryl) 25 MG tablet Take 2 tablets (50 mg) by mouth. Active estradiol (Estrace) 0.1 MG/GM vaginal creamIndications:V aginal pain Insert 1 g into the vagina 2 (two) times a week. 42.5 g 1 04/19/19 25 Active Fezolinetant (Veozah) 45 MG tabletIndications: Perimenopausal vasomotor symptoms Take 45 mg by mouth daily. 30 tablet 11 04/17/19 25 Active Ofatumumab (Kesimpta) 20 MG/0.4ML solution auto-injectorIndic ations:MS (multiple sclerosis) ([facility]) Inject 1 pen. under the skin every 28 (twenty-eight) days. 1.2 mL 05/10/19 25 Active LORazepam (Ativan) 1 MG tabletIndications: MS (multiple sclerosis) ([facility]/HCC) Take 45 min prior to MRI 1 tablet 05/19/19 25 Active cholecalciferol (Vitamin D-3) 50 MCG (1999 UT) capsule Take by mouth. Activ e meclizine (Antivert) 25 MG tablet Take 1 and 1/2 tablets (37.5mg) by mouth in the morning then 1 tablet (25mg) midday then take 1 and 1/2 tablets (37.5mg) at night as needed. 120 tablet 2 10/04/19 25 Active meclizine (Antivert) 25 MG tablet Take 1 and 1/2 tablets (37.5mg) by mouth in the morning then 1 tablet (25mg) midday then take 1 and 1/2 tablets (37.5mg) at night as needed. 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 with meningitis 024 MS (multiple sclerosis) 04/13/2023 Recurrent UTI 04/26/2022 Assessment & Plan (08/29/2024 3:53 PM EDT): - Continue cranberry supplement PFD (pelvic floor dysfunction) 04/26/2022 Post-menopausal atrophic vaginitis 04/26/2022 Depression 08/14/2021 Tonic-clonic seizures 05/03/2019 Abnormal uterine bleeding 09/01/2018 Overview (07/17/2021): AUB - Longstanding history - Previous D&C and ablation at OSH for this 07/2017 (benign path) - Initial consult [facility] 09/06/2018 - Provera started 09/06/2018 - Rapid return to clinic with persistent symptoms so switched to Megace 09/13/2018 - Long gap in follow up care until 02/18/2020 when TVUS shows still thickened endometrium to 1.9 cm despite Megace - Advised D&C/Mirena placement but further delays noted due to COVID 19 02/2020 - Hysteroscopy/D&C/Mirena placement done on 07/11/2020, path: Benign polyp, atrophic endometrium - Presented to ED 09/2020 with heavy bleeding and pain, declined US in ED - [facility] 11/16/2020: endometrium 2.6 cm, IUD not visualized - CT 11/20/2020: IUD [place] - 11/21/2020: Documented phone note asking for patient to be scheduled for follow up management but lost to follow up due to moving - Patient seen 05/08/2021 ([facility]SD) and reported that Mirena replaced (? By whom) and patient felt it fell out again spring 2021 (good description of seeing device) - [facility] [place] 05/08/2021: Endometrium 0.5 mm, IUD may be present but misplaced in myometrium (likely referring to one still present in [place] - Provera restarted 04/2021. Patient declines surgery in favor of repeat trial of conservative oral hormonal therapy - Failed conservative trial, Robotic TLH/BS performed 07/15/2021, benign path Urge incontinence 08/07/2018 Assessment & Plan (08/29/2024 3:53 PM EDT): - - We discussed contributing factors. Reviewed all options including expectant management, behavioral modifications, bladder irritants, pelvic floor physical therapy, medications, Botox injections, PTNS, and SNM. Morbid obesity with BMI of 50.0-59.9, adult Mental handicap Overview (11/29/2022): Diagnosis replaced per IMO Regulatory Update November 28, 2022 Pelvic pain Encounters Date Type Department Care Team Description 10/09/2024 Orders Only [facility] [address], [address] [place] [id number] Tyrell Monroe MD MS (multiple sclerosis) ([facility]) (Primary Dx) 10/09/2024 Telephone [facility] [address], [address] [place] [address] Tyrell Monroe MD 09/13/2024 Telephone [facility] [address], [address] [place] [address] Tyrell Monroe MD HCN - Patient Message (results) 09/12/2024 10:31 AM EDT - 09/12/2024 11:59 PM EDT Hospital Encounter [facility] [address], [address]st [place] [address] MS (multiple sclerosis) ([facility]) Discharge Disposition: Home or Self Care 09/12/2024 Travel 09/11/2024 Travel 08/29/2024 10:30 AM EDT Office Visit Medical Office Building Obstetrics and Gynecology [address], [address] [place] [address] Anne-Marie Spears APRN Urge incontinence (Primary Dx); MARTA (stress urinary incontinence, female); Recurrent UTI 08/29/2024 Travel 08/24/2024 Travel 08/22/2024 10:20 AM EDT Consult [facility] Otol[facility]ology [address] [place] [address] Delvis Plaza MD MS (multiple sclerosis) ([facility]) (Primary Dx); Dizziness of unknown etiology 08/22/2024 Travel 08/15/2024 Travel 07/30/2024 Orders Only [facility] [address], [address] [place] [phone] Tyrell Monroe MD MS (multiple sclerosis) ([facility]) (Primary Dx) 07/30/2024 [facility]phone [facility] [address], [address] [place] [address] Tyrell Monroe MD 07/24/2024 Telephone Medical Office Building Obstetrics and Gynecology [address], [address] [place] [address] Anne-Marie Spears, MONUMENT STONECUTTER from Last 3 Months Immunizations Immunization Administration Dates Next Due Hep B, Adolescent or Pediatric 03/20/1999 Hep B, Adolescent/High Risk Infant 10/10/1998, Influenza, injectable, MDCK, preservative free, quadrivalent 04/04/2018 [employer] COVID-19 Vaccine (Purple Cap) 12 + 11/13/2020,10/23/2020 TD (adult), 2 Lf tetanus tox oid, preservative free, adsorbed 09/12/1998 Tdap 03/21/2009 Family History Medical History Relation Name Comments Conversions - Other Father Patient' s father is Lymphoma Father FH: lymphoma Lung cancer Maternal Grandmother FH: alfreda g cancer Bone cancer Other 1 Lung cancer Other 2 Breast cancer Other 3 Cervical cancer Other 4 Bone cancer Other 5 Family history of bone cancer Breast cancer Other 6 FH: breast can cer Lymphoma Other 7 FH: lymphoma Uterine cancer Sister FH: uterine c ancer Anesthesia problems Neg Hx Relation Name Status Comments Father Maternal Grandmother Other 1 Other 2 Other 3 Other 4 Other 5 Other 6 Other 7 Sister Social History Tobacco Use Types Packs/Day Years [...] on file Sexual Orientation Not on file Last Filed Vital Signs Vital Sign Reading Time Taken Comments Blood Pressure 113/77 08/29/2024 10:33 AM EDT Pulse 80 08/29/2024 10:33 AM EDT Temperature 36.3 C (97.3 F) 08/29/2024 10:33 AM EDT Respiratory Rate 18 08/29/2024 10:3 3 AM EDT Oxygen Saturation 97% 05/17/2024 10: 58 AM EDT numb in feet legs and face Inhaled Oxygen Concentration - - Weight 132 kg (289 lb 14.5 oz) 09/12/2024 10:48 AM EDT Height 160 cm (5' 3 ) 08/29/2024 10:33 AM EDT Body Mass Index 51.35 08/29/2024 10:33 AM EDT Plan of Treatment Upcoming Encounters Date Type Department Care Team (Late st Contact Info) Description 11/14/2024 1:30 PM EDT [facility] Visit [facility] [address], [address] [place] [address] Tyrell Monroe MD [address] [place] [address] 12/05/2024 10:00 AM EDT Office Visit Medical Office Building Obstetrics and Gynecology [address], [address] [place] [address] Anne-Marie Spears R, MONUMENT STONECUTTER [address] [place] [address] 04/17/2025 12:30 PM EST Ancillary Procedure [facility] [address] [place] [address] 04/17/2025 1:00 PM EST Office Visit [facility] [address] [place] [phone] Lise Charles, MONUMENT STONECUTTER [address] [facility] [address] [place] [address] Health Maintenance Due Date Last Done Comments [facility]-/Child/Adol SDOH Screenings 1985 Diabetes: Dental Exam 02/10/1994 [facility]-Varicella Vaccines (1 of 2 - 13+ 2-dose series) 02/10/1997 [facility]- SDOH Screenings 02/10/2002 [facility]-Adult SDOH Screenings 02/10/2002 [facility]-Pneumococcal Vaccine: Pediatrics (0 to 5 Years) and At-Risk Patients (6 to 49 Years) (1 of 2 - PCV) 02/10/2003 HPV Vaccines (1 - 3-dose SCDM series) 02/10/2011 [facility]-DTaP,Tdap,and Td Vaccines (3 - Td or Tdap) 03/21/2019 03/21/2009, 09/12/1998 [id number] Vaccine (3 - Pfizer risk series) 12/11/2020 11/13/2020, 10/23/2020 [facility]-Diabetes: Hemoglobin A1C 12/13/2021 06/15/2021, 02/18/2020 [facility]-Influenza Vaccine (#1) 2024 04/04/2018, [facility]-Depression Screening 08/29/2025 025, 08/29/2024, 06/15/2021 [facility]-Zoster Vaccines (1 of 2) 02/10/2034 [facility]-Hepatitis B Vaccines Completed 000, 10/10/1998, 09/12/1998 [facility]-HIV Screening Completed 10/13/2020 [facility]-Hepatitis C Screening Completed 10/13/2020 [facility]-Cervical Cancer Screening Discontinued [facility]-HPV/Cotest Discontinued 11/10/2020, 11/10/2020 [facility]-Pap Smear Discontinued 11/10/2020 [facility]-Obesity Intervention Completed 025, 08/22/2024, 05/17/2024, Additional history exists [facility]-HIB Vaccines Aged Out No longer e ligible based on patient's age to complete this topic [facility]-Hepatitis A Vaccines Aged Out No longer eligible based on patient's age to complete this topic [facility]-IPV Vaccines Aged Out No longer e ligible based on patient's age to complete this topic [facility]-Rotavirus Vaccines Aged Out No lo nger eligible based on patient's age to complete this topic Procedures Procedure Name Priority Date/Time Associated Diagnosis Comments MR HEAD W AND WO IV CONTRAST Routine 09/12/2024 11:47 AM EDT MS (multiple sclerosis) (CMS/HCC) HEMOGLOBIN A1C Routine 06/15/2021 2:16 PM EDT Abnormal uterine bleeding (AUB) PAP TEST - CYTOLOGY Routine 11/10/2020 1 1:47 AM EDT Abnormal uterine bleeding HEPATITIS C ANTIBODY - ED W/REFLEX TO HCV QUANT PCR STAT 10/13/2020 2:53 PM EDT HIV 1/2 ANTIBODY/ANTIGEN SCREEN WITH REFLEX TO HIV I/II DIFFERENTIATION STAT 10/13/2020 2:53 PM EDT from Last 3 Months or Most Recently Relevant to Health Maintenance Results * MR Head w and wo [...] error, please notify the sender immediately at [phone] and permanently delete the original report and destroy any copies or printouts. Narrative 09/13/2024 6:57 AM EDT [facility] - [facility] Outpatient NAME: Yumiko Bravo DATE OF EXAM: 09/12/2024 Patient No: [id number] Physician: Mabel^Tyrell^Hayder Date of : 1985 Past Medical/Surgical History [...] Hurd MD - 09/13/2024 [facility] [place] Out[facility] NAME: Yumiko Bravo DATE OF EXAM: 09/12/2024 Patient No: [id number] Physician: Ronak^Hayder Date of : 1985 Past Medical/Surgical History [...] in error, pleasenotify the sender immediately at [phone] and permanently delete theoriginal report and destroy any copies or printouts. us Jagannadha R Avasarala MD IMG MRI PROCEDURES Fin al Result * Hemoglobin A1c (06/15/2021 2:16 PM EDT) Hemoglobin A1c 5.3 <5.7 % 06/15/2021 4:23 PM EDT [facility] Blood Venous blood specimen / Unknown Venipuncture / Unknown 06/15/2021 2:16 PM EDT 06/15/2021 3:02 PM EDT Narrative [facility] - 06/15/2021 4:23 PM EDT HA1C Interpretive Data: Diagnosis of Diabetes: Diabetic > or = 6.5% Pre-diabetic 5.7 to 6.4% Non-diabetic < or = 5.6% Glycemic Targets for Type I and Type II Diabetics: Non- Adults <7.0% Adults <6.0% Children and Adolescents <7.5% Source: [place] [employer]. Standards of medical care in diabetes,2017. Diabetes Care.2017:40 (suppl 1):S1-S135. HbA1c assay performed by an ion-exchange chromatography method that is certified traceable to the DCCT. us Rosa Cedeno MD LAB BLOOD ORDERABLES Final Result [facility] [address] [place], [place] [id number] * (ABNORMAL) Pap Test (11/10/2020 11:47 AM EDT) Case Report Cytology Case: [id number] Authorizing Provider: Nicole Overton NP Collected: 11/10/2020 1147 Ordering Location: [facility] Gynecology Received: 11/11/2020 1050 First Screen: Nancy Duke, CT Pathologist: Chantel Torrez MD Specimen: ThinPrep Pap Test, Liquid-Based Cervical/Vagin al, CERVICAL/VAGIN AL 11/25/2020 5:05 PM EDT [facility] Interpretation ATYPICAL SQUAMOUS CELLS OF UNDETERMINED SIGNIFICANCE (ASCUS)(A) 11/25/2020 5:05 PM EDT [facility] at 1705 EDT Specimen Adequacy Satisfactory for evaluation; endocervical/t ransformation zone component present. Slide examined with [employer] ThinPrep Imaging System but manually screened for technical reasons. 11/25/2020 5:05 PM EDT [facility] Cervical cytology is a screening test primarily for squamous cancers and precursors and has associated false negative and positive results. New technologies such as liquid based sampling may decrease but will not eliminate all false negative results. Regular screening and follow-up of unexplained clinical signs and symptoms are recommended to minimize false negative results. Please see the ASCCP website (www.asccp.org )for followup recommendation s. If HPV testing was requested, correlation with the results is suggested (please call Microbiology at [phone] for results). 11/25/2020 5:05 PM EDT [facility] Menstrual Status Cyclic 11/26/19 5:05 PM EDT [facility] History of Hysterectomy Not Applicable 11/25/2020 5:05 PM EDT [facility] Contraceptive History Intrauterine device 11/25/2020 5:05 PM EDT [facility] Last Menstrual Period 10/10/2020 11/25/2020 5:05 PM EDT [facility] Screening Type Previous or Suspected Abnormality 11/25/2020 5:05 PM EDT [facility] HPV Testing Requested? Request HPV Testing if ASCUS (Women 25 Years or Older) 11/25/2020 5:05 PM EDT [facility] Previous Cancer History No 11/25/2020 5:05 PM EDT [facility] Intradepartmental Consultation with Agreement KA 11/25/2020 5:05 PM EDT [facility] Previous or Suspected Abnormality Previous Abnormal Pap 11/25/2020 5:05 PM EDT [facility] Swab Vaginal and cervical cytologic material / Unknown Non-blood Collection / Unknown 11/10/2020 11:47 AM EDT 11/11/2020 10:50 AM EDT Nicole Overton MONUMENT STONECUTTER, DNP LAB CYTOLOGY ORDERAB LES Final Result [facility] [address] [place] [id number] * HIV 1 & 2 Antibody/Antigen Screen (10/13/2020 2:53 PM EDT) HIV 1 & 2 Antibody/Anti gen Screen Nonreactive Nonreactive 10/13/2020 4:30 PM EDT [facility] Blood Venous blood specimen / Unknown Venipuncture / Unknown 10/13/2020 2:53 PM EDT 10/13/2020 3:08 PM EDT Freddy Lee MD LAB BLOOD ORDERABLES Final Result [facility] [address] [place] [address] * [facility] Hepatitis C Antibody (10/13/2020 2:53 PM EDT) [facility] Hepatitis C Antibody Negative Negative 10/13/2020 4:30 PM EDT [facility] Blood Venous blood specimen / Unknown Venipuncture / Unknown 10/13/2020 2:53 PM EDT 10/13/2020 3:08 PM EDT Freddy Lee MD LAB BLOOD ORDERABLES Final Result Performing Organization Address [facility] Co de Phone Number [facility] [address] [place] [address] from Last 3 Months or Most Recently Relevant to Health Maintenance Insurance [place]ICA[place] Advance Directives * Full Code (Latest Code Status on File) Date Activated Date Inactivated Comments 07/15/2021 4:54 PM 07/16/2021 10:33 PM Question Answer Comments Patient has decision-making capacity? Yes Care Teams [employer] Supervisor Relationship Specialty Start Date End Date Severiano Lemus MD [address] [place] [address] PCP - General 07/11/20 Rosa Hutchison MD [address] [place] [address] Referring Physician Obstetrics and Gynecology 11/06/20 Tyrell Monroe MD [address] [facility] [address] [facility] [address] [place] [address] Service Attending Neurology 12/16/21
--- NOTE | 2024-10-10 14:54 | XR_ITS ---
FINAL REPORT CLINICAL HISTORY: WOUND CELLULITIS FINDINGS: AP and lateral views of the right tibia and fibula were obtained. There is no prior exam for comparison. There is no acute fracture of the right tibia or fibula. The knee and ankle appear intact. The soft tissues are normal. IMPRESSION: No acute osseous abnormality of the right tibia or fibula. Reviewed, Interpreted and Dictated by Kary Asher MD Transcribed by Betsey Nguyen Authenticated and [facility]
--- OUTSIDE RECORDS SUMMARY | 2024-10-10 14:54 | XMS_ITS | Patient Health Record ---
Author Organization [facility] [place] Address [address] [place] [address] Care Team Providers Care News Internship Name Role Phone Rosa Hutchison Unavailable [phone] Allergies Allergen (clinical drug ingredient) Drug/Non Drug Allergy documented on EMR Reaction Allergy Type Onset Date Status erythromycin Erythromycin Unknown Drug Allergy A ctive naproxen Naproxen Unknown Drug Allergy Active amoxicillin Amoxicillin Unknown Drug Allergy Act reagan Substance with sulfonamide structure and antibacterial mechanism of action (substance) Sulfa Antibiotics Unknown Drug Allergy Active Reason For Referral No Information Medications Medication SIG (Take, Route, Frequency, Duration) Notes Start Date End Date Status Ondansetron HCl 4 MG Tablet 1 tablet Ora lly Once a day Active metFORMIN HCl ER 500 MG Tablet Extended Release 24 Hour TAKE ONE TABLET BY MOUTH ONCE DAILY Oral; Duration: 30 Days Active Meclizine HCl 25 MG Tablet 1 tablet as n eeded Orally every 12 hrs Active Fluconazole 150 MG Tablet 1 tablet Orall y every 3 day; Duration: 3 days 10/27/2022 Active Levothyroxine Sodium 25 MCG Tablet take 1 tab(s) by mouth once a day 30 day(s) Oral; Duration: 30 Days Active Vitamin D3 50 MCG (1999) Tablet take 1 tab(s) by mouth once a day 30 day(s) Oral; Duration: 30 Days Active Senna 8.6 MG Tablet 2 tablets at bedtime as needed Orally Once a day Active Pantoprazole Sodium 40 MG Tablet Delayed Release Oral; Duration: 30 Days Active B-12 1000 MCG Tablet Extended Release 1 tablet Orally Once a day Active Fluconazole 150 MG Tablet 1 tablet Orall y once, may repeat in 24-48 hours if needed; Duration: 10 days 09/06/2022 Active Cetirizine HCl 10 MG Tablet take 1 tab(s ) by mouth once a day Oral; Duration: 30 Days Active Social History Tobacco Use: Social History Observation Description Date Details (start date - stop date) Never Smoker NA - NA Sex Assigned At : Social History Observation Description Sex Assigned At Female Social History Drugs/Alcohol: Social Info Question Answer Notes Drugs Have you used drugs other than those for medical reasons in the past 12 months? No Steroid Use Have you used anabolic (body building) st eroids? No Alcohol Screen Did you have a drink containing alcohol in the past year? No Points 0 Interpretation Negative Tobacco Use: Social Info Question Answer Notes Tobacco Use/Smoking Are you a nonsmoker Plan Of Treatment No Information Insurance Providers Payer Name Payer Address Payer Phone Subscriber Number Group Number Insured Name Patient Relationship to Insured Coverage Start Date Coverage End Date Medicaid [place] [address] [place] [phone] [id number] Yumiko Bravo Self - patient is the insured Medical (General) History Medical History History ICD Code MS Gerd Diabetes Anxiety/ Depression Blind in left eye Surgical History Surgery Date(Month/Year) Hysterectomy robotic Cholecystectomy Oral Lap BTL Endometrial Ablation Hospitalization History Reason Date(Month/Year) For MS
--- OUTSIDE RECORDS SUMMARY | 2024-10-10 14:54 | XMS_ITS | Clinical Summary ---
Author Organization [facility] Address [address] [place] [address] Care Team Providers Care Jet Piercer Operator Name Role Phone Severiano Lemus MD Primary Care Provider Allergies Active Allergy Reactions Criticality Noted Date Comments Codeine Hives Medium 01/25/2016 Erythromycin Hives Medium 01/25/2016 Hydrocodone Hives Medium 01/25/2016 Naproxen Hives Medium 01/25/2016 Oxycodone Hives Medium 01/25/2016 Penicillins Hives Medium 01/25/2016 Sulfa Antibiotics Hives Medium 01/25/2016 Medications benztropine (COGENTIN) 1 MG tablet Take 1 mg by mouth 2 (Two) Times a Day. 04/14/2019 Active bisoprolol (ZEBeta) 5 MG tablet 04/27/2019 Active diclofenac (VOLTAREN) 75 MG EC tablet Take 75 mg by mouth 2 (Two) Times a Day. 04/13/2019 Active cyclobenzaprine (FLEXERIL) 10 MG tablet Take 10 mg by mouth 3 (Three) Times a Day As Needed. 04/27/2019 Active ferrous sulfate 325 (65 FE) MG tablet Take 1 tablet by mouth 2 (Two) Times a Day. 04/14/2019 Active levothyroxine (SYNTHROID, LEVOTHROID) 25 MCG tablet Take 25 mcg by mouth Daily. 04/25/2019 Active megestrol (MEGACE) 40 MG tablet 03/17/2019 Active amitriptyline (ELAVIL) 10 MG tablet 03/17/2019 Active DULOXETINE HCL PO Take by mouth. Active ARIPiprazole (ABILIFY PO) Take by mouth. Active Acetaminophen (TYLENOL PO) Take by mouth. 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 Not on file 12/2022 Does Anyone Keep You from Co ntacting Others or Doint Things Outside the Home? Not on file 12/08/2022 Physical Sign of Abuse Present Not on file 1 Housing Stability Answer Date Recorded Current Living Arrangements Not on file 11/28 Potentially Unsafe Housing Conditions Not on martín e 12/08/2022 Family and Community Support Answer Terrence e Recorded Help with Day-to-Day Activities Not on file 12/08/2022 Lonely or Isolated Not on file 12/08/2022 Employment Answer Date Recorded Do you want help finding or keeping work or a carrie b? Not on file 12/08/2022 Disabilities Answer Date Recorded Concentrating, Remembering, or Making Decisions Difficulty Not on file 12/08/2022 Doing Errands Independently Difficulty Not on fi le 12/08/2022 Education Answer Date Recorded Help with school or training? Not on file Preferred Language Not on file 12/08/2022 Comments No Sex and Gender Information Value Date Recorded Sex Assigned at Not on file Legal Sex Female 11:45 AM EDT Gender Identity Not on file Sexual Orientation Not on file Last Filed Vital Signs Vital Sign Reading Time Taken Comments Blood Pressure 130/88 05/03/2019 12:32 PM EST Pulse 86 05/03/2019 12:32 PM EST Temperature 37.1 C (98.8 F) 05/03/2019 12:32 PM EST Respiratory Rate 16 05/03/2019 12:32 PM EST Oxygen Saturation 97% 05/03/2019 12:32 PM EST Inhaled Oxygen Concentration - - Weight 165 kg (363 lb) 05/03/2019 12:32 PM EST Height 162.6 cm (5' 4 ) 05/03/2019 12:32 PM EST Body Mass Index 62.31 05/03/2019 12:32 PM EST Plan of Treatment Health Maintenance Due Date Last Done Comments Annual Gynecologic Pelvic an d Breast Exam 1984 ANNUAL PHYSICAL 08/09/2017 HEPATITIS C SCREENING 08/09/2017 TDAP/TD VACCINES (3 - Td or Tdap) 03/21/2019 03/21/2009, 09/12/1998 COVID-19 Vaccine (2023-2 5 season) 2023 MAMMOGRAM 2024 INFLUENZA VACCINE 11/28/2024 04/04/2018 Pneumococcal Vaccine 0-49 Aged Out No longer eligible based on patient's age to complete this topic Insurance Care Teams Jet Piercer Operator Relationship Specialty Start Date End Date Severiano Lemus MD [address] [facility] [facility] [address] [place] [address] PCP - General 12/17/14
--- OUTSIDE RECORDS SUMMARY | 2024-10-10 14:54 | XMS_ITS | Encounter Summary ---
Author Organization [facility] Address [address] [place] [address] Care Team Providers Care Processing Mgr Name Role Phone Severiano Lemus MD Primary Care Provider [phone] Rosa Hutchison MD Unavailable [phone] Tyrell Monroe MD Unavailable [phone] Reason for Visit * Reason Comments Med Refill Encounter Details Date Type Department Care Team (Late st Contact Info) Description 08/04/2023 Refill [facility] [address] [place] [id number] Lise Charles S, HAT MEASURER [address] Ahmadi [facility] [address] [place] [address] Social History Tobacco Use Types Packs/Day Years Used Date Smoking Tobacco: Former Cigarettes 0.5 20 0 03/14/2000 - 03/14/2020 Smokeless Tobacco: Never Alcohol Use Standard Drinks/Week Comments No 0 (1 standard drink = 0.6 oz pur e alcohol) PHQ-2 Answer Date Recorded Patient Health Questionnaire-2 Score 0 07/26/2023 PHQ-9 Answer Date Recorded Patient Health Questionnaire-9 Score 5 02/01/2023 PHQ-2A Answer Date Recorded Patient Health Questionnaire-2 Score 3 02/01/2023 Comments No Sex and Gender Information Value Date Recorded Sex Assigned at Not on file Legal Sex Female 7:53 PM EDT Gender Identity Not on file Sexual Orientation Not on file documented as of this encounter Plan of Treatment Upcoming Encounters Date Type Department Care Team (Late st Contact Info) Description 11/14/2024 1:30 PM EDT Office Visit [place] [facility] [address], [address] [place] [address] Tyrell Monroe MD [address] [place] [address] 12/05/2024 10:00 AM EDT Office Visit Medical Office Building Obstetrics and Gynecology [address], [address] [place] [address] Anne-Marie Spears R, HAT MEASURER [address] [place] [address] 04/17/2025 12:30 PM EST Ancillary Procedure [facility] [address] [place] [address] 04/17/2025 1:00 PM EST Office Visit [facility] [address] [place] [phone] Lise Charles S, HAT MEASURER [address] [place] [address] documented as of this encounter Visit Diagnoses Not on filedocumented in this encounter Additional Health Concerns Assessment Noted Time PHQ-9 Depression Total Score: 5 02/02/20 10:21 AM EST A fall risk assessment has been complete d for the patient 07/26/2023 9:07 AM EDT A Body Mass Index follow-up plan has been documented for the patient 04/13/2023 8:47 PM EST documented as of this encounter Care Teams Processing Mgr Relationship Specialty Start Date End Date Severiano Lemus MD [address] [place] [address] PCP - General 07/11/20 Rosa Hutchison MD [address] [place] [address] Referring Physician Obstetrics and Gynecology 11/06/20 Tyrell Monroe MD [id number] [place] [address] Service Attending Neurology 12/16/21 documented as of this encounter
--- OUTSIDE RECORDS SUMMARY | 2024-10-10 14:54 | XMS_ITS | Encounter Summary ---
Author Organization [facility] Address [address] [place] [address] Care Team Providers Care Animation Camera Operator Name Role Phone Severiano Lemus MD Primary Care Provider [phone]- [phone] Rosa Hutchison MD Unavailable [phone] Tyrell Monroe MD Unavailable [phone] Encounter Details Date Type Department Care Team (Late st Contact Info) Description 06/29/2023 Orders Only External Location [address] [place] [address] Provider, External Social History Tobacco Use Types Packs/Day Years Used Date Smoking Tobacco: Former Cigarettes 0.5 20 0 03/14/2000 - 03/14/2020 Smokeless Tobacco: Never Alcohol Use Standard Drinks/Week Comments No 0 (1 standard drink = 0.6 oz pur e alcohol) PHQ-2 Answer Date Recorded Patient Health Questionnaire-2 Score 1 04/01/2023 PHQ-9 Answer Date Recorded Patient Health Questionnaire-9 [...] Visit [place] [facility] [address] [place] [address] Tyrell Monroe MD [address] [place] [address] 12/05/2024 10:00 AM EDT Office Visit Medical Office Building Obstetrics and Gynecology [address] [facility], [address] [place] [address] Anne-Marie Spears R, FREEZER MACHINE OPERATOR [address] [place] [address] 04/17/2025 12:30 PM EST Ancillary Procedure [facility] [address] [place] [address] 04/17/2025 1:00 PM EST Office Visit [facility] [address] [place] [address] Lise Charles S, FREEZER MACHINE OPERATOR [address] [place] [address] documented as of this encounter Procedures Procedure Name Priority Date/Time Associated Diagnosis Comments CT [facility] OUTSIDE IMAGES 06/29/2023 2:15 PM EDT documented in this encounter Results * CT MSK OUTSIDE IMAGES (06/29/2023 2:15 PM EDT) Anatomical Region Laterality Modality Computed Tomogra phy 06/29/2023 2:15 PM EDT us External Provider IMG CT PROCEDURES Final Result documented in this encounter Visit Diagnoses Not on filedocumented in this encounter Additional Health Concerns Assessment Noted Time PHQ-9 Depression Total Score: 5 02/02/20 10:21 AM EST A fall risk assessment has been complete d for the patient 04/13/2023 8:20 AM EST A Body Mass Index follow-up plan has been documented for the patient 04/13/2023 8:47 PM EST documented as of this encounter Care Teams Animation Camera Operator Relationship Specialty Start Date End Date Severiano Lemus MD [address] [place] [address] PCP - General 07/11/20 Rosa Hutchison MD [address] [place] [address] Referring Physician Obstetrics and Gynecology 11/06/20 Tyrell Monore MD [address] [facility] [address] [place] [address] Service Attending Neurology 12/16/21 documented as of this encounter
--- OUTSIDE RECORDS SUMMARY | 2024-10-10 14:54 | XMS_ITS | Encounter Summary ---
Author Organization [facility] Address [address] [place] [address] Care Team Providers Care Primary School Teacher Name Role Phone Severiano Lemus MD Primary Care Provider [phone] Rosa Hutchison MD Unavailable [phone] Tyrell Monroe MD Unavailable [phone] Reason for Referral * Consultation (Routine) - Closed Specialty Diagnoses / Procedures Referred By Contkeely t Referred To Contact Rheumatology Diagnoses Optic neuritis Papilledema Other chronic pain Chronic nonintractable headache, unspecified headache type Bibiana Trejo MD [address] [facility] [address] [place] [address] Phone: tel: fax: Referral ID Status Reason Start Date Expiration Date V isits Requested Visits Authorized [id number] Closed Specialty Services Required 10/13/2021 04/14/2023 1 1 Encounter Details Date Type Department Care Team (Latest Contact Info) Description 10/12/2021 [facility] [address] [place] [address] Bibiana Trejo MD [address] [facility] [address] [place] [address] Optic neuritis (Primary Dx); Papilledema; Other chronic pain; Chronic nonintractable headache, unspecified headache type Social History Tobacco Use Types Packs/Day Years Used Date Smoking Tobacco: Former Cigarettes Q uit: 03/14/2020 Smokeless Tobacco: Never Alcohol Use Standard Drinks/Week Comments No 0 (1 standard drink = 0.6 oz pur e alcohol) Comments No Sex and Gender Information Value Date Recorded Sex Assigned at Not on file Legal Sex Female 7:53 PM EDT Gender Identity Not on file Sexual Orientation Not on file documented as of this encounter Plan of Treatment Upcoming Encounters Date Type Department Care Team (Late st Contact Info) Description 11/14/2024 1:30 PM EDT [facility] Visit [place] [facility] [address] [place] [address] Tyrell Monroe MD [address] [facility] [address] [place] [address] 12/05/2024 10:00 AM EDT Office Visit Medical Office Building Obstetrics and Gynecology [address] [facility], [address] [place] [address] Anne-Marie Spears R, RADIOGRAPHIC TECHNOLOGIST [address] [facility] [address] [place] [address] 04/17/2025 12:30 PM EST Ancillary Procedure [facility] [address] [place] [address] 04/17/2025 1:00 PM EST Office Visit [facility] [address] [place] [address] Lise Charles, RADIOGRAPHIC TECHNOLOGIST [address] [facility] [address] [place] [phone] Scheduled Referrals Name Type Priority Associated Diagnoses Orde r Schedule Ambulatory referral to Rheumatology Outpatient Referral Routine Optic neuritis Papilledema Other chronic pain Chronic nonintractable headache, unspecified headache type Ordered: 10/13/2021 documented as of this encounter Visit Diagnoses Diagnosis Optic neuritis- Primary Unspecified optic neuritis Papilledema Unspecified papilledema Other chronic pain Chronic nonintractable headache, unspecified headache type documented in this encounter Additional Health Concerns Assessment Noted Time A fall risk assessment has been complete d for the patient 06/29/2021 12:05 PM EDT documented as of this encounter Care Teams Primary School Teacher Relationship Specialty Start Date End Date Severiano Lemus MD [address] [place] [address] PCP - General 07/11/20 Rosa Hutchison MD [address] [place] [address] Referring Physician Obstetrics and Gynecology 11/06/20 Tyrell Monroe MD [address] [facility] [address] [place] [address] Service Attending Neurology 12/16/21 documented as of this encounter
--- OUTSIDE RECORDS SUMMARY | 2024-10-10 14:54 | XMS_ITS | Patient Health Record ---
Author Organization [facility] Address [address] [id number] Care Team Providers Care Repeat Chief Name Role Phone Hanna Lemus Primary Care Provider [phone] Aaron Broussard Unavailable [phone] Sariah Meyer Unavailable [phone] Chetna Santiago Unavailable [phone] Allergies Allergen (clinical drug ingredient) Drug/Non Drug [...] Active Results Component Value Reference Range Notes H-CMP Reviewed date:10/17/2023 09:49:54 PM Interpretation:gluc 108 Performing Lab: Notes/Report: NA 140 136-145 mmol/L K 4.3 3.5-5.1 mmoL/L CL 106 98-107 mmol/L CO2 27 22.0-30.0 mmol/L GAP 11.3 5-15 mEq/L BUN 12 7-17 mg/dl CREATT 0.70 0.52-1.04 mg/dl GFRAA 113 >60 ML/MIN EGFR 93 >60 ml/min GLU 108 74-100 mg/dl CA 8.8 8.4-10.2 mg/dl BILIT 0.5 0.2-1.3 mg/dl AST 30 14-36 U/L ALT 24 12-78 U/L TP 6.8 6.3-8.2 g/dl ALB 4.1 3.5-5.0 g/dl GLOB 2.7 1.3-3.2 g/dL AGRATIO 1.5 1.1-1.8 ALP 100 38-126 U/L H-Vitamin D 1,25 Reviewed date:10/19/2023 11:52:14 AM Interpretation: Performing Lab: Notes/Report: CBC Fingerstick (in house) Reviewed date:10/03/2024 03:49:46 [...] - 38 plat 139 100 - 400 H-TSH Reviewed date:10/17/2023 09:49:54 PM Interpretation:Normal Performing Lab: Notes/Report: TSH 2.50 0.465-4.68 uIU/mL H-CBC Reviewed date:10/17/2023 09:49:54 PM Interpretation:wbc 10.9, mchc 31.1 Performing Lab: Notes/Report: WBC 10.9 4.8-10.8 K/mm3 RBC 4.31 4.20-5.40 M/mm3 HGB 12.7 12.2-16.2 g/dL HCT 40.9 37.0-47.0 % MCV 94.8 81-99 fl MCH 29.5 27.0-31.2 pg MCHC 31.1 31.8-35.4 g/dL RDW 15.1 11.5-17.5 % PLT 309 142-424 K/mm3 MPV 7.6 7.4-10.4 fl NE% 68.1 37.0-80.0 % LY% 24.2 10-50 % MO% 3.9 1.7-9.3 % EO% 3.2 0.1-12.0 % BA% 0.7 0.1-2.0 % NE# 7.4 1.8-7.8 K/mm3 LY# 2.6 0.7-4.5 K/mm3 MO# 0.4 0.1-1.0 K/mm3 EO# 0.3 0.0-0.4 K/mm3 BA# 0.1 0-0.2 K/mm3 H-Folate Reviewed date:10/17/2023 09:49:54 PM Interpretation:Normal Performing Lab: Notes/Report: FOL > 20.00 Normal Adult: 2.76->20 ng/mL Folate Deficent: 1.04-2.79ng/mL H-VITAMIN B12 Reviewed date:10/17/2023 09:49:54 PM Interpretation:>1000 Performing Lab: Notes/Report: VITB12 > 1000 239-931 pg/mL H-T4 free Reviewed date:10/17/2023 09:49:54 PM Interpretation:Normal Performing Lab: Notes/Report: T4F 0.97 0.78-2.19 ng/dl H-Ferritin Reviewed date:10/17/2023 09:49:54 PM Interpretation:81.7 Performing Lab: Notes/Report: CHANDLER 81.7 6.24-137 ng/ml Delta: 158 on 02/18/21-1437 H-Iron Reviewed date:10/17/2023 09:49:54 PM Interpretation:Normal Performing Lab: Notes/Report: FE 58 37-170 ug/dL FE 58 37-170 ug/dL Urinalysis - Inhouse Reviewed date:05/01/2024 02:43:31 PM Interpretation: Performing Lab: Notes/Report: Color/Clarity yellow/clear Leuk neg Nitrite neg Urobili 3.2 Protein neg pH 5.5 Blood neg Sp. Gr. 1.025 Ketone trace Bili neg Gluc neg Ultrasound : Breast, right Reviewed date:06/12/2024 01:47:33 PM Interpretation:Probably Benign Cyst, F/U 6 Months Performing Lab: Notes/Report: Probably Benign Cyst, F/U 6 Months Mammogram, right breast Reviewed date:06/21/2024 05:00:06 PM Interpretation: Performing Lab: Notes/Report: Rapid Strep- Inhouse Reviewed date:07/05/2024 03:24:50 PM Interpretation: Performing Lab: Notes/Report: strep test Neg CBC Venipuncture (in house) Reviewed date:07/05/2024 03:24:50 PM Interpretation: Performing Lab: Notes/Report: wbc 9.8 3.5 - 10 lymph 23.3% 15 - 50 mid 5.8% 2 - 15 gran 70.9% 35 - 80 rbc 4.32 3.5 - 5.5 hgb 12.5 11.5 - 16.5 hct 37.9 35 - 55 mcv 87.7 75 - 100 mch 29.0 25 - 35 mchc 33.1 31 - 38 platlet 233 100 - 400 Ultrasound : Breast, right Reviewed date:07/12/2024 10:26:50 AM Interpretation: Performing Lab: Notes/Report: CT Scan : Head w/o contrast Reviewed date:10/21/2023 09:07:12 AM Interpretation: Performing Lab: Notes/Report: CBC Fingerstick (in house) Reviewed date:11/03/2023 12:13:39 PM Interpretation: Performing Lab: Notes/Report: wbc 9.9 3.5 - 10 lym 16.8 15 - 50 mid 4.7 2 - 15 gran 78.5 35 - 80 rbc 4.15 3.5 - 5.5 hgb 12.4 11.5 - 16.5 hct 37.2 35 - 55 mcv 89.4 75 - 100 mch 29.8 25 - 35 mchc 33.3 31 - 38 plat 212 100 - 400 X ray : Shoulder, right Reviewed date:11/04/2023 01:02:17 PM Interpretation:Degenerative changes w/o acute process Performing Lab: Notes/Report: Degenerative changes w/o acute process MRI : Shoulder, right, witho ut contrast Reviewed date:11/23/2023 09:18:46 AM Interpretation:not performed Performing Lab: Notes/Report: not performed Rapid Strep- Inhouse Reviewed date:11/24/2023 12:27:21 PM Interpretation:neg Performing Lab: Notes/Report: neg strep test neg CBC Fingerstick (in house) Reviewed date:11/24/2023 12:27:32 PM Interpretation: Performing Lab: Notes/Report: wbc 14.8 3.5 - 10 lym 18.5 15 - 50 mid 5.6 2 - 15 gran 75.9 35 - 80 rbc 4.49 3.5 - 5.5 hgb 13.1 11.5 - 16.5 hct 40.1 35 - 55 mcv 89.4 75 - 100 mch 29.3 25 - 35 mchc 32.7 31 - 38 plat 234 100 - 400 Covid test (in house) Reviewed date:11/24/2023 12:27:08 PM Interpretation:neg Performing Lab: Notes/Report: neg Result: neg Urinalysis - Inhouse Reviewed date:12/16/2023 08:53:47 AM Interpretation: Performing Lab: Notes/Report: Color/Clarity dark yellow Leuk neg Nitrite neg Urobili 3.2 Protein trace pH 6.0 Blood neg Sp. Gr. 1.030 Ketone neg Bili neg Gluc neg Covid test (in house) Reviewed date:12/16/2023 08:53:40 AM Interpretation:neg Performing Lab: Notes/Report: neg Result: neg CXR Reviewed date:12/16/2023 08:54:45 AM Interpretation:normal Performing Lab: Notes/Report: normal Influenza Screen (in house) Reviewed date:03/08/2024 10:23:29 AM Interpretation:Negative Performing Lab: Notes/Report: Negative results neg Rapid Strep- Inhouse Reviewed date:03/08/2024 12:19:49 PM Interpretation:Negative Performing Lab: Notes/Report: Negative strep test neg CBC Venipuncture (in house) Reviewed date:03/08/2024 10:29:47 AM Interpretation: Performing Lab: Notes/Report: wbc 11.7 3.5 - 10 lymph 19.4 15 - 50 mid 5.1 2 - 15 gran 75.5 35 - 80 rbc 4.42 3.5 - 5.5 hgb 13.0 11.5 - 16.5 hct 38.9 35 - 55 mcv 88.1 75 - 100 mch 29.5 25 - 35 mchc 33.4 31 - 38 platlet 273 100 - 400 Glycohemoglobin A1c (in hous e) Reviewed date:03/09/2024 11:32:04 AM Interpretation:6.4% Performing Lab: Notes/Report: 6.4% glycohemoglobin 6.4% 5 - 6.5 % P-Vitamin B12 Reviewed date:03/09/2024 11:32:04 AM Interpretation: Performing Lab: Notes/Report: Test performed by [facility] [address] [place] [address] , [address], [place] [address] Elliott Villalobos MD, Hand Bender CLIA: [id number] Vitamin B12 >2000 232-1245 pg/mL P-Comprehensive Metabolic Pa augustine (CMP) Reviewed date:03/09/2024 11:32:04 AM Interpretation: Performing Lab: Notes/Report: Test performed by [facility] [address] [place] [address] , [address], [place] [address] Elliott Villalobos MD, Hand Bender CLIA: [id number] Sodium 141 135-145 mmol/L Potassium 4.3 3.5-5.3 mmol/L Chloride 103 97-108 mmol/L CO2 26 22-32 mmol/L Glucose 138 65-99 mg/dL BUN 10 6-20 mg/dL Creatinine 0.70 0.50-1.00 mg/dL Calcium 9.2 8.6-10.4 mg/dL eGFR by Creatinine 112 >59 mL/min/1.73m2 Protein 6.8 6.0-8.3 g/dL Albumin 4.4 3.5-5.3 g/dL Alkaline Phosphatase 130 35-121 IU/L ALT (SGPT) 16 <5-47 IU/L AST (SGOT) 17 <5-40 IU/L Bilirubin, Total 0.2 <0.2-1.2 mg/dL A/G Ratio 1.8 1.1-2.5 P-Folate Reviewed date:03/09/2024 11:32:04 AM Interpretation: Performing Lab: Notes/Report: Test performed by [facility] [address] [place] [address] , [place] [address] Elliott Villalobos MD, Hand Bender CLIA: [id number] Folate 20.00 >4.59 ng/mL P-Ferritin Reviewed date:03/09/2024 11:32:04 AM Interpretation: Performing Lab: Notes/Report: Test performed by [facility] [address] [place] [address] , [address], [place] [address] Elliott Villalobos MD, Hand Bender CLIA: [id number] Ferritin 177.0 13.0-150.0 ng/mL P-T4 Free (thyroxine) Reviewed date:03/09/2024 11:32:04 AM Interpretation: Performing Lab: Notes/Report: Test performed by [facility] [address] [place] [address] , [address], [place] [address] Elliott Villalobos MD, Hand Bender CLIA: [id number] Thyroxine Free (free T4) 0.93 0.86-1.76 ng/dL P-Iron Reviewed date:03/09/2024 11:32:04 AM Interpretation: Performing Lab: Notes/Report: Test performed by [facility] [address] , [place] [address] Elliott Villalobos MD, Hand Bender CLIA: [id number] Iron 43 37-145 ug/dL P-TSH Reviewed date:03/09/2024 11:32:04 AM Interpretation: Performing Lab: Notes/Report: Test performed by [facility] [address] , [place] [address] Elliott Villalobos MD, Hand Bender CLIA: [id number] TSH 3.57 0.43-5.25 mU/L P-Vitamin D 25-Hydroxy Reviewed date:03/09/2024 11:32:04 AM Interpretation: Performing Lab: Notes/Report: Test performed by [facility] [address] , [place] [address] Elliott Villalobos MD, Hand Bender CLIA: [id number] Vitamin D 25-Hydroxy 29.7 30.0-100.0 ng/mL Interpretation of Vitamin D 25 OH: < 20 ng/mL - Deficiency 20 - 29 ng/mL - Insufficiency 30 - 100 ng/mL - Sufficiency > 100 ng/mL - Super-therapeutic- toxicity may occur above this level. Clinical correlation required. Covid test (in house) Reviewed date:03/08/2024 10:23:58 AM Interpretation:Negative Performing Lab: Notes/Report: Negative Result: neg Influenza Screen (in house) Reviewed date:03/15/2024 01:29:19 PM Interpretation: Performing Lab: Notes/Report: results Neg CBC Fingerstick (in house) Reviewed date:03/15/2024 01:29:27 PM Interpretation: Performing Lab: Notes/Report: wbc 11.6 3.5 - 10 lym 19.8 15 - 50 mid 5.1 2 - 15 gran 75.1 35 - 80 rbc 4.50 3.5 - 5.5 hgb 13.3 11.5 - 16.5 hct 39.4 35 - 55 mcv 87.6 75 - 100 mch 29.7 25 - 35 mchc 33.9 31 - 38 plat 245 100 - 400 Covid test (in house) Reviewed date:03/15/2024 01:29:12 PM Interpretation: Performing Lab: Notes/Report: Result: Neg Influenza Screen (in house) Reviewed date:04/02/2024 11:09:03 PM Interpretation: Performing Lab: Notes/Report: results Neg CBC Fingerstick (in house) Reviewed date:04/02/2024 11:09:03 PM Interpretation: Performing Lab: Notes/Report: wbc 12.9 3.5 - 10 lym 23.1 15 - 50 mid 6.4 2 - 15 gran 70.5 35 - 80 rbc 4.28 3.5 - 5.5 hgb 12.6 11.5 - 16.5 hct 37.9 35 - 55 mcv 88.6 75 - 100 mch 29.5 25 - 35 mchc 33.3 31 - 38 plat 224 100 - 400 Covid test (in house) Reviewed date:04/02/2024 11:09:03 PM Interpretation: Performing Lab: Notes/Report: Result: Neg H-VITAMIN D Reviewed date:10/17/2023 09:49:54 PM Interpretation:38.6 Performing Lab: Notes/Report: TVITD 38.6 30-100 ng/mL Deficient <20 ng/mL Insufficient 20-30 ng/mL Sufficient 30-100 ng/mL Potential Toxicity >100 ng/mL Mammogram : Diagnostic Right Breast Reviewed date:06/12/2024 01:47:02 PM Interpretation:No Abnormal Findings Performing Lab: Notes/Report: No Abnormal Findings Medications Medication SIG (Take, Route, Frequency, Duration) Notes Start Date End Date Status Nurtec 75 mg take 1 tablet on [...] a day 30 days; Duration: 30 Active Ascorbic Acid 500 mg TAKE ONE TABLET BY MOUTH TWICE DAILY 30; Duration: 30 Active Zinc 220 (50 Zn) MG TAKE ONE CAPSULE BY MOUTH ONCE DAILY 30; Duration: 30 Active Atorvastatin Calcium 10 mg TAKE ONE TABLET BY MOUTH ONCE DAILY; Duration: 30 Active GLUCOMETER TEST STRIPS 1 TEST STRIP(S) [...] 1 tab(s) orally once a day Active ROLLATOR WALKER DIRECTED DIRECTED *Please review for potential replacement for e-prescription and drug interaction check* 01/08/2022 Active WALKER WITH WHEELS DIRECTED *Please revie w for potential replacement for e-prescription and drug interaction check* 01/08/2022 Active FreeStyle Lite Test 1 TEST STRIP(S) FINGERSTICK TEST 2 TIMES A DAY; Duration: 30 DAYS *Please review and pick correct strength-formulat ion from [employer] options. If intended option is not shown, discontinue and re-order from Quick Search* 06/12/2020 Active Lancets 1 LANCET(S) FINGERSTICK TEST 2 TIMES A DAY; Duration: 30 DAYS *Please review and pick correct strength-formulat ion from [employer] options. If intended option is not shown, discontinue and re-order from Quick Search* 11/01/2019 Active Vitamin D3 50 MCG (2000 UT) 1 tablet Orally Once a day; Duration: 30 days Active Acetaminophen 325 mg TAKE 1-2 tabs orall y every 6 hours as needed 13; Duration: 13 Active Methocarbamol 750 mg take 1 tablet Orall y Three times a day; Duration: 10 Active Ondansetron 4 MG 1 tab(s) orally 3 times a day, prn Active Fluticasone Propionate 50 MCG/ACT use 1 spray in each nostril Once a day; Duration: 30 days Active Cephalexin 500 MG 1 capsule Orally [...] 1 tablet Orally once daily 10/03/2024 Active Kesimpta 20 MG/0.4ML as directed subcutaneously once a month Active CLAUDIO Elbow Strap - as directed 01/18/2023 Active Albuterol Sulfate HFA 108 (90 Base) MCG/ACT 2 puff(s) inhaled every 6 hours, prn 07/15/2022 Active Immunizations Vaccine Route Administration Date Status Comme nts COVID 19 Pfizer Unknown 10/23/2020 Administered COVID 19 Pfizer Unknown 11/13/2020 Administered DT, 7 YEARS OR OLDER Unknown 09/12/1998 Administered HEPB VACC PED/ADOL DOSE IM Unknown 03/20/1999 Administe red Tetanus Tdap-Adacel (over 7yrs) Unknown 03/21/2009 Administered xFluzone (6mos and older)-trivalent IM Intramuscular 02/07/2014 Administered Problems Problem Type SNOMED Code ICD Code Onset Dates Problem Status W/U Status Risk Notes Problem Essential hypertension (33186241) Essential (primary) hypertension (I10) Active confirmed Problem Vertigo (679132450) Vertigo (R42) Active confirmed Problem Hypothyroidism (26166966) Hypothyroidism (acquired) (E03.9) Active confirmed Problem Vitamin D deficiency (47076286) Vitamin D deficiency (E55.9) Active confirmed Problem Abnormal mammogram (914755925) Abnormal mammogram (R92.8) Active confirmed Problem Otitis externa (6485980) Otitis externa (H60.90) Active confirmed Problem Hematuria (91602452) Hematuria (R31.9) Active confirmed Problem Anxiety (90632030) Anxiety (F41.9) Active confirmed Problem Dysuria (87274860) Dysuria (R30.0) Active confirmed Problem Mixed anxiety and depressive disorder (577560640) Depression with anxiety (F41.8) Active confirmed Problem Skin sensation disturbance (42919285) Paresthesia of left arm (R20.2) Active confirmed Problem Gastritis (8835705) Gastritis (K29.70) Active confirmed Problem Multiple sclerosis (07492389) Multiple sclerosis (G35) Active confirmed Problem Chronic pain (01834107) Other chronic pain (G89.29) Active confirmed Problem Cellulitis of right lower limb (9473764404222502 4) Cellulitis of right lower limb (L03.115) Active confirmed Problem Diabetes mellitus (99776042) Diabetes mellitus (E11.9) Active confirmed Problem Constipation (50837801) Constipation, unspecified constipation type (K59.00) Active confirmed Problem Cellulitis of lower limb (535495713) Cellulitis of left lower extremity (L03.116) Active confirmed Problem Headache (60583207) Headache syndrome (G44.89) Active confirmed Problem Iron deficiency anemia (07267868) Other iron deficiency anemia (D50.8) Active confirmed Problem Iron deficiency anemia (69606235) Iron deficiency anemia, unspecified iron deficiency anemia type (D50.9) Active confirmed Problem Mild cognitive impairment (205787104) Mild cognitive impairment (G31.84) Active confirmed Problem Recurrent falls (402349769) Frequent falls (R29.6) Active confirmed Problem 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 Problem Skin sensation disturbance (84769257) Paresthesia of right leg (R20.2) Active confirmed Problem Sciatica (05825004) Acute right-sided low back pain with right-sided sciatica (M54.41) Active confirmed Problem Dysuria (56998837) Burning with urination (R30.0) Active confirmed Problem Loss of appetite (82696713) Loss of appetite (R63.0) Active confirmed Problem Backache (106071122) Acute bilateral back pain, unspecified back location (M54.9) Active confirmed Problem Refractory migraine (642610490) Intractable migraine without status migrainosus, unspecified migraine type (G43.919) Active confirmed Problem Anxiety depression (181406846) Anxiety with depression (F41.8) Active confirmed Problem Stasis dermatitis (disorder) (07539003) Stasis dermatitis of both legs (I87.2) Active confirmed Problem Bile reflux gastritis (82401822) Bile reflux gastritis (K29.60) Active confirmed Problem Type II diabetes mellitus without complication (126339777) Type 2 diabetes mellitus without complication, unspecified whether chcf insulin use (E11.9) Active confirmed Problem Morbid obesity (851877892) Morbidly obese (E66.01) Active confirmed Problem Allergic rhinitis (96250686) Acute allergic rhinitis (J30.9) Active confirmed Problem Migraine (37491570) Migraine syndrome (G43.909) Active confirmed Problem Optic neuritis (70217980) Optic neuritis (H46.9) Active confirmed Problem Low back pain (finding) (507714955) Lumbar back pain (M54.50) Active confirmed Vital Signs Heart Rate 97 /min 10/10/2024 Blood pressure diastolic 76 mm Hg 10/10/2024 Height 63 in 10/10/2024 Blood pressure systolic 142 mm Hg 10/10/2024 Weight 294.2 lbs 10/10/2024 BMI 52.11 kg/m2 10/10/2024 Encounters Encounter Location Date [facility] [place] [id number] 10/14/2023 Chetna Crowdy Dizziness R42 ; Near syncope R55 ; Iron deficiency E61.1 ; Vitamin D deficiency E55.9 ; Vitamin B12 deficiency E53.8 ; Folic acid deficiency E53.8 and Hypothyroidism (acquired) E03.9 [facility] [place] [id number] 10/20/2023 Chetna Crowdy Concussion without l oss of consciousness, initial encounter S06.0X0A and Nausea and vomiting, unspecified vomiting type R11.2 [facility] [place] [id number] 11/03/2023 Chetna Crowdy Pain, joint, shoulde r, right M25.511 and Erythema of skin L53.9 [facility] [address] [place], [place] [id number] 11/10/2023 Chetna Crowdy Pain, joint, shoulde r, right M25.511 and Weakness of right shoulder R29.898 [facility] [place] [id number] 11/24/2023 Chetna Crowdy Acute URI J06.9 [facility] [place] [id number] 12/15/2023 Chetna Crowdy Other fatigue R53.83 ; Frequent falls R29.6 and Shortness of breath R06.02 [facility] [place] [address] [place], [place] [id number] 12/22/2023 Chetna Crowdy Strain of neck muscl e, initial encounter S16.1XXA [facility] [address] [place] [id number] 03/08/2024 Chetna Crowdy Sore throat J02.9 ; Other specified bacterial agents as the cause of diseases classified elsewhere B96.89 ; Iron deficiency anemia, unspecified iron deficiency anemia type D50.9 ; Vitamin D deficiency E55.9 ; Hypothyroidism (acquired) E03.9 ; Diabetes mellitus E11.9 ; Folic acid deficiency E53.8 and Vitamin B12 deficiency E53.8 [facility] [address] [place] [facility] [address] [place], [place] [id number] 03/15/2024 Chetna Crowdy Acute URI J06.9 [facility] [place] [address] [facility] [address] [place], [place] [id number] 03/30/2024 Chetna Crowdy Acute otitis media w ith effusion of left ear H65.192 and Vertigo R42 [facility] [address] [place] [facility] [address] [place] [id number] 05/01/2024 Sariah Meyer Back pain M54.9 and Cystitis without hematuria N30.90 [facility] [place] [address] [place] [id number] 05/22/2024 Sariah Meyer Breast anomaly Q83.9 ; Lip pain K13.0 and Mouth pain K13.79 [facility] [address] [place] [facility] [address] [place] [id number] 07/05/2024 Chetna Crowdy Mass of upper outer quadrant of right breast N63.11 and Sore throat J02.9 [facility] [address] [place] [facility] [address] [place] [id number] 08/15/2024 Chetna Crowdy Wound of right lower extremity, subsequent encounter S81.801D [facility] [address] [place], [place] [id number] 08/22/2024 Chetna Diegody Visit for suture removal Z48.02 [facility] [address] [place] [facility] [address] [place], [place] [id number] 09/19/2024 Chetna Crowdy Wound cellulitis L03 .90 [facility] [address] [place], [place] [id number] 10/03/2024 Chetna Crowdy Wound cellulitis L03 .90 and Yeast infection B37.9 [facility] [address] [place] [id number] 10/10/2024 Chetna Crowdy Wound cellulitis L03 .90 [facility] [address] [place] [id number] 10/17/2023 Chetna Crowdy [facility] [address] [place] [id number] 10/21/2023 Chetna Crowdy [facility] [address] [place] [id number] 11/04/2023 Chetna Crowdy [facility] [address] [place] [id number] 11/14/2023 R Kenton Mariah [facility] [address] [place] [id number] 11/15/2023 Chetna Crowdy [facility] [address] [place] [id number] 12/07/2023 R Kenton Mariah [facility] [address] [place] [id number] 12/16/2023 Chetna Crowdy [facility] [address] [place] [id number] 12/20/2023 Chetna Crowdy Morbid obesity E66.0 1 and Morbidly obese E66.01 [facility] [address] [place] [id number] 12/27/2023 R Kenton Mariah Vertigo R42 [facility] [address] [place] [id number] 01/02/2024 R Kenton Mariah Vertigo R42 and Low back pain M54.5 [facility] [address] [place] [id number] 01/11/2024 Chetna Crowdy [facility] [address] [place] [id number] 03/09/2024 Chetna Crowdy Other specified bacterial agents as the cause of diseases classified elsewhere B96.89 [facility] [address] [place] [id number] 03/09/2024 Chetna Crowdy [facility] [address] [place] [id number] 03/28/2024 Chetna Crowdy [facility] [address] [place] [id number] 04/27/2024 R Kenton Mariah [facility] [address] [place] [id number] 05/02/2024 R Kenton Mariah [facility] [address] [place] [id number] 05/09/2024 Chetna Crowdy [facility] [address] [place] [id number] 05/22/2024 Sariah Meyer [facility] [address] [place] [id number] 05/23/2024 Chetna Crowdy [facility] [address] [place] [id number] 06/07/2024 Chetna Crowdy [facility] [address] [place] [id number] 06/12/2024 Sariah Meyer [facility] [address] [place] [id number] 06/28/2024 Chetna Crowdy [facility] [address] [place] [id number] 07/12/2024 Chetna Crowdy [facility] [address] [place] [id number] 08/27/2024 R Kenton Mariah [facility] [address] [place] [id number] 09/03/2024 R Kenton Mariah [facility] [address] [facility] [address] [place] [id number] 09/26/2024 Hanna Lemus Assessments Encounter Date Diagnosis (ICD Code) Assessment Notes Treatment Notes Treatment Clinical Notes Section Notes 10/14/2023 Dizziness (ICD-10 - R42) Will check labs and patient is going to contact her neurologist. He has her on meclizine for dizziness and also medication for MS. She is going to see if he would like to increase any doses. 10/14/2023 Near syncope (ICD-10 - R55) 10/20/2023 Concussion without loss of consciousness, initial encounter (ICD-10 - S06.0X0A) 10/20/2023 Nausea and vomiting, unspecified vomiting type (ICD-10 - R11.2) 11/03/2023 Pain, joint, shoulder, right (ICD-10 - M25.511) Discussed with Dr. Lemus. WBC is normal so will refrain from abx until we get the x-ray back. Will start on steroids. Patient will monitor fever. She has no other sick symptoms. 11/03/2023 Erythema of skin (ICD-10 - L53.9) 11/10/2023 Pain, joint, shoulder, right (ICD-10 - M25.511) 11/10/2023 Weakness of right shoulder (ICD-10 - R29.898) 11/24/2023 Acute URI (ICD-10 - J06.9) 12/15/2023 Other fatigue (ICD-10 - R53.83) 12/15/2023 Frequent falls (ICD-10 - R29.6) 12/20/2023 Morbid obesity (ICD-10 - E66.01) 12/20/2023 Morbidly obese (ICD-10 - E66.01) 12/22/2023 Strain of neck muscle, initial encounter (ICD-10 - S16.1XXA) Dizziness is likely not from the neck but from her MS. Her most recent visit to neurology states that her MS seems to be getting worse and he is planning an MRI of the brain. Will start PT for the neck spasm. 12/27/2023 Vertigo (ICD-10 - R42) 01/02/2024 Low back pain (ICD-10 - M54.5) 01/02/2024 Vertigo (ICD-10 - R42) 03/08/2024 Sore throat (ICD-10 - J02.9) 03/08/2024 Other specified bacterial agents as the cause of diseases classified elsewhere (ICD-10 - B96.89) 03/09/2024 Other specified bacterial agents as the cause of diseases classified elsewhere (ICD-10 - B96.89) 03/15/2024 Acute URI (ICD-10 - J06.9) 03/30/2024 Vertigo (ICD-10 - R42) Will continue meclizine. 03/30/2024 Acute otitis media with effusion of left ear (ICD-10 - H65.192) 05/01/2024 Back pain (ICD-10 - M54.9) will restart muscle relaxer prn; will continue with ice/heat application prn; no lifting/pushing /pulling; may need additional PT 05/01/2024 Cystitis without hematuria (ICD-10 - N30.90) UA is neg; to stop caffeine, acidic drinks, and antihistamines; will try OTC cranberry pills; to increase water intake 05/22/2024 Breast anomaly (ICD-10 - Q83.9) 05/22/2024 Lip pain (ICD-10 - K13.0) no visible lesions; will continue with Carmex 07/05/2024 Sore throat (ICD-10 - J02.9) fluids, rest, supportive measures 07/05/2024 Mass of upper outer quadrant of right breast (ICD-10 - N63.11) 08/15/2024 Wound of right lower extremity, subsequent encounter (ICD-10 - S81.801D) Will remove sutures next week 08/22/2024 Visit for suture removal (ICD-10 - Z48.02) Sutures removed without difficulty 09/19/2024 Wound cellulitis (ICD-10 - L03.90) 10/03/2024 Yeast infection (ICD-10 - B37.9) 10/03/2024 Wound cellulitis (ICD-10 - L03.90) 10/10/2024 Wound cellulitis (ICD-10 - L03.90) 05/22/2024 Mouth pain (ICD-10 - K13.79) discussed good oral care at least 3 x daily and after eating; also to use mouth wash 12/15/2023 Shortness of breath (ICD-10 - R06.02) 03/08/2024 Iron deficiency anemia, unspecified iron deficiency anemia type (ICD-10 - D50.9) 10/14/2023 Iron deficiency (ICD-10 - E61.1) 10/14/2023 Vitamin D deficiency (ICD-10 - E55.9) 03/08/2024 Vitamin D deficiency (ICD-10 - E55.9) 03/08/2024 Hypothyroidism (acquired) (ICD-10 - E03.9) 10/14/2023 Vitamin B12 deficiency (ICD-10 - E53.8) 10/14/2023 Folic acid deficiency (ICD-10 - E53.8) 03/08/2024 Diabetes mellitus (ICD-10 - E11.9) 03/08/2024 Folic acid deficiency (ICD-10 - E53.8) 10/14/2023 Hypothyroidism (acquired) (ICD-10 - E03.9) 03/08/2024 Vitamin B12 deficiency (ICD-10 - E53.8) Plan Of Treatment Pending Test Test Name Order Date X ray : Tib-fib,right 10/10/2024 H-DIARRHEA PANEL 06/23/2022 Next Appt Details Provider Name:Chetna Brigitte Shawn fischer, 10/10/2024 02:15:00 PM, [address] [facility] [address] [facility], [address], [place], [place], [id number], Provider Name:Chetna fischer, 03/27/2025 09:00:00 AM, [address] [facility] [address] [facility], [address], [place], [place], [id number], Insurance Providers Payer Name Payer Address Payer Phone Subscriber Number Group Number Insured Name Patient Relationship to Insured Coverage Start Date Coverage End Date MEDICAID [employer] [address] [place] [address] [id number] SUSANNE AMADOR Self - patient is the insured Medications Administered Medication Instructions Date of Administration Dosage Notes depo provera 11/25/2015 150 mg Depo- Medrol 40 mg/ml 07/15/2015 1 mL Depo- Medrol 40 mg/ml 11/14/2015 1.5 mL Dexamethasone 05/16/2012 Morphine 07/27/2012 phenergan 25 mg/ml 07/27/2012 phenergan 25 mg/ml 09/14/2012 phenergan 25 mg/ml 11/27/2013 1 mg Medical (General) History Medical History History ICD Code Depression Mental Retardation Seizure Disorder LT Eye Blindness EF on Heart Cath, Normal, 02/2018 Surgical History Surgery Date(Month/Year) Lap Ngozi - Dr. Tapia/[place] 10/05/2012 Umbilical Hernia Repair - Dr. Yusuf/[place] 1 03/2013 Hospitalization History Reason Date(Month/Year) [facility] - GI Issues, RLQ Pain 06/29/2023 Covid- [facility] 02/2020 LT Ankle Rash- [facility] 01/2018 RT Side, Intestine Infection- [facility] ER Hit Head, Fall- [facility] 12/2016 Stomach Pain- [facility] ER 01/05/2015 Kidney Infection- [facility] ER 10/06/2014 Back Pain- [facility] ER 06/22/2014 Headache- [facility] ER 08/06/2013 Rib Pain- [facility] ER 03/11/2013 Pnuemonia- [facility] 03/05/2013 Stomach Pain, Vomiting- [facility] 09/17- 3 UTI- [facility] ER 08/24/2012 UTI- [facility] 08/20/2012 Seizure- [facility] ER 09/14/2011 Chest Pain- [facility] ER 02/17/2011 Lung Pain- [facility] ER 01/27/2011 Back Pain- [facility] 12/24/2010 Stomach Pain- [facility] 11/14/1120 [place] Palsy- [facility] ER 09/30/2010 Neck Pain- [facility] 10/19/2010 Back Pain- [facility] 08/31/2010 Headache- [facility] 06/2010 UTI- [facility] 06/23/2010 Fall- [facility] ER 02/01/2010 Seizure- [place] 01/13- Viral Encephalitis/Meningitis - [facility] 03/2008 - 04/2008 Eye Problem 2002
--- OUTSIDE RECORDS SUMMARY | 2024-10-10 14:54 | XMS_ITS | Encounter Summary ---
Author Organization Healthcare Address [address] [place] [address] Care Team Providers Care Metal Handler Name Role Phone Severiano Lemus MD Primary Care Provider [phone] Rosa Hutchison MD Unavailable [phone] Tyrell Monroe MD Unavailable [phone] Reason for Referral * Consultation (Routine) - Closed Specialty Diagnoses / Procedures Referred By Contac t Referred To Contact Neurology Diagnoses MCI (mild cognitive impairment) Optic neuritis Optic disk edema Psychogenic nonepileptic seizure Other chronic pain H/O herpes encephalitis Chronic nonintractable headache, unspecified headache type Herpes simplex with ophthalmic complication Bibiana Trejo MD [address] [place] [address] Phone: tel: fax: Tyrell Monroe MD [address] [facility] [address] [place] [address] Phone: tel: fax: Referral ID Status Reason Start Date Expiration Date V isits Requested Visits Authorized [id number] Closed Specialty Services Required 11/06/2021 05/08/2023 1 1 Encounter Details Date Type Department Care Team (Latest Contact Info) Description 11/06/2021 Community Orders Community Practice [address] [place] [address] Bibiana Trejo MD [address] [place] [address] MCI (mild cognitive impairment) (Primary Dx); Optic neuritis; Optic disk edema; Psychogenic nonepileptic seizure; Other chronic pain; Headache disorder; H/O herpes encephalitis; Chronic nonintractable headache, unspecified headache type; Herpes simplex with ophthalmic complication; Mental handicap; Morbid obesity with BMI of 40.0-44.9, adult (CMS/[facility]) Social History Tobacco Use Types Packs/Day Years [...] Visit [place] [facility] [address], [address] [place] [address] Tyrell Monroe MD [address] [facility] [address] [place] [address] 12/05/2024 10:00 AM EDT Office Visit Medical Office Building Obstetrics and Gynecology [address] [facility], [address] [place] [address] Anne-Marie Spears R, MARKETING COPYWRITER [address] [facility] [address] [place] [address] 04/17/2025 12:30 PM EST Ancillary Procedure [facility] [address] [facility] [address] [place] [address] 04/17/2025 1:00 PM EST Office Visit [facility] [address] [facility] [address] [place] [address] Lise Charles, MARKETING COPYWRITER [address] [facility] [address] [facility] [address] [place] [phone] Scheduled Referrals Name Type Priority Associated Diagnoses Orde r Schedule Ambulatory referral to Neurology Outpatient Referral Routine MCI (mild cognitive impairment) Optic neuritis Optic disk edema Psychogenic nonepileptic seizure Other chronic pain H/O herpes encephalitis Chronic nonintractable headache, unspecified headache type Herpes simplex with ophthalmic complication Expected: 11/20/2021, Expires: 05/07/2023 documented as of this encounter Visit Diagnoses Diagnosis MCI (mild cognitive impairment)- Primary Mild cognitive impairment, so stated Optic neuritis Unspecified optic neuritis Optic disk edema Unspecified papilledema Psychogenic nonepileptic seizure Other chronic pain Headache disorder Headache H/O herpes encephalitis Chronic nonintractable headache, unspecified headache type Herpes simplex with ophthalmic complication Unspecified ophthalmic complication herpes simplex Mental handicap Unspecified mental retardation Morbid obesity with BMI of 40.0-44.9, adult (CMS/[facility]) documented in this encounter Additional Health Concerns Assessment Noted Time A fall risk assessment has been complete d for the patient 06/29/2021 12:05 PM EDT documented as of this encounter Care Teams Metal Handler Relationship Specialty Start Date End Date Severiano Lemus MD [address] [place] [address] PCP - General 07/11/20 Rosa Hutchison MD [address] [place] [address] Referring Physician Obstetrics and Gynecology 11/06/20 Tyrell Monroe MD [address] [facility] [address] [place] [address] Service Attending Neurology 12/16/21 documented as of this encounter
--- OUTSIDE RECORDS SUMMARY | 2024-10-10 14:54 | XMS_ITS | Encounter Summary ---
Author Organization Healthcare Address [address] [place] [address] Care Team Providers Care External Relations Manager Name Role Phone Severiano Lemus MD Primary Care Provider +- [phone] Rosa Hutchison MD Unavailable [phone] Tyrell Monroe MD Unavailable [phone] Encounter Details Date Type Department Care Team (Late st Contact Info) Description 05/03/2023 Orders Only External Location [address] [place] [address] Provider, External Social History Tobacco Use Types [...] Visit [place] [facility] [address], [address] [place] [address] Tyrell Monroe MD [address] [place] [address] 12/05/2024 10:00 AM EDT Office Visit Medical Office Building Obstetrics and Gynecology [address] [facility], [address] [place] [address] Anne-Marie Spears R, MUFFLER TENDER [address] [place] [address] 04/17/2025 12:30 PM EST Ancillary Procedure [facility] [address] [place] [address] 04/17/2025 1:00 PM EST Office Visit [facility] [address] [place] [address] Lise Charles S, MUFFLER TENDER [address] [place] [address] documented as of this encounter Procedures Procedure Name Priority Date/Time Associated Diagnosis Comments XR ABDOMEN OUTSIDE IMAGES 05/03/2023 8:09 AM EST documented in this encounter Results * XR ABDOMEN OUTSIDE IMAGES (05/03/2023 8:09 AM EST) Anatomical Region Laterality Modality Radiographic Alyson ging 05/03/2023 8:09 AM EST us External Provider IMG XR PROCEDURES Final Result documented in this encounter Visit Diagnoses Not on filedocumented in this encounter Additional Health Concerns Assessment Noted Time PHQ-9 Depression Total Score: 5 02/02/20 23 10:21 AM EST A fall risk assessment has been complete d for the patient 04/13/2023 8:20 AM EST A Body Mass Index follow-up plan has been documented for the patient 04/13/2023 8:47 PM EST documented as of this encounter Care Teams External Relations Manager Relationship Specialty Start Date End Date Severiano Lemus MD [address] [place] [address] PCP - General 07/11/20 Rosa Hutchison MD [address] [place] [address] Referring Physician Obstetrics and Gynecology 11/06/20 Tyrell Monroe MD [address] [facility] [address] [place] [address] Service Attending Neurology 12/16/21 documented as of this encounter
--- OUTSIDE RECORDS SUMMARY | 2024-10-10 14:54 | XMS_ITS | Encounter Summary ---
Author Organization Healthcare Address [address] [place] [address] Care Team Providers Care Machinery Engineer Name Role Phone Severiano Lemus MD Primary Care Provider [phone]- [phone] Rosa Hutchison MD Unavailable [phone] Tyrell Monroe MD Unavailable [phone] Encounter Details Date Type Department Care Team (Late st Contact Info) Description 05/03/2023 Orders Only External Location [address] [place] [address] Provider, External Social History Tobacco Use Types [...] Visit [place] [facility] [address], [address] [place] [address] Tyrell Monroe MD [address] [place] [address] 12/05/2024 10:00 AM EDT Office Visit Medical Office Building Obstetrics and Gynecology [address] [facility], [address] [place] [address] Anne-Marie Spears R, GEOGRAPHY HEAD [address] [place] [address] 04/17/2025 12:30 PM EST Ancillary Procedure [facility] [address] [place] [address] 04/17/2025 1:00 PM EST Office Visit [facility] [address] [place] [address] Lise Charles S, GEOGRAPHY HEAD [address] [place] [address] documented as of this encounter Procedures Procedure Name Priority Date/Time Associated Diagnosis Comments NM OUTSIDE IMAGES 05/03/2023 8:20 AM EST documented in this encounter Results * NM OUTSIDE IMAGES (05/03/2023 8:20 AM EST) Anatomical Region Laterality Modality Nuclear Medicine 05/03/2023 8:20 AM EST us External Provider IMG NM PROCEDURES Final Result documented in this encounter [...] documented as of this encounter Care Teams Machinery Engineer Relationship Specialty Start Date End Date Severiano Lemus MD [address] [place], [place] [address] PCP - General 07/11/20 Rosa Hutchison MD [address] [place] [address] Referring Physician Obstetrics and Gynecology 11/06/20 Tyrell Monroe MD [address] [facility] [address] [place] [address] Service Attending Neurology 12/16/21 documented as of this encounter
--- OUTSIDE RECORDS SUMMARY | 2024-10-10 14:56 | XMS_ITS | Encounter Summary ---
Author Organization Healthcare Address [address] [place] [address] Care Team Providers Care Steel Division Supervisor Name Role Phone Severiano Lemus MD Primary Care Provider [phone] Rosa Hutchison MD Unavailable [phone] Tyrell Monroe MD Unavailable [phone] Encounter Details Date Type Department Care Team (Late st Contact Info) Description 10/09/2024 Telephone [place] [facility] [address], [address] [place] [address] Tyrell Monroe MD [address] [place] [address] Social History Tobacco Use Types Packs/Day Years [...] on file documented as of this encounter Miscellaneous Notes * Telephone Encounter - Kinza Raya - 10/09/2024 2:49 PM EDT Faxed as requested. * Telephone Encounter - Angeli Ivory - 10/09/2024 1:39 PM EDT Patient Phone Message Reason for Call: Needs order for PT with a new date as the previous one has and she has an appointment tomorrow. Please fax to [phone]. Please advise Best contact number and optimal time of day to reach caller: [phone] Note: Please do not reply to this message. Follow-up communication and further actions as a result of this message need to be communicated with the patient directly, if the patient is not active onMyChart. If the patient is active on MyChart, they will receive notification of the communication/outcome via [employer]. documented in this encounter Plan of Treatment Upcoming Encounters Date Type Department Care Team (Late st Contact Info) Description 11/14/2024 1:30 PM EDT Office Visit [place] [facility] [address], [address] [place] [address] Tyrell Monroe MD [address] [place] [address] 12/05/2024 10:00 AM EDT Office Visit Medical Office Building Obstetrics and Gynecology [address] [facility], [address] [place] [address] Anne-Marie Spears, VALENTINA [address] [facility] [address] [place] [address] 04/17/2025 12:30 PM EST Ancillary Procedure [facility] [address] [place] [address] 04/17/2025 1:00 PM EST Office Visit [facility] [address] [place] [address] [place] S, RN PHYSICIAN OFFICE [address] [place] [address] documented as of this encounter [...] documented as of this encounter Care Teams Steel Division Supervisor Relationship Specialty Start Date End Date Severiano Lemus MD [address] [place] [address] PCP - General 07/11/20 Rosa Hutchison MD [address] [place] [address] Referring Physician Obstetrics and Gynecology 11/06/20 Tyrell Monroe MD [address] [place] [address] Service Attending Neurology 12/16/21 documented as of this encounter
--- OUTSIDE RECORDS SUMMARY | 2024-10-10 14:56 | XMS_ITS | Encounter Summary ---
Author Organization Healthcare Address [address] [place] [address] Care Team Providers Care Anesthesia Director Name Role Phone Severiano Lemus MD Primary Care Provider +- [phone] Rosa Hutchison MD Unavailable [phone] Tyrell Monroe MD Unavailable [phone] Encounter Details Date Type Department Care Team (Latest Contact Info) Description 09/12/2024 Travel Social History Tobacco Use Types Packs/Day Years [...] Upcoming Encounters Date Type Department Care Team ( Contact Info) Description 11/14/2024 1:30 PM EDT Office Visit [place] [facility] [address], [address] [place] [address] Tyrell Monroe MD [address] [place] [address] 12/05/2024 10:00 AM EDT Office Visit Medical Office Building Obstetrics and Gynecology [address] [facility], [address] [place] [address] Anne-Marie Spears, GRAPPLE SKIDDER OPERATOR [address] [facility] [address] [place] [address] 04/17/2025 12:30 PM EST Ancillary Procedure [facility] [address] [facility] [address] [place] [address] 04/17/2025 1:00 PM EST Office Visit [facility] [address] [facility] [address] [place] [address] Lise Charles, GRAPPLE SKIDDER OPERATOR [address] [facility] [address] [place] [address] documented as of this encounter [...] documented as of this encounter Care Teams Anesthesia Director Relationship Specialty Start Date End Date Severiano Lemus MD [address] [place] [address] PCP - General 07/11/20 Rosa Hutchison MD [address] [place] [address] Referring Physician Obstetrics and Gynecology 11/06/20 Tyrell Monroe MD [address] [facility] [address] [place] [address] Service Attending Neurology 12/16/21 documented as of this encounter
--- OUTSIDE RECORDS SUMMARY | 2024-10-10 14:56 | XMS_ITS | Encounter Summary ---
Author Organization [facility] Address [address] [place] [address] Care Team Providers Care Stroboscope Operator Name Role Phone Severiano Lemus MD Primary Care Provider [phone] Rosa Hutchison MD Unavailable [phone] Tyrell Monroe MD Unavailable [phone] Encounter Details Date Type Department Care Team ([facility] st Contact Info) Description 07/24/2024 Telephone Medical Office Building Obstetrics and Gynecology [address] [facility], [address] [place] [address] Anne-Marie Spears, VALENTINA [address] [facility] [address] [place] [address] Social History Tobacco Use Types Packs/Day Years [...] encounter Miscellaneous Notes * Telephone Encounter - Georgie Roper Vick - 07/24/2024 10:38 AM EDT Clinical Concern/Question Reason for Call: Pt is returning call. Please call. Best contact number: [phone] (home) Optimal time of day to reach caller: ANYTIME Additional comments/information from caller: Not Applicable Note: Please do not reply to this message. Follow-up communication and further actions as a result of this message need to be communicated with the patient directly, if the patient is not active onMyChart. If the patient is active on MyChart, they will receive notification of the communication/outcome via MobileWebsiteshart. documented in this encounter Plan of Treatment Upcoming Encounters Date Type Department Care Team ([facility] st Contact Info) Description 11/14/2024 1:30 PM EDT Office Visit [place] [facility] [address], [address] [place] [address] Tyrell Monroe MD [address] [facility] [address] [place] [address] 12/05/2024 10:00 AM EDT Office Visit Medical Office Building Obstetrics and Gynecology [address] [facility], [address] [place] [address] Anne-Marie Spears, LEAD SOFTWARE TESTER [address] [facility] [address] [place] [address] 04/17/2025 12:30 PM EST Ancillary Procedure [facility] [address] [place] [address] 04/17/2025 1:00 PM EST Office Visit [facility] [address] [place] [address] Lise Charles APRN [address] [place] [address] documented as of this encounter Visit Diagnoses Not on filedocumented in this encounter Additional Health Concerns Assessment Noted Time PHQ-9 Depression Total Score: 4 02/16/20 24 10:52 AM EST A fall risk assessment has been complete d for the patient 05/17/2024 11:03 AM EDT A Body Mass Index follow-up plan has been documented for the patient 05/17/2024 12:04 PM EDT documented as of this encounter Care Teams Stroboscope Operator Relationship Specialty Start Date End Date Severiano Lemus MD [address] [place] [address] PCP - General 07/11/20 Rosa Hutchison MD [address] [place] [address] Referring Physician Obstetrics and Gynecology 11/06/20 Tyrell Monroe MD [address] [facility] [address] [place] [address] Service Attending Neurology 12/16/21 documented as of this encounter
--- OUTSIDE RECORDS SUMMARY | 2024-10-10 14:56 | XMS_ITS | Encounter Summary ---
Author Organization Healthcare Address [address] [place] [address] Care Team Providers Care Travograph Operator Name Role Phone Severiano Lemus MD Primary Care Provider +- [phone] Rosa Hutchison MD Unavailable [phone] Tyrell Monroe MD Unavailable [phone] Encounter Details Date Type Department Care Team (Latest Contact Info) Description 08/15/2024 Travel Social History Tobacco Use Types Packs/Day [...] Visit [place] [facility] [address], 1st [place] [address] Tyrell Monroe MD [address] [place] [address] 12/05/2024 10:00 AM EDT Office Visit Medical Office Building Obstetrics and Gynecology [address] [facility], [address] [place] [address] Anne-Marie Spears, CHARGE ENTRY SPECIALIST [address] [facility] [address] [place] [address] 04/17/2025 12:30 PM EST Ancillary Procedure [facility] [address] [place] [address] 04/17/2025 1:00 PM EST Office Visit [facility] [address] [place] [address] Lise Charles, CHARGE ENTRY SPECIALIST [address] Ahmadi [facility] [address] [place] [address] documented as of this encounter [...] documented as of this encounter Care Teams Travograph Operator Relationship Specialty Start Date End Date Severiano Lemus MD [address] [place] [address] PCP - General 07/11/20 Rosa Hutchison MD [address] [place] [address] Referring Physician Obstetrics and Gynecology 11/06/20 Tyrell Monroe MD [address] [facility] [address] [place] [address] Service Attending Neurology 12/16/21 documented as of this encounter
--- OUTSIDE RECORDS SUMMARY | 2024-10-10 14:56 | XMS_ITS | Encounter Summary ---
Author Organization Healthcare Address [address] [place] [address] Care Team Providers Care Land Degradation Analyst Name Role Phone Severiano Lemus MD Primary Care Provider +- [phone] Rosa Hutchison MD Unavailable [phone] Tyrell Monroe MD Unavailable [phone] Reason for Referral * Consultation (Routine) - Authorized Specialty Diagnoses / Procedures Referred By Contac t Referred To Contact Physical Therapy Diagnoses MS (multiple sclerosis) ([facility]) Tyrell Monroe MD [id number] [place] [address] Phone: tel: fax: Referral ID Status Reason Start Date Expiration Date Visits Requested Visits Authorized [id number] Authorized Consult and Treat 10/09/2024 04/10/2026 1 1 Encounter Details Date Type Department Care Team (Late st Contact Info) Description 10/09/2024 Orders Only [place] [facility] [address], [address] [place] [address] Tyrell Monroe MD [id number] [place] [address] MS (multiple sclerosis) (CMS/HCC) (Primary Dx) Social History Tobacco Use Types Packs/Day Years [...] Description 11/14/2024 1:30 PM EDT Office Visit [place] [facility] [address], 1[address] [place] [address] Tyrell Monroe MD [address] [facility] [address] [place] [address] 12/05/2024 10:00 AM EDT Office Visit Medical Office Building Obstetrics and Gynecology [address] [facility], [address] [place] [address] Anne-Marie Spears R, API DEVELOPER [address] [facility] [address] [place] [address] 04/17/2025 12:30 PM EST Ancillary Procedure [facility] [address] [place] [address] 04/17/2025 1:00 PM EST Office Visit [facility] [address] [place] [address] Lise Charles, API DEVELOPER [address] Galdino [facility] [address] [place] [address] Scheduled Referrals Name Type Priority Associated Diagnoses Order Schedule Ambulatory referral to Physical Therapy Outpatient Referral Routine MS (multiple sclerosis) (CMS/HCC) Expected: 10/09/2024 (Approximate), Expires: 04/12/2026 documented as of this encounter Visit Diagnoses Diagnosis MS (multiple sclerosis) (CMS/HCC)- Primary Multiple sclerosis documented in this encounter Additional Health Concerns Assessment Noted Time PHQ-9 Depression Total Score: 0 08/30/19 25 10:34 AM EDT A fall risk assessment has been complete d for the patient 05/17/2024 11:03 AM EDT A Body Mass Index follow-up plan has been documented for the patient 08/29/2024 3:53 PM EDT documented as of this encounter Care Teams Land Degradation Analyst Relationship Specialty Start Date End Date Severiano Lemus MD [address] [place] [address] PCP - General 07/11/20 Rosa Hutchison MD [address] [place] [address] Referring Physician Obstetrics and Gynecology 11/06/20 Tyrell Monroe MD [address] [facility] [address] [place] [address] Service Attending Neurology 12/16/21 documented as of this encounter
--- OUTSIDE RECORDS SUMMARY | 2024-10-10 14:56 | XMS_ITS | Encounter Summary ---
Author Organization [facility] Address [address] [place] [address] Care Team Providers Care Woodworker Name Role Phone Severiano Lemus MD Primary Care Provider [phone]- [phone] Source Comments This information has been disclosed to you from confidential records protectfrom disclosure by state law. You shall make no further disclosure of thisinformation without the specific, written, and informed release of theindividual to whom it pertains, or as otherwise permitted by law. A generalauthorization for the release of medical or other information is not sufficientfor the purposes of the release of HIV test results or diagnoses. [id number] Health Encounter Details Date Type Department Care Team (Late st Contact Info) Description 10/30/2021 Ophth Exam [facility] Ophthalmology at [address] [place] [address] Barbi Winters MD Social History Tobacco Use Types Packs/Day Years Used Date Smoking Tobacco: Former Cigarettes 1 15 Smokeless Tobacco: Never Alcohol Use Standard Drinks/Week Comments Never 0 (1 standard drink = 0.6 oz pur e alcohol) Comments No Sex and Gender Information Value Date Recorded Sex Assigned at Female 11/12/2021 10:38 AM EDT Legal Sex Female 3:37 AM EDT Gender Identity Female 11/12/2021 10:38 AM EDT Sexual Orientation Straight 11/12/2021 10 :38 AM EDT Occupation Industry Job Start Date Job End Date note employed Not on file Not on file Not on file COVID-19 Exposure Response Date Recorded In the last 10 days, have yo u been in contact with someone who was confirmed or suspected to have Coronavirus/COVID-19? No / Unsure 10/29/2021 5:49 AM EDT documented as of this encounter Plan of Treatment Not on file documented as of this encounter Visit Diagnoses Not on filedocumented in this encounter Additional Health Concerns Infection Onset Date Last Indicated Resolved Time Rule Out COVID-19 10/29/2021 10/31/2021 10/31/2021 5:28 PM EDT documented as of this encounter Care Teams Woodworker Relationship Specialty Start Date End Date Severiano Lemus MD [address] [place] [address] PCP - General Family Medicine 10/29/21 documented as of this encounter
--- OUTSIDE RECORDS SUMMARY | 2024-10-10 14:56 | XMS_ITS | Encounter Summary ---
Author Organization Healthcare Address [address] [place] [place] [address] Care Team Providers Care Head Teller Name Role Phone Severiano Lemus MD Primary Care Provider +[phone]- [phone] Rosa Hutchison MD Unavailable [phone] Tyrell Monroe MD Unavailable [phone] Encounter Details Date Type Department Care Team (Latest Contact Info) Description 08/29/2024 Travel Social History Tobacco Use Types Packs/Day [...] on file documented as of this encounter Functional Status * Over the [...] Questionnaire -2 Score 0 08/29/2024 10:34 AM EDBelle [place] * Question Answer Date of Assessment Author [...] television Not at all 08/29/2024 10:34 AM JOET [place] Moving or speaking so slowly [...] Not difficult at all 08/29/2024 10:34 AM EDYuliya [place] documented as of this encounter Plan of Treatment Upcoming Encounters Date Type Department Care Team (Late st Contact Info) Description 11/14/2024 1:30 PM EDT Office Visit [place] [facility] [address], 1st [place] [address] Tyrell Monroe MD [address] [place] [address] 12/05/2024 10:00 AM EDT Office Visit Medical Office Building Obstetrics and Gynecology [address] [facility], [address] [place] [address] Anne-Marie Spears R, SUPERINTENDENT HOUSE [address] [facility] [address] [place] [address] 04/17/2025 12:30 PM EST Ancillary Procedure [facility] [address] [place] [address] 04/17/2025 1:00 PM EST Office Visit [facility] [address] [place] [address] Lise Charles S, SUPERINTENDENT HOUSE [address] Ahmadi [facility] [address] [place] [address] documented as of this encounter [...] documented as of this encounter Care Teams Head Teller Relationship Specialty Start Date End Date Severiano Lemus MD [address] [place] [address] PCP - General 07/11/20 Rosa Hutchison MD [address] [place] [address] Referring Physician Obstetrics and Gynecology 11/06/20 AvTyrell lópez MD [address] [facility] [address] [place] [address] Service Attending Neurology 12/16/21 documented as of this encounter
--- OUTSIDE RECORDS SUMMARY | 2024-10-10 14:56 | XMS_ITS | Encounter Summary ---
Author Organization [facility] Address [address] [place] [address] Care Team Providers Care Beater Engineer Helper Name Role Phone Severiano Lemus MD Primary Care Provider [phone]- [phone] Source Comments This information has been disclosed [...] release of HIV test results or diagnoses. [id number] Health Encounter Details Date Type Department Care Team (Late st Contact Info) Description 10/30/2021 Ophth Exam [facility] Ophthalmology at [address] [place] [address] Barbi Winters MD Social History Tobacco Use [...] documented as of this encounter Care Teams Beater Engineer Helper Relationship Specialty Start Date End Date Severiano Lemus MD [address] [place] [address] PCP - General Family Medicine 10/29/21 documented as of this encounter
--- OUTSIDE RECORDS SUMMARY | 2024-10-10 14:56 | XMS_ITS | Encounter Summary ---
Author Organization [facility] Address [address] [place] [address] Care Team Providers Care Orthotics Prosthetics Technician Name Role Phone Severiano Lemus MD Primary Care Provider [phone]- [phone] Rosa Hutchison MD Unavailable [phone] Tyrell Monroe MD Unavailable [phone] Reason for Visit * Reason Onset Date Comments HCN - Patient Message 09/13/2024 results Encounter Details Date Type Department Care Team (Late st Contact Info) Description 09/13/2024 Telephone [place] [facility] [address], [address] [place] [address] Tyrell Monroe MD [address] [place] [address] HCN - Patient Message (results) Social History Tobacco Use Types Packs/Day Years [...] encounter Miscellaneous Notes * Telephone Encounter - Good Argelia Gretchen - 09/18/2024 2:37 PM EDT Patient Phone Message Reason for Call: Patient is calling back to get her MRI results. Best contact number and optimal time of day to reach caller: [phone] anytime Note: Please do not reply to this message. Follow-up communication and further actions as a result of this message need to be communicated with the patient directly, if the patient is not active onMyChart. If the patient is active on MyChart, they will receive notification of the communication/outcome via MyChart. * Telephone Encounter - Narcisa Resendiz - 09/13/2024 4:33 PM EDT Patient Phone Message Reason for Call: Pt states she had the MRI done yesterday. She wants to know if you can call her with the results ordoes she wait for her appt in Oct to discuss. She states that she still has vertigo really bad. Dizziness is worst. Please advise Best contact number and optimal time of day to reach caller: [phone]/pt Note: Please do not reply to this message. Follow-up communication and further actions as a result of this message need to be communicated with the patient directly, if the patient is not active onMyChart. If the patient is active on MyChart, they will receive notification of the communication/outcome via [employer]. documented in this encounter Plan of Treatment Upcoming Encounters Date Type Department Care Team (Late st Contact Info) Description 11/14/2024 1:30 PM EDT Office Visit [place] [facility] Clinic [address], 1st [place] [address] Tyrell Monroe MD [address] [place] [address] 12/05/2024 10:00 AM EDT Office Visit Medical Office Building Obstetrics and Gynecology [address] [facility], [address] [place] [address] Anne-Marie Spears, INSTRUMENT CALIBRATOR [address] [facility] [address] [place] [address] 04/17/2025 12:30 PM EST Ancillary Procedure [facility] [address] [place] [address] 04/17/2025 1:00 PM EST Office Visit [facility] [address] [place] [address] Lise Charles, INSTRUMENT CALIBRATOR [address] Ahmdai [facility] [address] [place] [address] documented as of this encounter [...] documented as of this encounter Care Teams Orthotics Prosthetics Technician Relationship Specialty Start Date End Date Severiano Lemus MD [address] [place] [address] PCP - General 07/11/20 Rosa Hutchison MD [address] [place] [address] Referring Physician Obstetrics and Gynecology 11/06/20 Tyrell Monroe MD [address] [address] Service Attending Neurology 12/16/21 documented as of this encounter
--- OUTSIDE RECORDS SUMMARY | 2024-10-10 14:56 | XMS_ITS | Encounter Summary ---
Author Organization Healthcare Address [address] [place] [address] Care Team Providers Care Tile Power Shear Operator Name Role Phone Severiano Lemus MD Primary Care Provider [phone] Rosa Hutchison MD Unavailable [phone] Tyrell Monroe MD Unavailable [phone] Encounter Details Date Type Department Care Team (Late st Contact Info) Description 07/30/2024 Telephone [place] [facility] [address], [address] [place] [address] Tyrell Monroe MD [address] [place] [address] Social History Tobacco Use Types [...] * Telephone Encounter - Kinza Raya - 08/24/2024 8:51 AM EDT Resent 07/30/24 PT order and called to inform pt. She has my name to call back if any further problems. Consider done unless she calls back. * Telephone Encounter - Cachorro Espinoza - 08/23/2024 3:11 PM EDT Patient Phone Message Reason for Call: Patient calling [facility] stating they cannot find the order and needing faxed again for PT order Patient would like confirmation call when sent Best contact number and optimal time of day to reach caller: [phone] Note: Please do not reply to this message. Follow-up communication and further actions as a result of this message need to be communicated with the patient directly, if the patient is not active onMyChart. If the patient is active on MyChart, they will receive notification of the communication/outcome via [employer]. * Telephone Encounter - Naya Sauceda - 07/30/2024 3:37 PM EDT I called the patient and let her know the order was faxed. * Telephone Encounter - Naya Sauceda - 07/30/2024 3:33 PM EDT I printed new PT order and faxed to [phone]. documented in this encounter Plan of Treatment Upcoming Encounters Date Type Department Care Team (Late st Contact Info) Description 11/14/2024 1:30 PM EDT Office Visit [place] [facility] [address], 1[address] [place] [address] Tyrell Monroe MD [address] [place] [address] 12/05/2024 10:00 AM EDT Office Visit Medical Office Building Obstetrics and Gynecology [address] [facility], [address] [place] [address] Anne-Marie Spears R, ELEMENTARY VOCAL MUSIC TEACHER [address] [place] [address] 04/17/2025 12:30 PM EST Ancillary Procedure [facility] [address] [place] [address] 04/17/2025 1:00 PM EST Office Visit [facility] [address] [place] [address] Lise Charles S, ELEMENTARY VOCAL MUSIC TEACHER [address] Galdino [address] [place] [address] documented as of this encounter [...] documented as of this encounter Care Teams Tile Power Shear Operator Relationship Specialty Start Date End Date Severiano Lemus MD [address] [place] [address] PCP - General 07/11/20 Rosa Hutchison MD [address] [place] [address] Referring Physician Obstetrics and Gynecology 11/06/20 Tyrell Monroe MD [address] [facility] [address] [place] [address] Service Attending Neurology 12/16/21 documented as of this encounter
--- OUTSIDE RECORDS SUMMARY | 2024-10-10 14:57 | XMS_ITS | Encounter Summary ---
Author Organization Healthcare Address [address] [place] [address] Care Team Providers Care Breakfast Attendant Name Role Phone Severiano Lemus MD Primary Care Provider +- [phone] Rosa Hutchison MD Unavailable [phone] Tyrell Monroe MD Unavailable [phone] Encounter Details Date Type Department Care Team (Latest Contact Info) Description 09/11/2024 Travel Social History Tobacco Use Types Packs/Day [...] Visit [place] [facility] [address], 1st [place] [address] Tyrell Monroe MD [address] [place] [address] 12/05/2024 10:00 AM EDT Office Visit Medical Office Building Obstetrics and Gynecology [address] [facility], [address] [place] [address] Anne-Marie Spears, TALENT DIRECTOR [address] [facility] [address] [place] [address] 04/17/2025 12:30 PM EST Ancillary Procedure [facility] [address] [facility] [address] [place] [address] 04/17/2025 1:00 PM EST Office Visit [facility] [address] [facility] [address] [place] [address] Lise Charles, TALENT DIRECTOR [address] Ahmadi [facility] [address] [place] [address] documented as of this encounter [...] documented as of this encounter Care Teams Breakfast Attendant Relationship Specialty Start Date End Date Severiano Lemus MD [address] [place] [address] PCP - General 07/11/20 Rosa Hutchison MD [address] [place] [address] Referring Physician Obstetrics and Gynecology 11/06/20 Tyrell Monroe MD [address] [facility] [address] [place] [address] Service Attending Neurology 12/16/21 documented as of this encounter
--- OUTSIDE RECORDS SUMMARY | 2024-10-10 14:57 | XMS_ITS | Encounter Summary ---
Author Organization Healthcare Address [address] [place] [address] Care Team Providers Care Tray Server Name Role Phone Severiano Lemus MD Primary Care Provider +- [phone] Rosa Hutchison MD Unavailable [phone] Tyrell Monroe MD Unavailable [phone] Encounter Details Date Type Department Care Team (Latest Contact Info) Description 08/22/2024 Travel Social History Tobacco Use Types Packs/Day [...] Visit [place] [facility] [address], 1st [place] [address] Tyrell Monroe MD [address] [place] [address] 12/05/2024 10:00 AM EDT Office Visit Medical Office Building Obstetrics and Gynecology [address] [facility], [address] [place] [address] Anne-Marie Spears, INFORMATION RESOURCE CONSULTANT [address] [facility] [address] [place] [address] 04/17/2025 12:30 PM EST Ancillary Procedure [facility] [address] [place] [address] 04/17/2025 1:00 PM EST Office Visit [facility] [address] [place] [address] Lise Charles, INFORMATION RESOURCE CONSULTANT [address] Ahmadi [facility] [address] [place] [address] documented as of this encounter [...] documented as of this encounter Care Teams Tray Server Relationship Specialty Start Date End Date Severiano Lemus MD [address] [place] [address] PCP - General 07/11/20 Rosa Hutchison MD [address] [place] [address] Referring Physician Obstetrics and Gynecology 11/06/20 Tyrell Monroe MD [address] [facility] [address] [place] [address] Service Attending Neurology 12/16/21 documented as of this encounter
--- OUTSIDE RECORDS SUMMARY | 2024-10-10 14:57 | XMS_ITS | Encounter Summary ---
Author Organization Healthcare Address [address] [place] [address] Care Team Providers Care Commuter Train Operator Name Role Phone Severiano Lemus MD Primary Care Provider +- [phone] Rosa Hutchison MD Unavailable [phone] Tyrell Monroe MD Unavailable [phone] Encounter Details Date Type Department Care Team (Latest Contact Info) Description 08/24/2024 Travel Social History Tobacco Use Types Packs/Day [...] Visit [place] [facility] [address], [address] [place] [address] Tyrell Monroe MD [address] [place] [address] 12/05/2024 10:00 AM EDT Office Visit Medical Office Building Obstetrics and Gynecology [address] [facility], [address] [place] [address] Anne-Marie Spears, SUPERVISOR CAP AND HAT PRODUCTION [address] [facility] [address] [place] [address] 04/17/2025 12:30 PM EST Ancillary Procedure [facility] [address] [place] [address] 04/17/2025 1:00 PM EST Office Visit [facility] [address] [place] [address] Lise Charles, SUPERVISOR CAP AND HAT PRODUCTION [address] Ahmadi [facility] [address] [place] [address] documented as of this encounter [...] documented as of this encounter Care Teams Commuter Train Operator Relationship Specialty Start Date End Date Severiano Lemus MD [address] [place] [address] PCP - General 07/11/20 Rosa Hutchison MD [address] [place] [address] Referring Physician Obstetrics and Gynecology 11/06/20 Tyrell Monroe MD [address] [facility] [address] [place] [address] Service Attending Neurology 12/16/21 documented as of this encounter
== END 2024-10-10 23:59 | disposition home or self-care (01) ==
LOC: RAD 14:51
PROVIDERS: PCP Family Medicine; Visit Provider Physician Assistant
DX: L03.90 Cellulitis, unspecified (principal)
CPT/HCPCS: 73590

== ENCOUNTER 2024-11-05 10:01 | Outpatient (RCR) | payer MEDICAID, SELFPAY ==
--- NOTE | 2024-11-05 10:59 | [facility].OPLYMPH ---
Rehab Lymphedema Evaluation Rehab Lymphedema Evaluation Start: 11/05/24 10:44 Freq: Status: Active Protocol: Document 11/05/24 10:44 ALBERTINA (Rec: 11/05/24 10:59 PHOARCHIE [id number]) E-signed By Carlos Smith, PT Subjective/History History History This is the initial PT Lymphedema eval for Yumiko Bravo, 39 yowf who presents with c/o R Lower leg pain ~ 3 mos S/P accidental laceration to the anterior L muller. She reports she hit her leg on a stool she has at home while she was trying to get out of her chair. She went to the ED and primary intention closure with sutures was accomplished. She reports delayed wound healing with continued pain since that time. She also reports continued small amounts of drainage from her laceration site. She reports hx of MS and has documented PMH of Depression, seizure disorder, and developmental disability. Subjective Subjective Currently she reports pain is 6/10, which is made worse with transfers from sit/stand and prolonged walking. She reports some edema worse with prolonged dependent positioning, but none at this time. 0/4 TTP to L lower leg at this time. no pitting or fibrotic edema noted at this time. LLIS score: 37 Lymphedema Eval Classification of Lymphedema Post Traumatic Yes Lymphedema Stemmer's sign Stemmer's Sign no Stage of Lymphedema Lymphedema stages Stage 0 (subjective c/o heaviness and aching) Skin Changes Redness Yes Other Changes Yes Pain Scale Pain Scale (0-10) 6 Wound Problems/Impairments Impairments Problems/ Impaired Transfers,Impaired Walking,Impaired Household Impairmments Care,Subjective C/O Pain,Impaired Self Care/Self Management Prognosis Rehab Potential Innapropriate for Skilled Therapy Comment Pt currently exhibits no edema in the R LE vs the L LE. Pain in the area of the laceration is noted, but no open wounds or drainage currently identified. Pt co- morbid conditions as noted would expectedly delay healing. No identified skilled need for therapy services at this time. Pt given tubigrip size G for mild compression to relieve pain and instructed in its use. Clinical Impression Consistent with Yes Diagnosis Lymphedema Patient Goals Lymphedema Patient Goals Lymphedema Short No Goals necessary at this time. Term Patient Goals Outpatient Therapy Plan of Care Treatment Plan May Include Eval/Re-Eval Yes Frequency Times per week 0 Duration Number of Weeks 0 Addendums This patient is a No candidate for social or vocational rehab ? Patient/Guardian Yes verbally acknowledges understanding of treatment program and consents to further treatment? Patient/Guardian Yes verbally acknowledges understanding of diagnosis, prognosis and goals for treatment? Eval Complexity PT Charges 74009 - Moderate Complexity PHYSICIAN CERTIFICATION: I certify the specified therapy services for Yumiko Bravo are required, authorized, and reviewed every 30 days.
== END 2024-11-05 23:59 | disposition home or self-care (01) ==
LOC: PT 10:01
PROVIDERS: PCP Family Medicine; Visit Provider Family Medicine
DX: M79.605 Pain in left leg (principal)
CPT/HCPCS: 97162

== ENCOUNTER 2024-12-31 12:57 | Outpatient (CLI) | payer MEDICAID, SELFPAY ==
--- OUTSIDE RECORDS SUMMARY | 2024-08-22 08:15 | XMS_ITS ---
Author Organization [facility] Address [address] [facility] [address] [id number] Care Team Providers Care Visual Inspector Name Role Phone Hanna Lemus Primary Care Provider Chetna Santiago Unavailable [phone] Allergies Allergen (clinical drug ingredient) Drug/Non Drug Allergy documented on EMR Reaction Allergy Type Onset Date Status amoxicillin Amoxicillin Unknown Drug Allergy Act reagan erythromycin Erythromycin Unknown Drug Allergy A ctive clindamycin Clindamycin chest pain Drug Allergy Ac tive codeine Codeine Unknown Drug Allergy Active oxycodone oxyCODONE Unknown Drug Allergy Active Substance with sulfonamide structure and antibacterial mechanism of action (substance) Sulfa Antibiotics Unknown Drug Allergy Active REASON FOR VISIT suture removal Medications Medication SIG (Take, Route, Frequency, Duration) Notes Start Date End Date Status Vitamin D3 50 MCG (2000 UT) take 1 tab(s) orally once a day for 30 days; Duration: 30 Active Vitamin B-12 1000 MCG take 1 tab(s) by mouth once a day for 30 day(s); Duration: 30 Active Pantoprazole Sodium 40 mg 1 tab(s) Orally Once a day; Duration: 30 days Active Cetirizine HCl 10 MG 1 tablet Orally Onc e a day; Duration: 30 days 06/29/2024 Active Nurtec 75 mg take 1 tablet on the tongue and allow to dissolve Orally once daily, NEEDED for migraine; Duration: 30 Active metFORMIN HCl ER 500 mg TAKE ONE TABLET BY MOUTH ONCE DAILY 30 days; Duration: 30 Active Albuterol Sulfate HFA 108 (90 Base) MCG/ACT 2 puff(s) inhaled every 6 hours, prn 07/15/2022 Active CLAUDIO Elbow Strap - as directed 01/18/2023 Active Kesimpta 20 MG/0.4ML as directed subcutaneously once a month Active Levothyroxine Sodium 25 mcg TAKE 1 tab(s) orally once a day 30 days; Duration: 30 Active Lancets 1 LANCET(S) FINGERSTICK TEST 2 TIMES A DAY; Duration: 30 DAYS *Please review and pick correct strength-formulat ion from [employer] options. If intended option is not shown, discontinue and re-order from Quick Search* 11/01/2019 Active FreeStyle Lite Test 1 TEST STRIP(S) FINGERSTICK TEST 2 TIMES A DAY; Duration: 30 DAYS *Please review and pick correct strength-formulat ion from [employer] options. If intended option is not shown, discontinue and re-order from Quick Search* 06/12/2020 Active WALKER WITH WHEELS DIRECTED *Please revie w for potential replacement for e-prescription and drug interaction check* 01/08/2022 Active ROLLATOR WALKER DIRECTED DIRECTED *Please review for potential replacement for e-prescription and drug interaction check* 01/08/2022 Active Ondansetron 4 MG 1 tab(s) orally 3 times a day, prn Active Methocarbamol 750 mg take 1 tablet Orall y Three times a day; Duration: 10 Active GLUCOMETER TEST STRIPS 1 TEST STRIP(S) FINGERSTICK TEST 2 TIMES A DAY; Duration: 30 DAYS *Please review for potential replacement for e-prescription and drug interaction check* 11/01/2019 Active Acetaminophen 325 mg TAKE 1-2 tabs orall y every 6 hours as needed 13; Duration: 13 Active Desvenlafaxine Succinate ER 25 MG 1 tab(s) orally once a day Active GLUCOMETER 1 GLUCOMETER TEST 2 TIMES A DAY; Duration: 30 DAYS *Please review for potential replacement for e-prescription and drug interaction check* 11/01/2019 Active Fluticasone Propionate 50 MCG/ACT use 1 spray in each nostril Once a day; Duration: 30 days Active Promethazine HCl 25 mg TAKE ONE TABLET BY MOUTH NEEDED EVERY 6 HOURS; Duration: 5 Active Atorvastatin Calcium 10 mg TAKE ONE TABLET BY MOUTH ONCE DAILY; Duration: 30 Active Zinc 220 (50 Zn) MG TAKE ONE CAPSULE BY MOUTH ONCE DAILY 30; Duration: 30 Active Ascorbic Acid 500 mg TAKE ONE TABLET BY MOUTH TWICE DAILY 30; Duration: 30 Active Vital Signs Blood pressure systolic 120 mm Hg 08/23/19 25 Blood pressure diastolic 80 mm Hg 025 Heart Rate 72 /min 08/22/2024 Height 63 in 08/22/2024 Weight 292.0 lbs 08/22/2024 BMI 51.72 kg/m2 08/22/2024 Encounters Encounter Location Date Provider Diagnosis [facility] [address] [place] [id number] 08/22/2024 Chetna Diegoobie Visit for suture removal Z48.02 Assessments Encounter Date Diagnosis (ICD Code) Assessment Notes Treatment Notes Treatment Clinical Notes Section Notes 08/22/2024 Visit for suture removal (ICD-10 - Z48.02) Sutures removed without difficulty Plan Of Treatment Treatment Notes Assessment Notes Visit for suture removal Sutures removed without difficulty Next Appt Details Follow Up: prn, Reason: Provider Name:Chetna Brigitte Diegodarnell fischer, 03/27/2025 09:00:00 AM, [address], [address], [place], [id number], Progress Notes * Yumiko BRAVODOB:[birth year] (39 yo F)Acc No.[id number]:08/22/2024 Patient: Billy GILssica Provider: FRANCISCO JAVIER Grider :1985 A ge:39 Y S ex:Female Date:08/22/2024 Address:[facility] [place] , [id number] Pcp:Hanna Lemus Subjective: * Chief Complaints: * 1 . Suture removal. * HPI: D ermatology: 39 year old female presents with c/o stitch removal T he pt is here today for suture removal of the right lower extremity. Pt states the wound is still seeping some and she is keeping a bandage over it. * ROS: D ERMATOLOGY: no R delia. n o H jennifer. G ASTROENTEROLOGY: no N ausea. n o V omiting. n o D iarrhea.? U ROLOGY: no D ifficulty urinating. n o B lood in urine. * Medical History: D epression, Mental Retardation, Seizure Disorder, LT Eye Blindness , EF on Heart Cath, Normal, 02/2018. * Surgical History: L ap Ngo[place] - Dr. Tapia/ 10/05/2012, Umbilical Hernia Repair - Dr. Yusuf/ 01/2014. * Hospitalization/Major Diagno stic Procedure: E ye Problem 2001, Viral Encephalitis/Meningitis - [facility] 03/2008 - 04/2008, Seizure- [facility] 01/13-, Fall- [facility] ER 02/01/2010, UTI- [facility] 06/23/2010, Headache- [facility] 06/2010, Back Pain- [facility] 08/31/2010, Neck Pain- [facility] 10/19/2010, [place]arch Palsy- [facility] ER 09/30/2010, Stomach Pain- [facility] 11/14/1120, Back Pain- [facility] 12/24/2010, Lung Pain- [facility] 01/27/2011, Chest Pain- [facility] 02/17/2011, Seizure- [facility] 09/14/2011, UTI- [facility] 08/20/2012, UTI- [facility] 08/24/2012, Stomach Pain, Vomiting- [facility] 09/17-, Pnuemonia- [facility] 03/05/2013, Rib Pain- [facility] 03/11/2013, Headache- [facility] 08/06/2013, Back Pain- [facility] 06/22/2014, Kidney Infection- [facility] ER 10/06/2014, Stomach Pain- [facility] 01/05/2015, Hit Head, Fall- [facility] 12/2016, RT Side, Intestine Infection- [facility] ER 04/23/2017, LT Ankle Rash- [facility] 08/09/2017, Covid- [facility] 02/2020, [facility] - GI Issues, RLQ Pain 06/29/2023. * Family History: F ather: , cancer. M other: , covid. 1 brother(s) , 4 sister(s) - healthy. . * Social History: C URRENT TOBACCO USE S moking Status: Patient does smoke, number of cigarettes per day: 1, Smoking preference: cigarettes. C affeine: yes, frequency:. Exercise: yes, some. Home smoke detector use: yes. Marital Status: Single. 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 Past smoking status: no, Smoking status: Patient does smoke, Number Cigarettes per day: 1, Smoking preference: cigarettes. Recreational drug use: no. Alcohol: no. Sexually active: no.. * Medications: T aking Desvenlafaxine Succinate ER 25 MG Tablet Extended Release 24 Hour 1 tab(s) orally once a day , Taking GLUCOMETER 1 GLUCOMETER TEST 2 TIMES A DAY , Notes to Pharmacist: *Please review for potential replacement for e-prescription and drug interaction check*, Taking GLUCOMETER TEST STRIPS 1 TEST STRIP(S) FINGERSTICK TEST 2 TIMES A DAY , Notes to Pharmacist: *Please review for potential replacement for e-prescription and drug interaction check*, Taking Lancets 1 LANCET(S) FINGERSTICK TEST 2 TIMES A DAY , Notes to Pharmacist: *Please review and pick correct strength-formulation from [employer] options. If intended option is not shown, discontinue and re-order from Quick Search*, Taking FreeStyle Lite Test 1 TEST STRIP(S) FINGERSTICK TEST 2 TIMES A DAY , Notes to Pharmacist: *Please review and pick correct strength-formulation from [employer] options. If intended option is not shown, discontinue and re-order from Quick Search*, Taking WALKER WITH WHEELS DIRECTED , Notes to Pharmacist: *Please review for potential replacement for e-prescription and drug interaction check*, Taking ROLLATOR WALKER WALKER DIRECTED DIRECTED , Notes to Pharmacist: *Please review for potential replacement for e-prescription and drug interaction check*, Taking Ondansetron 4 MG Tablet Disintegrating 1 tab(s) orally 3 times a day, prn , Taking Albuterol Sulfate HFA 108 (90 Base) MCG/ACT Aerosol Solution 2 puff(s) inhaled every 6 hours, prn , Taking CLAUDIO Elbow Strap - Miscellaneous as directed , Taking Kesimpta 20 MG/0.4ML Solution Auto-injector as directed subcutaneously once a month , Taking Levothyroxine Sodium 25 mcg Tablet TAKE 1 tab(s) orally once a day 30 days , Taking metFORMIN HCl ER 500 mg Tablet Extended Release 24 Hour TAKE ONE TABLET BY MOUTH ONCE DAILY 30 days , Taking Vitamin D3 50 MCG (2000 UT) Tablet take 1 tab(s) orally once a day for 30 days , Taking Vitamin B-12 1000 MCG Tablet take 1 tab(s) by mouth once a day for 30 day(s) , Taking Pantoprazole Sodium 40 mg Tablet Delayed Release 1 tab(s) Orally Once a day , Taking Cetirizine HCl 10 MG Tablet 1 tablet Orally Once a day , Taking Nurtec 75 mg Tablet Disintegrating take 1 tablet on the tongue and allow to dissolve Orally once daily, NEEDED for migraine , Taking Promethazine HCl 25 mg Tablet TAKE ONE TABLET BY MOUTH NEEDED EVERY 6 HOURS , Taking Atorvastatin Calcium 10 mg Tablet TAKE ONE TABLET BY MOUTH ONCE DAILY , Taking Zinc 220 (50 Zn) MG Capsule TAKE ONE CAPSULE BY MOUTH ONCE DAILY 30 , Taking Ascorbic Acid 500 mg Tablet TAKE ONE TABLET BY MOUTH TWICE DAILY 30 , Taking Fluticasone Propionate 50 MCG/ACT Suspension use 1 spray in each nostril Once a day , Taking Methocarbamol 750 mg Tablet take 1 tablet Orally Three times a day , Taking Acetaminophen 325 mg Tablet TAKE 1-2 tabs orally every 6 hours as needed 13 , Medication List reviewed and reconciled with the patient * Allergies: A moxicillin, Erythromycin, Sulfa Antibiotics, Codeine, oxyCODONE, Clindamycin: chest pain. Objective: * Vitals: W t: 292.0, Temp: 98.1, BP: 120/80, HR: 72, Nurse: DUKE, Ht: 63, BMI:51.72. * Examination: G eneral Examination: General Appearance: N AD. S kin: r ight lower leg with 12 simple interrupted sutures removed with suture removal kit, steri-strips were placed. ? Assessment: * Assessment: 1. V isit for suture removal - Z48.02 (Primary) Plan: * Treatment: * Follow Up: p rn * Images: Billing Information: * Visit Code: 81863 Office Visit, Est Pt., Level 3. * Procedure Codes: * Electronic signature of FRANCISCO JAVIER Michel on 12/31/2024 at 01:05 PM EST Sign off status: Pending * Provider: FRANCISCO JAVIER Grider Date: 0 08/22/2024 Generated for Young pruitt/Marshal/Belkis on: 03/02/2024 01:05 PM EST History and Physical Notes * HPI (History of Present Illness) Category Sub-Category Detail Notes Category Not es Dermatology stitch removal The pt is here t enrike for suture removal of the right lower extremity. Pt states the wound is still seeping some and she is keeping a bandage over it Examination Category Sub-Category Detail Notes Category Not es General Examination General Appearance: NAD Skin: right lower leg with 12 simple interrupted sutures removed with suture removal kit, steri-strips were placed
--- OUTSIDE RECORDS SUMMARY | 2024-08-23 05:30 | XMS_ITS ---
Author Organization [facility] Address [address] [facility] [address] [place] [id number] Care Team Providers Care [employer] Black Trainer Name Role Phone Hanna Lemus Primary Care Provider Chetna Santiago [phone] REASON FOR VISIT suture removal Encounters Encounter Location Date Provider Diagnosis [facility] [address] [place] [id number] 08/23/2024 Chetna Santiago Plan Of Treatment Next Appt Details Provider Name:Chetna Escobar y, 03/27/2025 09:00:00 AM, [address], [address], [place], [place], [id number], Progress Notes * LAWRENCE BillylillianjelicaDOB:[birth year] (39 yo F)Acc No.[id number]:08/23/2024 Patient: Billy GILssica Provider: FRANCISCO JAVIER Grider :1985 A ge:39 Y S ex:Female Date:08/23/2024 Address:[id number] Pcp:Hanna Lemus Subjective: * Chief Complaints: * 1 . Suture removal. * Medical History: Objective: * Vitals: Assessment: Plan: * Treatment: * Images: Billing Information: * Visit Code: * Procedure Codes: * Electronic signature of FRANCISCO JAVIER Michel on 12/31/2024 at 01:04 PM EST Sign off status: Pending * Provider: FRANCISCO JAVIER Grider Date: 08/23/2024 Generated for Young pruitt/Marshal/Belkis on: 1 03/02/2024 01:04 PM EST
--- OUTSIDE RECORDS SUMMARY | 2024-09-19 06:00 | XMS_ITS ---
Author Organization [facility] Address [address] [facility] [address] [id number] Care Team Providers Care Animal Ride Attendant Name Role Phone Hanna Lemus Primary Care Provider Chetna Santiago Unavailable [phone] Allergies Allergen (clinical drug ingredient) Drug/Non Drug [...] Unknown Drug Allergy Active REASON FOR VISIT right leg hurting Medications Medication SIG (Take, Route, Frequency, Duration) Notes Start Date End Date Status Methocarbamol 750 mg take 1 tablet Orall y Three times a day; Duration: 10 Active Acetaminophen 325 mg TAKE 1-2 tabs orall y every 6 hours as needed 13; Duration: 13 Active Ascorbic Acid 500 mg TAKE ONE TABLET BY MOUTH TWICE DAILY 30; Duration: 30 Active Fluticasone Propionate 50 MCG/ACT use 1 spray in each nostril Once a day; Duration: 30 days Active Zinc 220 (50 Zn) MG TAKE ONE CAPSULE BY MOUTH ONCE DAILY 30; Duration: 30 Active Pantoprazole Sodium 40 mg 1 tab(s) Orally Once a day; Duration: 30 days Active Cetirizine HCl 10 MG 1 tablet Orally Onc e a day; Duration: 30 days 06/29/2024 Active Atorvastatin Calcium 10 mg TAKE ONE TABLET BY MOUTH ONCE DAILY; Duration: 30 Active Nurtec 75 mg take 1 tablet on the tongue and allow to dissolve Orally once daily, NEEDED for migraine; Duration: 30 Active Promethazine HCl 25 mg TAKE ONE TABLET BY MOUTH NEEDED EVERY 6 HOURS; Duration: 5 Active metFORMIN HCl ER 500 mg TAKE ONE TABLET BY MOUTH ONCE DAILY 30 days; Duration: 30 Active Vitamin D3 50 MCG (2000 UT) take 1 tab(s) orally once a day for 30 days; Duration: 30 Active Kesimpta 20 MG/0.4ML as directed subcutaneously once a month Active Levothyroxine Sodium 25 mcg TAKE 1 tab(s) orally once a day 30 days; Duration: 30 Active Vitamin B-12 1000 MCG take 1 tab(s) by mouth once a day for 30 day(s); Duration: 30 Active WALKER WITH WHEELS DIRECTED *Please revie w for potential replacement for e-prescription and drug interaction check* 01/08/2022 Active Albuterol Sulfate HFA 108 (90 Base) MCG/ACT 2 puff(s) inhaled every 6 hours, prn 07/15/2022 Active CLAUDIO Elbow Strap - as directed 01/18/2023 Active ROLLATOR WALKER DIRECTED DIRECTED *Please review for potential replacement for e-prescription and drug interaction check* 01/08/2022 Active Ondansetron 4 MG 1 tab(s) orally 3 times a day, prn Active GLUCOMETER 1 GLUCOMETER TEST 2 TIMES A DAY; Duration: 30 DAYS *Please review for potential replacement for e-prescription and drug interaction check* 11/01/2019 Active GLUCOMETER TEST STRIPS 1 TEST STRIP(S) FINGERSTICK TEST 2 TIMES A DAY; Duration: 30 DAYS *Please review for potential replacement for e-prescription and drug interaction check* 11/01/2019 Active Desvenlafaxine Succinate ER 25 MG 1 tab(s) orally once a day Active Lancets 1 LANCET(S) FINGERSTICK TEST 2 TIMES A DAY; Duration: 30 DAYS *Please review and pick correct strength-formulat ion from [employer] options. If intended option is not shown, discontinue and re-order from Quick Search* 11/01/2019 Active FreeStyle Lite Test 1 TEST STRIP(S) FINGERSTICK TEST 2 TIMES A DAY; Duration: 30 DAYS *Please review and pick correct strength-formulat ion from [employer]stalk options. If intended option is not shown, discontinue and re-order from Quick Search* 06/12/2020 Active Cephalexin 500 MG 1 capsule Orally twice a day; Duration: 10 days 09/19/2024 Active Vital Signs Blood pressure systolic 126 mm Hg 09/20/19 25 Blood pressure diastolic 80 mm Hg 025 Heart Rate 80 /min 09/19/2024 Height 63 in 09/19/2024 Weight 289.2 lbs 09/19/2024 BMI 51.22 kg/m2 09/19/2024 Encounters Encounter Location Date Provider Diagnosis [facility] [address] [facility] [address] [facility] [address] [place] [id number] 09/19/2024 Chetna Santiago Wound cellulitis L03 .90 Assessments Encounter Date Diagnosis (ICD Code) Assessment Notes Treatment Notes Treatment Clinical Notes Section Notes 09/19/2024 Wound cellulitis (ICD-10 - L03.90) Plan Of Treatment Medication Medication Name Sig Start Date Stop Date Notes Cephalexin 500 MG 1 capsule Orally twi ce a day; Duration: 10 days 09/19/2024 Next Appt Details Follow Up: prn, Reason: Provider Name:Chetna fischer, 03/27/2025 09:00:00 AM, [address] [facility] [address] [facility], [address], [place], [id number], Progress Notes * Adelaide BRAVOanjelicaDOB:[birth year] (39 yo F)Acc No.[id number]:09/19/2024 Progress Notes Patient: Yumiko GIL Provider: FRANCISCO JAVIER Grider :1985 A ge:39 Y S ex:Female Date:09/19/2024 Address[address] , [id number] Pcp:Hanna Lemus Subjective: * Chief Complaints: * 1 . Right leg hurting. * HPI: D ermatology: Pt here for right leg pain. Pt states she cut it about a month ago. Pt states that it is healing but now there is some redness and purulent drainage. * ROS: D ERMATOLOGY: no R delia. n o H jennifer. G ASTROENTEROLOGY: no N ausea. n o V omiting. n o D iarrhea.? U ROLOGY: no D ifficulty urinating. n o B lood in urine. * Medical History: D epression, Mental Retardation, Seizure Disorder, LT Eye Blindness , EF on Heart Cath, Normal, 02/2018. * Surgical History: Charlene Melvin - Dr. Tapia/ 10/05/2012, Umbilical Hernia Repair - Dr. Yusuf/ 01/2014. * Hospitalization/Major Diagno stic Procedure: E ye Problem 2001, Viral Encephalitis/Meningitis - [facility] 03/2008 - 04/2008, Seizure- [place] 01/13-, Fall- [facility] 02/01/2010, UTI- [facility] 06/23/2010, Headache- [facility] 06/2010, Back Pain- [facility] 08/31/2010, Neck Pain- [facility] 10/19/2010, [place] Palsy- [facility] 09/30/2010, Stomach Pain- [facility] 11/14/1120, Back Pain- [facility] 12/24/2010, Lung Pain- [facility] 01/27/2011, Chest Pain- [facility] 02/17/2011, Seizure- [facility] 09/14/2011, UTI- [facility] 08/20/2012, UTI- [facility] 08/24/2012, Stomach Pain, Vomiting- [facility] 09/17-, Pnuemonia- [facility] 03/05/2013, Rib Pain- [facility] 03/11/2013, Headache- [facility] 08/06/2013, Back Pain- [facility] 06/22/2014, Kidney Infection- [facility] 10/06/2014, Stomach Pain- [facility] 01/05/2015, Hit Head, Fall- [facility] 12/2016, RT Side, Intestine Infection- [facility] 04/23/2017, LT Ankle Rash- [facility] 08/09/2017, Covid- [facility] 02/2020, [facility] - GI Issues, RLQ Pain [...] *Please review and pick correct strength-formulation from Wireless Environments[employer] options. If intended option is not shown, discontinue and re-order from Quick Search*, Taking FreeStyle Lite Test 1 TEST STRIP(S) FINGERSTICK TEST 2 TIMES A DAY , Notes to Pharmacist: *Please review and pick correct strength-formulation from [employer] Environments[employer] options. If intended option is not shown, [...] chest pain. Objective: * Vitals: W t: 289.2, Temp: 98.0, BP: 126/80, HR: 80, Nurse: pe, Ht: 63, BMI:51.22. * Examination: G eneral Examination: General Appearance: N AD. C hest: n ormal shape and expansion. H eart: R SR. L ungs: c lear to auscultation. S kin: r ight lower leg with healing wound, there is some surrounding erythema and it is tender and hot to the touch.? Assessment: * Assessment: 1. W ound cellulitis - L03.90 (Primary) Plan: * Treatment: * Follow Up: p rn * Images: Billing Information: * Visit Code: 35471 Office Visit, Est Pt., Level 3. * Procedure Codes: * Electronic signature of FRANCISCO JAVIER Michel on 12/31/2024 at 01:04 PM EST Sign off status: Pending * Provider: FRANCISCO JAVIER Grider Date: 0 09/19/2024 Generated for Young pruitt/Marshal/eTransmitting on: 03/02/2024 01:04 PM EST History and Physical Notes * Examination Category Sub-Category Detail Notes Category Not es General Examination Heart: RSR Lungs: clear to auscultatio n General Appearance: NAD Skin: right lower leg with healing wound, there is some surrounding erythema and it is tender and hot to the touch Chest: normal shape and exp ansion
--- OUTSIDE RECORDS SUMMARY | 2024-09-26 05:45 | XMS_ITS ---
Author Organization [facility] Address [address] [place] [id number] Care Team Providers Care Pier Hand Name Role Phone Hanna Lemus Primary Care Provider Aaron Broussard [phone] REASON FOR VISIT infected leg Encounters Encounter Location Date Provider Diagnosis [facility] [address] [place] [id number] 09/26/2024 Aaron Broussard Plan Of Treatment Next Appt Details Provider Name:Chetna fischer, 03/27/2025 09:00:00 AM, [address], [address], [place], [place], [phone], Progress Notes * Yumiko BRAVODOB:[birth year] (39 yo F)Acc No.[id number]:09/26/2024 Progress Notes Patient: Adelaide GILica Provider: Tamra Broussard M.D. :1985 A ge:39 Y S ex:Female Date:09/26/2024 Address:[address] [id number] Pcp:Hanna Lemus Subjective: * Chief Complaints: * 1 . Infected leg. * Medical History: Objective: * Vitals: Assessment: Plan: * Treatment: * Images: Billing Information: * Visit Code: * Procedure Codes: * Electronic signature of Merlene Broussard MD on 12/31/2024 at 01:05 PM EST Sign off status: Pending * Provider: Tamra Broussard M.D. Date: 0 09/26/2024 Generated for Young pruitt/Marshal/Belkis on: 1 03/02/2024 01:05 PM EST
--- OUTSIDE RECORDS SUMMARY | 2024-10-03 06:00 | XMS_ITS ---
Author Organization [facility] Address 1210 [facility] [address] [id number] Care Team Providers Care Window And Door Installer Name Role Phone Hanna Lemus Primary Care Provider [phone] Chetna Santiago Unavailable [phone] Allergies Allergen (clinical drug ingredient) Drug/Non Drug [...] Active Results Component Value Reference Range Notes CBC Fingerstick (in house) Reviewed date:10/03/2024 03:49:46 PM Interpretation: Performing Lab: Notes/Report: wbc 12.5 3.5 - 10 lym 22.5 15 - 50 mid 5.5 2 - 15 gran 72.0 35 - 80 rbc 4.51 3.5 - 5.5 hgb 12.9 11.5 - 16.5 hct 38.8 35 - 55 mcv 85.9 75 - 100 mch 28.7 25 - 35 mchc 33.4 31 - 38 plat 139 100 - 400 REASON FOR VISIT Recheck Leg, Purulent, feels tired & weak Medications Medication SIG (Take, Route, Frequency, Duration) Notes Start Date End Date Status Vitamin B-12 1000 MCG 1 tablet Orally On ce a day; Duration: 30 days Active Vitamin D3 50 MCG (1999 UT) 1 tablet Orally Once a day; Duration: 30 days Active Acetaminophen 325 mg TAKE 1-2 tabs orall y every 6 hours as needed 13; Duration: 13 Active Pantoprazole Sodium 40 mg 1 tab(s) Orally Once a day; Duration: 30 days Active Promethazine HCl 25 mg TAKE ONE TABLET BY MOUTH NEEDED EVERY 6 HOURS 5; Duration: 5 Active Methocarbamol 750 mg take 1 tablet Orall y Three times a day; Duration: 10 Active Fluticasone Propionate 50 MCG/ACT use 1 spray in each nostril Once a day; Duration: 30 days Active Ascorbic Acid 500 mg TAKE ONE TABLET BY MOUTH TWICE DAILY 30; Duration: 30 Active Zinc 220 (50 Zn) MG TAKE ONE CAPSULE BY MOUTH ONCE DAILY 30; Duration: 30 Active Atorvastatin Calcium 10 mg TAKE ONE TABLET BY MOUTH ONCE DAILY; Duration: 30 Active metFORMIN HCl ER 500 mg TAKE ONE TABLET BY MOUTH ONCE DAILY 30 days; Duration: 30 Active Levothyroxine Sodium 25 mcg TAKE 1 tab(s) orally once a day 30 days; Duration: 30 Active Kesimpta 20 MG/0.4ML as directed subcutaneously once a month Active Nurtec 75 mg take 1 tablet on the tongue and allow to dissolve Orally once daily, NEEDED for migraine; Duration: 30 Active Cetirizine HCl 10 MG 1 tablet Orally Onc e a day; Duration: 30 days 06/29/2024 Active CLAUDIO Elbow Strap - as directed 01/18/2023 Active Albuterol Sulfate HFA 108 (90 Base) MCG/ACT 2 puff(s) inhaled every 6 hours, prn 07/15/2022 Active Ondansetron 4 MG 1 tab(s) orally 3 times a day, prn Active ROLLATOR WALKER DIRECTED DIRECTED *Please review for potential replacement for e-prescription and drug interaction check* 01/08/2022 Active WALKER WITH WHEELS DIRECTED *Please revie w for potential replacement for e-prescription and drug interaction check* 01/08/2022 Active GLUCOMETER 1 GLUCOMETER TEST 2 TIMES A DAY; Duration: 30 DAYS *Please review for potential replacement for e-prescription and drug interaction check* 11/01/2019 Active Desvenlafaxine Succinate ER 25 MG 1 tab(s) orally once a day Active FreeStyle Lite Test 1 TEST STRIP(S) FINGERSTICK TEST 2 TIMES A DAY; Duration: 30 DAYS *Please review and pick correct strength-formulat ion from [employer] options. If intended option is not shown, discontinue and re-order from Quick Search* 06/12/2020 Active Lancets 1 LANCET(S) FINGERSTICK TEST 2 TIMES A DAY; Duration: 30 DAYS *Please review and pick correct strength-formulat ion from [employer] options. If intended option is not shown, discontinue and re-order from Quick Search* 11/01/2019 Active GLUCOMETER TEST STRIPS 1 TEST STRIP(S) FINGERSTICK TEST 2 TIMES A DAY; Duration: 30 DAYS *Please review for potential replacement for e-prescription and drug interaction check* 11/01/2019 Active Fluconazole 150 MG 1 tablet Orally once daily 10/03/2024 Active Cephalexin 500 MG 1 capsule Orally twice a day; Duration: 10 days Active Vital Signs Blood pressure systolic 133 mm Hg 10/04/19 25 Blood pressure diastolic 80 mm Hg 025 Heart Rate 79 /min 10/03/2024 Height 63 in 10/03/2024 Weight 292.2 lbs 10/03/2024 BMI 51.76 kg/m2 10/03/2024 Encounters Encounter Location Date Provider Diagnosis [facility] [address] [facility] 36 [facility] [address] [place] [id number] 10/03/2024 Chetna Santiago Wound cellulitis L03 .90 and Yeast infection B37.9 Assessments Encounter Date Diagnosis (ICD Code) Assessment Notes Treatment Notes Treatment Clinical Notes Section Notes 10/03/2024 Wound cellulitis (ICD-10 - L03.90) 10/03/2024 Yeast infection (ICD-10 - B37.9) Plan Of Treatment Medication Medication Name Sig Start Date Stop Date Notes Fluconazole 150 MG 1 tablet Orally once daily 10/03/2024 Cephalexin 500 MG 1 capsule Orally twi ce a day; Duration: 10 days Next Appt Details Follow Up: prn, Reason: Provider Name:Chetna Escobar y, 03/27/2025 09:00:00 AM, [address] [facility], [address], [place], [phone], Progress Notes * Dinora BRAVO:[birth year] (39 yo F)Acc No.[id number]:10/03/2024 Progress Notes Patient: Hanna TYLORBilly MYERSYumiko Provider: FRANCISCO JAVIER Grider :1985 A ge:39 Y S ex:Female Date:10/03/2024 Address[place] [address], [id number] Pcp:Hanna Lemus Subjective: * Chief Complaints: * 1 . Recheck Leg, Purulent, feels tired & weak. * HPI: D ermatology: 39 year old female presents with c/o laceration P t here for checkup on her right leg. Pt states that it is still red and draining. Pt states it does look better from last time. E NT/respiratory: c/o Fever P t states she had a fever yesterday with chills, 102-103. * ROS: D ERMATOLOGY: no R delia. [...] [place] Problem 2001, [facility] - [facility], Seizure- [place] 01/13-, Fall- [facility] 02/01/2010, UTI- [facility] 06/23/2010, Headache- [place] [facility] 06/2010, Back Pain- [place] [facility] 08/31/2010, Neck Pain- [place] [facility] 10/19/2010, [place] Palsy- [facility] 09/30/2010, Stomach Pain- [place] [facility] 11/14/1120, Back Pain- [place] [facility] 12/24/2010, Lung Pain- [facility] 01/27/2011, Chest Pain- [facility] 02/17/2011, Seizure- [facility] 09/14/2011, UTI- [place] [facility] 08/20/2012, UTI- [facility] 08/24/2012, Stomach Pain, Vomiting- [facility] 09/17-, Pnuemonia- [place] [facility] 03/05/2013, Rib Pain- [facility] 03/11/2013, Headache- [facility] 08/06/2013, Back Pain- [facility] 06/22/2014, Kidney Infection- [facility] 10/06/2014, Stomach Pain- [facility] 01/05/2015, Hit Head, Fall- [place] [facility] 12/2016, RT Side, Intestine Infection- [facility] 04/23/2017, LT Ankle Rash- [facility] 08/09/2017, Covid- [facility] 02/2020, [facility] ER - GI Issues, RLQ Pain 06/29/2023. [...] *Please review and pick correct strength-formulation from [employer] options. If intended option is not shown, discontinue and re-order from Quick Search*, Taking FreeStyle Lite Test 1 TEST STRIP(S) FINGERSTICK TEST 2 TIMES A DAY , Notes to Pharmacist: *Please review and pick correct strength-formulation from [employer] options. If intended option is not shown, [...] MOUTH ONCE DAILY 30 days , Taking Cetirizine HCl 10 MG Tablet 1 tablet Orally Once a day , Taking Nurtec 75 mg Tablet Disintegrating take 1 tablet on the tongue and allow to dissolve Orally once daily, NEEDED for migraine , Taking Atorvastatin Calcium 10 mg Tablet [...] every 6 hours as needed 13 , Taking Cephalexin 500 MG Capsule 1 capsule Orally twice a day , Taking Vitamin D3 50 MCG (2000 UT) Tablet 1 tablet Orally Once a day , Taking Vitamin B-12 1000 MCG Tablet 1 tablet Orally Once a day , Taking Promethazine HCl 25 mg Tablet TAKE ONE TABLET BY MOUTH NEEDED EVERY 6 HOURS 5 , Taking Pantoprazole Sodium 40 mg Tablet Delayed Release 1 tab(s) Orally Once a day , Medication List reviewed and reconciled with the patient * Allergies: A moxicillin, Erythromycin, Sulfa Antibiotics, Codeine, oxyCODONE, Clindamycin: chest pain. Objective: * Vitals: W t: 292.2, Temp: 98.5, BP: 133/80, HR: 79, Nurse: pe, Ht: 63, BMI:51.76. * Examination: G eneral Examination: General Appearance: N AD. C hest: n ormal shape and expansion. H eart: R SR. L ungs: c lear to auscultation. S kin: r ight lower leg with healing wound, there is less surrounding erythema and it is less tender . Assessment: * Assessment: 1. W ound cellulitis - L03.90 (Primary) 2 . Y east infection - B37.9 ? Plan: * Treatment: Value Reference Range w bc 12.5 3.5 - 10 * l ym 22.5 15 - 50 * m id 5.5 2 - 15 * g ran 72.0 35 - 80 * r bc 4.51 3.5 - 5.5 * h gb 12.9 11.5 - 16.5 * h ct 38.8 35 - 55 * m cv 85.9 75 - 100 * m ch 28.7 25 - 35 * m chc 33.4 31 - 38 * p lat 139 100 - 400 * Danita Trinidad 10/03/2024 11 :54:50 AM EDT > Provider reviewed results while patient in office.Chetna Santiago 10/03/2024 03:49:44 PM EDT > 2.?Yeast infection? Start Fluconazole Tablet, 150 MG, 1 tablet, Orally, once daily, 1, Refills 1.?? * Procedure Codes: 3 6416 CAPILLARY BLOOD DRAW, 05933 CBC WITH AUTO DIFF, 3075F SYST BP GE 130 - 139MM HG, 3079F DIAST BP 80-89 MM HG * Follow Up: p rn * Images: Billing Information: * Visit Code: 73006 Office Visit, Est Pt., Level 3. * Procedure Codes: 59585 CAPILLARY BLOOD DRAW. 80468 CBC WITH AUTO DIFF. 3075F SYST BP GE 130 - 139MM HG. 3079F DIAST BP 80-89 MM HG. * Electronic signature of FRANCISCO JAVIER Michel on 12/31/2024 at 01:06 PM EST Sign off status: Pending * Provider: FRANCISCO JAVIER Grider Date: 0 10/03/2024 Generated for Young pruitt/Marshal/eTransmitting on: 1 03/02/2024 01:06 PM EST History and Physical Notes * HPI (History of Present Illness) Category Sub-Category Detail Notes Category Not es ENT/respiratory Fever Pt states she smith d a fever yesterday with chills, 102-103 Dermatology laceration Pt here for chec kup on her right leg. Pt states that it is still red and draining. Pt states it does look better from last time Examination Category Sub-Category Detail Notes Category Not es General Examination Heart: RSR Lungs: clear to auscultatio n General Appearance: NAD Skin: right lower leg with healing wound, there is less surrounding erythema and it is less tender Chest: normal shape and exp ansion
--- OUTSIDE RECORDS SUMMARY | 2024-10-10 09:15 | XMS_ITS ---
Author Organization [facility] Address 1210 [facility] [address] [phone] Care Team Providers Care Rustic Terrazzo Setter Name Role Phone Hanna Lemus Primary Care Provider Chetna Santiago Unavailable [phone] Allergies Allergen (clinical drug ingredient) Drug/Non Drug [...] Active Results Component Value Reference Range Notes X ray : Tib-fib,right Reviewed date:10/11/2024 02:48:15 PM Interpretation:Negative Performing Lab: Notes/Report: Negative REASON FOR VISIT leg is still hurting Medications Medication SIG (Take, Route, Frequency, Duration) Notes Start Date End Date Status GLUCOMETER TEST STRIPS 1 TEST STRIP(S) FINGERSTICK TEST 2 TIMES A DAY; Duration: 30 DAYS *Please review for potential replacement for e-prescription and drug interaction check* 11/01/2019 Active GLUCOMETER 1 GLUCOMETER TEST 2 TIMES A DAY; Duration: 30 DAYS *Please review for potential replacement for e-prescription and drug interaction check* 11/01/2019 Active Desvenlafaxine Succinate ER 25 MG 1 tab(s) orally once a day Active FreeStyle Lite Test 1 TEST STRIP(S) FINGERSTICK TEST 2 TIMES A DAY; Duration: 30 DAYS *Please review and pick correct strength-formulat ion from [employer] options. If intended option is not shown, discontinue and re-order from Quick Search* 06/12/2020 Active Lancets 1 LANCET(S) FINGERSTICK TEST 2 TIMES A DAY; Duration: 30 DAYS *Please review and pick correct strength-formulat ion from [employer] options. If intended option is not shown, discontinue and re-order from Quick Search* 11/01/2019 Active Cephalexin 500 MG 1 capsule Orally twice a day; Duration: 10 days Active Pantoprazole Sodium 40 mg 1 tab(s) Orally Once a day; Duration: 30 days Active Promethazine HCl 25 mg TAKE ONE TABLET BY MOUTH NEEDED EVERY 6 HOURS 5; Duration: 5 Active Vitamin B-12 1000 MCG 1 tablet Orally On ce a day; Duration: 30 days Active Fluconazole 150 MG 1 tablet Orally once daily 10/03/2024 Active Ascorbic Acid 500 mg TAKE ONE TABLET BY MOUTH TWICE DAILY 30; Duration: 30 Active Vitamin D3 50 MCG (2000 UT) 1 tablet Orally Once a day; Duration: 30 days Active Acetaminophen 325 mg TAKE 1-2 tabs orall y every 6 hours as needed 13; Duration: 13 Active Methocarbamol 750 mg take 1 tablet Orall y Three times a day; Duration: 10 Active Fluticasone Propionate 50 MCG/ACT use 1 spray in each nostril Once a day; Duration: 30 days Active Nurtec 75 mg take 1 tablet on the tongue and allow to dissolve Orally once daily, NEEDED for migraine; Duration: 30 Active Cetirizine HCl 10 MG 1 tablet Orally Onc e a day; Duration: 30 days 06/29/2024 Active metFORMIN HCl ER 500 mg TAKE ONE TABLET BY MOUTH ONCE DAILY 30 days; Duration: 30 Active Zinc 220 (50 Zn) MG TAKE ONE CAPSULE BY MOUTH ONCE DAILY 30; Duration: 30 Active Atorvastatin Calcium 10 mg TAKE ONE TABLET BY MOUTH ONCE DAILY; Duration: 30 Active Levothyroxine Sodium 25 mcg TAKE 1 tab(s) orally once a day 30 days; Duration: 30 Active Kesimpta 20 MG/0.4ML as directed subcutaneously once a month Active CLAUDIO Elbow Strap - as directed [...] e-prescription and drug interaction check* 01/08/2022 Active Vital Signs Blood pressure systolic 142 mm Hg 10/11/19 25 Blood pressure diastolic 76 mm Hg 025 Heart Rate 97 /min 10/10/2024 Height 63 in 10/10/2024 Weight 294.2 lbs 10/10/2024 BMI 52.11 kg/m2 10/10/2024 Encounters Encounter Location Date Provider Diagnosis [facility] [address] [place] [id number] 10/10/2024 Chetna Santiago Wound cellulitis L03 .90 Assessments Encounter Date Diagnosis (ICD Code) Assessment Notes Treatment Notes Treatment Clinical Notes Section Notes 10/10/2024 Wound cellulitis (ICD-10 - L03.90) Plan Of Treatment Next Appt Details Follow Up: via phone to repo rt test results, Reason: Provider Name:Chetna Brigitte Shawn amado, 03/27/2025 09:00:00 AM, [address], [place], [place], [phone], Progress Notes * MARJORIEYumikoDOB:[birth year] (39 yo F)Acc No.[id number]:10/10/2024 Progress Notes Patient: Yumiko GIL Provider: FRANCISCO JAVIER Grider :1985 A ge:39 Y S ex:Female Date:10/10/2024 Address[address] , [id number] Pcp:Hanna Lemus Subjective: * Chief Complaints: * 1 . Leg is still hurting. * HPI: D ermatology: 39 year old female presents with c/o laceration P t here for a checkup on right leg. Pt states that it hurts and is not getting better. * ROS: D ERMATOLOGY: no R delia. [...] [facility], Se[facility]ure- [place] 01/13-, Fall- [facility] 02/01/2010, UTI- [facility] 06/23/2010, Headache- [place] [facility] 06/2010, Back Pain- [place] [facility] 08/31/2010, Neck Pain- [place] [facility] 10/19/2010, [place] Palsy- [facility] ER 09/30/2010, Stomach Pain- [place] [facility] 11/14/1120, Back Pain- [place] [facility] 12/24/2010, Lung Pain- [facility] 01/27/2011, Chest Pain- [facility] 02/17/2011, Seizure- [facility] 09/14/2011, UTI- [place] [facility] 08/20/2012, UTI- [facility] 08/24/2012, Stomach Pain, Vomiting- [facility] 09/17-, Pnuemonia- [place] [facility] 03/05/2013, Rib Pain- [facility] 03/11/2013, Headache- [facility] 08/06/2013, Back Pain- [facility] ER 06/22/2014, Kidney Infection- [facility] 10/06/2014, Stomach Pain- [facility] 01/05/2015, Hit Head, Fall- [place] ER 12/2016, RT Side, Intestine Infection- [facility] ER 04/23/2017, LT Ankle Rash- [facility] 08/09/2017, Covid- [facility] 02/2020, [facility] ER - GI Issues, RLQ Pain [...] *Please review and pick correct strength-formulation from [employer] options. If intended option is not shown, discontinue and re-order from Quick Search*, Taking FreeStyle Lite Test 1 TEST STRIP(S) FINGERSTICK TEST 2 TIMES A DAY , Notes to Pharmacist: *Please review and pick correct strength-formulation from [employer] options. If intended option is not shown, [...] 6 hours as needed 13 , Taking Vitamin D3 50 MCG (2000 UT) Tablet 1 tablet Orally Once a day , Taking Vitamin B-12 1000 MCG Tablet 1 tablet Orally Once a day , Taking Promethazine HCl 25 mg Tablet TAKE ONE TABLET BY MOUTH NEEDED EVERY 6 HOURS 5 , Taking Pantoprazole Sodium 40 mg Tablet Delayed Release 1 tab(s) Orally Once a day , Taking Cephalexin 500 MG Capsule 1 capsule Orally twice a day , Taking Fluconazole 150 MG Tablet 1 tablet Orally once daily , Medication List reviewed and reconciled with the patient * Allergies: A moxicillin, Erythromycin, Sulfa Antibiotics, Codeine, oxyCODONE, Clindamycin: chest pain. Objective: * Vitals: W t: 294.2, Temp: 000, BP: 142/76, HR: 97, Nurse: kehinde, Ht: 63, BMI:52.11. * Examination: G eneral Examination: General Appearance: N AD. C hest: n ormal shape and expansion. H eart: R SR. L ungs: c lear to auscultation. S kin: r ight lower leg with healing wound, there is less surrounding erythema and it is less tender . Assessment: * Assessment: 1. W ound cellulitis - L03.90 (Primary) Plan: * Treatment: * Follow Up: v ia phone to report test results * Images: Billing Information: * Visit Code: 69584 Office Visit, Est Pt., Level 3. * Procedure Codes: * Electronic signature of FRANCISCO JAVIER Michel on 12/31/2024 at 01:04 PM EST Sign off status: Pending * Provider: FRANCISCO JAVIER Grider Date: 0 10/10/2024 Generated for Young pruitt/Marshal/eTransmitting on: 1 03/02/2024 01:04 PM EST History and Physical Notes * HPI (History of Present Illness) Category Sub-Category Detail Notes Category Not es Dermatology laceration Pt here for a ch eckup on right leg. Pt states that it hurts and is not getting better Examination Category Sub-Category Detail Notes Category Not es General Examination Heart: RSR Lungs: clear to auscultatio n General Appearance: NAD Skin: right lower leg with healing wound, there is less surrounding erythema and it is less tender Chest: normal shape and exp ansion
--- OUTSIDE RECORDS SUMMARY | 2024-10-31 04:45 | XMS_ITS ---
Author Organization [facility] [place] Address [address] [facility] [address] [place], [place] [id number] Care Team Providers Care Amusement Or Recreation Card Checker Name Role Phone Hanna Lemus Primary Care Provider Chetna Santiago [phone] Allergies Allergen (clinical drug ingredient) Drug/Non Drug [...] Unknown Drug Allergy Active REASON FOR VISIT still having pain in leg Encounters Encounter Location Date Provider Diagnosis [facility] [address] [facility] [address] [facility] [address] [place], [place] [phone] 10/31/2024 Chetna Santiago Plan Of Treatment Next Appt Details Provider Name:Cehtna fischer, 03/27/2025 09:00:00 AM, [address] [facility] [address] [facility], [facility] [address], [place], [place], [phone], Progress Notes * Yumiko BRAVODOB:[birth year] (39 yo F)Acc No.[id number]:10/31/2024 Progress Notes Patient: Adelaide GILica Provider: FRANCISCO JAVIER Grider :1985 A ge:39 Y S ex:Female Date:10/31/2024 Address:[address] [id number] Pcp:Hanna Lemus Subjective: * Chief Complaints: * 1 . Still having pain in leg. * HPI: L e39 year old female presents with c/o Leg pain P t here for leg pain from where she cut it. Pt states . * ROS: D ERMATOLOGY: no R delia. 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 - 04/2008, Seizure- [place] 01/13-, Fall- [facility] 02/01/2010, UTI- [facility] 06/23/2010, Headache- [place] [facility] 06/2010, Back Pain- [facility] 08/31/2010, Neck Pain- [facility] 10/19/2010, [place] Palsy- [facility] 09/30/2010, Stomach Pain- [facility] 11/14/1120, Back Pain- [facility] 12/24/2010, Lung Pain- [facility] 01/27/2011, Chest Pain- [facility] 02/17/2011, Seizure- [facility] 09/14/2011, UTI- [place] [facility] 08/20/2012, UTI- [facility] 08/24/2012, Stomach Pain, Vomiting- [facility] 09/17-, Pnuemonia- [place] 03/05/2013, Rib Pain- [facility] 03/11/2013, Headache- [facility] 08/06/2013, Back Pain- [facility] 06/22/2014, Kidney Infection- [facility] 10/06/2014, Stomach Pain- [facility] 01/05/2015, Hit Head, Fall- [facility] [place] 12/2016, RT Side, Intestine Infection- [facility] 04/23/2017, LT Ankle Rash- [facility] [place] 08/09/2017, Covid- [facility] 02/2020, [facility] - GI Issues, RLQ [...] no. Alcohol: no. Sexually active: no.. * Allergies: A moxicillin, Erythromycin, Sulfa Antibiotics, Codeine, oxyCODONE, Clindamycin: chest pain. Objective: * Vitals: Assessment: Plan: * Treatment: * Images: Billing Information: * Visit Code: * Procedure Codes: * Electronic signature of FRANCISCO JAVIER Michel on 12/31/2024 at 01:04 PM EST Sign off status: Pending * Provider: FRANCISCO JAVIER Grider Date: 0 10/31/2024 Generated for Young pruitt/Marshal/Belkis on: 03/02/2024 01:04 PM EST History and Physical Notes * HPI (History of Present Illness) Category Sub-Category Detail Notes Category Not es Leg Leg pain Pt here for leg pain from where she cut it. Pt states
--- OUTSIDE RECORDS SUMMARY | 2024-11-05 06:00 | XMS_ITS ---
Author Organization [facility] Address [address] [facility] [address] [id number] Care Team Providers Care Powder Line Repairer Name Role Phone Hanna Lemus Primary Care Provider Sariah Meyer Unavailable [phone] Allergies Allergen (clinical drug ingredient) Drug/Non Drug [...] Range Notes CBC Fingerstick (in house) Reviewed date:11/05/2024 06:39:09 PM Interpretation: Performing Lab: Notes/Report: wbc 12.1 3.5 - 10 lym 26.1% 15 - 50 mid 6.6% 2 - 15 gran 67.3% 35 - 80 rbc 4.66 3.5 - 5.5 hgb 13.4 11.5 - 16.5 hct 40.0 35 - 55 mcv 85.9 75 - 100 mch 28.7 25 - 35 mchc 33.4 31 - 38 plat 173 100 - 400 REASON FOR VISIT headaches Medications Medication SIG (Take, Route, Frequency, Duration) Notes Start Date End Date Status Ascorbic Acid 500 mg TAKE ONE TABLET BY MOUTH TWICE DAILY 30; Duration: 30 Active Methocarbamol 750 mg take 1 tablet Orall y Three times a day; Duration: 10 Active Acetaminophen 325 mg TAKE 1-2 tabs orall y every 6 hours as needed 13; Duration: 13 Active Vitamin D3 50 MCG (1999 UT) 1 tablet Orally Once a day; Duration: 30 days Active Vitamin B-12 1000 MCG 1 tablet Orally On ce a day; Duration: 30 days Active Levothyroxine Sodium 25 mcg TAKE 1 tab(s) orally once a day 30 days; Duration: 30 Active metFORMIN HCl ER 500 mg TAKE ONE TABLET BY MOUTH ONCE DAILY 30 days; Duration: 30 Active Albuterol Sulfate HFA 108 (90 Base) MCG/ACT 2 puff(s) inhaled every 6 hours, prn 07/15/2022 Active CLAUDIO Elbow Strap - as directed 01/18/2023 Active Kesimpta 20 MG/0.4ML as directed subcutaneously once a month Active FreeStyle Lite Test 1 TEST STRIP(S) FINGERSTICK TEST 2 TIMES A DAY; Duration: 30 DAYS *Please review and pick correct strength-formulat ion from [employer] options. If intended option is not shown, discontinue and re-order from Quick Search* 06/12/2020 Active WALKER WITH WHEELS DIRECTED *Please revie w for potential replacement for e-prescription and drug interaction check* 01/08/2022 Active Lancets 1 LANCET(S) FINGERSTICK TEST 2 TIMES A DAY; Duration: 30 DAYS *Please review and pick correct strength-formulat ion from [employer] options. If intended option is not shown, discontinue and re-order from Quick Search* 11/01/2019 Active GLUCOMETER TEST STRIPS 1 TEST STRIP(S) FINGERSTICK TEST 2 TIMES A DAY; Duration: 30 DAYS *Please review for potential replacement for e-prescription and drug interaction check* 11/01/2019 Active ROLLATOR WALKER DIRECTED DIRECTED *Please review for potential replacement for e-prescription and drug interaction check* 01/08/2022 Active Nurtec 75 mg take 1 tablet on the tongue and allow to dissolve Orally once daily, NEEDED for migraine Active Zithromax Z-Jhon 250 MG 2 pills first day then one daily for 4 days orally as directed; Duration: 5 days 11/05/2024 Active Medrol 4 MG as directed orally daily; Duration: 6 days 11/05/2024 Active Desvenlafaxine Succinate ER 25 MG 1 tab(s) orally once a day Active GLUCOMETER 1 GLUCOMETER TEST 2 TIMES A DAY; Duration: 30 DAYS *Please review for potential replacement for e-prescription and drug interaction check* 11/01/2019 Active Fluconazole 150 mg take 1 tablet Orally once daily; Duration: 1 Active Ondansetron 4 MG 1 tab(s) orally 3 times a day, prn Active Cetirizine HCl 10 MG 1 tablet Orally Onc e a day 06/29/2024 Active Fluticasone Propionate 50 MCG/ACT use 1 spray in each nostril Once a day Active traMADol HCl 50 MG 1 tablet Orally 3 times a day prn 10/11/2024 Active Atorvastatin Calcium 10 mg 1 tablet orally once a day; Duration: 30 days Active Zinc 220 (50 Zn) MG 1 capsule Orally Once a day; Duration: 30 days Active Pantoprazole Sodium 40 mg 1 tab(s) Orally Once a day; Duration: 30 days Active Vital Signs Blood pressure systolic 140 mm Hg 11/06/19 25 Blood pressure diastolic 80 mm Hg 025 Heart Rate 75 /min 11/05/2024 Height 63 in 11/05/2024 Weight 296.2 lbs 11/05/2024 BMI 52.46 kg/m2 11/05/2024 Encounters Encounter Location Date Provider Diagnosis [facility] [address], [place] [phone] 11/05/2024 Sariah Meyer Daily headache R51.9 and Acute frontal sinusitis J01.10 Assessments Encounter Date Diagnosis (ICD Code) Assessment Notes Treatment Notes Treatment Clinical Notes Section Notes 11/05/2024 Daily headache (ICD-10 - R51.9) will take Nurtec qd for the next 1-2 weeks 11/05/2024 Acute frontal sinusitis (ICD-10 - J01.10) Plan Of Treatment Medication Medication Name Sig Start Date Stop Date Notes Nurtec 75 mg take 1 tablet on the tongue and allow to dissolve Orally once daily, NEEDED for migraine Zithromax Z-Jhon 250 MG 2 pills first day then one daily for 4 days orally as directed; Duration: 5 days 11/05/2024 Medrol 4 MG as directed orally d aily; Duration: 6 days 11/05/2024 Cetirizine HCl 10 MG 1 tablet Orally Once a day 06/29/2024 Fluticasone Propionate 50 MCG/ACT use 1 spray in each nostril Once a day Treatment Notes Assessment Notes Daily headache will take Nurtec qd for the next 1-2 weeks Next Appt Details Follow Up: prn, Reason: Provider Name:Chetna fischer, 03/27/2025 09:00:00 AM, [address], [address], [place], [place], [phone], Progress Notes * Yumiko BRAVODOB:[birth year] (39 yo F)Acc No.[id number]:11/05/2024 Progress Notes Patient: Yumiko GIL Provider: GRAY Her :1985 A ge:39 Y S ex:Female Date:11/05/2024 Address:[place] [address], [id number] Pcp:Hanna Lemus Subjective: * Chief Complaints: * 1 . Headaches. * HPI: C ardiology: 39 year old female presents with c/o Headaches P t here for headaches since last Tuesday. Pt states she has been nausea with them at times. Pt states she has tried some meds for her headaches but does not help. N eurology: c/o headache t op of head and forehead. Denies : head injury. * ROS: D ERMATOLOGY: no R delia. n o H jennifer. G ASTROENTEROLOGY: no N ausea. n o V omiting. n o D iarrhea.? U ROLOGY: no D ifficulty urinating. n o B lood in urine. * Medical History: D epression, Mental Retardation, Seizure Disorder, LT Eye Blindness , EF on Heart Cath, Normal, 02/2018. * Surgical History: L meli Melvin - Dr. Tapia/ 10/05/2012, Umbilical Hernia Repair - Dr. Yusuf/ 01/2014. * Hospitalization/Major Diagno stic Procedure: E ye Problem 2001, Viral Encephalitis/Meningitis - [place] 03/2008 - 04/2008, Seizure- [place] 01/13-, Fall- [facility] 02/01/2010, UTI- [facility] 06/23/2010, Headache- [place] [facility] 06/2010, Back Pain- [facility] 08/31/2010, Neck Pain- [facility] 10/19/2010, [place] Palsy- [facility] 09/30/2010, Stomach Pain- [facility] 11/14/1120, Back Pain- [facility] 12/24/2010, Lung Pain- [facility] 01/27/2011, Chest Pain- [facility] 02/17/2011, Seizure- [facility] 09/14/2011, UTI- [facility] 08/20/2012, UTI- [facility] 08/24/2012, Stomach Pain, Vomiting- [facility] 09/17-, Pnuemonia- [facility] 03/05/2013, Rib Pain- [facility] 03/11/2013, Headache- [facility] 08/06/2013, Back Pain- [facility] 06/22/2014, Kidney Infection- [facility] 10/06/2014, Stomach Pain- [facility] 01/05/2015, Hit Head, Fall- [facility] [facility] 12/2016, RT Side, Intestine Infection- [facility] 04/23/2017, LT Ankle Rash- [facility] 08/09/2017, Covid- [facility] 02/2020, [facility] - GI Issues, RLQ Pain [...] *Please review and pick correct strength-formulation from [employer] options. If intended option is not shown, discontinue and re-order from Quick Search*, Taking FreeStyle Lite Test 1 TEST STRIP(S) FINGERSTICK TEST 2 TIMES A DAY , Notes to Pharmacist: *Please review and pick correct strength-formulation from [employer] options. If intended option is not shown, discontinue and re-order from Quick Search*, Taking WALKER WITH WHEELS DIRECTED , Notes to Pharmacist: *Please review for potential replacement for e-prescription and drug interaction check*, Taking ROLLATOR WALKER WALKER DIRECTED DIRECTED , Notes to Pharmacist: *Please review for potential replacement for e-prescription and drug interaction check*, Taking Albuterol Sulfate HFA 108 (90 Base) [...] once daily, NEEDED for migraine , Taking Ascorbic Acid 500 mg Tablet [...] tablet Orally Once a day , Taking Pantoprazole Sodium 40 mg Tablet Delayed Release 1 tab(s) Orally Once a day , Taking traMADol HCl 50 MG Tablet 1 tablet Orally 3 times a day prn , Taking Atorvastatin Calcium 10 mg Tablet 1 tablet orally once a day , Taking Zinc 220 (50 Zn) MG Capsule 1 capsule Orally Once a day , Taking Fluconazole 150 mg Tablet take 1 tablet Orally once daily , Taking Ondansetron 4 MG Tablet Disintegrating 1 tab(s) orally 3 times a day, prn , Discontinued Cephalexin 500 MG Capsule 1 capsule Orally twice a day , Medication List reviewed and reconciled with the patient * Allergies: A moxicillin, Erythromycin, Sulfa Antibiotics, Codeine, oxyCODONE, Clindamycin: chest pain. Objective: * Vitals: W t: 296.2, Temp: 97.5, BP: 140/80, HR: 75, Nurse: pe, Ht: 63, BMI:52.46. * Examination: G eneral Examination: General Appearance: N AD, appears healthy, alert, pleasant, well nourished and hydrated. H EENT: s clera and conjunctiva clear, PERRLA, TM's normal, translucent. O ral cavity: m ucosa moist and WNL, no erythema. N christopher: s upple, no lymphadenopathy. H eart: R RR. L ungs: C TAB A&P. N eurologic Exam: a lert and oriented, normal cranial nerves II-XII sensory & motor WNL. t emily bilateral frontal sinuses. Assessment: * Assessment: 1. D aily headache - R51.9 (Primary) 2 . A cute frontal sinusitis - J01.10? Plan: * Treatment: 2. A cute frontal sinusitis Start Zithromax Z-Jhon Tablet, 250 MG, 2 pills first day then one daily for 4 days, orally, as directed, 5 days, 1, Refills 0; C ontinue Cetirizine HCl Tablet, 10 MG, 1 tablet, Orally, Once a day; Continue Fluticasone Propionate Suspension, 50 MCG/ACT, use 1 spray in each nostril Once a day. * Labs: * L ab: CBC Fingerstick (in house) (Collection Date & Time - 11/05/2024) Value Reference Range w bc 12.1 3.5 - 10 * l ym 26.1% 15 - 50 * m id 6.6% 2 - 15 * g ran 67.3% 35 - 80 * r bc 4.66 3.5 - 5.5 * h gb 13.4 11.5 - 16.5 * h ct 40.0 35 - 55 * m cv 85.9 75 - 100 * m ch 28.7 25 - 35 * m chc 33.4 31 - 38 * p lat 173 100 - 400 * Danita Trinidad 11/05/2024 12 :38:44 PM EDT > Provider reviewed results while patient in office.Sariah Meyer 11/05/2024 06:39:00 PM EDT > * Procedure Codes: 8 5025 CBC WITH AUTO DIFF, 84454 CAPILLARY BLOOD DRAW * Follow Up: p rn * Images: Billing Information: * Visit Code: 56769 Office Visit, Est Pt., Level 4. * Procedure Codes: 90685 CBC WITH AUTO DIFF. 63037 CAPILLARY BLOOD DRAW. * Electronic signature of Marilyn trejo VALENTINA Meyer on 12/31/2024 at 01:05 PM EST Sign off status: Pending * Provider: GRAY Her Date: 0 11/05/2024 Generated for Young pruitt/Marshal/Belkis on: 03/02/2024 01:05 PM EST History and Physical Notes * HPI (History of Present Illness) Category Sub-Category Detail Notes Category Not es Neurology headache top of head and forehead head injury Cardiology Headaches Pt here for head aches since last Tuesday. Pt states she has been nausea with them at times. Pt states she has tried some meds for her headaches but does not help Examination Category Sub-Category Detail Notes Category Not es General Examination HEENT: sclera and c onjunctiva clear, PERRLA, TM's normal, translucent tender bilateral frontal sinuses Heart: RRR Lungs: CTAB A&P General Appearance: NAD, appears healthy , alert, pleasant, well nourished and hydrated Neurologic Exam: alert and oriented, normal cranial nerves II-XII sensory & motor WNL Neck: supple, no lymphaden opathy Oral cavity: mucosa moist and WNL , no erythema
--- OUTSIDE RECORDS SUMMARY | 2024-11-12 08:30 | XMS_ITS ---
Author Organization [facility] Address [address] [facility] [address] [id number] Care Team Providers Care Handle And Vent Machine Operator Name Role Phone Hanna Lemus Primary Care Provider [phone] Sariah Meyer Unavailable [phone] Allergies Allergen (clinical drug ingredient) Drug/Non Drug [...] Active Results Component Value Reference Range Notes Influenza Screen (in house) Reviewed date:11/12/2024 08:03:39 PM Interpretation:Negative Performing Lab: Notes/Report: Negative results neg Rapid Strep- Inhouse Reviewed date:11/12/2024 08:03:07 PM Interpretation: Performing Lab: Notes/Report: strep test neg CBC Fingerstick (in house) Reviewed date:11/12/2024 08:02:51 PM Interpretation: Performing Lab: Notes/Report: wbc 14.7 3.5 - 10 lym 22.0% 15 - 50 mid 6.1% 2 - 15 gran 71.9% 35 - 80 rbc 4.62 3.5 - 5.5 hgb 13.3 11.5 - 16.5 hct 40.1 35 - 55 mcv 86.9 75 - 100 mch 28.9 25 - 35 mchc 33.2 31 - 38 plat 234 100 - 400 CBC Fingerstick (in house) Reviewed date:11/12/2024 08:02:51 PM Interpretation: Performing Lab: Notes/Report: wbc 14.7 3.5 - 10 lym 22.0% 15 - 50 mid 6.1% 2 - 15 gran 71.9% 35 - 80 rbc 4.62 3.5 - 5.5 hgb 13.3 11.5 - 16.5 hct 40.1 35 - 55 mcv 86.9 75 - 100 mch 28.9 25 - 35 mchc 33.2 31 - 38 plat 234 100 - 400 Covid test (in house) Reviewed date:11/12/2024 08:04:04 PM Interpretation:Negative Performing Lab: Notes/Report: Negative Result: neg REASON FOR VISIT headache and weak Medications Medication SIG (Take, Route, Frequency, Duration) Notes Start Date End Date Status Cetirizine HCl 10 MG 1 tablet Orally Onc e a day 06/29/2024 Active Fluticasone Propionate 50 MCG/ACT use 1 spray in each nostril Once a day Active Nurtec 75 mg take 1 tablet on the tongue and allow to dissolve Orally once daily, NEEDED for migraine Active Zinc 220 (50 Zn) MG 1 capsule Orally Once a day; Duration: 30 days Active Fluconazole 150 mg take 1 tablet Orally once daily; Duration: 1 Active Ondansetron 4 MG 1 tab(s) orally 3 times a day, prn Active traMADol HCl 50 MG 1 tablet Orally 3 times a day prn 10/11/2024 Active Atorvastatin Calcium 10 mg 1 tablet orally once a day; Duration: 30 days Active levoFLOXacin 500 MG 1 tablet Orally Once a day; Duration: 10 days 11/12/2024 Active Acetaminophen 325 mg TAKE 1-2 tabs orall y every 6 hours as needed 13; Duration: 13 Active Vitamin D3 50 MCG (2000 UT) 1 tablet Orally Once a day; Duration: 30 days Active Vitamin B-12 1000 MCG 1 tablet Orally On ce a day; Duration: 30 days Active Pantoprazole Sodium 40 mg 1 tab(s) Orally Once a day; Duration: 30 days Active Kesimpta 20 MG/0.4ML as directed subcutaneously once a month Active Levothyroxine Sodium 25 mcg TAKE 1 tab(s) orally once a day 30 days; Duration: 30 Active metFORMIN HCl ER 500 mg TAKE ONE TABLET BY MOUTH ONCE DAILY 30 days; Duration: 30 Active Ascorbic Acid 500 mg TAKE ONE TABLET BY MOUTH TWICE DAILY 30; Duration: 30 Active Methocarbamol 750 mg take 1 tablet Orall y Three times a day; Duration: 10 Active FreeStyle Lite Test 1 TEST STRIP(S) FINGERSTICK TEST 2 TIMES A DAY; Duration: 30 DAYS *Please review and pick correct strength-formulat ion from [email or web address] options. If intended option is not shown, [...] Elbow Strap - as directed 01/18/2023 Active Desvenlafaxine Succinate ER 25 MG 1 [...] e-prescription and drug interaction check* 11/01/2019 Active Lancets 1 LANCET(S) FINGERSTICK TEST 2 TIMES A DAY; Duration: 30 DAYS *Please review and pick correct strength-formulat ion from [employer] options. If intended option is not shown, discontinue and re-order from Quick Search* 11/01/2019 Active Vital Signs Blood pressure systolic 140 mm Hg 11/13/19 25 Blood pressure diastolic 78 mm Hg 025 Heart Rate 72 /min 11/12/2024 Height 63 in 11/12/2024 Weight 288.0 lbs 11/12/2024 BMI 51.01 kg/m2 11/12/2024 Encounters Encounter Location Date Provider Diagnosis [facility] [address] [facility] [address] [place] [id number] 11/12/2024 Sariah Meyer Fever R50.9 and Acut e frontal sinusitis J01.10 Assessments Encounter Date Diagnosis (ICD Code) Assessment Notes Treatment Notes Treatment Clinical Notes Section Notes 11/12/2024 Fever (ICD-10 - R50.9) 11/12/2024 Acute frontal sinusitis (ICD-10 - J01.10) maintain good fluid intake; heat application to forehead for headache fluids, rest, supportive measures for fever/symptom relief Plan Of Treatment Medication Medication Name Sig Start Date Stop Date Notes levoFLOXacin 500 MG 1 tablet Orally Once a day; Duration: 10 days 11/12/2024 Treatment Notes Assessment Notes Acute frontal sinusitis maintain good fl uid intake; heat application to forehead for headache fluids, rest, supportive measures for fever/symptom relief Next Appt Details Follow Up: prn, Reason: Provider Name:Chetna Brigitte Diegodarnell amado, 03/27/2025 09:00:00 AM, [address], [address], [place], [place], [id number], Progress Notes * MARJORIEYumikoDOB:[birth year] (39 yo F)Acc No.[id number]:11/12/2024 Progress Notes Patient: Adelaide GILica Provider: GRAY Her :1985 A ge:39 Y S ex:Female Date:11/12/2024 Address:[facility] [place] , [id number] Pcp:Hanna Lemus Subjective: * Chief Complaints: * 1 . Headache and weak. * HPI: C ardiology: Pt states she does not want to do anything. 39 year old female presents with c/o Dizziness. c/o Headaches o ff and on for 2 weeks now . c/o Weakness P t states it stared over the weekend. Denies : Chest Pain. D enies : Short of Breath. E NT/respiratory: eating and drinking some; voiding QS. c/o sore throat. c/o cough s ome. c/o Fever?last fever wa Sat11/10/2024. c/o rhinorrhea. c/o post nasal drainage. c/o headache. Denies : nasal congestion. D enies : chest congestion. D enies : smoking. D enies : body aches. * Medical History: D epression, Mental Retardation, Seizure Disorder, LT Eye Blindness , EF on Heart Cath, Normal, 02/2018. * Surgical History: L ap [place] - Dr. Tapia/ 10/05/2012, Umbilical Hernia Repair - Dr. Yusuf/ 01/2014. * Hospitalization/Major Diagno stic Procedure: E ye Problem 2001, Viral Encephalitis/Meningitis - [facility] 03/2008 - 04/2008, Seizure- [facility] 01/13-, Fall- [facility] 02/01/2010, UTI- [facility] 06/23/2010, Headache- [facility] 06/2010, Back Pain- [facility] 08/31/2010, Neck Pain- [facility] 10/19/2010, [place] Palsy- [facility] 09/30/2010, Stomach Pain- [facility] 11/14/1120, Back Pain- [facility] 12/24/2010, Lung Pain- [facility] 01/27/2011, Chest Pain- [facility] 02/17/2011, Seizure- [facility] 09/14/2011, UTI- [facility] 08/20/2012, UTI- [facility] 08/24/2012, Stomach Pain, Vomiting- [facility] 09/17-, Pnuemonia- [facility] 03/05/2013, Rib Pain- [facility] 03/11/2013, Headache- [facility] 08/06/2013, Back Pain- [facility] 06/22/2014, Kidney Infection- [facility] 10/06/2014, Stomach Pain- [facility] 01/05/2015, Hit Head, Fall- [facility] 12/2016, RT Side, Intestine Infection- [facility] 04/23/2017, LT Ankle Rash- [facility] 08/09/2017, Covid- [facility] 02/2020, [facility] - GI Issues, RLQ [...] *Please review and pick correct strength-formulation from [employer] options. If intended option is not shown, discontinue and re-order from Quick Search*, Taking FreeStyle Lite Test 1 TEST STRIP(S) FINGERSTICK TEST 2 TIMES A DAY , Notes to Pharmacist: *Please review and pick correct strength-formulation from [employer] options. If intended option is not shown, [...] MOUTH ONCE DAILY 30 days , Taking Ascorbic Acid 500 mg Tablet TAKE ONE TABLET BY MOUTH TWICE DAILY 30 , Taking Methocarbamol 750 mg Tablet take [...] 3 times a day, prn , Taking Cetirizine HCl 10 MG Tablet 1 tablet Orally Once a day , Taking Fluticasone Propionate 50 MCG/ACT Suspension use 1 spray in each nostril Once a day , Taking Nurtec 75 mg Tablet Disintegrating take 1 tablet on the tongue and allow to dissolve Orally once daily, NEEDED for migraine , Discontinued Medrol 4 MG Tablet Therapy Pack as directed orally daily , Discontinued Zithromax Z-Jhon 250 MG Tablet 2 pills first day then one daily for 4 days orally as directed , Medication List reviewed and reconciled with the patient * Allergies: A moxicillin, Erythromycin, Sulfa Antibiotics, Codeine, oxyCODONE, Clindamycin: chest pain. Objective: * Vitals: W t: 288.0, Temp: 98.5, BP: 140/78, HR: 72, Nurse: pe, Ht: 63, BMI:51.01. * Examination: G eneral Examination: General Appearance: N AD, appears healthy, alert, pleasant; flushed cheeks. H EENT: s clera and conjunctiva clear, PERRLA, TM's normal, translucent.?Oral cavity: m ucosa moist and WNL; some OP erythema. N christopher: s upple, no lymphadenopathy. H eart: R RR. L ungs: C TAB A&P. t emily bilateral frontal sinuses. Assessment: * Assessment: 1. F ever - R50.9 (Primary) 2 . A cute frontal sinusitis - J01.10 ? Plan: * Treatment: * Labs: * L ab: Covid test (in house) (Collection Date & Time - 11/12/2024) N egative Value Reference Range R esult: neg * Danita Trinidad 11/12/2024 0 2:18:00 PM EDT > Provider reviewed results while patient in office.Sariah Meyer 11/12/2024 08:03:56 PM EDT > ?Lab: Influenza Screen (in house) (Collection Date & Time - 11/12/2024) ?Negative* Value Reference Range r esults neg * Danita Trinidad 11/12/2024 0 2:20:31 PM EDT > Provider reviewed results while patient in office.Sariah Meyer 11/12/2024 08:03:18 PM EDT > ?Lab: Rapid Strep- Inhouse (Collection Date & Time - 11/12/2024)* Value Reference Range s trep test neg * Danita Trinidad 11/12/2024 0 2:20:11 PM EDT > Provider reviewed results while patient in office.Sariah Meyer 11/12/2024 08:03:01 PM EDT > ?Lab: CBC Fingerstick (in house) (Collection Date & Time - 11/12/2024)* Value Reference Range w bc 14.7 3.5 - 10 * l ym 22.0% 15 - 50 * m id 6.1% 2 - 15 * g ran 71.9% 35 - 80 * r bc 4.62 3.5 - 5.5 * h gb 13.3 11.5 - 16.5 * h ct 40.1 35 - 55 * m cv 86.9 75 - 100 * m ch 28.9 25 - 35 * m chc 33.2 31 - 38 * p lat 234 100 - 400 * Danita Trinidad 11/12/2024 0 2:19:30 PM EDT > Provider reviewed results while patient in office.Sariah Meyer 11/12/2024 08:02:41 PM EDT > * Procedure Codes: 3 6416 CAPILLARY BLOOD DRAW, 83760 CBC WITH AUTO DIFF, 33199 STREP A ASSAY W/OPTIC, Modifiers: QW , 64826 Flu Test- Nasal Swab, Modifiers: QW , 33363 COVID TEST IN HOUSE, Modifiers: QW * Follow Up: p rn * Images: Billing Information: * Visit Code: 89556 Office Visit, Est Pt., Level 3. * Procedure Codes: 08618 CAPILLARY BLOOD DRAW. 68304 CBC WITH AUTO DIFF. 40112 STREP A ASSAY W/OPTIC. Modifiers: QW 89459 Flu Test- Nasal Swab. Modifiers: QW 23842 COVID TEST IN HOUSE. Modifiers: QW * Electronic signature of Marilyn neil Meyer APRN on 12/31/2024 at 01:05 PM EST Sign off status: Pending * Provider: GRAY Her Date: 0 11/12/2024 Generated for Young pruitt/Marshal/eTransmitting on: 03/02/2024 01:05 PM EST History and Physical Notes * HPI (History of Present Illness) Category Sub-Category Detail Notes Category Not es ENT/respiratory sore throat cough some Fever last fever wa Sat10/29 post nasal drainage headache chest congestion rhinorrhea nasal congestion smoking body aches Cardiology Short of Breath Chest Pain Dizziness Headaches off and on for 2 wee ks now Weakness Pt states it stared over the weekend Examination Category Sub-Category Detail Notes Category Not es General Examination HEENT: sclera and c onjunctiva clear, PERRLA, TM's normal, translucent tender bilateral frontal sinuses Heart: RRR Lungs: CTAB A&P General Appearance: NAD, appears healthy , alert, pleasant; flushed cheeks Neck: supple, no lymphaden opathy Oral cavity: mucosa moist and WNL ; some OP erythema
--- OUTSIDE RECORDS SUMMARY | 2024-11-21 06:00 | XMS_ITS ---
Author Organization [facility] Address [address] [facility] [address] [id number] Care Team Providers Care Railcar Brake Operator Name Role Phone Hanna Lemus Primary Care Provider Chetna Santiago Unavailable [phone] Allergies Allergen (clinical drug ingredient) Drug/Non Drug [...] Range Notes CBC Fingerstick (in house) Reviewed date:11/23/2024 11:32:53 AM Interpretation: Performing Lab: Notes/Report: wbc 12.5 3.5 - 10 lym 17.2% 15 - 50 mid 5.0% 2 - 15 gran 77.8% 35 - 80 rbc 4.29 3.5 - 5.5 hgb 12.6 11.5 - 16.5 hct 37.1 35 - 55 mcv 86.5 75 - 100 mch 29.5 25 - 35 mchc 34.1 31 - 38 plat 246 100 - 400 REASON FOR VISIT hurts to breathe on both sides Medications Medication SIG (Take, Route, Frequency, Duration) Notes Start Date End Date Status Acetaminophen 325 mg TAKE 1-2 tabs orall y every 6 hours as needed 13; Duration: 13 Active Fluticasone Propionate 50 MCG/ACT 1 spray in each nostril Nasally Once a day; Duration: 30 days Active metFORMIN HCl ER 500 mg 1 tablet orally daily; Duration: 30 days Active Cetirizine HCl 10 MG 1 tablet Orally Onc e a day; Duration: 30 days Active Ascorbic Acid 500 mg 1 tablet orally twice a day; Duration: 30 days Active Nurtec 75 mg take 1 tablet on the tongue and allow to dissolve Orally once daily, NEEDED for migraine Active Ondansetron 4 MG 1 tab(s) orally 3 times a day, prn Active Methocarbamol 750 mg take 1 tablet Orall y Three times a day; Duration: 10 Active levoFLOXacin 500 MG 1 tablet Orally Once a day; Duration: 10 days 11/12/2024 Active Levothyroxine Sodium 25 mcg 1 capsule orally once a day; Duration: 30 days Active Zinc 220 (50 Zn) MG 1 capsule Orally Once a day; Duration: 30 days Active Doxycycline Monohydrate 100 MG 1 capsule Orally twice a day; Duration: 10 days 11/21/2024 Active Atorvastatin Calcium 10 mg 1 tablet orally once a day; Duration: 30 days Active Fluconazole 150 mg take 1 tablet Orally once daily; Duration: 1 Active traMADol HCl 50 MG 1 tablet Orally 3 times a day prn 10/11/2024 Active Kesimpta 20 MG/0.4ML as directed subcutaneously once a month Active CLAUDIO Elbow Strap - as directed 01/18/2023 Active Vitamin B-12 1000 MCG 1 tablet Orally On ce a day; Duration: 30 days Active Vitamin D3 50 MCG (2000 UT) 1 tablet Orally Once a day; Duration: 30 days Active Pantoprazole Sodium 40 mg 1 tab(s) Orally Once a day; Duration: 30 days Active Albuterol Sulfate HFA 108 (90 Base) MCG/ACT 2 puff(s) inhaled every 6 hours, prn 07/15/2022 Active FreeStyle Lite Test 1 TEST STRIP(S) FINGERSTICK TEST 2 TIMES A DAY; Duration: 30 DAYS *Please review and pick correct strength-formulat ion from [employer] options. If intended option is not shown, discontinue and re-order from Quick Search* 06/12/2020 Active Lancets 1 LANCET(S) FINGERSTICK TEST 2 TIMES A DAY; Duration: 30 DAYS *Please review and pick correct strength-formulat ion from [employer] options. If intended option is not shown, discontinue and re-order from Quick Search* 11/01/2019 Active ROLLATOR WALKER DIRECTED DIRECTED *Please review for potential replacement for e-prescription and drug interaction check* 01/08/2022 Active WALKER WITH WHEELS DIRECTED *Please revie w for potential replacement for e-prescription and drug interaction check* 01/08/2022 Active Desvenlafaxine Succinate ER 25 MG 1 tab(s) orally once a day Active GLUCOMETER TEST STRIPS 1 TEST STRIP(S) FINGERSTICK TEST 2 TIMES A DAY; Duration: 30 DAYS *Please review for potential replacement for e-prescription and drug interaction check* 11/01/2019 Active GLUCOMETER 1 GLUCOMETER TEST 2 TIMES A DAY; Duration: 30 DAYS *Please review for potential replacement for e-prescription and drug interaction check* 11/01/2019 Active Vital Signs Blood pressure systolic 140 mm Hg 11/22/19 25 Blood pressure diastolic 80 mm Hg 025 Heart Rate 95 /min 11/21/2024 Height 63 in 11/21/2024 Weight 296.8 lbs 11/21/2024 BMI 52.57 kg/m2 11/21/2024 Encounters Encounter Location Date Provider Diagnosis [facility] [address] [facility] 36 [facility] [address] [place] [id number] 11/21/2024 Chetna Santiago Acute frontal sinusi tis J01.10 Assessments Encounter Date Diagnosis (ICD Code) Assessment Notes Treatment Notes Treatment Clinical Notes Section Notes 11/21/2024 Acute frontal sinusitis (ICD-10 - J01.10) Plan Of Treatment Medication Medication Name Sig Start Date Stop Date Notes Doxycycline Monohydrate 100 MG 1 capsule Orally twice a day; Duration: 10 days 11/21/2024 Next Appt Details Follow Up: prn, Reason: Provider Name:Chetna Escobar y, 03/27/2025 09:00:00 AM, [facility], [address], [place], [id number], Progress Notes * Yumiko BRAVODOB:[birth year] (39 yo F)Acc No.[id number]:11/21/2024 Progress Notes Patient: Yumiko GIL Provider: FRANCISCO JAVIER Grider :1985 A ge:39 Y S ex:Female Date:11/21/2024 Address:[facility] [place], [id number] Pcp:Hanna Lemus Subjective: * Chief Complaints: * 1 . Hurts to breathe on both sides. * HPI: E NT/respiratory: 39 year old female presents with c/o cough P t states she has a dry cough without any sputum production. c/o Chest Pain P t presents today with difficulty breathing.Pt states it hurts to breathe. P t states this started on 11/16. c/o headache p ressure like sensation. * ROS: D ERMATOLOGY: no R delia. [...] E ye Problem 2001, Viral Encephalitis/Meningitis - [facility] 03/2008 - 04/2008, Seizure- [place] 01/13-, Fall- [facility] 02/01/2010, UTI- [facility] 06/23/2010, Headache- [facility] 06/2010, Back Pain- [facility] 08/31/2010, Neck Pain- [facility] 10/19/2010, [place] Palsy- [facility] 09/30/2010, Stomach Pain- [facility] 11/14/1120, Back Pain- [facility] 12/24/2010, Lung Pain- [facility] 01/27/2011, Chest Pain- [facility] 02/17/2011, Seizure- [facility] 09/14/2011, UTI- [facility] 08/20/2012, UTI- [facility] 08/24/2012, Stomach Pain, Vomiting- [facility] 09/17-, Pnuemonia- [facility] 03/05/2013, Rib Pain- [facility] 03/11/2013, Headache- [facility] 08/06/2013, Back Pain- [facility] 06/22/2014, Kidney Infection- [facility] 10/06/2014, Stomach Pain- [facility] 01/05/2015, Hit Head, Fall- [facility] 12/2016, RT Side, Intestine Infection- [facility] 04/23/2017, LT Ankle Rash- [facility] 08/09/2017, Covid- [facility] 02/2020, [facility] ER - GI Issues, RLQ Pain 06/29/2023. * Family History: F ather: , cancer. M other: , covid. 1 brother(s) , 4 sister(s) - healthy. . * Social History: C URRENT TOBACCO USE: No S moking Status: Patient does smoke, number [...] directed subcutaneously once a month , Taking Vitamin D3 50 MCG (2000 [...] 3 times a day, prn , Taking Nurtec 75 mg Tablet Disintegrating take 1 tablet on the tongue and allow to dissolve Orally once daily, NEEDED for migraine , Taking levoFLOXacin 500 MG Tablet 1 tablet Orally Once a day , Taking Methocarbamol 750 mg Tablet take 1 tablet Orally Three times a day , Taking Levothyroxine Sodium 25 mcg Tablet 1 capsule orally once a day , Taking metFORMIN HCl ER 500 mg Tablet Extended Release 24 Hour 1 tablet orally daily , Taking Ascorbic Acid 500 mg Tablet 1 tablet orally twice a day , Taking Cetirizine HCl 10 MG Tablet 1 tablet Orally Once a day , Taking Fluticasone Propionate 50 MCG/ACT Suspension 1 spray in each nostril Nasally Once a day , Taking Acetaminophen 325 mg Tablet TAKE 1-2 tabs orally every 6 hours as needed 13 , Medication List reviewed and reconciled with the patient * Allergies: A moxicillin, Erythromycin, Sulfa Antibiotics, Codeine, oxyCODONE, Clindamycin: chest pain. Objective: * Vitals: W t: 296.8, Temp: 98.1, BP: 140/80, HR: 95, Nurse: BREANNE, Ht: 63, BMI:52.57. * Examination: G eneral Examination: General Appearance: N AD. H EENT: s clera and conjunctiva clear, PERRLA, TM's normal, translucent, frontal sinus tenderness. O ral cavity: n o lesions, mucosa moist and WNL, no erythema. N christopher: s upple, no lymphadenopathy. C hest: normal shape and expansion, non-productive cough. H eart: R SR. L ungs: c lear to auscultation. A bdomen: n ormal, bowel sounds present, soft, nontender. S kin: c heeks flushed. Assessment: * Assessment: 1. A marly frontal sinusitis - J01.10 (Primary) Plan: * Treatment: Value Reference Range w bc 12.5 3.5 - 10 * l ym 17.2% 15 - 50 * m id 5.0% 2 - 15 * g ran 77.8% 35 - 80 * r bc 4.29 3.5 - 5.5 * h gb 12.6 11.5 - 16.5 * h ct 37.1 35 - 55 * m cv 86.5 75 - 100 * m ch 29.5 25 - 35 * m chc 34.1 31 - 38 * p lat 246 100 - 400 * Karen Cervantes 11/21/2024 12: 09:24 PM EDT > Provider reviewed results while patient in office. * Procedure Codes: 8 5025 CBC WITH AUTO DIFF, 04075 CAPILLARY BLOOD DRAW * Follow Up: p rn * Images: Billing Information: * Visit Code: 27763 Office Visit, Est Pt., Level 3. * Procedure Codes: 84097 CBC WITH AUTO DIFF. 13274 CAPILLARY BLOOD DRAW. * Electronic signature of FRANCISCO JAVIER Michel on 12/31/2024 at 01:04 PM EST Sign off status: Pending * Provider: FRANCISCO JAVIER Grider Date: 0 11/21/2024 Generated for Young pruitt/Marshal/eTransmitting on: 1 03/02/2024 01:04 PM EST History and Physical Notes * HPI (History of Present Illness) Category Sub-Category Detail Notes Category Not es ENT/respiratory Chest Pain Pt presents toda y with difficulty breathing.Pt states it hurts to breathe. Pt states this started on 11/16 cough Pt states she has a dry cough without any sputum production headache pressure like sensat ion Examination Category Sub-Category Detail Notes Category Not es General Examination HEENT: sclera and c onjunctiva clear, PERRLA, TM's normal, translucent, frontal sinus tenderness Heart: RSR Lungs: clear to auscultatio n Abdomen: normal, bowel sounds present, soft, nontender General Appearance: NAD Skin: cheeks flushed Neck: supple, no lymphaden opathy Oral cavity: no lesions, mucosa m oist and WNL, no erythema Chest: normal shape and exp ansion, non-productive cough
--- NOTE | 2024-12-31 12:59 | US_ITS ---
PROCEDURE INFORMATION: Exam: US Right Breast, Complete Exam date and time: 12/31/2024 1:13 PM Age: 39 years old Clinical indication: Follow-up from prior for right breast masses. TECHNIQUE: Imaging protocol: Complete ultrasound of all four quadrants of the right breast and the retroareolar regions, including ultrasound of the axilla when performed. COMPARISON: 1. US BREAST RT COMPLETE 06/07/2024 10:10 AM 2. US BREAST RT COMPLETE 07/10/2024 10:57 AM FINDINGS: ULTRASOUND: Breast ultrasound findings: Redemonstrated probable complicated cysts at 12 o'clock 9 cm from the nipple measuring 0.3 x 0.2 cm, not significantly changed given differences in measurement technique. Similar-appearing structure at 1 o'clock 10 cm from the nipple measuring 0.4 x 0.4 x 0.3 cm, stable. Small echogenic focus at 3 o'clock 8 cm from the nipple, now measuring 0.4 cm (previously 0.9 cm). The interval decrease in size is compatible with benignity. Probable oil cyst in the upper-outer quadrant 7 cm from the nipple measuring 0.2 x 0.2 x 0.2 cm, not definitely present on prior exam. No abnormal lymph nodes in the axilla. IMPRESSION: 1. Stable probable oil cyst at 12 o'clock and 1 o'clock, unchanged since 06/07/2024 and probably benign. 2. Probable complicated cysts in the upper-outer quadrant , not definitely present on prior and probably benign. Recommend six-month follow-up bilateral diagnostic mammogram and right breast ultrasound to ensure stability of these findings. ASSESSMENT: BI-RADS Category 3: Probably benign.
--- OUTSIDE RECORDS SUMMARY | 2024-12-31 13:04 | XMS_ITS | Clinical Summary ---
Author Organization [facility] Address [address] [place] [address] Care Team Providers Care Site Operations Manager Name Role Phone Severiano Lemus MD [...] - Td or Tdap) 03/21/2019 03/21/2009, 09/12/1998 MAMMOGRAM 2024 INFLUENZA VACCINE 09/28/2024 04/04/2018 Pneumococcal Vaccine 0-49 Aged Out No longer eligible based on patient's age to complete this topic Insurance Care Teams Site Operations Manager Relationship Specialty Start Date End Date Severiano Lemus MD [address] [facility] [address] [place] [address] PCP - General 12/17/14
--- OUTSIDE RECORDS SUMMARY | 2024-12-31 13:05 | XMS_ITS | Patient Health Record ---
Author Organization [facility] Address [address] [facility] [address] [place] [address] Care Team Providers Care Body Designer Name Role Phone Rosa Hutchison Unavailable [phone] Allergies Allergen (clinical drug ingredient) Drug/Non Drug [...] End Date Medicaid [place] [address] [place] [address] [phone] [id number] Yumiko Bravo Self - patient is the insured Medical (General) History Medical History History ICD Code MS Gerd Diabetes Anxiety/ Depression Blind in left eye Surgical History Surgery Date(Month/Year) Hysterectomy robotic Cholecystectomy Oral Lap BTL Endometrial Ablation Hospitalization History Reason Date(Month/Year) For MS
--- OUTSIDE RECORDS SUMMARY | 2024-12-31 13:06 | XMS_ITS | Encounter Summary ---
Author Organization [facility] Address [address] [place] [address] Care Team Providers Care Chaperon Name Role Phone Severiano Lemus MD Primary Care Provider +1- [phone] Source Comments This information has been disclosed [...] release of HIV test results or diagnoses. [id number] Health Encounter Details Date Type Department Care Team (Late st Contact Info) Description 10/30/2021 Ophth Exam [facility] Ophthalmology at [address] [place] [phone] Barbi Winters MD Social History Tobacco Use [...] documented as of this encounter Care Teams Chaperon Relationship Specialty Start Date End Date Severiano Lemus MD [address] [place] [address] PCP - General Family Medicine 10/29/21 documented as of this encounter
--- OUTSIDE RECORDS SUMMARY | 2024-12-31 13:06 | XMS_ITS | Encounter Summary ---
Author Organization [facility] Address [address] [place] [address] Care Team Providers Care Chicken Cleaner Name Role Phone Severiano Lemus MD Primary Care Provider +1- [phone] Source Comments This information has been disclosed [...] release of HIV test results or diagnoses. [id number] Health Encounter Details Date Type Department Care Team (Late st Contact Info) Description 10/30/2021 Ophth Exam [facility] Ophthalmology at [address] [place] [phone] Barbi Winters MD Social History Tobacco Use [...] documented as of this encounter Care Teams Chicken Cleaner Relationship Specialty Start Date End Date Severiano Lemus MD [address] [place] [address] PCP - General Family Medicine 10/29/21 documented as of this encounter
--- OUTSIDE RECORDS SUMMARY | 2024-12-31 13:06 | XMS_ITS | Clinical Summary ---
Author Organization [facility] Address [facility] [place] [address] Care Team Providers Care Waxer Floor Name Role Phone Severiano Lemus MD Primary Care Provider +1- [phone] Source Comments This information has been disclosed to you from confidential records protectedfrom disclosure by state law. You shall make no further disclosure of thisinformation without the specific, written, and informed release of theindividual to whom it pertains, or as otherwise permitted by law. A generalauthorization for the release of medical or other information is not sufficientfor the purposes of therelease of HIV test results or diagnoses. [id number] Allergies Active Allergy Reactions Criticality Noted Date Comments Amoxicillin 10/29/2021 Codeine 10/29/2021 Erythromycin 10/29/2021 Hydrocodone 10/29/2021 Naproxen 10/29/2021 Oxycodone 10/29/2021 Sulfa (Sulfonamide Antibiotics) 02/2021 Medications cetirizine (ZYRTEC) 10 MG tablet Take 10 mg by mouth daily. Active pantoprazole (PROTONIX) 40 MG tablet Take 40 mg by mouth every morning before breakfast. Active ARIPiprazole (ABILIFY) 10 MG tablet Take 10 mg by mouth daily. Active cholecalciferol , vitamin D3, 350 mcg (14,000 unit) Cap Take 500 capsules by mouth. Active levothyroxine 25 mcg Cap Take 25 mcg by mouth daily. Active metFORMIN (GLUMETZA) 500 MG (MOD) 24 hr tablet Take 500 mg by mouth daily with breakfast. Active venlafaxine (EFFEXOR-XR) 225 mg 24 hr tablet Take 225 mg by mouth daily. Active cyanocobalamin (VITAMIN B-12) 1000 MCG tablet Take 1,000 mcg by mouth daily. 10/07/2021 Active Social History Tobacco Use Types Packs/Day Years [...] file Not on file Not on file Last Filed Vital Signs Vital Sign Reading Time Taken Comments Blood Pressure 109/60 10/31/2021 12:33 PM EDT Pulse 72 10/31/2021 12:33 PM EDT Temperature 36.9 C (98.4 F) 10/31/2021 12:33 PM EDT Respiratory Rate 16 10/31/2021 12:33 PM EDT Oxygen Saturation 96% 10/31/2021 12:33 PM EDT Inhaled Oxygen Concentration 96% 10/31/2021 1 2:33 PM EDT Weight 134.3 kg (296 lb) 10/29/2021 6:51 PM EDT Height 157.5 cm (5' 2 ) 10/29/2021 6:51 PM EDT Body Mass Index 54.14 10/29/2021 6:51 PM EDT Plan of Treatment Not on file [facility] Advance Directives For more information, please contact: [phone] * Full Code (Latest Code Status on File) Date Activated Date Inactivated Comments 10/29/2021 5:52 PM 10/31/2021 6:37 PM Care Teams Waxer Floor Relationship Specialty Start Date End Date Severiano Lemus MD [address] [place] [address] PCP - General Family Medicine 10/29/21
== END 2024-12-31 23:59 | disposition home or self-care (01) ==
LOC: RAD 12:58
PROVIDERS: PCP Physician Assistant; Visit Provider Physician Assistant
DX: R92.8 Other abnormal and inconclusive findings on diagnostic imaging of breast (principal); N60.01 Solitary cyst of right breast
CPT/HCPCS: 76641